=== PATIENT | male | born 1975 | race Caucasian/White ===

== ENCOUNTER 2019-03-03 07:54 | Emergency (ER) | payer OTHER ==
[~2019-03-03] VITALS: Ht 182.9 cm; Wt 117.9 kg
--- OUTSIDE RECORDS SUMMARY | ~2019-03-03 | XMS | Encounter Summary ---
Demographics + + + | Address | [address] | | | [place] [address] | + + + | Home Phone | | + + + | Preferred Language | Unknown | + + + | Marital Status | | + + + | Hoahaoism Affiliation | [id number] | + + + | Race | Unknown | + + + | Ethnic Group | Unknown | + + + Author + + + | Author | [facility] | | | and [place] | + + + | Organization | [facility] | | | and [place] | + + + | Address | Unknown | + + + | Phone | Unavailable | + + + Support + + + + + | Name | Relationship | Address | Phone | + + + + + | Myra Ramirez | BRADY | [address] | | | | | [place] [address] | | + + + + + Care Team Providers + +------+ + | Care Tar Chaser Name | Role | Phone | + +------+ + | No, Physician | PCP | Unavailable | + +------+ + Encounter Details +--------+ + + + + | Date | Type | Department | Care Team | Description | +--------+ + + + + | 02/09/ | Emergency | [facility] | Pierre Brown MD | Midline low back | | 2015 | | MEDICAL CENTER | [address] | pain with sciatica, | | | | EMERGENCY CENTER | [place] [address] | sciatica laterality | | | | [address] | [phone] | unspecified; | | | | [place], [place] | | Paresthesia | | | | [address] | | | | | | [phone] | | | +--------+ + + + + Social History + +-------+ +--------+------+ | Tobacco Use | Types | Packs/Day | Years | Date | | | | | Used | | + +-------+ +--------+------+ | Never Assessed | | | | | + +-------+ +--------+------+ + + + | Sex Assigned at | Date Recorded | | | | + + + | Not on file | | + + + + + + + | Job Start Date | Occupation | Industry | + + + + | Not on file | Not on file | Not on file | + + + + + + + + | Travel History | Travel Start | Travel End | + + + + + + | No recent travel history available. | + + documented as of this encounter Plan of Treatment Not on filedocumented as of this encounter Procedures + +--------+ + + + | Procedure Name | Priori | Date/Time | Associated Diagnosis | Comments | | | ty | | | | + +--------+ + + + | MRI LUMBAR SPINE WO | Routin | 02/09/2015 | | Results for this | | CONTRAST | e | 8:19 PM | | procedure are in the | | | | PST | | results section. | + +--------+ + + + | URINALYSIS, REFLEX | Routin | 02/09/2015 | | Results for this | | MICROSCOPIC AND/OR | e | 8:00 PM | | procedure are in the | | CULTURE | | PST | | results section. | + +--------+ + + + | EXTERNAL LAB: CBC | Routin | 02/09/2015 | | Results for this | | | e | 7:30 PM | | procedure are in the | | | | PST | | results section. | + +--------+ + + + | PTT | Routin | 02/09/2015 | | Results for this | | | e | 7:30 PM | | procedure are in the | | | | PST | | results section. | + +--------+ + + + | PROTIME INR | Routin | 02/09/2015 | | Results for this | | | e | 7:30 PM | | procedure are in the | | | | PST | | results section. | + +--------+ + + + | COMPREHENSIVE | Routin | 02/09/2015 | | Results for this | | METABOLIC PANEL | e | 7:30 PM | | procedure are in the | | | | PST | | results section. | + +--------+ + + + documented in this encounter Results MRI Lumbar Spine wo Contrast (02/09/2015 8:19 PM PST) + + | Specimen | + + | | + + + + + | Impressions | Performed At | + + + | 1. Postsurgical change with right hemilaminectomy at L4-L5. 2. | | | Degenerative disc and endplate changes at L4-L5 and L5-S1 with mild | | | worsening degenerative endplate edema at L4-L5. 3. No significant | | | central canal stenosis. 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 Multiplanar | | | sequences of the lumbar spine was performed according to a standard | | | department protocol without contrast. COMPARISON: 09/05/2014 | | | FINDINGS: The vertebral height and alignment are maintained. | | | There is no focal worrisome marrow signal abnormality. The conus | | | medullaris terminates at the level of L2. L1-L2: Negative. | | | L2-L3: Negative. L3-L4: Negative. L4-L5: Mild disc space | | | narrowing. Mild diffuse disc bulge mild bilateral degenerative facet | | | disease causing mild bilateral neural foraminal narrowing. Note is | | | made of posterior annular tear. Mild degenerative endplate edema on | | | the right side. Mild narrowing right lateral recess. Postsurgical | | | change with right hemilaminectomy. No central canal stenosis. | | | L5-S1: Mild disc space narrowing. Mild central disc protrusion | | | measuring 2.6 mm in thickness along with mild bilateral degenerative | | | facet disease causing mild bilateral neural foraminal narrowing. No | | | central canal stenosis. Moderate posterior annular tears. | | + + + + + | Procedure Note | + + | [facility] Rad Conversion - 10/22/2018 1:21 AM PDT BERNA MONZON LUMBAR SPINE WO | | GXADPYSV13/4/2015 8:19 PM HISTORY:39 years. Male. Rigid vasculopathy TECHNIQUE:Imaging | | was performed on a 1.5 Rubia MRI system. Multiplanar sequences of the lumbar spine was | | performed according to a standard department protocol without contrast. | | COMPARISON:09/05/2014 FINDINGS:The vertebral height and alignment are maintained. There | | is no focal worrisome marrow signal abnormality. The conus medullaris terminates at the | | level of L2. L1-L2: Negative. L2-L3: Negative. L3-L4: Negative. L4-L5: Mild disc space | | narrowing. Mild diffuse disc bulge mild bilateral degenerative facet disease causing | | mild bilateral neural foraminal narrowing. Note is made of posterior annular tear. Mild | | degenerative endplate edema on the right side. Mild narrowing right lateral recess. | | Postsurgical change with right hemilaminectomy. No central canal stenosis. L5-S1: Mild | | disc space narrowing. Mild central disc protrusion measuring 2.6 mm in thickness along | | with mild bilateral degenerative facet disease causing mild bilateral neural foraminal | | narrowing. No central canal stenosis. Moderate posterior annular tears. IMPRESSION: 1. | | Postsurgical change with right hemilaminectomy at L4-L5.2. Degenerative disc and | | endplate changes at L4-L5 and L5-S1 with mild worsening degenerative endplate edema at | | L4-L5.3. No significant central canal stenosis. | |The conus medullaris terminates at the level of L2. | | | |L1-L2: Negative. | | | |L2-L3: Negative. | | | |L3-L4: Negative. | | | |L4-L5: Mild disc space narrowing. Mild diffuse disc bulge mild bilateral degenerative facet disease causing mild bilateral neural foraminal narrowing. Note is made of posterior annula r tear. Mild degenerative endplate edema on the right side. Mild | |narrowing right lateral recess. Postsurgical change with right hemilaminectomy. No central canal stenosis. | | | |L5-S1: Mild disc space narrowing. Mild central disc protrusion measuring 2.6 mm in thicknes s along with mild bilateral degenerative facet disease causing mild bilateral neural foramin al narrowing. No central canal stenosis. Moderate posterior annular | |tears. | | | |IMPRESSION: | |1. Postsurgical change with right hemilaminectomy at L4-L5. | |2. Degenerative disc and endplate changes at L4-L5 and L5-S1 with mild worsening degenerat ángela endplate edema at L4-L5. | |3. No significant central canal stenosis. | | | | | + + Urinalysis, Reflex Microscopic and/or Culture (02/09/2015 8:00 PM PST) + + + + + + | Component | Value | Ref Range | Performed | Pathologist | | | | | At | Signature | + + + + + + | Color | YELLOWComment: Testing | | EXTERNAL | | | | performed at [facility] | | LAB | | | | [address];[place] | | | | | | [address] | | | | + + + + + + | Clarity | CLEARComment: Testing | | EXTERNAL | | | | performed at [facility];[address] | | LAB | | | [address];[place] | | | | | | [address] | | | | + + + + + + | Specific | 1.018Comment: Testing | 1.002 - 1.030 | EXTERNAL | | | [place] | performed at [facility];[address] | | LAB | | | [address];[place] | | | | | | [address] | | | | + + + + + + | Leukocyte | NEGATIVEComment: Testing | | EXTERNAL | | | Esterase, | performed at [facility];[address] | | LAB | | | Urine | [address];[place] | | | | | | [address] | | | | + + + + + + | Nitrite, | NEGATIVEComment: Testing | | EXTERNAL | | | Urine | performed at [facility];[address] | | LAB | | | [address];[place] | | | | | | [address] | | | | + + + + + + | Urobilinoge | NORMALComment: Testing | mg/dL | EXTERNAL | | | n, Urine | performed at [facility];[address] | | LAB | | | [address];[place] | | | | | | [address] | | | | + + + + + + | Protein, | NEGATIVEComment: Testing | mg/dL | EXTERNAL | | | Urine | performed at [facility];[address] | | LAB | | | [address];[place] | | | | | | [address] | | | | + + + + + + | pH, Urine | 5.0Comment: Testing | 5.0 - 8.0 | EXTERNAL | | | | performed at [facility];[address] | | LAB | | | [address];[place] | | | | | | [address] | | | | + + + + + + | Blood, | NEGATIVEComment: Testing | | EXTERNAL | | | Urine | performed at [facility];[address] | | LAB | | | [address];[place] | | | | | | [address] | | | | + + + + + + | Ketones | NEGATIVEComment: Testing | mg/dL | EXTERNAL | | | | performed at [facility];[address] | | LAB | | | [address];[place] | | | | | | [address] | | | | + + + + + + | Bilirubin, | NEGATIVEComment: Testing | | EXTERNAL | | | Urine | performed at [facility];[address] | | LAB | | | [address];[place] | | | | | | [address] | | | | + + + + + + | Glucose, | NEGATIVEComment: Testing | mg/dL | EXTERNAL | | | Urine | performed at [facility];[address] | | LAB | | | | [address];[place], [place] | | | | | | [address] | | | | + + + + + + + + | Specimen | + + | | + + + +---------+ + + | Performing | Address | City/State/Zipcode | Phone Number | | Organization | | | | + +---------+ + + | EXTERNAL LAB | | | | + +---------+ + + PTT (02/09/2015 7:30 PM PST) + + + + + + | Component | Value | Ref Range | Performed | Pathologist | | | | | At | Signature | + + + + + + | aPTT, | 29Comment: Testing | 23 - 32 seconds | EXTERNAL | | | Patient | performed at [facility];[address] | | LAB | | | | [address];[place] | | | | | | [address] | | | | + + + + + + + + | Specimen | + + | Blood specimen | | (specimen) | + + + +---------+ + + | Performing | Address | City/State/Zipcode | Phone Number | | Organization | | | | + +---------+ + + | EXTERNAL LAB | | | | + +---------+ + + Protime INR (02/09/2015 7:30 PM PST) + + + + + + | Component | Value | Ref Range | Performed | Pathologist | | | | | At | Signature | + + + + + + | INR | 0.9Comment: REFERENCE | | EXTERNAL | | | | RANGE:0.9 - 1.2 | | LAB | | | | NON-ANTICOAGULATED2.0 | | | | | | - 3.0 ALL OTHER | | | | | | THERAPEUTIC | | | | | | INDICATIONS2.5 - 3.5 | | | | | | MECHANICAL HEART VALVES, | | | | | | RECURRENT OR SYSTEMIC | | | | | | EMBOLISMTesting | | | | | | performed at [facility] | | | | | | [facility];[place], [place] | | | | | | [address] | | | | + + + + + + + + | Specimen | + + | Blood specimen | | (specimen) | + + + +---------+ + + | Performing | Address | City/State/Zipcode | Phone Number | | Organization | | | | + +---------+ + + | EXTERNAL LAB | | | | + +---------+ + + External Lab: CBC (02/09/2015 7:30 PM PST) + + + + + + | Component | Value | Ref Range | Performed | Pathologist | | | | | At | Signature | + + + + + + | WBC | 9.89Comment: Testing | 3.80 - 11.00 | EXTERNAL | | | | performed at [facility];[address] | K/uL | LAB | | | | [address];[place] | | | | | | [address] | | | | + + + + + + | RED CELL | 4.86Comment: Testing | 4.20 - 5.70 | EXTERNAL | | | COUNT | performed at [facility];[address] | M/uL | LAB | | | | [address];[place] | | | | | | [address] | | | | + + + + + + | Hgb | 13.5Comment: Testing | 13.2 - 17.0 | EXTERNAL | | | | performed at [facility];[address] | g/dL | LAB | | | | [address];[place] | | | | | | [address] | | | | + + + + + + | Hematocrit, | 42.2Comment: Testing | 39.0 - 50.0 % | EXTERNAL | | | POC | performed at [facility];[address] | | LAB | | | [address];[place] | | | | | | [address] | | | | + + + + + + | MCV | 86.8Comment: Testing | 80.0 - 100.0 fl | EXTERNAL | | | | performed at [facility];[address] | | LAB | | | | [address];[place] | | | | | | [address] | | | | + + + + + + | MCH | 27.8Comment: Testing | 27.0 - 34.0 pg | EXTERNAL | | | | performed at [facility];[address] | | LAB | | | [address];[place] | | | | | | [address] | | | | + + + + + + | MCHC | 32.1Comment: Testing | 32.0 - 35.5 | EXTERNAL | | | | performed at [facility];[address] | g/dL | LAB | | | | [address];[place] | | | | | | [address] | | | | + + + + + + | RDW-CV | 41.1Comment: Testing | 37 - 53 fl | EXTERNAL | | | | performed at [facility];[address] | | LAB | | | [address];[place] | | | | | | [address] | | | | + + + + + + | Platelet | 288Comment: Testing | 150 - 400 K/uL | EXTERNAL | | | Count | performed at [facility];[address] | | LAB | | | Plasma | [address];[place] | | | | | | [address] | | | | + + + + + + | MPV | 7.1Comment: Testing | fl | EXTERNAL | | | | performed at [facility];[address] | | LAB | | | [address];[place] | | | | | | [address] | | | | + + + + + + | Differentia | AUTOMATEDComment: | | EXTERNAL | | | l Type | Testing performed at | | LAB | | | | [facility];[address];[place] [address] | | | | + + + + + + | % Segmented | 63.24Comment: Testing | % | EXTERNAL | | | | performed at [facility];[address] | | LAB | | | Neutrophils | [address];[place] | | | | | | [address] | | | | + + + + + + | % | 24.93Comment: Testing | % | EXTERNAL | | | Lymphocytes | performed at [facility];[address] | | LAB | | | [address];[place] | | | | | | [address] | | | | + + + + + + | % Monocytes | 7.14Comment: Testing | % | EXTERNAL | | | | performed at [facility];[address] | | LAB | | | [address];[place] | | | | | | [address] | | | | + + + + + + | % | 3.79Comment: Testing | % | EXTERNAL | | | Eosinophils | performed at [facility];[address] | | LAB | | | [address];[place] | | | | | | [address] | | | | + + + + + + | % Basophils | 0.90Comment: Testing | % | EXTERNAL | | | | performed at [facility];[address] | | LAB | | | [address];[place] | | | | | | [address] | | | | + + + + + + | Absolute | 6.25Comment: Testing | 1.90 - 7.40 | EXTERNAL | | | Segmented | performed at [facility];[address] | K/uL | LAB | | | Neutrophils | [address];[place] | | | | | | [address] | | | | + + + + + + | Absolute | 2.47Comment: Testing | 1.00 - 3.90 | EXTERNAL | | | Lymphocytes | performed at [facility];[address] | K/uL | LAB | | | | [address];[place] | | | | | | [address] | | | | + + + + + + | Absolute | 0.71Comment: Testing | 0.00 - 0.80 | EXTERNAL | | | Monocytes | performed at [facility];[address] | K/uL | LAB | | | | [address];[place] | | | | | | [address] | | | | + + + + + + | Absolute | 0.38Comment: Testing | 0.00 - 0.50 | EXTERNAL | | | Eosinophils | performed at [facility];[address] | K/uL | LAB | | | | [address];[place] | | | | | | [address] | | | | + + + + + + | Absolute | 0.09Comment: Testing | 0.00 - 0.10 | EXTERNAL | | | Basophils | performed at [facility];[address] | K/uL | LAB | | | | [address];[place] | | | | | | [address] | | | | + + + + + + + + | Specimen | + + | Blood specimen | | (specimen) | + + + +---------+ + + | Performing | Address | City/State/Zipcode | Phone Number | | Organization | | | | + +---------+ + + | EXTERNAL LAB | | | | + +---------+ + + Comprehensive Metabolic Panel (02/09/2015 7:30 PM PST) + + + + + + | Component | Value | Ref Range | Performed | Pathologist | | | | | At | Signature | + + + + + + | Na | 140Comment: Testing | 135 - 143 | EXTERNAL | | | | performed at [facility];[address] | mmol/L | LAB | | | | [address];[place] | | | | | | [address] | | | | + + + + + + | K | 3.9Comment: Testing | 3.5 - 4.9 | EXTERNAL | | | | performed at [facility];[address] | mmol/L | LAB | | | | [address];[place] | | | | | | [address] | | | | + + + + + + | Cl | 107Comment: Testing | 99 - 109 mmol/L | EXTERNAL | | | | performed at [facility];[address] | | LAB | | | | [address];[place] | | | | | | [address] | | | | + + + + + + | CO2 | 29Comment: Testing | 23 - 32 mmol/L | EXTERNAL | | | | performed at [facility];[address] | | LAB | | | | [address];[place] | | | | | | [address] | | | | + + + + + + | Anion Gap | 7Comment: Testing | 5 - 20 mmol/L | EXTERNAL | | | | performed at [facility];[address] | | LAB | | | [address];[place] | | | | | | [address] | | | | + + + + + + | Glucose, | 108 (H)Comment: Testing | 65 - 99 mg/dL | EXTERNAL | | | Fasting | performed at [facility];[address] | | LAB | | | [address];[place] | | | | | | [address] | | | | + + + + + + | BUN | 10Comment: Testing | 8 - 25 mg/dL | EXTERNAL | | | | performed at [facility];[address] | | LAB | | | [address];[place] | | | | | | [address] | | | | + + + + + + | Creatinine | 0.79Comment: Testing | 0.70 - 1.30 | EXTERNAL | | | | performed at [facility];[address] | mg/dL | LAB | | | | [address];[place] | | | | | | [address] | | | | + + + + + + | BUN/Creatin | 13Comment: Testing | | EXTERNAL | | | ine Ratio | performed at [facility];[address] | | LAB | | | [address];[place] | | | | | | [address] | | | | + + + + + + | Calcium | 8.1 (L)Comment: Testing | 8.5 - 10.5 | EXTERNAL | | | | performed at [facility];[address] | mg/dL | LAB | | | | [address];[place] | | | | | | [address] | | | | + + + + + + | Protein, | 6.9Comment: Testing | 6.3 - 8.2 g/dL | EXTERNAL | | | Total | performed at [facility];[address] | | LAB | | | | [address];[place] | | | | | | [address] | | | | + + + + + + | Albumin | 3.6Comment: Testing | 3.6 - 5.0 g/dL | EXTERNAL | | | | performed at [facility];[address] | | LAB | | | | [address];[place] | | | | | | [address] | | | | + + + + + + | Globulin | 3.3Comment: Testing | 1.3 - 4.9 g/dL | EXTERNAL | | | | performed at [facility];[address] | | LAB | | | | [address];[place] | | | | | | [address] | | | | + + + + + + | A/G Ratio | 1.1Comment: Testing | 1.0 - 2.4 | EXTERNAL | | | | performed at [facility];[address] | | LAB | | | | [address];[place] | | | | | | [address] | | | | + + + + + + | Bilirubin | 0.2Comment: Testing | 0.1 - 1.5 mg/dL | EXTERNAL | | | Total | performed at [facility];[address] | | LAB | | | | [address];[place] | | | | | | [address] | | | | + + + + + + | ALP, | 99Comment: Testing | 35 - 115 U/L | EXTERNAL | | | External | performed at [facility];[address] | | LAB | | | [address] | | | | | | [address] | | | | + + + + + + | AST | 15Comment: Testing | 10 - 45 U/L | EXTERNAL | | | | performed at [facility];[address] | | LAB | | | | [address] | | | | | | [address] | | | | + + + + + + | ALT | 46Comment: Testing | 10 - 65 U/L | EXTERNAL | | | | performed at [facility];[address] | | LAB | | | | [address] [facility];[place], [place] | | | | | | [address] | | | | + + + + + + | Estimated | >60Comment: GFR <60: | mL/min/1.73m2 | EXTERNAL | | | GFR | CHRONIC KIDNEY DISEASE, | | LAB | | | | IF FOUND OVER A 3 MONTH | | | | | | PERIOD.GFR <15: KIDNEY | | | | | | FAILURE.FOR | | | | | | AMERICANS, MULTIPLY THE | | | | | | CALCULATED GFR BY | | | | | | 1.210.Testing performed | | | | | | at [facility];[address];[place] [address] | | | | + + + + + + + + | Specimen | + + | Blood specimen | | (specimen) | + + + +---------+ + + | Performing | Address | City/State/Zipcode | Phone Number | | Organization | | | | + +---------+ + + | EXTERNAL LAB | | | | + +---------+ + + documented in this encounter Visit Diagnoses + + | Diagnosis | + + | Midline low back pain with sciatica, sciatica laterality unspecified | + + | Paresthesia Disturbance of skin sensation | + + documented in this encounter"
--- OUTSIDE RECORDS SUMMARY | ~2019-03-03 | XMS | Encounter Summary ---
Demographics + + + | Address | [address] | | | [place] [address] | + + + | Home Phone | | + + + | Preferred Language | Unknown | + + + | Marital Status | | + + + | [employer] Affiliation | 1041 | + + + [...] | | | | | [place] [address] | | + + + + + Care Team Providers + +------+ + | Care Glost Placer Name | Role | Phone | + +------+ + | No, Physician | PCP | Unavailable | + +------+ + Encounter Details +--------+ + + + + | Date | Type | Department | Care Team | Description | +--------+ + + + + | 02/09/ | Emergency | [facility] | Pierre Brown MD | Midline low back | | 2015 | | MEDICAL CENTER | [address] | pain with sciatica, | | | | EMERGENCY CENTER | [place] [address] | sciatica laterality | | | | [address] | [phone] | unspecified; | | | | [place], [place] | | Paresthesia | | | | [address] | | | | | | [phone] | | | +--------+ + + + [...] BERNA MONZON LUMBAR SPINE WO | | TLOCYCDX12/4/2015 8:19 PM HISTORY:39 years. Male. Rigid vasculopathy [...] EXTERNAL | | | | performed at [facility] | | LAB | | | | [address];[place] | | | | | | [address] | | | | + + + + + + | Clarity | CLEARComment: Testing | | EXTERNAL | | | | performed at [facility];[address] | | LAB | | | [address];[place] | | | | | | [address] | | | | + + + + + + | Specific | 1.018Comment: Testing | 1.002 - 1.030 | EXTERNAL | | | [place] | performed at [facility];[address] | | LAB | | | [address];[place] | | | | | | [address] | | | | + + + + + + | Leukocyte | NEGATIVEComment: Testing | | EXTERNAL | | | Esterase, | performed at [facility];[address] | | LAB | | | Urine | [address];[place] | | | | | | [address] | | | | + + + + + + | Nitrite, | NEGATIVEComment: Testing | | EXTERNAL | | | Urine | performed at [facility];[address] | | LAB | | | [address];[place] | | | | | | [address] | | | | + + + + + + | Urobilinoge | NORMALComment: Testing | mg/dL | EXTERNAL | | | n, Urine | performed at [facility];[address] | | LAB | | | [address];[place] | | | | | | [address] | | | | + + + + + + | Protein, | NEGATIVEComment: Testing | mg/dL | EXTERNAL | | | Urine | performed at [facility];[address] | | LAB | | | [address];[place] | | | | | | [address] | | | | + + + + + + | pH, Urine | 5.0Comment: Testing | 5.0 - 8.0 | EXTERNAL | | | | performed at [facility];[address] | | LAB | | | [address];[place] | | | | | | [address] | | | | + + + + + + | Blood, | NEGATIVEComment: Testing | | EXTERNAL | | | Urine | performed at [facility];[address] | | LAB | | | [address];[place] | | | | | | [address] | | | | + + + + + + | Ketones | NEGATIVEComment: Testing | mg/dL | EXTERNAL | | | | performed at [facility];[address] | | LAB | | | [address];[place] | | | | | | [address] | | | | + + + + + + | Bilirubin, | NEGATIVEComment: Testing | | EXTERNAL | | | Urine | performed at [facility];[address] | | LAB | | | [address];[place] | | | | | | [address] | | | | + + + + + + | Glucose, | NEGATIVEComment: Testing | mg/dL | EXTERNAL | | | Urine | performed at [facility];[address] | | LAB | | | | [address];[place], [place] | | | | | | [address] | | | | + + + [...] | | | Patient | performed at [facility];[address] | | LAB | | | | [address];[place] | | | | | | [address] | | | | + + + [...] | | | | | performed at [facility] | | | | | | [facility];[place], [place] | | | | | | [address] | | | | + + + [...] EXTERNAL | | | | performed at [facility];[address] | K/uL | LAB | | | | [address];[place] | | | | | | [address] | | | | + + + + + + | RED CELL | 4.86Comment: Testing | 4.20 - 5.70 | EXTERNAL | | | COUNT | performed at [facility];[address] | M/uL | LAB | | | | [address];[place] | | | | | | [address] | | | | + + + + + + | Hgb | 13.5Comment: Testing | 13.2 - 17.0 | EXTERNAL | | | | performed at [facility];888 | g/dL | LAB | | | | [address];[place] | | | | | | [address] | | | | + + + + + + | Hematocrit, | 42.2Comment: Testing | 39.0 - 50.0 % | EXTERNAL | | | POC | performed at [facility];[address] | | LAB | | | [address];[place] | | | | | | [address] | | | | + + + + + + | MCV | 86.8Comment: Testing | 80.0 - 100.0 fl | EXTERNAL | | | | performed at [facility];[address] | | LAB | | | | [address];[place] | | | | | | [address] | | | | + + + + + + | MCH | 27.8Comment: Testing | 27.0 - 34.0 pg | EXTERNAL | | | | performed at [facility];[address] | | LAB | | | [address];[place] | | | | | | [address] | | | | + + + + + + | MCHC | 32.1Comment: Testing | 32.0 - 35.5 | EXTERNAL | | | | performed at [facility];888 | g/dL | LAB | | | | [address];[place] | | | | | | [address] | | | | + + + + + + | RDW-CV | 41.1Comment: Testing | 37 - 53 fl | EXTERNAL | | | | performed at [facility];[address] | | LAB | | | [address];[place] | | | | | | [address] | | | | + + + + + + | Platelet | 288Comment: Testing | 150 - 400 K/uL | EXTERNAL | | | Count | performed at [facility];[address] | | LAB | | | Plasma | [address];[place] | | | | | | [address] | | | | + + + + + + | MPV | 7.1Comment: Testing | fl | EXTERNAL | | | | performed at [facility];[address] | | LAB | | | | [address];[place] | | | | | | [address] | | | | + + + + + + | Differentia | AUTOMATEDComment: | | EXTERNAL | | | l Type | Testing performed at | | LAB | | | | [facility];[address];[place] [address] | | | | + + + + + + | % Segmented | 63.24Comment: Testing | % | EXTERNAL | | | | performed at [facility];[address] | | LAB | | | Neutrophils | [address];[place] | | | | | | [address] | | | | + + + + + + | % | 24.93Comment: Testing | % | EXTERNAL | | | Lymphocytes | performed at [facility];[address] | | LAB | | | | [address];[place] | | | | | | [address] | | | | + + + + + + | % Monocytes | 7.14Comment: Testing | % | EXTERNAL | | | | performed at [facility];[address] | | LAB | | | | [address];[place] | | | | | | [address] | | | | + + + + + + | % | 3.79Comment: Testing | % | EXTERNAL | | | Eosinophils | performed at [facility];[address] | | LAB | | | [address];[place] | | | | | | [address] | | | | + + + + + + | % Basophils | 0.90Comment: Testing | % | EXTERNAL | | | | performed at [facility];[address] | | LAB | | | | [address];[place] | | | | | | [address] | | | | + + + + + + | Absolute | 6.25Comment: Testing | 1.90 - 7.40 | EXTERNAL | | | Segmented | performed at [facility];[address] | K/uL | LAB | | | Neutrophils | [address];[place] | | | | | | [address] | | | | + + + + + + | Absolute | 2.47Comment: Testing | 1.00 - 3.90 | EXTERNAL | | | Lymphocytes | performed at [facility];[address] | K/uL | LAB | | | | [address];[place] | | | | | | [address] | | | | + + + + + + | Absolute | 0.71Comment: Testing | 0.00 - 0.80 | EXTERNAL | | | Monocytes | performed at [facility];[address] | K/uL | LAB | | | | [address];[place] | | | | | | [address] | | | | + + + + + + | Absolute | 0.38Comment: Testing | 0.00 - 0.50 | EXTERNAL | | | Eosinophils | performed at [facility];[address] | K/uL | LAB | | | | [address];[place] | | | | | | [address] | | | | + + + + + + | Absolute | 0.09Comment: Testing | 0.00 - 0.10 | EXTERNAL | | | Basophils | performed at [facility];[address] | K/uL | LAB | | | | [address];[place] | | | | | | [address] | | | | + + + [...] EXTERNAL | | | | performed at [facility];[address] | mmol/L | LAB | | | | [address];[place] | | | | | | [address] | | | | + + + + + + | K | 3.9Comment: Testing | 3.5 - 4.9 | EXTERNAL | | | | performed at [facility];[address] | mmol/L | LAB | | | | [address];[place] | | | | | | [address] | | | | + + + + + + | Cl | 107Comment: Testing | 99 - 109 mmol/L | EXTERNAL | | | | performed at [facility];[address] | | LAB | | | | [address];[place] | | | | | | [address] | | | | + + + + + + | CO2 | 29Comment: Testing | 23 - 32 mmol/L | EXTERNAL | | | | performed at [facility];[address] | | LAB | | | | [address];[place] | | | | | | [address] | | | | + + + + + + | Anion Gap | 7Comment: Testing | 5 - 20 mmol/L | EXTERNAL | | | | performed at [facility];[address] | | LAB | | | | [address];[place] | | | | | | [address] | | | | + + + + + + | Glucose, | 108 (H)Comment: Testing | 65 - 99 mg/dL | EXTERNAL | | | Fasting | performed at [facility];[address] | | LAB | | | | [address];[place] | | | | | | [address] | | | | + + + + + + | BUN | 10Comment: Testing | 8 - 25 mg/dL | EXTERNAL | | | | performed at [facility];[address] | | LAB | | | | [address];[place] | | | | | | [address] | | | | + + + + + + | Creatinine | 0.79Comment: Testing | 0.70 - 1.30 | EXTERNAL | | | | performed at [facility];[address] | mg/dL | LAB | | | | [address];[place] | | | | | | [address] | | | | + + + + + + | BUN/Creatin | 13Comment: Testing | | EXTERNAL | | | ine Ratio | performed at [facility];[address] | | LAB | | | | [address];[place] | | | | | | [address] | | | | + + + + + + | Calcium | 8.1 (L)Comment: Testing | 8.5 - 10.5 | EXTERNAL | | | | performed at [facility];[address] | mg/dL | LAB | | | | [address];[place] | | | | | | [address] | | | | + + + + + + | Protein, | 6.9Comment: Testing | 6.3 - 8.2 g/dL | EXTERNAL | | | Total | performed at [facility];[address] | | LAB | | | | [address];[place] | | | | | | [address] | | | | + + + + + + | Albumin | 3.6Comment: Testing | 3.6 - 5.0 g/dL | EXTERNAL | | | | performed at [facility];[address] | | LAB | | | | [address];[place] | | | | | | [address] | | | | + + + + + + | Globulin | 3.3Comment: Testing | 1.3 - 4.9 g/dL | EXTERNAL | | | | performed at [facility];[address] | | LAB | | | | [address];[place] | | | | | | [address] | | | | + + + + + + | A/G Ratio | 1.1Comment: Testing | 1.0 - 2.4 | EXTERNAL | | | | performed at [facility];[address] | | LAB | | | | [address];[place] | | | | | | [address] | | | | + + + + + + | Bilirubin | 0.2Comment: Testing | 0.1 - 1.5 mg/dL | EXTERNAL | | | Total | performed at [facility];[address] | | LAB | | | | [address];[place] | | | | | | [address] | | | | + + + + + + | ALP, | 99Comment: Testing | 35 - 115 U/L | EXTERNAL | | | External | performed at [facility];[address] | | LAB | | | | [address];[place] | | | | | | [address] | | | | + + + + + + | AST | 15Comment: Testing | 10 - 45 U/L | EXTERNAL | | | | performed at [facility];[address] | | LAB | | | | [address];[place] | | | | | | [address] | | | | + + + + + + | ALT | 46Comment: Testing | 10 - 65 U/L | EXTERNAL | | | | performed at [facility];[address] | | LAB | | | | [address] [facility];[place], [place] | | | | | | [address] | | | | + + + [...] | | | | | | at [facility];[address];[place] [address] | | | | + + + [...]
--- OUTSIDE RECORDS SUMMARY | ~2019-03-03 | XMS | Encounter Summary ---
Demographics + + + | Address | [address] | | | [place] [address] | + + + | Home Phone | | + + + | Preferred Language | Unknown | + + + | Marital Status | | + + + | Synagogue Affiliation | 1041 | + + + | Race | Unknown | + + + | Ethnic Group | Unknown | + + + Author + + + | Author | [facility] | | | and [place] | + + + | Organization | [facility] | | | and [...] | | | | | [place] [address] | | + + + + + Care Team Providers + +------+ + | Care Ammunition Assembly Laborer Name | Role | Phone | + +------+ + PCP | Unavailable | + +------+ + Encounter Details +--------+ + + + + | Date | Type | Department | Care Team | Description | +--------+ + + + + | 11/22/ | Emergency | [facility] | Portillo Hoyt, | Acute pharyngitis | | 2000 | | MEDICAL CENTER | [address] | | | | | EM[facility]Y [facility] | [facility], | | | | | [address] [facility] | [place] [address] | | | | | [place] | [phone] | | | | | [address] | | | | | | [phone] | | | +--------+ + + + [...] Not on filedocumented as of this encounter Visit Diagnoses + + | Diagnosis | + + | Acute pharyngitis | + + documented in this encounter"
--- OUTSIDE RECORDS SUMMARY | ~2019-03-03 | XMS | Encounter Summary ---
Demographics + + + | Address | [address] [address] | | | [place] [address] | + + + | Home Phone | | + + + | Preferred Language | Unknown | + + + | Marital Status | Single | + + + | Yazidism Affiliation | NRP | + + + | Race | White | + + + | Ethnic Group | Not or | + + + Author + + + | Author | [facility] | + + + | Organization | [facility] | + + + | Address | Unknown | + + + | Phone | Unavailable | + + + Support + + +---------+ + | Name | Relationship | Address | Phone | + + +---------+ + | Myra Ramirez | ECON | Unknown | | + + +---------+ + Care Team Providers + +------+ + | Care Insurance Verifier Name | Role | Phone | + +------+ + | Jovanny Che PA-C | PCP | | + +------+ + Reason for Visit + + + | Reason | Comments | + + + | Numbness | Spine Issue | + + + AUTH/CERT +--------+--------+ + + + + | Status | Reason | Specialty | Diagnoses / | Referred By | Referred To | | | | | Procedures | Contact | Contact | +--------+--------+ + + + + | Closed | | | | | | +--------+--------+ + + + + Encounter Details +--------+ + + + + | Date | Type | Department | Care Team | Description | +--------+ + + + + | 01/10/ | Emergency | [facility] Emergency | Ced Barragan, | | | 2014 - | | Department [address] | [address] | | | | | [facility] | [facility] | | | 01/11/ | | [facility] | [place], [place] | | | 2014 | | [place], [place] | [address] | | | | | [address] | [phone] | | | | | [phone] | | | | | | | Malvin Strong | | | | | | MD Maureen [address] | | | | | | [facility] | | | | | | [place], [place] | | | | | | [address] | | | | | | [phone] | | | | | | | | +--------+ + + + + Social History + +-------+ +--------+------+ | Tobacco Use | Types | Packs/Day | Years | Date | | | | | Used | | + +-------+ +--------+------+ | Never Smoker | | | | | + +-------+ +--------+------+ + + +---------+ + | Alcohol Use | Drinks/Week | oz/Week | Comments | + + +---------+ + | No | | | | + + +---------+ + + + + | Sex Assigned at [...] + + documented as of this encounter Last Filed Vital Signs + + + + + | Vital Sign | Reading | Time Taken | Comments | + + + + + | Blood Pressure | 117/76 | 01/11/2015 9:53 AM | | | | | PST | | + + + + + | Pulse | 93 | 01/11/2015 1:26 AM | | | | | PST | | + + + + + | Temperature | 36.5 C (97.7 F) | 01/11/2015 9:53 AM | | | | | PST | | + + + + + | Respiratory Rate | 18 | 01/11/2015 1:26 AM | | | | | PST | | + + + + + | Oxygen Saturation | 96% | 01/11/2015 9:53 AM | | | | | PST | | + + + + + | Inhaled Oxygen | - | - | | | Concentration | | | | + + + + + | Weight | 140.2 kg (309 lb) | 01/10/2015 11:38 PM | | | | | PST | | + + + + + | Height | - | - | | + + + + + | Body Mass Index | - | - | | + + + + + documented in this encounter Discharge Instructions Instructions Valeri Singh MD - 01/11/2015Formatting of this note might be different f rom the original. Thank you for coming today. Your imaging was reassuring. The orthopedic team does not feel that you need an emergent surgery. They do want you to follow up closely with them in clini c within the week. You should come back for any new or worsening symptoms. Back Pain: Care Instructions Your Care Instructions Back pain has many possible causes. It is often related to problems with muscles and ligame nts of the back. It may also be related to problems with the nerves, discs, or bones of the back. Moving, lifting, standing, sitting, or sleeping in an awkward way can strain the back. Sometimes you don't notice the injury until later. Arthritis is another common cause of sg k pain. Although it may hurt a lot, back pain usually improves on its own within several weeks. Mos t people recover in 12 weeks or less. Using good home treatment and being careful not to str ess your back can help you feel better sooner. Follow-up care is a cardenas part of your treatment and safety. Be sure to make and go to all ap pointments, and call your doctor if you are having problems. It s also a good idea to know your test results and keep a list of the medicines you take. How can you care for yourself at home? Sit or lie in positions that are most comfortable and reduce your pain. Try one of these positions when you lie down: Lie on your back with your knees bent and supported by large pillows. Lie on the floor with your legs on the seat of a sofa or chair. Lie on your side with your knees and hips bent and a pillow between your legs. Lie on your stomach if it does not make pain worse. Do not sit up in bed, and avoid soft couches and twisted positions. Bed rest can help re lieve pain at first, but it delays healing. Avoid bed rest after the first day of back pain. Change positions every 30 minutes. If you must sit for long periods of time, take breaks from sitting. Get up and walk around, or lie in a comfortable position. Try using a heating pad on a low or medium setting for 15 to 20 minutes every 2 or 3 shruthi rs. Try a warm shower in place of one session with the heating pad. You can also try an ice pack for 10 to 15 minutes every 2 to 3 hours. Put a thin cloth b etween the ice pack and your skin. Take pain medicines exactly as directed. If the doctor gave you a prescription medicine for pain, take it as prescribed. If you are not taking a prescription pain medicine, ask your doctor if you can take an o sjx-fhj-wghzwue medicine. Take short walks several times a day. You can start with 5 to 10 minutes, 3 or 4 times a day, and work up to longer walks. Walk on level surfaces and avoid hills and stairs until y our back is better. Return to work and other activities as soon as you can. Continued rest without activity is usually not good for your back. To prevent future back pain, do exercises to stretch and strengthen your back and stomac h. Learn how to use good posture, safe lifting techniques, and proper body mechanics. When should you call for help? Call your doctor now or seek immediate medical care if: You have new or worsening numbness in your legs. You have new or worsening weakness in your legs. (This could make it hard to stand up.) You lose control of your bladder or bowels. Watch closely for changes in your health, and be sure to contact your doctor if: Your pain gets worse. You are not getting better after 2 weeks. Where can you learn more? To learn more about "Back Pain: Care Instructions", log into your [employer] account at [email or web address]. You can enter I594 in the [employer]" search box. Not on [employer]? Review the [employer] section of your After Visit Summary for directions on ho w to sign up. [id number] [employer]. Care instructions adapted under license by [facility]. This care instruction is for use with your licensed healthcar e professional. If you have questions about a medical condition or this instruction, always ask your healthcare professional. [employer] disclaims any warranty or liabili ty for your use of this information. Content Version: 10.6.845130; Current as of: July 28, 2014 documented in this encounter Medications at Time of Discharge + + + +---------+--------+ + | Medication | Sig | Dispensed | Refills | Start | End Date | | | | | | Date | | + + + +---------+--------+ + | clonazePAM 2 mg | Take 4 mg by mouth | | 0 | | | | oral tablet | once daily at | | | | | | | bedtime as needed. | | | | | + + + +---------+--------+ + | gabapentin 800 mg | Take 800 mg by mouth | | 0 | | | | oral tablet | two times daily. | | | | | + + + +---------+--------+ + | hydrALAZINE 25 mg | Take 25 mg by mouth | | 0 | | | | oral tablet | two times daily. | | | | | + + + +---------+--------+ + | HYDROmorphone 2 mg | Take 2 mg by mouth | | 0 | | | | oral tablet | every four hours as | | | | | | | needed for severe | | | | | | | pain. | | | | | + + + +---------+--------+ + | LOSARTAN POTASSIUM | Take by mouth. | | 0 | | | | (LOSARTAN ORAL) | | | | | | + + + +---------+--------+ + | mirtazapine 30 mg | Take 60 mg by mouth | | 0 | | | | oral tablet | once daily in the | | | | | | | evening. | | | | | + + + +---------+--------+ + documented as of this encounter Plan of Treatment Not on filedocumented as of this encounter Procedures + +--------+ + + + | Procedure Name | Priori | Date/Time | Associated Diagnosis | Comments | | | ty | | | | + +--------+ + + + | X-RAY SPINE | Urgent | 01/11/2015 | | Results for this | | LUMBOSACRAL 3 VIEWS | | 4:48 AM | | procedure are in the | | | | PST | | results section. | + +--------+ + + + | X-RAY CHEST 2 VIEW | Urgent | 01/11/2015 | | Results for this | | | | 4:48 AM | | procedure are in the | | | | PST | | results section. | + +--------+ + + + | CULTURE, BLOOD BACTI | Urgent | 01/11/2015 | | Results for this | | & YEAST [facility] | | 3:22 AM | | procedure are in the | | | | PST | | results section. | + +--------+ + + + | CULTURE, BLOOD BACTI | Urgent | 01/11/2015 | | Results for this | | & YEAST [facility] | | 3:22 AM | | procedure are in the | | | | PST | | results section. | + +--------+ + + + | UA, DIPSTICK ONLY | Urgent | 01/11/2015 | | Results for this | | | | 3:22 AM | | procedure are in the | | | | PST | | results section. | + +--------+ + + + | URINE, MICROSCOPIC | Urgent | 01/11/2015 | | Results for this | | EXAM | | 3:22 AM | | procedure are in the | | | | PST | | results section. | + +--------+ + + + | URINE SCREEN FOR | Urgent | 01/11/2015 | | Results for this | | CULTURE | | 3:22 AM | | procedure are in the | | | | PST | | results section. | + +--------+ + + + | CULTURE, BLOOD BACTI | Urgent | 01/11/2015 | | Results for this | | & YEAST | | 3:22 AM | | procedure are in the | | | | PST | | results section. | + +--------+ + + + | CULTURE, BLOOD BACTI | Urgent | 01/11/2015 | | Results for this | | & YEAST | | 3:22 AM | | procedure are in the | | | | PST | | results section. | + +--------+ + + + | CBC AND AUTO DIFF | Urgent | 01/11/2015 | | Results for this | | | | 1:58 AM | | procedure are in the | | | | PST | | results section. | + +--------+ + + + | CBC, WITH | Urgent | 01/11/2015 | | Results for this | | DIFFERENTIAL | | 1:58 AM | | procedure are in the | | | | PST | | results section. | + +--------+ + + + | COMPLETE METABOLIC | Urgent | 01/11/2015 | | Results for this | | SET | | 1:58 AM | | procedure are in the | | (NA,K,CL,CO2,BUN,CRE | | PST | | results section. | | AT,GLUC,CA,AST,ALT,B | | | | | | LATASHA TOTAL,ALK | | | | | | PHOS,ALB,PROT TOTAL) | | | | | + +--------+ + + + | C-REACTIVE PROTEIN | Urgent | 01/11/2015 | | Results for this | | | | 1:58 AM | | procedure are in the | | | | PST | | results section. | + +--------+ + + + | SEDIMENTATION RATE | Urgent | 01/11/2015 | | Results for this | | | | 1:58 AM | | procedure are in the | | | | PST | | results section. | + +--------+ + + + | ED INFORMATION | Routin | 01/11/2015 | | Results for this | | EXCHANGE | e | 12:16 AM | | procedure are in the | | | | PST | | results section. | + +--------+ + + + documented in this encounter Results X-RAY SPINE LUMBOSACRAL 3 VIEWS (01/11/2015 4:48 AM PST) + + + + + + | Component | Value | Ref Range | Performed | Pathologist | | | | | At | Signature | + + + + + + | SPINE | STUDY: SPINE LUMBOSACRAL | | | | | LUMBOSACRAL | 3 VIEWS 01/11/15 | | | | | 3 VIEWS | 04:48:00 HISTORY: | | | | | | Weakness, leukocytosis. | | | | | | COMPARISON: None. | | | | | | FINDINGS:There is no | | | | | | fracture, malalignment, | | | | | | osseous destruction, or | | | | | | soft tissueabnormality. | | | | | | Mild to moderate L4-5 | | | | | | and mild L5-S1 disk | | | | | | space narrowing | | | | | | isevident. The facets | | | | | | are maintained. | | | | | | IMPRESSION: | | | | | | Mild/moderate lower | | | | | | lumbar degenerative disk | | | | | | disease. Otherwise | | | | | | normal exam. Attending | | | | | | Radiologists: MAYA MARIE, | | | | | | MDAuthor: MAYA MARIE MD | | | | | | I have personally | | | | | | viewed this | | | | | | procedure/exam, reviewed | | | | | | this report, and | | | | | | madechanges to it where | | | | | | appropriate. | | | | | | Final/Electronically | | | | | | signed / MAYA MARIE | | | | | | 01/11/2015 8:11 AM | | | | + + + + + + + + | Specimen | + + | | + + + +---------+ + + | Performing | Address | City/State/Zipcode | Phone Number | | Organization | | | | + +---------+ + + | [facility] DEPARTMENT OF | | | | | RADIOLOGY | | | | + +---------+ + + X-RAY CHEST 2 VIEW (01/11/2015 4:48 AM PST) + + + + + + | Component | Value | Ref Range | Performed | Pathologist | | | | | At | Signature | + + + + + + | CHEST, 2 | EXAM: CHEST 2 VIEWS | | | | | VIEWS [place] | 01/11/15 04:48:00 | | | | | STEREO | HISTORY: Leukocytosis. | | | | | | COMPARISON: None. | | | | | | FINDINGS: Cardiac | | | | | | silhouette and | | | | | | mediastinal contour are | | | | | | unremarkable. The | | | | | | lungs areclear. No | | | | | | consolidation. No | | | | | | pleural effusion or | | | | | | pneumothorax. Bones and | | | | | | softtissues are | | | | | | unremarkable. | | | | | | IMPRESSION: Clear lungs. | | | | | | Attending Radiologists: | | | | | | LINDA LABOY, | | | | | | MDAuthor: LLUVIA MCKNIGHT, | | | | | | I have personally | | | | | | viewed this | | | | | | procedure/exam, reviewed | | | | | | this report, and | | | | | | madechanges to it where | | | | | | appropriate. | | | | | | Final/Electronically | | | | | | billy / LINDA | | | | | | NARDA 01/11/2015 7:54 | | | | | | AM | | | | + + + + + + + + | Specimen | + + | | + + + +---------+ + + | Performing | Address | City/State/Zipcode | Phone Number | | Organization | | | | + +---------+ + + | [facility] DEPARTMENT OF | | | | | RADIOLOGY | | | | + +---------+ + + CULTURE, BLOOD BACTI & YEAST EVAN (01/11/2015 3:22 AM PST) + + + + + + | Component | Value | Ref Range | Performed | Pathologist | | | | | At | Signature | + + + + + + | CULTURE | Final Report:No Bacteria | | [facility] | | | RESULT | or Yeast isolated at 5 | | LABORATORY | | | | days. | | SERVICES, | | | | | | CORE | | + + + + + + + + | Specimen | + + | Blood | + + + + + + + | Performing | Address | City/State/Zipcode | Phone Number | | Organization | | | | + + + + + | [facility] | [address] | [place] [address] | | | SERVICES, [place] | [address] | | | + + + + + CULTURE, BLOOD BACTI & YEAST EVAN (01/11/2015 3:22 AM PST) + + + + + + | Component | Value | Ref Range | Performed | Pathologist | | | | | At | Signature | + + + + + + | CULTURE | Final Report:No Bacteria | | [facility] | | | RESULT | or Yeast isolated at 5 | | LABORATORY | | | | days. | | SERVICES, | | | | | | CORE | | + + + + + + + + | Specimen | + + | Blood | + + + + + + + | Performing | Address | City/State/Zipcode | Phone Number | | Organization | | | | + + + + + | [facility] | [address] | [place] [address] | | | SERVICES, CORE | [address] | | | + + + + + UA, DIPSTADAM ONLY (01/11/2015 3:22 AM PST) + + + + + + | Component | Value | Ref Range | Performed | Pathologist | | | | | At | Signature | + + + + + + | COLOR(UR) | Yellow | | [facility] | | | | | | LABORATORY | | | | | | SERVICES, | | | | | | CORE | | + + + + + + | APPEARANCE | Clear | | [facility] | | | | | | LABORATORY | | | | | | SERVICES, | | | | | | CORE | | + + + + + + | GLUCOSE(UR) | Negative | Negative, 50.0 | [facility] | | | | | mg/dL | LABORATORY | | | | | | SERVICES, | | | | | | CORE | | + + + + + + | PROTEIN(LAB | Negative | Negative, 30.0 | [facility] | | | ) | | mg/dL | LABORATORY | | | | | | SERVICES, | | | | | | CORE | | + + + + + + | BILIRUBIN | Negative | Negative | [facility] | | | | | | LABORATORY | | | | | | SERVICES, | | | | | | CORE | | + + + + + + | UROBILINOGE | <2.0 | <2.0 mg/dL | [facility] | | | N | | | LABORATORY | | | | | | SERVICES, | | | | | | CORE | | + + + + + + | PH(UR) | 6.0 | 5.0 - 8.0 | [facility] | | | | | | LABORATORY | | | | | | SERVICES, | | | | | | CORE | | + + + + + + | BLOOD | Negative | Negative | [facility] | | | | | | LABORATORY | | | | | | SERVICES, | | | | | | CORE | | + + + + + + | KETONES | Negative | Negative mg/dL | [facility] | | | | | | LABORATORY | | | | | | SERVICES, | | | | | | CORE | | + + + + + + | NITRITES | Negative | Negative | [facility] | | | | | | LABORATORY | | | | | | SERVICES, | | | | | | CORE | | + + + + + + | LEUKOCYTE | Negative | Negative | [facility] | | | ESTERASE | | | LABORATORY | | | | | | SERVICES, | | | | | | CORE | | + + + + + + | SPECIFIC | 1.019 | 1.005 - 1.030 | [facility] | | | GRAVITY | | | LABORATORY | | | | | | SERVICES, | | | | | | CORE | | + + + + + + + + | Specimen | + + | Urine - Urine | | (substance) | + + + + + + + | Performing | Address | City/State/Zipcode | Phone Number | | Organization | | | | + + + + + | [facility] | [address] | [place] [address] | | | SERVICES, CORE | [address] | | | + + + + + URINE, MICROSCOPIC EXAM (01/11/2015 3:22 AM PST) + +-------+ + + + | Component | Value | Ref Range | Performed | Pathologist | | | | | At | Signature | + +-------+ + + + | RED CELLS | <1 | 0 - 3 /hpf | [facility] | | | | | | LABORATORY | | | | | | SERVICES, | | | | | | CORE | | + +-------+ + + + | WHITE CELLS | <1 | 0 - 5 /hpf | [facility] | | | | | | LABORATORY | | | | | | SERVICES, | | | | | | CORE | | + +-------+ + + + | BACTERIA | None | None /hpf | [facility] | | | | | | LABORATORY | | | | | | SERVICES, | | | | | | CORE | | + +-------+ + + + | YEAST (LAB) | None | None /hpf | [facility] | | | | | | LABORATORY | | | | | | SERVICES, | | | | | | CORE | | + +-------+ + + + | SQUAMOUS | None | None /hpf | [facility] | | | EPITHELIAL | | | LABORATORY | | | | | | SERVICES, | | | | | | CORE | | + +-------+ + + + | MUCOUS | None | None /hpf | [facility] | | | | | | LABORATORY | | | | | | SERVICES, | | | | | | CORE | | + +-------+ + + + | TRICHOMONAS | None | None /hpf | [facility] | | | | | | LABORATORY | | | | | | SERVICES, | | | | | | CORE | | + +-------+ + + + | NON-SQUAMOU | None | None /hpf | [facility] | | | S EPITH | | | LABORATORY | | | | | | SERVICES, | | | | | | CORE | | + +-------+ + + + | HYALINE | 0 | 0 - 2 /lpf | [facility] | | | CASTS | | | LABORATORY | | | | | | SERVICES, | | | | | | CORE | | + +-------+ + + + | GRANULAR | 0 | 0 - 2 /lpf | [facility] | | | CASTS | | | LABORATORY | | | | | | SERVICES, | | | | | | CORE | | + +-------+ + + + | CELLULAR | 0 | <=0 /lpf | [facility] | | | CASTS | | | LABORATORY | | | | | | SERVICES, | | | | | | CORE | | + +-------+ + + + | TRIPLE P04 | None | None /hpf | [facility] | | | CRYSTALS | | | LABORATORY | | | | | | SERVICES, | | | | | | CORE | | + +-------+ + + + | CALCIUM | None | None /hpf | [facility] | | | OXALATE | | | LABORATORY | | | MARIA GUADALUPE | | | SERVICES, | | | | | | CORE | | + +-------+ + + + | URIC ACID | None | None /hpf | [facility] | | | CRYSTALS | | | LABORATORY | | | | | | SERVICES, | | | | | | CORE | | + +-------+ + + + | AMORPHOUS | None | None /hpf | [facility] | | | CRYSTALS | | | LABORATORY | | | | | | SERVICES, | | | | | | CORE | | + +-------+ + + + + + | Specimen | + + | Urine - Urine | | (substance) | + + + + + + + | Performing | Address | City/State/Zipcode | Phone Number | | Organization | | | | + + + + + | [facility] | [address] | [place] [address] | | | SERVICES, CORE | [address] | | | + + + + + URINE SCREEN FOR CULTURE (01/11/2015 3:22 AM PST) + + + + + + | Component | Value | Ref Range | Performed | Pathologist | | | | | At | Signature | + + + + + + | URINE | Negative | Negative | [facility] | | | SCREEN FOR | | | LABORATORY | | | CULTURE | | | SERVICES, | | | | | | CORE | | + + + + + + + + | Specimen | + + | Urine - Urine | | (substance) | + + + + + | Narrative | Performed At | + + + | Culture Screen Negative. Culture not indicated. | [facility] | | | LABORATORY | | | SERVICES, CORE | + + + + + + + + | Performing | Address | City/State/Zipcode | Phone Number | | Organization | | | | + + + + + | [facility] | [address] | [place] [address] | | | SERVICES, CORE | [address] | | | + + + + + CBC AND AUTO DIFF (01/11/2015 1:58 AM PST) + + + + + + | Component | Value | Ref Range | Performed | Pathologist | | | | | At | Signature | + + + + + + | WHITE CELL | 19.72 (H) | 4.40 - 11.00 | [facility] | | | COUNT | | K/cu mm | LABORATORY | | | | | | SERVICES, | | | | | | CORE | | + + + + + + | RED CELL | 4.62 | 4.50 - 6.00 | [facility] | | | COUNT | | M/cu mm | LABORATORY | | | | | | SERVICES, | | | | | | CORE | | + + + + + + | HEMOGLOBIN | 13.4 (L) | 13.5 - 17.5 | [facility] | | | | | g/dL | LABORATORY | | | | | | SERVICES, | | | | | | CORE | | + + + + + + | HEMATOCRIT | 40.4 (L) | 41.0 - 53.0 % | [facility] | | | | | | LABORATORY | | | | | | SERVICES, | | | | | | CORE | | + + + + + + | MCV | 87.4 | 80.0 - 96.0 fL | [facility] | | | | | | LABORATORY | | | | | | SERVICES, | | | | | | CORE | | + + + + + + | MCHC | 33.2 | 33.0 - 35.5 | [facility] | | | | | g/dL | LABORATORY | | | | | | SERVICES, | | | | | | CORE | | + + + + + + | RDW SD | 40.5 | 35.1 - 46.3 fL | [facility] | | | | | | LABORATORY | | | | | | SERVICES, | | | | | | CORE | | + + + + + + | PLATELET | 335 | 150 - 400 K/cu | [facility] | | | COUNT | | mm | LABORATORY | | | | | | SERVICES, | | | | | | CORE | | + + + + + + | MPV | 9.2 (L) | 9.7 - 12.3 fL | [facility] | | | | | | LABORATORY | | | | | | SERVICES, | | | | | | CORE | | + + + + + + | NRBC% | 0.0 | 0.0 - 0.3 % | [facility] | | | | | | LABORATORY | | | | | | SERVICES, | | | | | | CORE | | + + + + + + | NRBC# | 0.00 | 0.00 - 0.02 | [facility] | | | | | K/cu mm | LABORATORY | | | | | | SERVICES, | | | | | | CORE | | + + + + + + | NEUTROPHIL | 83.8 (H) | 50.0 - 70.0 % | [facility] | | | % | | | LABORATORY | | | | | | SERVICES, | | | | | | CORE | | + + + + + + | LYMPHOCYTE | 8.9 (L) | 18.0 - 42.0 % | [facility] | | | % | | | LABORATORY | | | | | | SERVICES, | | | | | | CORE | | + + + + + + | MONOCYTE % | 5.5 | 3.5 - 9.0 % | [facility] | | | | | | LABORATORY | | | | | | SERVICES, | | | | | | CORE | | + + + + + + | EOS % | 0.0 (L) | 1.0 - 3.0 % | [facility] | | | | | | LABORATORY | | | | | | SERVICES, | | | | | | CORE | | + + + + + + | BASO % | 0.3 | 0.0 - 2.0 % | [facility] | | | | | | LABORATORY | | | | | | SERVICES, | | | | | | CORE | | + + + + + + | IG% | 1.5 (H)Comment: Immature | 0.0 - 0.6 % | [facility] | | | | Granulocytes (IG) | | LABORATORY | | | | include metamyelocytes, | | SERVICES, | | | | myelocytes and | | CORE | | | | promyelocytes. Bands | | | | | | are not included in the | | | | | | IG count. Bands are | | | | | | included in the | | | | | | neutrophil count. | | | | + + + + + + | NEUTROPHIL | 16.53 (H) | 1.80 - 7.70 | [facility] | | | # | | K/cu mm | LABORATORY | | | | | | SERVICES, | | | | | | CORE | | + + + + + + | LYMPHOCYTE | 1.75 | 1.00 - 4.80 | [facility] | | | # | | K/cu mm | LABORATORY | | | | | | SERVICES, | | | | | | CORE | | + + + + + + | MONOCYTE # | 1.09 (H) | 0.10 - 0.90 | [facility] | | | | | K/cu mm | LABORATORY | | | | | | SERVICES, | | | | | | CORE | | + + + + + + | EOS # | 0.00 | 0.00 - 0.50 | [facility] | | | | | K/cu mm | LABORATORY | | | | | | SERVICES, | | | | | | CORE | | + + + + + + | BASO # | 0.05 | 0.00 - 0.10 | [facility] | | | | | K/cu mm | LABORATORY | | | | | | SERVICES, | | | | | | CORE | | + + + + + + | IG# | 0.30 (H) | 0.00 - 0.03 | [facility] | | | | | K/cu mm | LABORATORY | | | | | | SERVICES, | | | | | | CORE | | + + + + + + + + | Specimen | + + | Blood - Blood | | (substance) | + + + + + | Narrative | Performed At | + + + | Immature Granulocytes (IG) include metamyelocytes, myelocytes | [facility] | | and promyelocytes. Bands are not included in the IG count. Bands are | LABORATORY | | included in the neutrophil count. | SERVICES, CORE | + + + + + + + + | Performing | Address | City/State/Zipcode | Phone Number | | Organization | | | | + + + + + | [facility] | [id number] | [place] [address] | | | SERVICES, CORE | [address] | | | + + + + + C-REACTIVE PROTEIN (01/11/2015 1:58 AM PST) + +-------+ + + + | Component | Value | Ref Range | Performed | Pathologist | | | | | At | Signature | + +-------+ + + + | C-REACTIVE | <2.9 | <10.0 mg/L | [facility] | | | PROTEIN | | | LABORATORY | | | | | | SERVICES, | | | | | | CORE | | + +-------+ + + + + + | Specimen | + + | Blood - Blood | | (substance) | + + + + + |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
--- OUTSIDE RECORDS SUMMARY | ~2019-03-03 | XMS | Encounter Summary ---
Demographics + + + | Address | [address] | | | [place] [address] | + + + | Home Phone | | + + + | Preferred Language | Unknown | + + + | Marital Status | Single | + + + | Mandaen Affiliation | NRP | + + + | Race | White | + + + | Ethnic Group | Not or | + + + Author + + + | Author | [facility] | + + + | Organization | [facility] | + + + | Address | Unknown | + + + | Phone | Unavailable | + + + Support + + +---------+ + | Name | Relationship | Address | Phone | + + +---------+ + | Myra Ramirez | ECON | Unknown | | + + +---------+ + Care Team Providers + +------+ + | Care Hand Tufter Name | Role | Phone | + +------+ + PCP | Unavailable | + +------+ + Encounter Details +--------+ + + + + | Date | Type | Department | Care Team | Description | +--------+ + + + + | 06/06/ | Documentati | Neurology at | Todd [facility]as, | | | 2009 | on | [facility] & | [address] | | | | | [address] | [place], [place] | | | | | [address] Mailcode: | [address] | | | | | [facility] | [phone] | | | | | Health and Healing, | | | | | | | | | | | | [place], [place] | | | | | | [address] | | | | | | [phone] | | | +--------+ + + + [...] filedocumented as of this encounter Visit Diagnoses Not on filedocumented in this encounter"
--- OUTSIDE RECORDS SUMMARY | ~2019-03-03 | XMS | Encounter Summary ---
Demographics + + + | Address | [address] | | | [place] [address] | + + + | Home Phone | | + + + | Preferred Language | Unknown | + + + | Marital Status | | + + + | Anglican Affiliation | 1041 | + + + | Race | Unknown | + + + | Ethnic Group | Unknown | + + + Author + + + | Author | [facility] | | | and [place] | + + + | Organization | [facility] | | | [...] | | | | | [place] [address] | | + + + + + Care Team Providers + +------+ + | Care Chest Painting And Sealing Supervisor Name | Role | Phone | + +------+ + | Martha Sanford | PCP | | + +------+ + Encounter Details +--------+ + + + + | Date | Type | Department | Care Team | Description | +--------+ + + + + | 04/06/ | [facility] | [facility] | Angelito Valencia MD | Herniated lumbar | | 2018 | Encounter | [facility] | [address] | intervertebral disc | | | | [address] | [address] | | | | | [place], [place] | [place] | | | | | [address] | [address] | | | | | [phone] | [phone] | | | | | | | | +--------+ + + + + Social History + + + +--------+ + | Tobacco Use | Types | Packs/Day | Years | Date | | | | | Used | | + + + +--------+ + | Former Smoker | Cigarettes | 1 | 10 | Quit: 03/09/2014 | + + + +--------+ + + +------+---+ + | Smokeless Tobacco: | Chew | | Quit: | | Former User | | | 05/22/19 | | | | | 15 | + +------+---+ + + + +---------+ + | Alcohol Use | Drinks/Week | oz/Week | Comments | + + +---------+ + | No | 0 Standard drinks | 0.0 | | | | or equivalent | | | + + +---------+ + [...] + + documented as of this encounter Medications at Time of Discharge + + + +---------+ + + | Medication | Sig | Dispensed | Refills | Start | End Date | | | | | | Date | | + + + +---------+ + + | clonazePAM | Take 2 mg by mouth | | 0 | | | | (KLONOPIN) 2 MG | Twice daily as | | | | | | tablet | needed for Anxiety. | | | | | + + + +---------+ + + | gabapentin | Take 800 mg by mouth | | 0 | | | | (NEURONTIN) 800 MG | 2 times daily. | | | | | | tablet | | | | | | + + + +---------+ + + | hydrALAZINE | Take 25 mg by mouth | | 0 | | | | (APRESOLINE) 25 mg | 2 times daily. | | | | | | tablet | | | | | | + + + +---------+ + + | HYDROmorphone | Take 2 mg by mouth | | 0 | | | | (DILAUDID) 2 mg | every 12 hours. | | | | | | tablet | | | | | | + + + +---------+ + + | losartan (COZAAR) | Take 50 mg by mouth | | 0 | | | | 50 mg tablet | Daily. | | | | | + + + +---------+ + + | metroNIDAZOLE | Take 1 tablet by | 14 | 0 | 10/10/19 | | | (FLAGYL) 500 MG | mouth Daily. | tablet | | 17 | | | tablet | | | | | | + + + +---------+ + + | mirtazapine | Take 60 mg by mouth | | 0 | | | | (REMERON) 30 MG | nightly. | | | | | | tablet | | | | | | + + + +---------+ + + | pantoprazole | Take 40 mg by mouth | | 0 | | | | (PROTONIX) 40 mg | every morning | | | | | | tablet | (before breakfast). | | | | | + + + +---------+ + + | QUEtiapine | Take 300 mg by mouth | | 0 | | | | (SEROQUEL) 300 mg | Daily. | | | | | | tablet | | | | | | + + + +---------+ + + | SUMAtriptan | Take 50 mg by mouth | | 0 | | | | (IMITREX) 50 mg | as needed for | | | | | | tablet | Migraine. | | | | | + + + +---------+ + + documented as of this encounter Progress Notes Conversion Transaction, Provider Unknown - 04/06/2017 6:30 PM PSTFormatting of this note m ight be different from the original. Nurse Progress Note by Mily Mclean RN at 04/06/171829 Author: Mily Mclean RN Service: Neurosurgery Author Type: Registered Nurse Filed: 04/06/171910 Date of Service: 04/06/171829 Status: Signed Visual Arts Teacher: Mily Mclean RN (Registered Nurse) Continued from previous note. Pt ambulating halls and voiding independently. Pt dressing self with assistance from home visit field care manager. D/C instructions went over with pt and home visit field care manager , understanding verbalized. Angelito Hampton MD - 04/06/2017 6:13 PM PST Progress Notes by Angelito Valencia MD at 04/06/171812 Author: Angelito Valencia MD Service: Neurosurgery Author Type: Physician Filed: 04/06/171813 Date of Service: 04/06/171812 Status: Signed Visual Arts Teacher: Angelito Valencia MD (Physician) [facility] Service: Neurological Surgery Progress Note Hospital Day: LOS: 0 days Post-Op Day: Day of Surgery SUBJECTIVE Still no bed available. Patient would rather go home. Leg feels much better. Typical incisional pain. OBJECTIVE Vital Signs: BP 125/68 | Pulse 89 | Temp 98.5 F (36.9 C) | Resp 17 | Ht 1.829 m (6') | Wt 132.1 kg (291 lb 3.6 oz) | SpO2 92% | BMI 39.50 kg/m Input/Output Last 3 shifts No intake/output data recorded. Input/Output Last shift I/O this shift: In: 2700 [I.V.:2700] Out: - Physical Exam: Alert and oriented x 3. Speech clear and fluent. Moves UE and LE well to command. Walked to restroom in PACU. Incision C/D/I. ASSESSMENT & PLAN Discharge home. Followup ~ 2 weeks postop. Discharge instructions given (and provided in preop packet and discharge papers). Call office [phone] if any questions or problems or return to [facility] ER. ANGELITO VALENCIA MD 04/06/2017 onversion Transact ion, Provider Unknown - 04/06/2017 6:05 PM PSTFormatting of this note might be different fr om the original. Nurse Progress Note by Mily Mclean RN at 04/06/171804 Author: Mily Mclean RN Service: Neurosurgery Author Type: Registered Nurse Filed: 04/06/171920 Date of Service: 04/06/171804 Status: Signed Visual Arts Teacher: Mily Mclean RN (Registered Nurse) Pt states to RN that he would like to go home tonight. Dr Valencia notified and stated that h e will come to hospital to discharge patient docume nted in this encounter Plan of Treatment Not on filedocumented as of this encounter Procedures + +--------+ + + + | Procedure Name | Priori | Date/Time | Associated Diagnosis | Comments | | | ty | | | | + +--------+ + + + | FL C ARM > 1 HOUR | Routin | 04/06/2017 | | Results for this | | | e | 12:30 PM | | procedure are in the | | | | PST | | results section. | + +--------+ + + + documented in this encounter Results FL C-Arm > 1 Hour (04/06/2017 12:30 PM PST) + + | Specimen | + + | | + + + + + | Impressions | Performed At | + + + | FINDINGS AND IMPRESSION: Surgical instrument in the posterior soft | | | tissues at the level of L4-5. | | + + + + + + | Narrative | Performed At | + + + | [facility] EV[facility] C-ARM FLUORO OVER 1 HOUR HISTORY: 41 years. | | | Male. L4-5 disc herniation. TECHNIQUE: Single lateral spot | | | fluoroscopic image of the lumbar spine. 4.7 seconds of fluoroscopy | | | time was utilized. | | + + + + + | Procedure Note | + + | Eliot Soto - 10/20/2018 4:10 AM PDT [facility]ERNA MALHOTRA C-ARM FLUORO OVER 1 | | HOUR HISTORY:41 years. Male. L4-5 disc herniation. TECHNIQUE:Single lateral spot | | fluoroscopic image of the lumbar spine. 4.7 seconds of fluoroscopy time was utilized. | | IMPRESSION: FINDINGS AND IMPRESSION:Surgical instrument in the posterior soft tissues at | | the level of L4-5. | | | |TECHNIQUE: | |Single lateral spot fluoroscopic image of the lumbar spine. 4.7 seconds of fluoroscopy time was utilized. | | | |IMPRESSION: | |FINDINGS AND IMPRESSION: | |Surgical instrument in the posterior soft tissues at the level of L4-5. | | | | | + + documented in this encounter Visit Diagnoses + + | Diagnosis | + + | Herniated lumbar intervertebral disc Displacement of lumbar intervertebral disc | | without myelopathy | + + documented in this encounter"
--- OUTSIDE RECORDS SUMMARY | ~2019-03-03 | XMS | Encounter Summary ---
Demographics + + + | Address | [address] | | | [place] [address] | + + + | Home Phone | | + + + | Preferred Language | Unknown | + + + | Marital Status | | + + + | Christianity Affiliation | 1041 | + + + | Race | Unknown | + + + | Ethnic Group | Unknown | + + + Author + + + | Author | [facility] | | | and [place] | + + + | Organization | [facility] | | | [...] | | | | | [place] [address] | | + + + + + Care Team Providers + +------+ + | Care Egg Packer Name | Role | Phone | + +------+ + | Martha Sanford | PCP | | + +------+ + Encounter Details +--------+ + + + + | Date | Type | Department | Care Team | Description | +--------+ + + + + | 08/07/ | Hospital | [facility] | Conversion | Lumbar | | 2018 | Encounter | [facility] | Transaction, | radiculopathy; | | | | [address] | Provider Unknown | Status post lumbar | | | | [place], [place] | [phone] | microdiscectomy | | | | [address] | | | | | | [phone] | Vinh Lopez, | | | | | | [facility] [address] | | | | | | [address] | | | | | | [place] [address] | | | | | | [phone] | | | | | | | [...] + + + | Blood Pressure | - | - | | + + + + + | Pulse | - | - | | + + + + + | Temperature | - | - | | + + + + + | Respiratory Rate | - | - | | + + + + + | Oxygen Saturation | - | - | | + + + + + | Inhaled Oxygen | - | - | | | Concentration | | | | + + + + + | Weight | 136.1 kg (300 lb) | 08/07/2017 9:11 AM | | | | | PDT | | + + + + + | Height | - | - | | + + + + + | Body Mass Index | 40.69 | 07/24/2017 7:44 AM | | | | | PDT | | + + + + + documented in this encounter Medications at Time [...] + + + +---------+ + + | topiramate | 100 mg 2 (two) times | | 0 | 08/05/ | | | (TOPAMAX) 50 MG | daily. | | | 18 | | | tablet | | | [...] + + + | MRI LUMBAR SPINE W | Routin | 08/07/2017 | | Results for this | | WO CONTRAST | e | 10:07 AM | | procedure are in the | | | | PDT | | results section. | + +--------+ + + + documented in this encounter Results MRI Lumbar Spine w wo Contrast (08/07/2017 10:07 AM PDT) + + | Specimen | + + | | + + + + + | Impressions | Performed At | + + + | 1. Worsening left paracentral disc extrusion at L5-S1 with | | | moderate narrowing of the left lateral recess and moderate left neural | | | foraminal narrowing. Correlate for possible impingement exiting left | | | L5 and traversing left S1 nerve roots. 2. Postsurgical change at | | | L4-5 with right laminectomy and partial facetectomy. Enhancing | | | granulation tissues along the surgical tract surrounding the | | | traversing right L5 nerve root. Tiny right paracentral disc extrusion. | | | | | + + + + + + | Narrative | Performed At | + + + | [facility] LUMBAR SPINE W WO CONTRAST HISTORY: Back | | | and left leg pain TECHNIQUE: Multiplanar, multisequence MRI of | | | the lumbar spine was performed prior to and following the uneventful | | | intravenous administration of 25 cc of MultiHance. COMPARISON: | | | 01/26/2017 FINDINGS: The vertebral heights and alignment are | | | maintained. No focal worrisome marrow signal abnormality. Conus | | | medullaris is normal in caliber and signal and terminates the level of | | | L2. L1-2: Negative. L2-3: Mild degenerative disc and endplate | | | changes. No disc herniation, central canal stenosis, or neural | | | foraminal narrowing. L3-4: Mild degenerative disc and endplate | | | changes. No disc herniation, central canal stenosis, neural foraminal | | | narrowing. L4-5: Mild disc space narrowing with degenerative | | | endplate change. Postsurgical change with right hemilaminectomy and | | | facetectomy. There is enhancement seen along the surgical tract. | | | Signal abnormality within the right paracentral region predominantly | | | enhances to represent postsurgical granulation tissue. A small | | | nonenhancing component likely represents a small disc extrusion. There | | | is enhancement surrounding the traversing right L5 nerve root the | | | right lateral recess to represent enhancing granulation tissue. No | | | central canal stenosis. Mild right neural foraminal narrowing. | | | L5-S1: Mild disc space narrowing. Worsening left paracentral disc | | | extrusion at contacts and slightly posterior displaces the traversing | | | left S1 nerve root. Moderate left neural foraminal narrowing. | | | Correlate for possible impingement of the exiting left L5 and | | | traversing left S1 nerve roots. Mild right neural foraminal narrowing. | | | No central canal stenosis. | | + + + + + | Procedure Note | + + | Eliot Soto - 10/20/2018 4:10 AM [facility] LUMBAR SPINE W WO | | CONTRAST HISTORY:Back and left leg pain TECHNIQUE:Multiplanar, multisequence MRI of the | | lumbar spine was performed prior to and following the uneventful intravenous | | administration of 25 cc of MultiHance. COMPARISON:01/26/2017 FINDINGS:The vertebral | | heights and alignment are maintained. No focal worrisome marrow signal abnormality. | | Conus medullaris is normal in caliber and signal and terminates the level of L2. L1-2: | | Negative. L2-3: Mild degenerative disc and endplate changes. No disc herniation, central | | canal stenosis, or neural foraminal narrowing. L3-4: Mild degenerative disc and | | endplate changes. No disc herniation, central canal stenosis, neural foraminal | | narrowing. L4-5: Mild disc space narrowing with degenerative endplate change. | | Postsurgical change with right hemilaminectomy and facetectomy. There is enhancement | | seen along the surgical tract. Signal abnormality within the right paracentral region | | predominantly enhances to represent postsurgical granulation tissue. A small | | nonenhancing component likely represents a small disc extrusion. There is enhancement | | surrounding the traversing right L5 nerve root the right lateral recess to represent | | enhancing granulation tissue. No central canal stenosis. Mild right neural foraminal | | narrowing. L5-S1: Mild disc space narrowing. Worsening left paracentral disc extrusion | | at contacts and slightly posterior displaces the traversing left S1 nerve root. Moderate | | left neural foraminal narrowing. Correlate for possible impingement of the exiting left | | L5 and traversing left S1 nerve roots. Mild right neural foraminal narrowing. No | | central canal stenosis. IMPRESSION: 1. Worsening left paracentral disc extrusion at | | L5-S1 with moderate narrowing of the left lateral recess and moderate left neural | | foraminal narrowing. Correlate for possible impingement exiting left L5 and traversing | | left S1 nerve roots.2. Postsurgical change at L4-5 with right laminectomy and partial | | facetectomy. Enhancing granulation tissues along the surgical tract surrounding the | | traversing right L5 nerve root. Tiny right paracentral disc extrusion. Electronically | | signed by Frandy Wong DO on 08/07/2017 1:01 PM | |L5 and traversing left S1 nerve roots. Mild right neural foraminal narrowing. No central ca nal stenosis. | | | |IMPRESSION: | |1. Worsening left paracentral disc extrusion at L5-S1 with moderate narrowing of the left lateral recess and moderate left neural foraminal narrowing. Correlate for possible impingem ent exiting left L5 and traversing left S1 nerve roots. | |2. Postsurgical change at L4-5 with right laminectomy and partial facetectomy. Enhancing g ranulation tissues along the surgical tract surrounding the traversing right L5 nerve root. Tiny right paracentral disc extrusion. | | | | | + + documented in this encounter Visit Diagnoses + + | Diagnosis | + + | Lumbar radiculopathy Thoracic or lumbosacral neuritis or radiculitis, unspecified | + + | Status post lumbar microdiscectomy Other postprocedural status | + + documented in this encounter"
--- OUTSIDE RECORDS SUMMARY | ~2019-03-03 | XMS | Encounter Summary ---
Demographics + + + | Address | [address] | | | [place] [address] | + + + | Home Phone | | + + + | Preferred Language | Unknown | + + + | Marital Status | | + + + | Buddhism Affiliation | 1041 | + + + | Race | Unknown | + + + | Ethnic Group | Unknown | + + + Author + + + | Author | [facility] | | | and [place] | + + + | Organization | [facility] | | | and [...] | | | | | [place] [address] | | + + + + + Care Team Providers + +------+ + | Care Necktie Stitcher Name | Role | Phone | + +------+ + | Jovanny Che PA-C | PCP | | + +------+ + Encounter Details +--------+ + + + + | Date | Type | Department | Care Team | Description | +--------+ + + + + | 04/28/ | Abstract | [facility] | Ibrahima Hubbard MD | | | 2016 | | NEUROSURGERY [address] | [address] | | | | | [address] | [place] [address] | | | | | [place] | [phone] | | | | | [address] | | | | | | [phone] | | | +--------+ + + + + Social History + + + +--------+ + | Tobacco Use | Types | Packs/Day | Years | Date | | | | | Used | | + + + +--------+ + | Former Smoker | Cigarettes | 1 | | Quit: 03/09/2014 | + + + +--------+ + + +------+---+---+ | Smokeless Tobacco: | Chew | | | | Former User | | | | + +------+---+---+ + + +---------+ + | Alcohol Use [...]
--- OUTSIDE RECORDS SUMMARY | ~2019-03-03 | XMS | Encounter Summary ---
Demographics + + + | Address | [address] | | | [place] [address] | + + + | Home Phone | | + + + | Preferred Language | Unknown | + + + | Marital Status | | + + + | Taoist Affiliation | 1041 | + + + | Race | Unknown | + + + | Ethnic Group | Unknown | + + + Author + + + | Author | [facility] | | | and [place] | + + + | Organization | [facility] | | | and [...] | | | | | [place] [address] | | + + + + + Care Team Providers + +------+ + | Care Cupola Patcher Helper Name | Role | Phone | + +------+ + | Martha Sanford | PCP | | + +------+ + Encounter Details +--------+ + + + + | Date | Type | Department | Care Team | Description | +--------+ + + + + | 12/06/ | Orders Only | [facility] | Conversion | | | 2014 | | NEUROLOGY [address] | Transaction, | | | | | [address] | Provider Unknown | | | | | [place], [place] | [phone] | | | | | [address] | | | | | | [phone] | | | +--------+ + + + [...] | + +--------+ + + + | BUN | Routin | 12/06/2014 | | Results for this | | | e | 12:00 AM | | procedure are in the | | | | PDT | | results section. | + +--------+ + + + | CREATININE | Routin | 12/06/2014 | | Results for this | | | e | 12:00 AM | | procedure are in the | | | | PDT | | results section. | + +--------+ + + + documented in this encounter Results BUN (12/06/2014 12:00 AM PDT) + +-------+ + + + | Component | Value | Ref Range | Performed | Pathologist | | | | | At | Signature | + +-------+ + + + | BUN | 9 | 8.9 - 20.6 | EXTERNAL | | | | | mg/dL | LAB | | + +-------+ + + + + + | Specimen | + + | Blood specimen | | (specimen) | + + + +---------+ + + | Performing | Address | City/State/Zipcode | Phone Number | | Organization | | | | + +---------+ + + | EXTERNAL LAB | | | | + +---------+ + + Creatinine (12/06/2014 12:00 AM PDT) + +-------+ + + + | Component | Value | Ref Range | Performed | Pathologist | | | | | At | Signature | + +-------+ + + + | Creatinine | 0.90 | 0.64 - 1.27 | EXTERNAL | | | | | mg/dL | LAB | | + +-------+ + + + [...] + documented in this encounter Visit Diagnoses Not on filedocumented in this encounter"
--- OUTSIDE RECORDS SUMMARY | ~2019-03-03 | XMS | Encounter Summary ---
Demographics + + + | Address | [address] | | | [place] [address] | + + + | Home Phone | | + + + | Preferred Language | Unknown | + + + | Marital Status | | + + + | Anabaptism Affiliation | 1041 | + + + | Race | Unknown | + + + | Ethnic Group | Unknown | + + + Author + + + | Author | [facility] | | | and [place] | + + + | Organization | [facility] | | | [...] | | | | | [place] [address] | | + + + + + Care Team Providers + +------+ + | Care Radius Grinder Name | Role | Phone | + +------+ + | Jovanny Che PA-C | PCP | | + +------+ + Encounter Details +--------+ + + + + | Date | Type | Department | Care Team | Description | +--------+ + + + + | 05/21/ | Orders Only | [facility] | Ibrahima Hubbard MD | Weakness of both | | 2016 | | NEUROSURGERY [address] | lower extremities; | | | | [address] | [place] [address] | Hyperreflexia | | | | [place], [place] | [phone] | | | | | [address] | | | | | | [phone] | | | +--------+ + + + [...] + | Weakness of both lower extremities | + + | Hyperreflexia Abnormal reflex | + + documented in this encounter"
--- OUTSIDE RECORDS SUMMARY | ~2019-03-03 | XMS | Encounter Summary ---
Demographics + + + | Address | [address] | | | [place] [address] | + + + | Home Phone | | + + + | Preferred Language | Unknown | + + + | Marital Status | | + + + | Sikh Affiliation | 1041 | + + + | Race | Unknown | + + + | Ethnic Group | Unknown | + + + Author + + + | Author | [facility] | | | and [place] | + + + | Organization | [facility] | | | [...] | | | | | [place] [address] | | + + + + + Care Team Providers + +------+ + | Care Urgent Care Name | Role | Phone | + +------+ + | Martha Sanford | PCP | | + +------+ + Encounter Details +--------+ + + + + | Date | Type | Department | Care Team | Description | +--------+ + + + + | 01/26/ | Hospital | C GENERIC IP | Conversion | Diagnosis unknown | | 2017 | Encounter | CONVERSION [address] | Transaction, | | | | [address] | Provider Unknown | | | | | [place], [place] | [phone] | | | | | [address] | | | | | | [phone] | | | +--------+ + + + [...] | + +--------+ + + + | XR HIP RIGHT 2-3 | Routin | 01/25/2017 | | Results for this | | VIEWS | e | 3:25 PM | | procedure are in the | | | | PST | | results section. | + +--------+ + + + documented in this encounter Results XR Hip Right 2-3 Views (01/25/2017 3:25 PM PST) + + | Specimen | + + | | + + + + + | Narrative | Performed At | + + + | This is a non-reportable procedure without a radiologist report and | | | is used for image storage only | | + + + + + | Procedure Note | + + | Eliot Soto Conversion - 10/20/2018 7:46 PM PDT This is a non-reportable procedure | | without a radiologist report and isused for image storage only | + + documented in this encounter Visit Diagnoses + + | Diagnosis | + + | Diagnosis unknown Other unknown and unspecified cause of morbidity or mortality | + + documented in this encounter"
--- OUTSIDE RECORDS SUMMARY | ~2019-03-03 | XMS | Encounter Summary ---
Demographics + + + | Address | [address] | | | [place] [address] | + + + | Home Phone | | + + + | Preferred Language | Unknown | + + + | Marital Status | Single | + + + | Restorationist Affiliation | NRP | + + + | Race | White | + + + | Ethnic Group | Not or | + + + Author + + + | Author | [facility] | + + + | Organization | [facility] | + + + | Address | Unknown | + + + | Phone | Unavailable | + + + Support + + +---------+ + | Name | Relationship | Address | Phone | + + +---------+ + | Myra Ramirez | ECON | Unknown | | + + +---------+ + Care Team Providers + +------+ + | Care Breaker Engineer Name | Role | Phone | + +------+ + | Jovanny Che PA-C | PCP | | + +------+ + Encounter Details +--------+ + + + + | Date | Type | Department | Care Team | Description | +--------+ + + + + | 11/13/ | Telephone | [facility] | Muriel Menon, | | | 2016 | | Sports Medicine & | [address] | | | | | Orthopaedic Surgery | [place], [place] | | | | | [address] | [address] | | | | | [place] | [phone] | | | | | [address] | | | | | | [phone] | | | +--------+ + + + [...]
--- OUTSIDE RECORDS SUMMARY | ~2019-03-03 | XMS | Encounter Summary ---
Demographics + + + | Address | [address] | | | [place] [address] | + + + | Home Phone | | + + + | Preferred Language | Unknown | + + + | Marital Status | | + + + | Alevism Affiliation | 1041 | + + + | Race | Unknown | + + + | Ethnic Group | Unknown | + + + Author + + + | Author | [facility] | | | and [place] | + + + | Organization | [facility] | | [...] | | | | | [place] [address] | | + + + + + Care Team Providers + +------+ + | Care Steam Clothes Press Operator Name | Role | Phone | + +------+ + PCP | Unavailable | + +------+ + Encounter Details +--------+ + + + + | Date | Type | Department | Care Team | Description | +--------+ + + + + | 10/17/ | Emergency | [facility] | John Bronson, | Unspecified Backache | | 2007 | | MEDICAL CENTER | [address] | | | | | EMERGENCY CENTER | [place], [place] | | | | | [address] | [address] | | | | | [place], [place] | [phone] | | | | | [address] | | | | | | [phone] | | | +--------+ + + + [...] + | Diagnosis | + + | Backache, unspecified | + + documented in this encounter"
--- OUTSIDE RECORDS SUMMARY | ~2019-03-03 | XMS | Encounter Summary ---
Demographics + + + | Address | [address] | | | [place] [address] | + + + | Home Phone | | + + + | Preferred Language | Unknown | + + + | Marital Status | | + + + | Anabaptist Affiliation | 1041 | + + + | Race | Unknown | + + + | Ethnic Group | Unknown | + + + Author + + + | Author | [facility] | | | and [place] | + + + | Organization | [facility] | | | [...] | | | | | [place] [address] | | + + + + + Care Team Providers + +------+ + | Care Compliance Aide Name | Role | Phone | + +------+ + PCP | Unavailable | + +------+ + Encounter Details +--------+ + + + + | Date | Type | Department | Care Team | Description | +--------+ + + + + | 06/10/ | Hospital | [facility] | Sincere Tapia MD | | | 2007 - | Encounter | CENTER SURGICAL [address] | | | | | [address] | [address] [place], | | | 06/12/ | | [place] | [place] [address] | | | 2007 | | [address] | [phone] | | | | | [phone] | | | +--------+ + + + [...]
--- OUTSIDE RECORDS SUMMARY | ~2019-03-03 | XMS | Encounter Summary ---
Demographics + + + | Address | [address] | | | [place] [address] | + + + | Home Phone | | + + + | Preferred Language | Unknown | + + + | Marital Status | | + + + | Judaism Affiliation | 1041 | + + + | Race | Unknown | + + + | Ethnic Group | Unknown | + + + Author + + + | Author | [facility] | | | and [place] | + + + | Organization | [facility] | | [...] | | | | | [place] [address] | | + + + + + Care Team Providers + +------+ + | Care Threader Name | Role | Phone | + +------+ + | Martha Sanford | PCP | | + +------+ + Encounter Details +--------+ + + + + | Date | Type | Department | Care Team | Description | +--------+ + + + + | 09/10/ | Episode | [facility] | Niurka Lind | | | 2017 | Changes | GASTROENTEROLOGY | M, RN | | | | | [address] | | | | | | [address] [place] | | | | | | [address] | | | | | | [phone] | | | +--------+ + + + [...]
--- OUTSIDE RECORDS SUMMARY | ~2019-03-03 | XMS | Encounter Summary ---
Demographics + + + | Address | [address] | | | [place] [address] | + + + | Home Phone | | + + + | Preferred Language | Unknown | + + + | Marital Status | | + + + | Hinduism Affiliation | 1041 | + + + | Race | Unknown | + + + | Ethnic Group | Unknown | + + + Author + + + | Author | [facility] | | | and [place] | + + + | Organization | [facility] | | | [...] | | | | | [place] [address] | | + + + + + Care Team Providers + +------+ + | Care Recreation Professor Name | Role | Phone | + +------+ + PCP | Unavailable | + +------+ + Encounter Details +--------+ + + + + | Date | Type | Department | Care Team | Description | +--------+ + + + + | 11/07/ | Hospital | [facility] | Héctor Johnson | PARAPLEGIA NOS (HCC) | | 2004 - | Encounter | MEDICAL CENTER | MD Matthieu Neely | | | | | CLINICAL DECISION | [place] | | | 11/09/ | | [address] | [id number] | | | 2004 | | [place], [place] | | | | | | [address] | | | | | | [phone] | | | +--------+ + + + [...] + | Diagnosis | + + | Paraplegia (HCC) Paraplegia | + + documented in this encounter"
--- OUTSIDE RECORDS SUMMARY | ~2019-03-03 | XMS | Encounter Summary ---
Demographics + + + | Address | [address] | | | [place] [address] | + + + | Home Phone | | + + + | Preferred Language | Unknown | + + + | Marital Status | | + + + | Lutheran Affiliation | 1041 | + + + | Race | Unknown | + + + | Ethnic Group | Unknown | + + + Author + + + | Author | [facility] | | | and [place] | + + + | Organization | [facility] | | | [...] | | | | | [place] [address] | | + + + + + Care Team Providers + +------+ + | Care Freight Shipping Agent Name | Role | Phone | + +------+ + PCP | Unavailable | + +------+ + Encounter Details +--------+ + + + + | Date | Type | Department | Care Team | Description | +--------+ + + + + | 10/31/ | Emergency | [facility] | Conversion | HAND INJURY NOS | | 2002 | | MEDICAL CENTER | Transaction, | | | | | EMERGENCY CENTER | Provider Unknown | | | | | [address] [facility] | | | | | | [place], [place] | (Fax) | | | | | [address] | | | | | | [phone] | | | +--------+ + + + [...] + | Diagnosis | + + | Injury, other and unspecified, hand, except finger | + + documented in this encounter"
--- OUTSIDE RECORDS SUMMARY | ~2019-03-03 | XMS | Encounter Summary ---
Demographics + + + | Address | [address] | | | [place] [address] | + + + | Home Phone | | + + + | Preferred Language | Unknown | + + + | Marital Status | | + + + | Advent Affiliation | 1041 | + + + | Race | Unknown | + + + | Ethnic Group | Unknown | + + + Author + + + | Author | [facility] | | | and [place] | + + + | Organization | [facility] | | | [...] | | | | | [place] [address] | | + + + + + Care Team Providers + +------+ + | Care Psychologist Military Personnel Name | Role | Phone | + +------+ + PCP | Unavailable | + +------+ + Encounter Details +--------+ + + + + | Date | Type | Department | Care Team | Description | +--------+ + + + + | 10/02/ | Hospital | [facility] | Tiffany Figueroa | Other Convulsions | | 2007 - | Encounter | [facility] | MD [address] | ([facility]) | | | | CLINICAL DECISION | [address] | | | 10/05/ | | [address] | [address] | | | 2007 | | [place], [place] | | | | | | [address] | | | | | | [phone] | | | +--------+ + + + [...] + | Diagnosis | + + | Other convulsions | + + documented in this encounter"
--- OUTSIDE RECORDS SUMMARY | ~2019-03-03 | XMS | Clinical Summary ---
Demographics + + + | Address | [address] | | | [place] [address] | + + + | Home Phone | | + + + | Preferred Language | Unknown | + + + | Marital Status | | + + + | Voodoo Affiliation | 1041 | + + + | Race | Unknown | + + + | Ethnic Group | Unknown | + + + Author + + + | Author | [facility] (Historical as of | | | 10-23-18) | + + + | Organization | [facility] (Historical as of | | | 10-23-18) | + + + | Address | Unknown | + + + | Phone | Unavailable | + + + Support + + + + + | Name | Relationship | Address | Phone | + + + + + | Myra Ramirez | ECON | [address] | | | | | [place] [address] | | + + + + + Care Team Providers + +------+ + | Care Molding Machine Operator Name | Role | Phone | + +------+ + | Noemi Wilson | PP | | | MD | | | + +------+ + Allergies + + + + + + | Active Allergy | Reactions | Severity | Noted | Comments | | | | | Date | | + + + + + + | Morphine | Anxiety, Rash | Medium | 09/06/19 | | | | | | 15 | | + + + + + + | Bupropion | Seizure | High | 12/21/19 | | | | | | 15 | | + + + + + + Current Medications + + +--------+---------+------+------+-------+ | Prescription | Sig. | Disp. | Refills | Star | End | Statu | | | | | | t | Date | s | | | | | | Date | | | + + +--------+---------+------+------+-------+ | hydrALAZINE | Take 25 mg by mouth | | | | | Activ | | (APRESOLINE) 25 MG | 2 (two) times daily. | | | | | e | | tablet | | | | | | | + + +--------+---------+------+------+-------+ | losartan (COZAAR) | Take 50 mg by mouth | | | | | Activ | | 25 MG tablet | 2 (two) times daily. | | | | | e | + + +--------+---------+------+------+-------+ | clonazePAM | Take 2 mg by mouth | | | | | Activ | | (KLONOPIN) 2 MG | nightly as needed | | | | | e | | tablet | for Anxiety. | | | | | | + + +--------+---------+------+------+-------+ | topiramate | 100 mg 2 (two) times | | | 05/3 | | Activ | | (TOPAMAX) 50 MG | daily. | | | 0/20 | | e | | tablet | | | | 18 | | | + + +--------+---------+------+------+-------+ | SUMAtriptan | Take 50 mg by mouth. | | | | | Activ | | (IMITREX) 50 MG | | | | | | e | | tablet | | | | | | | + + +--------+---------+------+------+-------+ | levETIRAcetam | Take 500 mg by mouth | | | 02/ | | Activ | | (KEPPRA) 500 MG | 2 (two) times | | | 9/20 | | e | | tablet | daily. | | | 19 | | | + + +--------+---------+------+------+-------+ | ondansetron | | | | 02/2 | | Activ | | (ZOFRAN-ODT) 4 MG | | | | 0/20 | | e | | disintegrating | | | | 19 | | | | tablet | | | | | | | + + +--------+---------+------+------+-------+ | pantoprazole | Take 1 tablet by | 60 | 11 | 04/ | 05/1 | Activ | | (PROTONIX) 20 MG | mouth 2 (two) times | tablet | | 08/26 | 6 | e | | tablet | daily. | | | 19 | 20 | | + + +--------+---------+------+------+-------+ | QUEtiapine | Take 400 mg by mouth | | | | | Activ | | (SEROQUEL XR) 400 MG | nightly. | | | | | e | | 24 hr tablet | | | | | | | + + +--------+---------+------+------+-------+ | quetiapine | Take 50 mg by mouth | | | | | Activ | | (SEROQUEL) 50 MG | 2 (two) times daily. | | | | | e | | tablet | | | | | | | + + +--------+---------+------+------+-------+ | | Take 1 tablet by | 7 | 0 | 05/0 | | Activ | | oxyCODONE-acetaminop | mouth every 6 (six) | tablet | | 8/20 | | e | | hen (PERCOCET) 5-325 | hours as needed for | | | 19 | | | | MG per tablet | Pain. | | | | | | + + +--------+---------+------+------+-------+ | predniSONE | | | | 05/1 | | Activ | | (DELTASONE) 10 MG | | | | 4/20 | | e | | tablet | | | | 19 | | | + + +--------+---------+------+------+-------+ | mirtazapine | Take 60 mg by mouth | | | | | Activ | | (REMERON) 30 MG | nightly. | | | | | e | | tablet | | | | | | | + + +--------+---------+------+------+-------+ Active Problems + + + | Problem | Noted Date | + + + | Personal history of colonic polyps | 07/26/2018 | + + + + + | Overview: Added automatically from request for surgery [id number] | + + + + + | Weight loss | 06/24/2018 | + + + + + | Overview: Added automatically from request for surgery [id number] | + + + + + | Methamphetamine abuse in remission (HCC) | 04/29/2018 | + + + | Seizure (HCC) | 04/29/2018 | + + + | Status post lumbar microdiscectomy | 04/20/2017 | + + + | Lumbar radiculopathy | 02/16/2017 | + + + | Herniated lumbar intervertebral disc | 02/16/2017 | + + + | Degeneration of intervertebral disc of lumbar region | 02/16/2017 | + + + | Neural foraminal stenosis of lumbar spine | 02/16/2017 | + + + | History of lumbar discectomy | 02/16/2017 | + + + | Chest pain | 07/28/2016 | + + + | Smoking | 07/28/2016 | + + + | GERD (gastroesophageal reflux disease) | 07/28/2016 | + + + | HTN (hypertension) | 07/28/2016 | + + + | Obesity due to excess calories | 07/28/2016 | + + + | Depression | 07/28/2016 | + + + | Anxiety state | 11/30/2007 | + + + + + | Overview: Overview: | | IMO Problem List Replacement - 2016_Regulatory_1 | + + + + + | Bipolar disorder (HCC) | 11/30/2007 | + + + + + | Overview: Overview: | | Dx Name changed by system update on 12/19/2016 | + + Immunizations + + + + | Name | Dates Previously Given | Next Due | + + + + | Hep A / Hep B | 05/01/2011, 11/13/2010, 10/08/2010 | | + + + + | INFLUENZA PF, | 01/08/2015, 01/04/2014, 12/28/2010 | | | QUADRIVALENT | | | | (PED/ADOL/ADULT) | | | + + + + | Influenza, Trivalent | 02/24/2013, 12/13/2007 | | | W/Preservative | | | + + + + | Tdap | 10/11/2016 | | + + + + Family History + + +------+ + | Medical History | Relation | Name | Comments | + + +------+ + | Hypertension | Father | | | + + +------+ + | Diabetes type I | Maternal | | | | | Grandmoth | | | | | er | | | + + +------+ + + +------+--------+ + | Relation | Name | Status | Comments | + +------+--------+ + | Father | | Alive | | + +------+--------+ + | Maternal Grandmother | | | | + +------+--------+ + | Mother | | Alive | | + +------+--------+ + Social History + +-------+ +--------+------+ | Tobacco Use | Types | Packs/Day | Years | Date | | | | | Used | | + +-------+ +--------+------+ | Current Every Day | | 0.5 | | | | Smoker | | | | | + +-------+ +--------+------+ + +---+---+ + | Smokeless Tobacco: | | | Quit: | | Former User | | | 06/30/19 | | | | | 05 | + +---+---+ + + + | Tobacco Cessation: Ready to Quit: Yes | | Comments: Pt started smoking again | + + + + +---------+ + | Alcohol Use | Drinks/We | oz/Week | Comments | | | ek | | | + + +---------+ + | No | | | clean and sober 14 months | + + +---------+ + + + + | Sex Assigned at | Date Recorded | | | | + + + | Not on file | | + + + Last Filed Vital Signs + + + + | Vital Sign | Reading | Time Taken | + + + + | Blood Pressure | 127/75 | 07/26/2018 2:40 PM PDT | + + + + | Pulse | 82 | 07/26/2018 2:40 PM PDT | + + + + | Temperature | 36.6 C (97.9 F) | 07/14/2018 7:06 PM PDT | + + + + | Respiratory Rate | 16 | 07/14/2018 10:22 PM PDT | + + + + | Oxygen Saturation | 97% | 07/14/2018 10:22 PM PDT | + + + + | Inhaled Oxygen | - | - | | Concentration | | | + + + + | Weight | 118.8 kg (262 lb) | 07/26/2018 2:40 PM PDT | + + + + | Height | 182.9 cm (6') | 07/26/2018 2:40 PM PDT | + + + + | Body Mass Index | 35.53 | 07/26/2018 2:40 PM PDT | + + + + Plan of Treatment + + + + + | Health Maintenance | Due Date | Last Done | Comments | + + + + + | Vaccine: | | | | | Pneumococcal 19-64 | 7 | | | | (PPSV23 only) Medium | | | | | Risk (1 of 1 - | | | | | PPSV23) | | | | + + + + + | Vaccine: Influenza | | 01/08/2015, 01/04/2014, | | | (#1) | 9 | 02/24/2013, Additional history | | | | | exists | | + + + + + | Colon Cancer | | 07/01/2018 | | | Screening | 0 | | | | (Colonoscopy) | | | | + + + + + | Vaccine: | | 10/11/2016 | | | Dtap/Tdap/Td (2 - | 7 | | | | Td) | | | | + + + + + Results Not on filefrom Last 3 Months Insurance + +--------+ +------+-------+ + | Payer | Benefi | Subscriber | Type | Phone | Address | | | t Plan | ID | | | | | | / | | | | | | | Group | | | | | + +--------+ +------+-------+ + | [place] - [place] | L&I - | [id number] | | | | | | [place] | | | | | | | [place] | | | | | + +--------+ +------+-------+ + | MEDICAID | [place]ASTER | [id number] | | | [address] | | | [place] | | | | [place] | | | [place] | | | | [phone] | | | [employer] | | | | | + +--------+ +------+-------+ + + +--------+ +--------+ + + | Guarantor Name | Accoun | Relation to | Date | Phone | Billing Address | | | t Type | Patient | of | | | | | | | | | | + +--------+ +--------+ + + | BERNA CALLAHAN | Person | Self [birth year] | Home: | [address] | | | al/Fam | | [phone] | [phone] | [place] [address] | | | jyothi | | | [phone] | | + +--------+ +--------+ + + | BERNA CALLAHAN | 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
--- OUTSIDE RECORDS SUMMARY | ~2019-03-03 | XMS | Encounter Summary ---
Demographics + + + | Address | [address] | | | [place] [address] | + + + | Home Phone | | + + + | Preferred Language | Unknown | + + + | Marital Status | | + + + | Hindu Affiliation | 1041 | + + + | Race | Unknown | + + + | Ethnic Group | Unknown | + + + Author + + + | Author | [facility] | | | and [place] | + + + | Organization | [facility] | | | [...] | | | | | [place] [address] | | + + + + + Care Team Providers + +------+ + | Care Rug Repairer Name | Role | Phone | + +------+ + | Martha Sanford | PCP | | + +------+ + Encounter Details +--------+ + + + + | Date | Type | Department | Care Team | Description | +--------+ + + + + | 07/07/ | Hospital | [facility] | Conversion | Lumbar | | 2019 | Encounter | [facility] | Transaction, | radiculopathy; | | | | [address] | Provider Unknown | History of lumbar | | | | [place], [place] | | discectomy | | | | [address] | (Fax) | | | | | [phone] | | | +--------+ + + + [...] + + + +---------+ + + | levETIRAcetam | Take 500 mg by mouth | | 0 | 04/27/19 | | | (KEPPRA) 500 mg | 2 (two) times | | | 19 | | | tablet | daily. | | | | | + + + +---------+ + + | losartan (COZAAR) | Take 50 mg by mouth | | 0 | | | | 50 mg tablet | Daily. | | | | | + + + +---------+ + + | methylPREDNISolone | FOLLOW PACKAGE | | 0 | 06/22/19 | | | (MEDROL DOSEPAK) 4 | DIRECTIONS | | | 19 | | | mg tablet | | | | | | [...] + + + +---------+ + + | ondansetron | | | 0 | 04/28/19 | | | (ZOFRROBERTO ODT) 4 mg | | | | 19 | | | disintegrating | | | | | | | tablet | | | | | | + + + +---------+ + + | pantoprazole | Take 1 tablet by | | 0 | 06/23/19 | | | (PROTONIX) 20 mg | mouth 2 (two) times | | | 19 | 0 | | tablet | daily. | | | | | + [...] 2 (two) times | | 0 | 05/30/20 | | | (TOPAMAX) 50 MG | [...] + +--------+ + + + | XR LUMBAR SPINE 2 OR | Routin | 07/07/2018 | | Results for this | | 3 VW | e | 9:34 AM | | procedure are in the | | | | PDT | | results section. | + +--------+ + + + documented in this encounter Results XR Lumbar Spine 2 or 3 Vw (07/07/2018 9:34 AM PDT) + + | Specimen | + + | | + + + + + | Impressions | Performed At | + + + | No acute findings. No substantial interval change from MRI | | | 08/07/2017. Signed by: Tyrone Amezcua, Nilo Sign Date/Time: | | | 07/07/2018 3:15 PM | | + + + + + + | Narrative | Performed At | + + + | LUMBAR SPINE TWO OR THREE VIEWS CLINICAL INFORMATION: Lumbar | | | radiculopathy. History of lumbar discectomy. COMPARISON: MRI LUMBAR | | | SPINE W WO CONTRAST (08/07/2017); CT LUMBAR SPINE WO CONTRAST | | | (04/09/2017); XR LUMBAR SPINE LIMITED 2-3 VIEW (03/10/2017); FINDINGS: | | | Alignment: Static lumbar spine alignment including L3-L4 subtle grade | | | 1 retrolisthesis. Vertebrae: Preserved vertebral body heights. | | | Mild marginal osteophytosis redemonstrated. Lumbar Disc Levels: | | | Mild L4-L5 and L5-S1 disc space narrowing, static. Facets and | | | Posterior Spinal Elements: Located and intact. | | + + + + + | Procedure Note | + + | Charles, Rad Conversion - 10/19/2018 6:11 PM PDT LUMBAR SPINE TWO OR THREE VIEWS | | CLINICAL INFORMATION: | | Lumbar radiculopathy. History of lumbar discectomy. | | COMPARISON: | | MRI LUMBAR SPINE W WO CONTRAST (08/07/2017); CT LUMBAR SPINE WO CONTRAST | | (04/09/2017); XR LUMBAR SPINE LIMITED 2-3 VIEW (03/10/2017); | | FINDINGS: | | Alignment: Static lumbar spine alignment including L3-L4 subtle grade 1 | | retrolisthesis. | | Vertebrae: Preserved vertebral body heights. Mild marginal | | osteophytosis redemonstrated. | | Lumbar Disc Levels: Mild L4-L5 and L5-S1 disc space narrowing, static. | | Facets and Posterior Spinal Elements: Located and intact. | | IMPRESSION: | | No acute findings. No substantial interval change from MRI 08/07/2017. | | Signed by: Tyrone Amezcua Justin | | Sign Date/Time: 07/07/2018 3:15 PM | + + documented in this encounter Visit Diagnoses + + | Diagnosis | + + | Lumbar radiculopathy Thoracic or lumbosacral neuritis or radiculitis, unspecified | + + | History of lumbar discectomy Personal history of surgery to other organs | + + documented in this encounter"
--- OUTSIDE RECORDS SUMMARY | ~2019-03-03 | XMS | Encounter Summary ---
Demographics + + + | Address | [address] | | | [place] [address] | + + + | Home Phone | | + + + | Preferred Language | Unknown | + + + | Marital Status | | + + + | Episcopal Affiliation | 1041 | + + + | Race | Unknown | + + + | Ethnic Group | Unknown | + + + Author + + + | Author | [facility] | | | and [place] | + + + | Organization | [facility] | | | [...] | | | | | [place] [address] | | + + + + + Care Team Providers + +------+ + | Care A P Mechanic Name | Role | Phone | + +------+ + | Martha Sanford | PCP | | + +------+ + Encounter Details +--------+ + + + + | Date | Type | Department | Care Team | Description | +--------+ + + + + | 08/07/ | Hospital | [facility] | Conversion | Lumbar | | 2018 | Encounter | [facility] MRI | Transaction, | radiculopathy; | | | | [address] | Provider Unknown | Status post lumbar | | | | [place], [place] | [phone] | microdiscectomy | | | | [address] | | | | | | [phone] | Vinh Lopez, | | | | | | COOKING TEACHER [address] | [address] | [address] | | | | | | [place] [address] | | | | | | [phone] | | | | | | | [...]
--- OUTSIDE RECORDS SUMMARY | ~2019-03-03 | XMS | Encounter Summary ---
Demographics + + + | Address | [address] | | | [place] [address] | + + + | Home Phone | | + + + | Preferred Language | Unknown | + + + | Marital Status | Single | + + + | Spiritism Affiliation | NRP | + + + | Race | White | + + + | Ethnic Group | Not or | + + + Author + + + | Author | [facility] | + + + | Organization | [facility] | + + + | Address | Unknown | + + + | Phone | Unavailable | + + + Support + + +---------+ + | Name | Relationship | Address | Phone | + + +---------+ + | Myra Ramirez | ECON | Unknown | | + + +---------+ + Care Team Providers + +------+ + | Care Grit Blaster Name | Role | Phone | + +------+ + | Jovanny Che PA-C | PCP | | + +------+ + Encounter Details +--------+ + + + + | Date | Type | Department | Care Team | Description | +--------+ + + + + | 11/03/ | Hospital | Radiology/Imaging | Muriel Menon, | | | 2017 | Encounter | Lab at [facility] [address] | [address] | | | | | Sg Suarez Mailcode: | [place], [place] | | | | | [facility] | [address] | | | | | and [address], | [phone] | | | | | | | | | | | Floor [place], [place] | | | | | | [address] | | | | | | [phone] | | | +--------+ + + + [...] + + +---------+ + + | clonazePAM 2 mg | Take 4 mg by mouth | | 0 | | | | oral tablet | once daily at | | | | | | | bedtime as needed. | | | | | + + + +---------+ + + | gabapentin 300 mg | | | 0 | 10/24/19 | | | oral capsule | | | | 17 | | + + + +---------+ + + | gabapentin 800 mg | Take 800 mg by mouth | | 0 | | | | oral tablet | two times daily. | | | | | + + + +---------+ + + | hydrALAZINE 25 mg | Take 25 mg by mouth | | 0 | | | | oral tablet | two times daily. | | | | | + + + +---------+ + + | HYDROmorphone 2 mg | Take 2 mg by mouth | | 0 | | | | oral tablet | every four hours as | | | | | | | needed for severe | | | | | | | pain. | | | | | + + + +---------+ + + | losartan 50 mg | | | 0 | 10/21/19 | | | oral tablet | | | | 17 | | + + + +---------+ + + | LOSARTAN POTASSIUM | Take by mouth. | | 0 | | | | (LOSARTAN ORAL) | | | | | | + + + +---------+ + + | mirtazapine 30 mg | Take 60 mg by mouth | | 0 | | | | oral tablet | once daily in the | | | | | | | evening. | | | | | + + + +---------+ + + | oxyCODONE | | | 0 | 10/24/19 | | | (immediate release) | | | | 17 | | | 10 mg oral tablet | | | | | | + + + +---------+ + + documented as of this encounter Plan of Treatment Not on filedocumented as of this encounter Procedures + +--------+ + + + | Procedure Name | Priori | Date/Time | Associated Diagnosis | Comments | | | ty | | | | + +--------+ + + + | X-RAY SPINE THORACIC | Routin | 11/03/2016 | Thoracic back | Results for this | | 2 VIEWS | e | 12:17 PM | pain, unspecified | procedure are in the | | | | PDT | back pain | results section. | | | | | laterality, | | | | | | unspecified | | | | | | chronicity Low back | | | | | | pain, unspecified | | | | | | back pain | | | | | | laterality, | | | | | | unspecified | | | | | | chronicity, with | | | | | | sciatica presence | | | | | | unspecified | | + +--------+ + + + documented in this encounter Results X-RAY SPINE THORACIC 2 VIEWS (11/03/2016 12:17 PM PDT) + + | Specimen | + + | | + + + + + | Narrative | Performed At | + + + | STUDY: SPINE THORACIC 2 VIEWS HISTORY: Pain. COMPARISON: | [facility] | | X-ray 01/11/2015 FINDINGS: T-spine: No focal osseous | RADIOLOGY VOICE | | destruction, evidence of fracture or malalignment. Mild/moderate joint | RECOGNITION | | space narrowing throughout the thoracic spine with mild endplate | | | spurring. Vertebral body heights are maintained. No focal soft tissue | | | abnormality. L-spine: Mild L4-L5 and L5-S1 joint space narrowing | | | with endplate spurring and associated facet arthrosis. There are 2.5 | | | mm retrolisthesis at L2-L3 and 4 mm retrolisthesis, which does not | | | change between flexion and extension. There is no dynamic instability. | | | No fracture or focal destruction is detected. No focal soft tissue | | | abnormality. IMPRESSION: Thoracic spine: Mild multilevel | | | degenerative disc disease. Lumbar spine: Trace static | | | retrolistheses at L3-L4 L4-L5. Mild degenerative disc disease from | | | L4-S1 with associated facet arthrosis. I have personally | | | reviewed the images and, if necessary, edited the report. I agree | | | with the report as now presented. | | + + + + + | Procedure Note | + + | Service Account, Radiant Res In Interface - 11/03/2016 1:44 PM PDT STUDY: SPINE | | THORACIC 2 VIEWSHISTORY: Pain.COMPARISON: X-ray 01/11/2015FINDINGS: T-spine: No focal | | osseous destruction, evidence of fracture or malalignment. Mild/moderate joint space | | narrowing throughout the thoracic spine with mild endplate spurring. Vertebral body | | heights are maintained. No focal soft tissue abnormality.L-spine: Mild L4-L5 and L5-S1 | | joint space narrowing with endplate spurring and associated facet arthrosis. There are | | 2.5 mm retrolisthesis at L2-L3 and 4 mm retrolisthesis, which does not change between | | flexion and extension. There is no dynamic instability. No fracture or focal destruction | | is detected. No focal soft tissue abnormality.IMPRESSION: Thoracic spine:Mild | | multilevel degenerative disc disease.Lumbar spine:Trace static retrolistheses at L3-L4 | | L4-L5.Mild degenerative disc disease from L4-S1 with associated facet arthrosis. I have | | personally reviewed the images and, if necessary, edited the report. I agree with the | | report as now presented. | |IMPRESSION: | | | |Thoracic spine: | |Mild multilevel degenerative disc disease. | | | |Lumbar spine: | |Trace static retrolistheses at L3-L4 L4-L5. | |Mild degenerative disc disease from L4-S1 with associated facet arthrosis. | | | | | |I have personally reviewed the images and, if necessary, edited the report. I agree with t he report as now presented. | + + + +---------+ + + | Performing | Address | City/State/Zipcode | Phone Number | | Organization | | | | + +---------+ + + | [facility] | | | | | VOICE RECOGNITION | | | | + +---------+ + + documented in this encounter Visit Diagnoses + + | Diagnosis | + + | Thoracic back pain, unspecified back pain laterality, unspecified chronicity | + + | Low back pain, unspecified back pain laterality, unspecified chronicity, with sciatica | | presence unspecified | + + documented in this encounter"
--- OUTSIDE RECORDS SUMMARY | ~2019-03-03 | XMS | Encounter Summary ---
Demographics + + + | Address | [address] | | | [place] [address] | + + + | Home Phone | | + + + | Preferred Language | Unknown | + + + | Marital Status | | + + + | Scientology Affiliation | 1041 | + + + | Race | Unknown | + + + | Ethnic Group | Unknown | + + + Author + + + | Author | [facility] | | | and [place] | + + + | Organization | [facility] | | [...] | | | | | [place] [address] | | + + + + + Care Team Providers + +------+ + | Care Barrel Rifler Name | Role | Phone | + +------+ + | Jovanny Che PA-C | PCP | | + +------+ + Encounter Details +--------+ + + + + | Date | Type | Department | Care Team | Description | +--------+ + + + + | 02/17/ | Emergency | [facility] | Antonio Ely DO | Constipation, | | 2016 | | MEDICAL CENTER | [address] | unspecified | | | | EMERGENCY CENTER | [place], [place] | constipation type | | | | [address] [facility] | [address] | | | | | [place], [place] | [phone] | | | | | [address] | | | | | | [phone] | | | +--------+ + + + [...] + + + +---------+--------+ + | clonazePAM | Take 2 mg by mouth | | 0 | | | | (KLONOPIN) 2 MG | Twice daily as | | | | | | tablet | needed for Anxiety. | | | | | + + + +---------+--------+ + | gabapentin | Take 800 mg by mouth | | 0 | | | | (NEURONTIN) 800 MG | 2 times daily. | | | | | | tablet | | | | | | + + + +---------+--------+ + | hydrALAZINE | Take 25 mg by mouth | | 0 | | | | (APRESOLINE) 25 mg | 2 times daily. | | | | | | tablet | | | | | | + + + +---------+--------+ + | HYDROmorphone | Take 2 mg by mouth | | 0 | | | | (DILAUDID) 2 mg | every 12 hours. | | | | | | tablet | | | | | | + + + +---------+--------+ + | losartan (COZAAR) | Take 50 mg by mouth | | 0 | | | | 50 mg tablet | Daily. | | | | | + + + +---------+--------+ + | mirtazapine | Take 60 mg by mouth | | 0 | | | | (REMERON) 30 MG | nightly. | | | | | | tablet | | | | | | + + + +---------+--------+ + | pantoprazole | Take 40 mg by mouth | | 0 | | | | (PROTONIX) 40 mg | every morning | | | | | | tablet | (before breakfast). | | | | | + + + +---------+--------+ + | SUMAtriptan | Take 50 mg [...] + +--------+ + + + | XR ABDOMEN 2 VW | Routin | 02/18/2016 | | Results for this | | | e | 9:02 PM | | procedure are in the | | | | PST | | results section. | + +--------+ + + + | EXTERNAL LAB: CBC | Routin | 02/18/2016 | | Results for this | | | e | 8:45 PM | | procedure are in the | | | | PST | | results section. | + +--------+ + + + | URINALYSIS, REFLEX | Routin | 02/18/2016 | | Results for this | | MICROSCOPIC AND/OR | e | 8:45 PM | | procedure are in the | | CULTURE | | PST | | results section. | + +--------+ + + + | C-REACTIVE PROTEIN | Routin | 02/18/2016 | | Results for this | | | e | 8:45 PM | | procedure are in the | | | | PST | | results section. | + +--------+ + + + | LIPASE | Routin | 02/18/2016 | | Results for this | | | e | 8:45 PM | | procedure are in the | | | | PST | | results section. | + +--------+ + + + | COMPREHENSIVE | Routin | 02/18/2016 | | Results for this | | METABOLIC PANEL | e | 8:45 PM | | procedure are in the | | | | PST | | results section. | + +--------+ + + + documented in this encounter Results XR Abdomen 2 VW (02/18/2016 9:02 PM PST) + + | Specimen | + + | | + + + + + | Impressions | Performed At | + + + | 1. Increased stool suggesting constipation. Electronically | | | signed by Ajay Nuñez MD on 02/18/2016 9:06 PM | | + + + + + + | Narrative | Performed At | + + + | [facility] XR ABDOMEN 2 VIEWS 02/18/2016 9:02 PM HISTORY: | | | Abdominal pain. TECHNIQUE: 2 views of the abdomen FINDINGS: | | | No comparison. The bowel gas pattern appears unremarkable. No bowel | | | distention or air-fluid levels to suggest obstruction. There is | | | increased stool within the colon suggesting constipation. No abnormal | | | soft tissue calcifications are seen. | | + + + + + | Procedure Note | + + | Charles, Rad Conversion - 10/21/2018 7:10 AM PDT BER[facility] CALLAHANXR ABDOMEN 2 | | VIEWS02/18/2016 9:02 PM HISTORY:Abdominal pain. TECHNIQUE:2 views of the abdomen | | FINDINGS:No comparison. The bowel gas pattern appears unremarkable. No bowel distention | | or air-fluid levels to suggest obstruction. There is increased stool within the colon | | suggesting constipation. No abnormal soft tissue calcifications are seen. IMPRESSION: 1. | | Increased stool suggesting constipation. | |TECHNIQUE: | |2 views of the abdomen | | | |FINDINGS: | |No comparison. The bowel gas pattern appears unremarkable. No bowel distention or air-fluid levels to suggest obstruction. There is increased stool within the colon suggesting constip ation. No abnormal soft tissue calcifications are seen. | | | |IMPRESSION: | |1. Increased stool suggesting constipation. | | | | | + + Urinalysis, Reflex Microscopic and/or Culture (02/18/2016 8:45 PM PST) + + + + + + | Component | Value | Ref Range | Performed | Pathologist | | | | | At | Signature | + + + + + + | Color | YELLOWComment: Testing | | EXTERNAL | | | | performed at [facility];[address] | | LAB | | | | [address];[place] | | | | | | [address] | | | | + + + + + + | Clarity | CLEARComment: Testing | | EXTERNAL | | | | performed at [facility];[address] | | LAB | | | | [address];[place] | | | | | | [address] | | | | + + + + + + | Specific | 1.021Comment: Testing | 1.002 - 1.030 | EXTERNAL | | | [place] | performed at [facility];[address] | | LAB | | | | [address];[place] | | | | | | [address] | | | | + + + + + + | Leukocyte | NEGATIVEComment: Testing | | EXTERNAL | | | Esterase, | performed at [facility];[address] | | LAB | | | Urine | [address];[place] | | | | | | [address] | | | | + + + + + + | Nitrite, | NEGATIVEComment: Testing | | EXTERNAL | | | Urine | performed at [facility];[address] | | LAB | | | | [address];[place] | | | | | | [address] | | | | + + + + + + | Urobilinoge | NORMALComment: Testing | mg/dL | EXTERNAL | | | n, Urine | performed at [facility];[address] | | LAB | | | | [address];[place] | | | | | | [address] | | | | + + + + + + | Protein, | NEGATIVEComment: Testing | mg/dL | EXTERNAL | | | Urine | performed at [facility];[address] | | LAB | | | | [address];[place] | | | | | | [address] | | | | + + + + + + | pH, Urine | 5.0Comment: Testing | 5.0 - 8.0 | EXTERNAL | | | | performed at [facility];[address] | | LAB | | | | [address];[place] | | | | | | [address] | | | | + + + + + + | Blood, | NEGATIVEComment: Testing | | EXTERNAL | | | Urine | performed at [facility];[address] | | LAB | | | | [address];[place] | | | | | | [address] | | | | + + + + + + | Ketones | NEGATIVEComment: Testing | mg/dL | EXTERNAL | | | | performed at [facility];[address] | | LAB | | | | [address];[place] | | | | | | [address] | | | | + + + + + + | Bilirubin, | NEGATIVEComment: Testing | | EXTERNAL | | | Urine | performed at [facility];[address] | | LAB | | | | [address];[place] | | | | | | [address] | | | | + + + + + + | Glucose, | NEGATIVEComment: Testing | mg/dL | EXTERNAL | | | Urine | performed at [facility];[address] | | LAB | | | | [address];[place], [place] | | | | | | [address] | | | | + + + + + + + + | Specimen | + + | | + + + +---------+ + + | Performing | Address | City/State/Zipcode | Phone Number | | Organization | | | | + +---------+ + + | EXTERNAL LAB | | | | + +---------+ + + External Lab: CBC (02/18/2016 8:45 PM PST) + + + + + + | Component | Value | Ref Range | Performed | Pathologist | | | | | At | Signature | + + + + + + | WBC | 10.35Comment: Testing | 3.80 - 11.00 | EXTERNAL | | | | performed at [facility];[address] | K/uL | LAB | | | | [address];[place] | | | | | | [address] | | | | + + + + + + | RED CELL | 4.66Comment: Testing | 4.20 - 5.70 | EXTERNAL | | | COUNT | performed at [facility];[address] | M/uL | LAB | | | | [address];[place] | | | | | | [address] | | | | + + + + + + | Hgb | 14.4Comment: Testing | 13.2 - 17.0 | EXTERNAL | | | | performed at [facility];[address] | g/dL | LAB | | | | [address];[place] | | | | | | [address] | | | | + + + + + + | Hematocrit, | 41.3Comment: Testing | 39.0 - 50.0 % | EXTERNAL | | | POC | performed at [facility];[address] | | LAB | | | | [address];[place] | | | | | | [address] | | | | + + + + + + | MCV | 88.6Comment: Testing | 80.0 - 100.0 fl | EXTERNAL | | | | performed at [facility];[address] | | LAB | | | | [address];[place] | | | | | | [address] | | | | + + + + + + | MCH | 31.0Comment: Testing | 27.0 - 34.0 pg | EXTERNAL | | | | performed at [facility];[address] | | LAB | | | | [address];[place] | | | | | | [address] | | | | + + + + + + | MCHC | 35.0Comment: Testing | 32.0 - 35.5 | EXTERNAL | | | | performed at [facility];[address] | g/dL | LAB | | | | [address];[place] | | | | | | [address] | | | | + + + + + + | RDW-CV | 39.4Comment: Testing | 37 - 53 fl | EXTERNAL | | | | performed at [facility];[address] | | LAB | | | | [address];[place] | | | | | | [address] | | | | + + + + + + | Platelet | 302Comment: Testing | 150 - 400 K/uL | EXTERNAL | | | Count | performed at [facility];[address] | | LAB | | | Plasma | [address];[place] | | | | | | [address] | | | | + + + + + + | MPV | 7.6Comment: Testing | fl | EXTERNAL | | | | performed at [facility];[address] | | LAB | | | | [address];[place] | | | | | | [address] | | | | + + + + + + | Differentia | AUTOMATEDComment: | | EXTERNAL | | | l Type | Testing performed at | | LAB | | | | [facility];[address];[place] [address] | | | | + + + + + + | % Segmented | 53.37Comment: Testing | % | EXTERNAL | | | | performed at [facility];[address] | | LAB | | | Neutrophils | [address];[place] | | | | | | [address] | | | | + + + + + + | % | 25.30Comment: Testing | % | EXTERNAL | | | Lymphocytes | performed at [facility];[address] | | LAB | | | | [address];[place] | | | | | | [address] | | | | + + + + + + | % Monocytes | 6.89Comment: Testing | % | EXTERNAL | | | | performed at [facility];[address] | | LAB | | | | [address];[place] | | | | | | [address] | | | | + + + + + + | % | 13.16Comment: Testing | % | EXTERNAL | | | Eosinophils | performed at [facility];[address] | | LAB | | | | [address];[place] | | | | | | [address] | | | | + + + + + + | % Basophils | 1.28Comment: Testing | % | EXTERNAL | | | | performed at [facility];[address] | | LAB | | | | [address];[place] | | | | | | [address] | | | | + + + + + + | Absolute | 5.52Comment: Testing | 1.90 - 7.40 | EXTERNAL | | | Segmented | performed at [facility];[address] | K/uL | LAB | | | Neutrophils | [address];[place] | | | | | | [address] | | | | + + + + + + | Absolute | 2.62Comment: Testing | 1.00 - 3.90 | EXTERNAL | | | Lymphocytes | performed at [facility];[address] | K/uL | LAB | | | | [address];[place] | | | | | | [address] | | | | + + + + + + | Absolute | 0.71Comment: Testing | 0.00 - 0.80 | EXTERNAL | | | Monocytes | performed at [facility];[address] | K/uL | LAB | | | | [address];[place] | | | | | | [address] | | | | + + + + + + | Absolute | 1.36 (H)Comment: Testing | 0.00 - 0.50 | EXTERNAL | | | Eosinophils | performed at [facility];[address] | K/uL | LAB | | | | [address];[place] | | | | | | [address] | | | | + + + + + + | Absolute | 0.13 (H)Comment: Testing | 0.00 - 0.10 | EXTERNAL | | | Basophils | performed at [facility];[address] | K/uL | LAB | | | | [address];[place], [place] | | | | | | [address] | | | | + + + + + + + + | Specimen | + + | Blood specimen | | (specimen) | + + + +---------+ + + | Performing | Address | City/State/Zipcode | Phone Number | | Organization | | | | + +---------+ + + | EXTERNAL LAB | | | | + +---------+ + + C-Reactive Protein (02/18/2016 8:45 PM PST) + + + + + + | Component | Value | Ref Range | Performed | Pathologist | | | | | At | Signature | + + + + + + | CRP | 1.0 (H)Comment: Testing | mg/dL | EXTERNAL | | | | performed at [facility] | | LAB | | | | [facility], [place] | | | | | | [address] | | | | + + + + + + + + | Specimen | + + | | + + + +---------+ + + | Performing | Address | City/State/Zipcode | Phone Number | | Organization | | | | + +---------+ + + | EXTERNAL LAB | | | | + +---------+ + + Lipase (02/18/2016 8:45 PM PST) + + + + + + | Component | Value | Ref Range | Performed | Pathologist | | | | | At | Signature | + + + + + + | Lipase | 195Comment: Testing | 73 - 393 U/L | EXTERNAL | | | | performed at [facility];[address] | | LAB | | | | [address];[place] | | | | | | [address] | | | | + + + [...] + +---------+ + + Comprehensive Metabolic Panel (02/18/2016 8:45 PM PST) + + + + + + | Component | Value | Ref Range | Performed | Pathologist | | | | | At | Signature | + + + + + + | Na | 143Comment: Testing | 135 - 145 | EXTERNAL | | | | performed at [facility];[address] | mmol/L | LAB | | | | [address];[place] | | | | | | [address] | | | | + + + + + + | K | 3.9Comment: SLT | 3.5 - 4.9 | EXTERNAL | | | | HEMOLYSISTesting | mmol/L | LAB | | | | performed at [facility];[address] | | | | | | [address];[place] | | | | | | [address] | | | | + + + + + + | Cl | 104Comment: Testing | 99 - 109 mmol/L | EXTERNAL | | | | performed at [facility];[address] | | LAB | | | | [address];[place] | | | | | | [address] | | | | + + + + + + | CO2 | 33 (H)Comment: Testing | 23 - 32 mmol/L | EXTERNAL | | | | performed at [facility];[address] | | LAB | | | | [address];[place] | | | | | | [address] | | | | + + + + + + | Anion Gap | 10Comment: Testing | 5 - 20 mmol/L | EXTERNAL | | | | performed at [facility];[address] | | LAB | | | | [address];[place] | | | | | | [address] | | | | + + + + + + | Glucose, | 98Comment: Testing | 65 - 99 mg/dL | EXTERNAL | | | Fasting | performed at [facility];[address] | | LAB | | | | [address];[place] | | | | | | [address] | | | | + + + + + + | BUN | 8Comment: Testing | 8 - 25 mg/dL | EXTERNAL | | | | performed at [facility];[address] | | LAB | | | | [address];[place] | | | | | | [address] | | | | + + + + + + | Creatinine | 0.90Comment: Testing | 0.70 - 1.30 | EXTERNAL | | | | performed at [facility];[address] | mg/dL | LAB | | | | [address];[place] | | | | | | [address] | | | | + + + + + + | BUN/Creatin | 8Comment: Testing | | EXTERNAL | | | ine Ratio | performed at [facility];[address] | | LAB | | | | [address];[place] | | | | | | [address] | | | | + + + + + + | Calcium | 8.2 (L)Comment: Testing | 8.5 - 10.5 | EXTERNAL | | | | performed at [facility];[address] | mg/dL | LAB | | | | [address];[place] | | | | | | [address] | | | | + + + + + + | Protein, | 7.3Comment: Testing | 6.3 - 8.2 g/dL | EXTERNAL | | | Total | performed at [facility];[address] | | LAB | | | | [address];[place] | | | | | | [address] | | | | + + + + + + | Albumin | 3.6Comment: Testing | 3.6 - 5.0 g/dL | EXTERNAL | | | | performed at [facility];[address] | | LAB | | | | [address];[place] | | | | | | [address] | | | | + + + + + + | Globulin | 3.7Comment: Testing | 1.3 - 4.9 g/dL | EXTERNAL | | | | performed at [facility];[address] | | LAB | | | | [address];[place] | | | | | | [address] | | | | + + + + + + | A/G Ratio | 1.0Comment: Testing | 1.0 - 2.4 | EXTERNAL | | | | performed at [facility];[address] | | LAB | | | | [address];[place] | | | | | | [address] | | | | + + + + + + | Bilirubin | 0.3Comment: Testing | 0.1 - 1.5 mg/dL | EXTERNAL | | | Total | performed at [facility];[address] | | LAB | | | | [address];[place] | | | | | | [address] | | | | + + + + + + | ALP, | 98Comment: Testing | 35 - 115 U/L | EXTERNAL | | | External | performed at [facility];[address] | | LAB | | | | [address];[place] | | | | | | [address] | | | | + + + + + + | AST | 21Comment: SLT | 10 - 45 U/L | EXTERNAL | | | | HEMOLYSISTesting | | LAB | | | | performed at [facility];[address] | | | | | | [address];[place] | | | | | | [address] | | | | + + + + + + | ALT | 34Comment: Testing | 10 - 65 U/L | EXTERNAL | | | | performed at [facility];[address] | | LAB | | | | [facility];[place], [place] | | | | | | [address] | | | | + + + [...] | | | | | | at [facility];[address] [place] [address] | | | | | | Blvd;[place] [address] | | | | + + + [...] + | Diagnosis | + + | Constipation, unspecified constipation type | + + documented in this encounter"
--- OUTSIDE RECORDS SUMMARY | ~2019-03-03 | XMS | Encounter Summary ---
Demographics + + + | Address | [address] | | | [place] [address] | + + + | Home Phone | | + + + | Preferred Language | Unknown | + + + | Marital Status | | + + + | Yazdanism Affiliation | 1041 | + + + | Race | Unknown | + + + | Ethnic Group | Unknown | + + + Author + + + | Author | [facility] | | | and [place] | + + + | Organization | [facility] | | [...] | | | | | [place] [address] | | + + + + + Care Team Providers + +------+ + | Care Technical Fellow Name | Role | Phone | + +------+ + PCP | Unavailable | + +------+ + Encounter Details +--------+ + + + + | Date | Type | Department | Care Team | Description | +--------+ + + + + | 10/31/ | Emergency | [facility] | Ibrahima Reeves, | Other Convulsions | | 2007 | | [facility]ICAL [facility]ENTER | [address] [facility] | ([facility]) | | | | EMERGENCY CENTER | [place] | | | | | [address] [facility] | [address] | | | | | [place], [place] | | | | | | [address] | | | | | | [phone] | | | +--------+ + + + [...]
--- OUTSIDE RECORDS SUMMARY | ~2019-03-03 | XMS | Encounter Summary ---
Demographics + + + | Address | [address] | | | [place] [address] | + + + | Home Phone | | + + + | Preferred Language | Unknown | + + + | Marital Status | | + + + | Mu-Ism Affiliation | 1041 | + + + | Race | Unknown | + + + | Ethnic Group | Unknown | + + + Author + + + | Author | [facility] | | | and [place] | + + + | Organization | [facility] | | | [...] | | | | | [place] [address] | | + + + + + Care Team Providers + +------+ + | Care Tower Hand Name | Role | Phone | + +------+ + | Martha Sanford | PCP | | + +------+ + Encounter Details +--------+ + + + + | Date | Type | Department | Care Team | Description | +--------+ + + + + | 07/01/ | [facility] | [facility] | Antonio Pritchard | Weight loss; Change | | 2019 | Encounter | [facility] | MD [address] | in bowel movement; | | | | [address]TRA [address] | LYNN AHUJA | Dyspepsia; Polyp of | | | | [address] [place], [place] | [address] [place], [place] | colon, unspecified | | | | [address] | [address] | part of colon, | | | | [phone] | | unspecified type | +--------+ + + + + Social [...] + + + | Blood Pressure | 147/86 | 07/01/2018 3:46 PM | | | | | PDT | | + + + + + | Pulse | 73 | 07/01/2018 3:46 PM | | | | | PDT | | + + + + + | Temperature | 36.3 C (97.4 F) | 07/01/2018 3:46 PM | | | | | PDT | | + + + + + | Respiratory Rate | 18 | 07/01/2018 3:46 PM | | | | | PDT | | + + + + + | Oxygen Saturation | - | - | | + + + + + | Inhaled Oxygen | - | - | | | Concentration | | | | + + + + + | Weight | 124.2 kg (273 lb 13 | 07/01/2018 3:46 PM | | | | oz) | PDT | | + + + + + | Height | 182.9 cm (6') | 07/01/2018 3:46 PM | | | | | PDT | | + + + + + | Body Mass Index | 37.14 | 07/01/2018 3:46 PM | | | | | PDT | [...] | 0 | 04/28/19 | | | (ZOFRAN ODT) 4 mg | | | | [...] | + +--------+ + + + | TISSUE REQUEST FOR | Routin | 07/02/2018 | | Results for this | | PATHOLOGY (NON-ORD) | e | 7:15 AM | | procedure are in the | | | | PDT | | results section. | + +--------+ + + + | COLONOSCOPY | Routin | 07/01/2018 | | Results for this | | | e | 2:48 PM | | procedure are in the | | | | PDT | | results section. | + +--------+ + + + | ENDOSCOPY | Routin | 07/01/2018 | | Results for this | | | e | 2:20 PM | | procedure are in the | | | | PDT | | results section. | + +--------+ + + + documented in this encounter Results Tissue Request For Pathology (07/02/2018 7:15 AM PDT) + + | Specimen | + + | Soft tissue sample | | (specimen) | + + + + + | Narrative | Performed At | + + + | SPECIMEN(S): A DUODENAL BIOPSY SPECIMEN(S): B GASTRIC BIOPSY | EXTERNAL LAB | | SPECIMEN(S): C ESOPHAGEAL BIOPSY SPECIMEN(S): D RANDOM COLON BIOPSY | | | SPECIMEN(S): E POLYP @ 50 CM BIOPSY SPECIMEN SOURCE: A. DUODENAL | | | BIOPSY B. GASTRIC BIOPSY C. ESOPHAGEAL BIOPSY D. RANDOM COLON | | | BIOPSY E. POLYP @ 50 CM BIOPSY CLINICAL HISTORY: Dyspepsia, weight | | | loss, change in BM. Small colon polyp. MICROSCOPIC DESCRIPTION: | | | Histologic sections of all submitted blocks are examined by light | | | microscopy. These findings, together with the gross examination, | | | support the pathologic diagnosis. FINAL PATHOLOGIC DIAGNOSIS: A. | | | Duodenum, biopsy: - No pathologic abnormality, including no | | | evidence of celiac disease or peptic duodenitis B. Stomach, | | | biopsies: - Mild chemical gastropathy. COMMENT: These | | | sections reveal features of a mild chemical gastropathy. There is no | | | significant acute or chronic inflammation. No Helicobacter pylori | | | organisms are identified on routinely stained sections. C. Distal | | | esophagus: - Glandular mucosa with mild chronic inflammation | | | - Squamous mucosa with changes consistent with mild reflux | | | - Negative for eosinophilic esophagitis - Negative for | | | intestinal metaplasia and dysplasia D. Colon, random biopsies: | | | - No pathologic abnormality. The sections show architecturally | | | normal colonic mucosa. There is no acute or chronic inflammation. | | | There is no microscopic colitis. There are no polyps or neoplasms. | | | E. Colon, 50 cm: - Multiple pieces of colonic mucosa | | | showing tubular adenoma - No evidence of high grade | | | dysplasia or malignancy. GROSS DESCRIPTION: Five specimens are | | | received in five containers, labeled "JK." A. The specimen, | | | labeled "JK, duodenum," is received in formalin and consists of six | | | jones soft tissue fragment(s) that measure 0.2-0.7 cm in greatest | | | dimension. The specimen is entirely submitted in cassette (A1). | | | B. The specimen, labeled "JK, gastric," is received in formalin and | | | consists of four jones soft tissue fragment(s) that measure 0.4-0.7 cm | | | in greatest dimension. The specimen is entirely submitted in cassette | | | (B1). C. The specimen, labeled "JK, esophagus," is received in | | | formalin and consists of two jones soft tissue fragment(s) that measure | | | 0.10.3 cm in greatest dimension. The specimen is entirely submitted in | | | cassette (C1). D. The specimen, labeled "JK, random colon | | | biopsy," is received in formalin and consists of four jones soft tissue | | | fragment(s) that measure 0.3-0.4 cm in greatest dimension. The | | | specimen is entirely submitted in cassette (D1). E. The | | | specimen, labeled "JK, polyp at 50 cm biopsy," is received in formalin | | | and consists of six jones soft tissue fragment(s) that measure 0.2-0.4 | | | cm in greatest dimension. The specimen is entirely submitted in | | | cassette (E1). FB (under the direct supervision of a pathologist) | | | The Gross Description was prepared using a voice recognition system. | | | The report was reviewed for accuracy; however, sound-alike word | | | errors, addition and/or deletions may occur. If there is any | | | question about this report, please contact Client Services. | | | PERFORMING LABORATORY: Professional interpretation was performed by | | | [facility], [address], | | | [place] [address] (Networking Technology Instructor: Harlan Castellano M.D.; | | | CLIA#: [id number]). The technical component was performed by [employer] | | | [facility], [address] [place] [id number] (Networking Technology Instructor: | | | Esther Dominguez MD; CLIA# [id number]). Diagnostician: Harlan Castellano MD | | | Pathologist Electronically Signed 07/05/2018 | | + + + + +---------+ + + | Performing | Address | City/State/Zipcode | Phone Number | | Organization | | | | + +---------+ + + | EXTERNAL LAB | | | | + +---------+ + + COLONOSCOPY (07/01/2018 2:48 PM PDT) + + | Specimen | + + | | + + + + + | Narrative | Performed At | + + + | Historically converted procedure from [facility] Epic environment | EXTERNAL LAB | | [facility] | | | | | | Patient Name: Yonis Davis Procedure Date: | | | 07/01/2018 2:48 PM | | | Date of : 1975 | | | Note Status: Finalized Attending MD: Antonio Pritchard IV , | | | Instrument Name: [id number] Colonoscope | | | | | | Procedure Type: Colonoscopy Indications: | | | Change in bowel habits, Weight loss, Pronounced weight | | | loss of 68 pounds or more with | | | intermittent bowel changes | | | Medicines: See the Anesthesia note for documentation | | | of the administered medications | | | Complications: No immediate complications. | | | | | | Procedure: Pre-Anesthesia Assessment: - | | | Prior to the procedure, a History and Physical was performed, and | | | patient medications and allergies were reviewed. The patient's | | | tolerance of previous anesthesia was also reviewed. The risks | | | and benefits of the procedure and the sedation options and | | | risks were discussed with the patient. All questions were | | | answered, and informed consent was obtained. Prior | | | Anticoagulants: The patient has taken no previous anticoagulant or | | | antiplatelet agents. ASA Grade Assessment: III - A patient with | | | severe systemic disease. After reviewing the risks and | | | benefits, the patient was deemed in satisfactory condition to | | | undergo the procedure. After I obtained informed consent, the | | | scope was passed under direct vision. Throughout the | | | procedure, the patient's blood pressure, pulse, and oxygen | | | saturations were monitored continuously. The Colonoscope was | | | introduced through the anus and advanced to the terminal ileum. The | | | colonoscopy was performed without difficulty. The patient | | | tolerated the procedure well. The quality of the bowel | | | preparation was poor and 40 percent obscured. The terminal | | | ileum and the rectum were photographed. | | | | | | Estimated Blood Loss: Estimated blood loss was | | | minimal. Scope Withdrawal Time 0 hours 10 minutes 52 seconds | | | Findings: The terminal ileum appeared normal. A 5 mm | | | polyp was found at 50 cm proximal to the anus. The polyp was | | | sessile. The polyp was removed with a cold biopsy forceps. Resection | | | and retrieval were complete. Estimated blood loss was | | | minimal. Normal mucosa was found in the entire colon. Multiple | | | random biopsies were obtained in the entire colon with cold | | | large-capacity forceps for histology. Estimated blood loss | | | was minimal. Prep poor and large areas could not be suctioned | | | clear but due to the degree of weight loss needed to exclude | | | obvious inflammatory process or obviously serious neoplastic | | | lesions. Exam adequate to exclude larger masses or any overt | | | inflammatory processes such as Crohn's disease. Random colon | | | biopsies were taken for histology of normal-looking tissue. | | | Colon polyp was piecemeal removed by biopsy forceps due to poor prep | | | in the surrounding area. The exam was otherwise | | | without abnormality on direct and retroflexion views. | | | External and internal hemorrhoids were found during retroflexion. The | | | hemorrhoids were medium-sized. | | | | | | Impression: - Preparation of the colon | | | was poor. - The examined portion of the ileum was normal. | | | - One 5 mm polyp at 50 cm proximal to the anus, removed with a | | | cold biopsy forceps. Resected and retrieved. - Normal | | | mucosa in the entire examined colon. - Prep poor and large | | | areas could not be suctioned clear but due to the degree of | | | weight loss needed to exclude obvious inflammatory process or | | | obviously serious neoplastic lesions. Exam adequate to exclude larger | | | masses or any overt inflammatory processes such as Crohn's | | | disease. Random colon biopsies were taken for histology of | | | normal-looking tissue. Colon polyp was piecemeal removed by | | | biopsy forceps due to poor prep in the surrounding area. | | | - The examination was otherwise normal on direct and retroflexion | | | views. - External and internal hemorrhoids. - Multiple | | | random biopsies were obtained in the entire colon. | | | | | | Recommendation: - Patient | | | has a contact number available for emergencies. The signs and | | | symptoms of potential delayed complications were discussed with the | | | patient. Return to normal activities tomorrow. Written | | | discharge instructions were provided to the patient. | | | - Resume previous diet. - Continue present medications. | | | - Repeat colonoscopy date to be determined after pending pathology | | | results are reviewed because the bowel preparation was poor. | | | - Return to GI clinic. | | | | | | Atnonio Pritchard IV, 07/01/2018 | | | 3:27:42 PM This report has been signed electronically. Note | | | Initiated On: 07/01/2018 2:48 PM Number of Addenda: 0 | | | [facility] | | + + + + +---------+ + + | Performing | Address | City/State/Zipcode | Phone Number | | Organization | | | | + +---------+ + + | EXTERNAL LAB | | | | + +---------+ + + Endoscopy Procedures (07/01/2018 2:20 PM PDT) + + | Specimen | + + | | + + + + + | Narrative | Performed At | + + + | Historically converted procedure from [facility] environment | EXTERNAL LAB | | [facility] | | | | | | Patient Name: Yonis Davis Procedure Date: | | | 07/01/2018 2:20 PM | | | Date of : 1975 | | | Note Status: Finalized Attending MD: Antonio Pritchard IV , | | | Instrument Name: [id number] Gastroscope | | | | | | Procedure Type: Upper GI endoscopy | | | Indications: Dyspepsia, Suspected gastro-esophageal | | | reflux disease, Nausea with | | | vomiting, Weight loss, Claims pronounced | | | weight loss over 68 pounds. No true dysphagia but feels | | | as if food stacks up in the esophagus and | | | regurgitates up every few days. | | | Medicines: See the Anesthesia note for documentation | | | of the administered medications | | | Complications: No immediate complications. | | | | | | Procedure: Pre-Anesthesia Assessment: - | | | Prior to the procedure, a History and Physical was performed, and | | | patient medications and allergies were reviewed. The patient's | | | tolerance of previous anesthesia was also reviewed. The risks | | | and benefits of the procedure and the sedation options and | | | risks were discussed with the patient. All questions were | | | answered, and informed consent was obtained. Prior | | | Anticoagulants: The patient has taken no previous anticoagulant or | | | antiplatelet agents. ASA Grade Assessment: III - A patient with | | | severe systemic disease. After reviewing the risks and | | | benefits, the patient was deemed in satisfactory condition to | | | undergo the procedure. After obtaining informed consent, the | | | endoscope was passed under direct vision. Throughout the | | | procedure, the patient's blood pressure, pulse, and oxygen | | | saturations were monitored continuously. The Endoscope was | | | introduced through the mouth, and advanced to the third part of | | | duodenum. The upper GI endoscopy was accomplished without | | | difficulty. The patient tolerated the procedure well. | | | | | | Estimated Blood Loss: | | | Estimated blood loss was minimal. Findings: The Z-line was | | | regular and was found 40 cm from the incisors. Four biopsies | | | were obtained in the distal esophagus with cold large-capacity | | | forceps for histology. The examined esophagus was normal. | | | Relatively lax LES clearly no resistance to suggest | | | achalasia. No erosive esophagitis. Normal mucosa was found in | | | the entire examined stomach. Biopsies were taken with a cold | | | forceps for histology. Estimated blood loss was minimal. | | | The examined duodenum was normal. Biopsies were taken with a cold | | | forceps for histology. Estimated blood loss was minimal. | | | | | | Impression: - | | | Z-line regular, 40 cm from the incisors. - Normal esophagus. | | | - Normal mucosa was found in the entire stomach. Biopsied. | | | - Normal examined duodenum. Biopsied. - Four biopsies were | | | obtained in the distal esophagus. | | | | | | Recommendation: - Patient has a contact | | | number available for emergencies. The signs and symptoms of | | | potential delayed complications were discussed with the | | | patient. Return to normal activities tomorrow. Written discharge | | | instructions were provided to the patient. - Resume | | | previous diet. - Continue present medications. - Await | | | pathology results. - See the other procedure note for | | | documentation of additional recommendations. - | | | Proceed with colonoscopy as planned - Consider esophagram | | | and/or upper GI series and potentially formal gastric | | | emptying study | | | | | | Antonio Pritchard IV, 07/01/2018 3:19:15 PM This | | | report has been signed electronically. Note Initiated On: | | | 07/01/2018 2:20 PM Number of Addenda: 0 [facility] | | | [facility] | | + + + + +---------+ + + | Performing | Address | City/State/Zipcode | Phone Number | | Organization | | | | + +---------+ + + | EXTERNAL LAB | | | | + +---------+ + + documented in this encounter Visit Diagnoses + + | Diagnosis | + + | Weight loss Loss of weight | + + | Change in bowel movement Other symptoms involving digestive system | + + | Dyspepsia Dyspepsia and other specified disorders of function of stomach | + + | Polyp of colon, unspecified part of colon, unspecified type | + + documented in this encounter
--- OUTSIDE RECORDS SUMMARY | ~2019-03-03 | XMS | Encounter Summary ---
Demographics + + + | Address | [address] | | | [place] [address] | + + + | Home Phone | | + + + | Preferred Language | Unknown | + + + | Marital Status | | + + + | Scientologist Affiliation | 1041 | + + + | Race | Unknown | + + + | Ethnic Group | Unknown | + + + Author + + + | Author | [facility] | | | and [place] | + + + | Organization | [facility] | | | [...] | | | | | [place] [address] | | + + + + + Care Team Providers + +------+ + | Care Purifying Plant Operator Name | Role | Phone | [...] | | [address] | [place] [address] | | | | | [place] | [phone] | | | | | [address] | | | | | | [phone] | | | +--------+ + + + [...]
--- OUTSIDE RECORDS SUMMARY | ~2019-03-03 | XMS | Encounter Summary ---
Demographics + + + | Address | [address] | | | [place] [address] | + + + | Home Phone | | + + + | Preferred Language | Unknown | + + + | Marital Status | | + + + | Mormonism Affiliation | 1041 | + + + | Race | Unknown | + + + | Ethnic Group | Unknown | + + + Author + + + | Author | [facility] | | | and [place] | + + + | Organization | [facility] | | | and [...] | | | | | [place] [address] | | + + + + + Care Team Providers + +------+ + | Care Wellness Nurse Rn Name | Role | Phone | + +------+ + PCP | Unavailable | + +------+ + Encounter Details +--------+ + + + + | Date | Type | Department | Care Team | Description | +--------+ + + + + | 11/22/ | Emergency | [facility] | Portillo Hoyt, | Acute pharyngitis | | 2000 | | MEDICAL CENTER | [address] | | | | | EMERGENCY CENTER | [facility], | | | | | [address] [facility] | [place] [address] | | | | | [place] | [phone] | | | | | [address] | | | | | | [phone] | | | +--------+ + + + [...]
--- OUTSIDE RECORDS SUMMARY | ~2019-03-03 | XMS | Encounter Summary ---
Demographics + + + | Address | [address] | | | [place] [address] | + + + | Home Phone | | + + + | Preferred Language | Unknown | + + + | Marital Status | | + + + | Moravian Affiliation | 1041 | + + + | Race | Unknown | + + + | Ethnic Group | Unknown | + + + Author + + + | Author | [facility] | | | and [place] | + + + | Organization | [facility] | | | and [...] | | | | | [place] [address] | | + + + + + Care Team Providers + +------+ + | Care Load Out Worker Name | Role | Phone | + +------+ + PCP | Unavailable | + +------+ + Encounter Details +--------+ + + + + | Date | Type | Department | Care Team | Description | +--------+ + + + + | 11/08/ | Emergency | [facility] | Harlan Marion, | Unspecified | | 2007 | | MEDICAL CENTER | MD [address] | Psychosis | | | | EMERGENCY CENTER | [place] [address] | | | | | [address] | [phone] | | | | | [place], [place] | | | | | | [address] | | | | | | [phone] | | | +--------+ + + + [...] + | Diagnosis | + + | Unspecified psychosis | + + documented in this encounter"
--- OUTSIDE RECORDS SUMMARY | ~2019-03-03 | XMS | Encounter Summary ---
Demographics + + + | Address | [address] | | | [place] [address] | + + + | Home Phone | | + + + | Preferred Language | Unknown | + + + | Marital Status | | + + + | Islam Affiliation | 1041 | + + + | Race | Unknown | + + + | Ethnic Group | Unknown | + + + Author + + + | Author | [facility] | | | and [place] | + + + | Organization | [facility] | | | [...] | | | | | [place] [address] | | + + + + + Care Team Providers + +------+ + | Care Veterinary Surgery Technician Name | Role | Phone | + +------+ + PCP | Unavailable | + +------+ + Encounter Details +--------+ + + + + | Date | Type | Department | Care Team | Description | +--------+ + + + + | 10/01/ | Emergency | [facility] | Demian Oreilly, | Special Symptom | | 2007 | | MEDICAL CENTER | MD [address] | NEC/NOS | | | | EMERGENCY CENTER | [facility] | | | | | [address] [facility] | [address] | | | | | [place] | | | | | | [address] | | | | | | [phone] | | | +--------+ + + + [...] | Diagnosis | + + | Other and unspecified special symptom or syndrome, not elsewhere classified | + + documented in this encounter"
--- OUTSIDE RECORDS SUMMARY | ~2019-03-03 | XMS | Encounter Summary ---
Demographics + + + | Address | [address] | | | [place] [address] | + + + | Home Phone | | + + + | Preferred Language | Unknown | + + + | Marital Status | | + + + | Tenriism Affiliation | 1041 | + + + | Race | Unknown | + + + | Ethnic Group | Unknown | + + + Author + + + | Author | [facility] | | | and [place] | + + + | Organization | [facility] | | | [...] | | | | | [place] [address] | | + + + + + Care Team Providers + +------+ + | Care Aligner Typewriter Name | Role | Phone | + +------+ + | Jovanny Che PA-C | PCP | | + +------+ + Reason for Visit + + + | Reason | Comments | + + + | Imaging Only | Schedule Cervical & Thoracic MRI's at [facility] | + + + Encounter Details +--------+ + + + + | Date | Type | Department | Care Team | Description | +--------+ + + + + | 05/28/ | Telephone | [facility] | Ibrahima Hubbard MD | Imaging Only | | 2016 | | NEUROSURGERY [address] | [address] | (Schedule Cervical & | | | | [address] | [place] [address] | Thoracic MRI's at | | | | [place] | [phone] | Jimmy Rocha | | | | [address] | | [facility]) | | | | [phone] | | | +--------+ + + + [...]
--- OUTSIDE RECORDS SUMMARY | ~2019-03-03 | XMS | Encounter Summary ---
Demographics + + + | Address | [address] | | | [place] [address] | + + + | Home Phone | | + + + | Preferred Language | Unknown | + + + | Marital Status | | + + + | Denominational Affiliation | 1041 | + + + | Race | Unknown | + + + | Ethnic Group | Unknown | + + + Author + + + | Author | [facility] | | | and [place] | + + + | Organization | [facility] | | [...] | | | | | [place] [address] | | + + + + + Care Team Providers + +------+ + | Care Pipe Organ Mechanic Apprentice Name | Role | Phone | + +------+ + | Martha Sanford | PCP | | + +------+ + Encounter Details +--------+ + + + + | Date | Type | Department | Care Team | Description | +--------+ + + + + | 08/23/ | Emergency | [facility] | Demian Oreilly, | Elevated blood | | 2018 | | [facility] | MD [address] | pressure reading; | | | | EM[facility] | [place], [place] | Anxiety and | | | | [address] | [address] | depression; | | | | [place], [place] | | Depression with | | | | [phone] | | suicidal ideation | | | | [phone] | | | +--------+ + + + [...] + + + | Blood Pressure | 149/92 | 08/23/2017 10:05 PM | | | | | PDT | | + + + + + | Pulse | 90 | 08/23/2017 10:05 PM | | | | | PDT | | + + + + + | Temperature | 36.7 C (98.1 F) | 08/23/2017 10:05 PM | | | | | PDT | | + + + + + | Respiratory Rate | 18 | 08/23/2017 10:05 PM | | | | | PDT | | + + + + + | Oxygen Saturation | - | - | | + + + + + | Inhaled Oxygen | - | - | | | Concentration | | | | + + + + + | Weight | 130.7 kg (288 lb 2.2 | 08/23/2017 10:05 PM | | | | oz) | PDT | | + + + + + | Height | - | - | | + + + + + | Body Mass Index | 39.08 | 08/07/2017 11:38 AM | | | | | PDT [...] | + +--------+ + + + | ECG 12 LEAD | Routin | 08/23/2017 | | Results for this | | | e | 7:02 PM | | procedure are in the | | | | PDT | | results section. | + +--------+ + + + | HISTORICAL LAB PANEL | Routin | 08/23/2017 | | Results for this | | RESULT | e | 6:59 PM | | procedure are in the | | | | PDT | | results section. | + +--------+ + + + | DRUGS OF ABUSE | Routin | 08/23/2017 | | Results for this | | SCREEN, URINE (H) | e | 6:59 PM | | procedure are in the | | | | PDT | | results section. | + +--------+ + + + | URINALYSIS, REFLEX | Routin | 08/23/2017 | | Results for this | | MICROSCOPIC AND/OR | e | 6:59 PM | | procedure are in the | | CULTURE | | PDT | | results section. | + +--------+ + + + | TSH | Routin | 08/23/2017 | | Results for this | | | e | 6:59 PM | | procedure are in the | | | | PDT | | results section. | + +--------+ + + + | ALCOHOL | Routin | 08/23/2017 | | Results for this | | | e | 6:59 PM | | procedure are in the | | | | PDT | | results section. | + +--------+ + + + | ACETAMINOPHEN LEVEL | Routin | 08/23/2017 | | Results for this | | | e | 6:59 PM | | procedure are in the | | | | PDT | | results section. | + +--------+ + + + | SALICYLATE LEVEL | Routin | 08/23/2017 | | Results for this | | | e | 6:59 PM | | procedure are in the | | | | PDT | | results section. | + +--------+ + + + documented in this encounter Results ECG 12 lead (08/23/2017 7:02 PM PDT) + + + + + + | Component | Value | Ref Range | Performed | Pathologist | | | | | At | Signature | + + + + + + | DIAGNOSIS: | Normal sinus | | EXTERNAL | | | | rhythmNormal ECGWhen | | LAB | | | | compared with ECG of | | | | | | 03-APR-2017 12:48,No | | | | | | significant change was | | | | | | foundThis ECG contains | | | | | | Unconfirmed | | | | | | Interpretation | | | | | | Statements. See ED | | | | | | Record for Physician | | | | | | Interpretation. | | | | | | Confirmed by MUSE READ | | | | | | ONLY, -COMPUTER ([id number]), | | | | | | website/blog editor Valeri Steele | | | | | | ([id number]) on 08/24/2017 | | | | | | 1:51:32 AM | | | | + + + + + + + + | Specimen | + + | | + + + + + | Narrative | Performed At | + + + | Historically converted procedure from [facility] environment | EXTERNAL LAB | + + + + +---------+ + + | Performing | Address | City/State/Zipcode | Phone Number | | Organization | | | | + +---------+ + + | EXTERNAL LAB | | | | + +---------+ + + HISTORICAL LAB PANEL RESULT (08/23/2017 6:59 PM PDT) + + + + + + | Component | Value | Ref Range | Performed | Pathologist | | | | | At | Signature | + + + + + + | WBC | 7.73 | 3.80 - 11.00 | EXTERNAL | | | | | K/uL | LAB | | + + + + + + | RED CELL | 4.73 | 4.20 - 5.70 | EXTERNAL | | | COUNT | | M/uL | LAB | | + + + + + + | Hgb | 14.5 | 13.2 - 17.0 | EXTERNAL | | | | | g/dL | LAB | | + + + + + + | Hematocrit, | 41.9 | 39.0 - 50.0 % | EXTERNAL | | | POC | | | LAB | | + + + + + + | MCV | 88.5 | 80.0 - 100.0 fl | EXTERNAL | | | | | | LAB | | + + + + + + | MCH | 30.5 | 27.0 - 34.0 pg | EXTERNAL | | | | | | LAB | | + + + + + + | MCHC | 34.5 | 32.0 - 35.5 | EXTERNAL | | | | | g/dL | LAB | | + + + + + + | RDW-CV | 40.3 | 37 - 53 fl | EXTERNAL | | | | | | LAB | | + + + + + + | Platelet | 279 | 150 - 400 K/uL | EXTERNAL | | | Count | | | LAB | | | Plasma | | | | | + + + + + + | MPV | 7.5 | fl | EXTERNAL | | | | | | LAB | | + + + + + + | Differentia | AUTOMATED | | EXTERNAL | | | l Type | | | LAB | | + + + + + + | % Segmented | 62.84 | % | EXTERNAL | | | | | | LAB | | | Neutrophils | | | | | + + + + + + | % | 21.13 | % | EXTERNAL | | | Lymphocytes | | | LAB | | + + + + + + | % Monocytes | 7.60 | % | EXTERNAL | | | | | | LAB | | + + + + + + | % | 7.40 | % | EXTERNAL | | | Eosinophils | | | LAB | | + + + + + + | % Basophils | 1.03 | % | EXTERNAL | | | | | | LAB | | + + + + + + | Absolute | 4.86 | 1.90 - 7.40 | EXTERNAL | | | Segmented | | K/uL | LAB | | | Neutrophils | | | | | + + + + + + | Absolute | 1.63 | 1.00 - 3.90 | EXTERNAL | | | Lymphocytes | | K/uL | LAB | | + + + + + + | Absolute | 0.59 | 0.00 - 0.80 | EXTERNAL | | | Monocytes | | K/uL | LAB | | + + + + + + | Absolute | 0.57 (H) | 0.00 - 0.50 | EXTERNAL | | | Eosinophils | | K/uL | LAB | | + + + + + + | Absolute | 0.08 | 0.00 - 0.10 | EXTERNAL | | | Basophils | | K/uL | LAB | | + + + + + + | Na | 141 | 135 - 145 | EXTERNAL | | | | | mmol/L | LAB | | + + + + + + | K | 3.9 | 3.5 - 4.9 | EXTERNAL | | | | | mmol/L | LAB | | + + + + + + | Cl | 109 | 99 - 109 mmol/L | EXTERNAL | | | | | | LAB | | + + + + + + | CO2 | 25 | 23 - 32 mmol/L | EXTERNAL | | | | | | LAB | | + + + + + + | Anion Gap | 11 | 5 - 20 mmol/L | EXTERNAL | | | | | | LAB | | + + + + + + | Glucose, | 123 (H) | 65 - 99 mg/dL | EXTERNAL | | | Fasting | | | LAB | | + + + + + + | BUN | 9 | 8 - 25 mg/dL | EXTERNAL | | | | | | LAB | | + + + + + + | Creatinine | 0.91 | 0.70 - 1.30 | EXTERNAL | | | | | mg/dL | LAB | | + + + + + + | BUN/Creatin | 10 | | EXTERNAL | | | ine Ratio | | | LAB | | + + + + + + | Calcium | 8.7 | 8.5 - 10.5 | EXTERNAL | | | | | mg/dL | LAB | | + + + + + + | Protein, | 7.2 | 6.3 - 8.2 g/dL | EXTERNAL | | | Total | | | LAB | | + + + + + + | Albumin | 3.5 (L) | 3.6 - 5.0 g/dL | EXTERNAL | | | | | | LAB | | + + + + + + | Globulin | 3.6 | 1.3 - 4.9 g/dL | EXTERNAL | | | | | | LAB | | + + + + + + | A/G Ratio | 1.0 | 1.0 - 2.4 | EXTERNAL | | | | | | LAB | | + + + + + + | Bilirubin | 0.2 | 0.1 - 1.5 mg/dL | EXTERNAL | | | Total | | | LAB | | + + + + + + | ALP, | 88 | 35 - 115 U/L | EXTERNAL | | | External | | | LAB | | + + + + + + | AST | 37 | 10 - 45 U/L | EXTERNAL | | | | | | LAB | | + + + + + + | ALT | 68 (H) | 10 - 65 U/L | EXTERNAL | | | | | | LAB | | + + + + + [...] BY | | | | | | 1.210.This eGFR is | | | | | | calculated using the | | | | | | MDRD IDMS traceable | | | | | | equation. PLEASE NOTE | | | | | | NEW CALCULATION | | | | | | EFFECTIVE 08/04/2017 | | | | + + + + + + | CK, Total | 138 | 55 - 400 U/L | EXTERNAL | | | | | | LAB | | + + + + + [...] SYSTEMIC | | | | | | EMBOLISM | | | | + + + + + + | aPTT, | 27 | 23 - 32 seconds | EXTERNAL | | | Patient | | | LAB | | + + + + + + | CK-MB | <1.0 | 0.5 - 3.6 ng/mL | EXTERNAL | | | | | | LAB | | + + + + + + | CK-MB Index | UNABLE TO | | EXTERNAL | | | | CALCULATEComment: | | LAB | | | | Testing performed at | | | | | | [facility];[address] [facility] [address] | | | | | | [address];[place] [address] | | | | + + + + + + + + | Specimen | + + | | + + + +---------+ + + | Performing | Address | City/State/Zipcode | Phone Number | | Organization | | | | + +---------+ + + | EXTERNAL LAB | | | | + +---------+ + + Drugs Of ABuse Screen, Urine (H) (08/23/2017 6:59 PM PDT) + + + + + + | Component | Value | Ref Range | Performed | Pathologist | | | | | At | Signature | + + + + + + | Methampheta | NEGATIVEComment: | | EXTERNAL | | | mine/ | Positive cutoff for AMP | | LAB | | | Amphetamine | = 1000 ng/mL | | | | | Screen, | | | | | | UA, POC | | | | | + + + + + + | Barbiturate | NEGATIVEComment: | | EXTERNAL | | | s Screen, | Positive cutoff for SHAE | | LAB | | | Urine | = 200 ng/mL | | | | + + + + + + | Benzodiazep | NEGATIVEComment: | | EXTERNAL | | | phil | Positive cutoff for | | LAB | | | Screen, | BENZO = 200 ng/mL | | | | | Urine | | | | | + + + + + + | Cocaine | NEGATIVEComment: | | EXTERNAL | | | | Positive cutoff for LENNY | | LAB | | | | = 300 ng/mL | | | | + + + + + + | Methadone | NEGATIVEComment: | | EXTERNAL | | | | Positive cutoff for MTD | | LAB | | | | = 300 ng/mL | | | | + + + + + + | Opiates | NEGATIVEComment: | | EXTERNAL | | | | Positive cutoff for OPI | | LAB | | | | = 300 ng/mL | | | | + + + + + + | PCP | NEGATIVEComment: | | EXTERNAL | | | | Positive cutoff for PCP | | LAB | | | | = 25 ng/mL | | | | + + + + + + | Cannabinoid | POSITIVE (A)Comment: | | EXTERNAL | | | s Screen, | Positive cutoff for | | LAB | | | Serum | THC = 50 ng/mLThe above | | | | | | are unconfirmed | | | | | | screening results. | | | | | | These results are to | | | | | | be used only for medical | | | | | | (i.e.,treatment) | | | | | | purposes. Unconfirmed | | | | | | screening results must | | | | | | not be used for | | | | | | non-medical purposes | | | | | | (e.g., employment | | | | | | testing, legal | | | | | | testing).Testing | | | | | | performed at [facility];[address];[place], [place] | | | | | | [address] | | | | + + + + + + + + | Specimen | + + | | + + + +---------+ + + | Performing | Address | City/State/Zipcode | Phone Number | | Organization | | | | + +---------+ + + | EXTERNAL LAB | | | | + +---------+ + + Urinalysis, Reflex Microscopic and/or Culture (08/23/2017 6:59 PM PDT) + + + + + + | Component | Value | Ref Range | Performed | Pathologist | | | | | At | Signature | + + + + + + | Color | YELLOW | | EXTERNAL | | | | | | LAB | | + + + + + + | Clarity | CLEAR | | EXTERNAL | | | | | | LAB | | + + + + + + | Specific | 1.018 | 1.002 - 1.030 | EXTERNAL | | | [place] | | | LAB | | + + + + + + | Leukocyte | NEGATIVE | | EXTERNAL | | | Esterase, | | | LAB | | | Urine | | | | | + + + + + + | Nitrite, | NEGATIVE | | EXTERNAL | | | Urine | | | LAB | | + + + + + + | Urobilinoge | NORMAL | mg/dL | EXTERNAL | | | n, Urine | | | LAB | | + + + + + + | Protein, | NEGATIVE | mg/dL | EXTERNAL | | | Urine | | | LAB | | + + + + + + | pH, Urine | 5.0 | 5.0 - 8.0 | EXTERNAL | | | | | | LAB | | + + + + + + | Blood, | SMALL (A) | | EXTERNAL | | | Urine | | | LAB | | + + + + + + | Ketones | NEGATIVE | mg/dL | EXTERNAL | | | | | | LAB | | + + + + + + | Bilirubin, | NEGATIVE | | EXTERNAL | | | Urine | | | LAB | | + + + + + + | Glucose, | NEGATIVE | mg/dL | EXTERNAL | | | Urine | | | LAB | | + + + + + + | WBC, UA | 0-2 | 0 - 5 /hpf | EXTERNAL | | | | | | LAB | | + + + + + + | RBC, UA | 6-10 | 0 - 2 /hpf | EXTERNAL | | | | | | LAB | | + + + + + + | Bacteria, | NONE SEEN | | EXTERNAL | | | UA | | | LAB | | + + + + + + | Epithelial | NONE SEEN | /lpf | EXTERNAL | | | Cells | | | LAB | | + + + + + + | MUCUS UA | 1+Comment: Testing | | EXTERNAL | | | | performed at [facility];[address] | | LAB | | | | [address];[place] | | | | | | [address] | | | | + + + + + + + + | Specimen | + + | | + + + +---------+ + + | Performing | Address | City/State/Zipcode | Phone Number | | Organization | | | | + +---------+ + + | EXTERNAL LAB | | | | + +---------+ + + TSH (08/23/2017 6:59 PM PDT) + + + + + + | Component | Value | Ref Range | Performed | Pathologist | | | | | At | Signature | + + + + + + | TSH | 1.180Comment: Testing | 0.450 - 5.100 | EXTERNAL | | | | performed at [facility];[address] | uIU/mL | LAB | | | | [address];[place], [place] | | | | | | [address] | | | | + + + + + + + + | Specimen | + + | Blood specimen | | (specimen) | + + + +---------+ + + | Performing | Address | City/State/Zipcode | Phone Number | | Organization | | | | + +---------+ + + | EXTERNAL LAB | | | | + +---------+ + + Ethanol (08/23/2017 6:59 PM PDT) + + + + + + | Component | Value | Ref Range | Performed | Pathologist | | | | | At | Signature | + + + + + + | Ethyl | <10Comment: Testing | mg/dL | EXTERNAL | | | Alcohol | performed at [facility] | | LAB | | | | [address];[place] | | | | | | [address] | | | | + + + + + + + + | Specimen | + + | Blood specimen | | (specimen) | + + + +---------+ + + | Performing | Address | City/State/Zipcode | Phone Number | | Organization | | | | + +---------+ + + | EXTERNAL LAB | | | | + +---------+ + + Acetaminophen Level (08/23/2017 6:59 PM PDT) + + + + + + | Component | Value | Ref Range | Performed | Pathologist | | | | | At | Signature | + + + + + + | ACETAMINOPH | <2.0 (L)Comment: Testing | 10.0 - 30.0 | EXTERNAL | | | EN LEVEL | performed at [facility];[address] | ug/mL | LAB | | | | [address];[place], [place] | | | | | | [address] | | | | + + + + + + + + | Specimen | + + | Blood specimen | | (specimen) | + + + +---------+ + + | Performing | Address | City/State/Zipcode | Phone Number | | Organization | | | | + +---------+ + + | EXTERNAL LAB | | | | + +---------+ + + Salicylate Level (08/23/2017 6:59 PM PDT) + + + + + + | Component | Value | Ref Range | Performed | Pathologist | | | | | At | Signature | + + + + + + | Salicylate | 2.2 (L)Comment: Testing | 2.8 - 20.0 | EXTERNAL | | | Lvl | performed at [facility];[address] | mg/dL | LAB | | | [address];[place], [place] | | | | | | [address] | | | | + + + [...] + | Diagnosis | + + | Elevated blood pressure reading Elevated blood pressure reading without diagnosis of | | hypertension | + + | Anxiety and depression Dysthymic disorder | + + | Depression with suicidal ideation | + + documented in this encounter"
--- OUTSIDE RECORDS SUMMARY | ~2019-03-03 | XMS | Encounter Summary ---
Demographics + + + | Address | [address] | | | [place] [address] | + + + | Home Phone | | + + + | Preferred Language | Unknown | + + + | Marital Status | | + + + | Rastafari Affiliation | 1041 | + + + | Race | Unknown | + + + | Ethnic Group | Unknown | + + + Author + + + | Author | [facility] | | | and [place] | + + + | Organization | [facility] | | | and [...] | | | | | [place] [address] | | + + + + + Care Team Providers + +------+ + | Care Business Center Manager Name | Role | Phone | + +------+ + | Martha Sanford | PCP | | + +------+ + Reason for Visit + + + | Reason | Comments | + + + | Labs Only | H.pylori stool antigen | + + + Encounter Details +--------+ + + + + | Date | Type | Department | Care Team | Description | +--------+ + + + + | 11/26/ | Telephone | [facility] | Ken Addison MD | Labs Only (H.pylori | | 2017 | | GASTROENTEROLOGY | [address], [place] | stool antigen) | | | | [address] [place] | [address] [place], [place] | | | | | [address] [place], [place] | [address] | | | | | [address] | | | | | | [phone] | | | +--------+ + + + [...]
--- OUTSIDE RECORDS SUMMARY | ~2019-03-03 | XMS | Encounter Summary ---
Demographics + + + | Address | [address] | | | [place] [address] | + + + | Home Phone | | + + + | Preferred Language | Unknown | + + + | Marital Status | | + + + | Quaker Affiliation | 1041 | + + + | Race | Unknown | + + + | Ethnic Group | Unknown | + + + Author + + + | Author | [facility] | | | and [place] | + + + | Organization | [facility] | | [...] | | | | | [place] [address] | | + + + + + Care Team Providers + +------+ + | Care Pin Worker Name | Role | Phone | + +------+ + | No, Physician | PCP | Unavailable | + +------+ + Encounter Details +--------+ + + + + | Date | Type | Department | Care Team | Description | +--------+ + + + + | 09/05/ | Emergency | [facility] | Marquez Sim | Acute exacerbation | | 2014 | | [facility] | [facility] [address] | of chronic low back | | | | EM[facility] | [address] [place] | pain; Incontinence | | | | [address] | [address] | | | | | [place], [place] | [phone] | | | | | [address] | | | | | | [phone] | | | +--------+ + + + [...] MRI LUMBAR SPINE WO | Routin | 09/05/2014 | | Results for this | | CONTRAST | e | 8:08 PM | | procedure are in the | | | | PDT | | results section. | + +--------+ + + + | DRUGS OF ABUSE | Routin | 09/05/2014 | | Results for this | | SCREEN, URINE (H) | e | 5:34 PM | | procedure are in the | | | | PDT | | results section. | + +--------+ + + + documented in this encounter Results MRI Lumbar Spine wo Contrast (09/05/2014 8:08 PM PDT) + + | Specimen | + + | | + + + + + | Impressions | Performed At | + + + | 1. No high-grade spinal canal stenosis is demonstrated. The | | | patient is status post a right hemilaminotomy at L4-5. 2. Annular | | | fissuring of the disc and disc desiccation at L4-5 and L5-S1. 3. | | | There is a underlying mild congenital spinal canal stenosis. | | | | | + + + + + + | Narrative | Performed At | + + + | BERNA CALLAHAN 1975 MRI LUMBAR SPINE WO CONTRAST 09/05/2014 | | | 8:08 PM INDICATION: Back pain with bowel and bladder incontinence | | | COMPARISON: None. TECHNIQUE: Imaging was performed on a 1.5 | | | Rubia MRI system. Multiplanar sequences according to a standard | | | department protocol were acquired without contrast. FINDINGS: For | | | the purposes of this dictation, there are 5 nonrib-bearing lumbar | | | vertebral type bodies. L5 is designated by the iliolumbar ligament. | | | Correlation with plain radiographs is recommended prior to any | | | intervention to confirm the numbering scheme. The conus medullaris | | | terminates at the level of L1-2. No abnormal signal is noted in the | | | conus. The patient has mild straightening of the normal lumbar spine | | | lordosis. Additionally, there appears to be mild congenital spinal | | | stenosis. Annular fissuring of the disc is present at L4-5 and L5-S1 | | | with discogenic changes at L4-5. There is no paraspinous muscular | | | edema. Postoperative changes are seen along the right from what | | | appears to be a right hemilaminotomy and potential microdiscectomy. | | | Findings by level: L1-2: Normal L2-3: Normal L3-4: | | | Normal L4-5: There is a mild circumferential disc contributing to | | | minimal left subarticular recess narrowing. No significant spinal | | | canal stenosis is demonstrated. There is demonstration of mild | | | bilateral neural foraminal stenosis. L5-S1: A focal central disc | | | protrusion is noted with no subarticular recess or spinal stenosis. | | | The neural foramen are widely patent. The visualized aorta and IVC | | | are normal in appearance. No significant paraspinous fatty atrophy is | | | demonstrated. No retroperitoneal lymphadenopathy is demonstrated. The | | | aorta and IVC are normal. The kidneys have a normal reniform contour. | | | No hydronephrosis is demonstrated. | | + + + + + | Procedure Note | + + | Charles, Rad Conversion - 10/22/2018 1:21 AM MERARY CALLAHAN1975MRI LUMBAR SPINE | | WO CONTRAST09/05/2014 8:08 PM INDICATION: Back pain with bowel and bladder incontinence | | COMPARISON: None. TECHNIQUE:Imaging was performed on a 1.5 Rubia MRI system. | | Multiplanar sequences according to a standard department protocol were acquired without | | contrast. FINDINGS: For the purposes of this dictation, there are 5 nonrib-bearing | | lumbar vertebral type bodies. L5 is designated by the iliolumbar ligament. Correlation | | with plain radiographs is recommended prior to any intervention to confirm the numbering | | scheme. The conus medullaris terminates at the level of L1-2. No abnormal signal is | | noted in the conus. The patient has mild straightening of the normal lumbar spine | | lordosis. Additionally, there appears to be mild congenital spinal stenosis. Annular | | fissuring of the disc is present at L4-5 and L5-S1 with discogenic changes at L4-5. | | There is no paraspinous muscular edema. Postoperative changes are seen along the right | | from what appears to be a right hemilaminotomy and potential microdiscectomy. Findings | | by level: L1-2: Normal L2-3: Normal L3-4: Normal L4-5: There is a mild circumferential | | disc contributing to minimal left subarticular recess narrowing. No significant spinal | | canal stenosis is demonstrated. There is demonstration of mild bilateral neural | | foraminal stenosis. L5-S1: A focal central disc protrusion is noted with no subarticular | | recess or spinal stenosis. The neural foramen are widely patent. The visualized aorta | | and IVC are normal in appearance. No significant paraspinous fatty atrophy is | | demonstrated. No retroperitoneal lymphadenopathy is demonstrated. The aorta and IVC are | | normal. The kidneys have a normal reniform contour. No hydronephrosis is demonstrated. | | IMPRESSION: 1. No high-grade spinal canal stenosis is demonstrated. The patient is | | status post a right hemilaminotomy at L4-5.2. Annular fissuring of the disc and disc | | desiccation at L4-5 and L5-S1.3. There is a underlying mild congenital spinal canal | | stenosis. | | | |L5-S1: A focal central disc protrusion is noted with no subarticular recess or spinal steno sis. The neural foramen are widely patent. | | | |The visualized aorta and IVC are normal in appearance. No significant paraspinous fatty atr ophy is demonstrated. No retroperitoneal lymphadenopathy is demonstrated. The aorta and IVC are normal. The kidneys have a normal reniform contour. No | |hydronephrosis is demonstrated. | | | |IMPRESSION: | |1. No high-grade spinal canal stenosis is demonstrated. The patient is status post a right hemilaminotomy at L4-5. | |2. Annular fissuring of the disc and disc desiccation at L4-5 and L5-S1. | |3. There is a underlying mild congenital spinal canal stenosis. | | | | | + + Drugs Of ABuse Screen, Urine (H) (09/05/2014 5:34 PM PDT) + + + + + + | Component | Value | Ref Range | Performed | Pathologist | | | | | At | Signature | + + + + + + | Methampheta | NEGATIVEComment: | | EXTERNAL | | | mine/ | Positive cutoff for | | LAB | | | Amphetamine | AMP = 1000 ng/mLTesting | | | | | Screen, | performed at [facility] [place] | | | | | [address], P[place] | [place]ia Bhatia;[place] | | | | | | [id number] | | | | + + + + + + | Barbiturate | NEGATIVEComment: | | EXTERNAL | | | s Screen, | Positive cutoff for | | LAB | | | Urine | SHAE = 200 ng/mLTesting | | | | | | performed at [facility] [place] | | | | | | [place] | | | | | | [phone] | | | | + + + + + + | Benzodiazep | POSITIVE (A)Comment: | | EXTERNAL | | | phil | Positive cutoff for | | LAB | | | Screen, | BENZO = 200 ng/mLTesting | | | | | Urine | performed at [facility] [place] | | | | | | [place] | | | | | | [address] | | | | + + + + + + | Cocaine | NEGATIVEComment: | | EXTERNAL | | | | Positive cutoff for | | LAB | | | | LENNY = 300 ng/mLTesting | | | | | | performed at [facility] [place] | | | | | | [place] | | | | | | [address] | | | | + + + + + + | Methadone | NEGATIVEComment: | | EXTERNAL | | | | Positive cutoff for | | LAB | | | | MTD = 300 ng/mLTesting | | | | | | performed at [facility] [place] | | | | | | [place] | | | | | | [address] | | | | + + + + + + | Opiates | POSITIVE (A)Comment: | | EXTERNAL | | | | Positive cutoff for | | LAB | | | | OPI = 300 ng/mLTesting | | | | | | performed at [facility] [place] | | | | | | [place] [address];[place] | | | | | | [address] | | | | + + + + + + | PCP | NEGATIVEComment: | | EXTERNAL | | | | Positive cutoff for PCP | | LAB | | | | = 25 ng/mLTesting | | | | | | performed at [facility] [place] | | | | | | [place] | | | | | | [address] | | | | + + + + + + | Cannabinoid | NEGATIVEComment: | | EXTERNAL | | | s Screen, | Positive cutoff for THC | | LAB | | | Serum | = 50 ng/mLThe above are | | | | | | unconfirmed screening | | | | | | results. These results | | | | | | are to be used only for | | | | | | medical | | | | | | [...] | | | | | performed at [facility] [place] | | | | | | [place] | | | | | | [phone] | | | | + + + [...] | Diagnosis | + + | Acute exacerbation of chronic low back pain | + + | Incontinence Unspecified urinary incontinence | + + documented in this encounter"
--- OUTSIDE RECORDS SUMMARY | ~2019-03-03 | XMS | Encounter Summary ---
Demographics + + + | Address | [address] | | | [place] [address] | + + + | Home Phone | | + + + | Preferred Language | Unknown | + + + | Marital Status | | + + + | Yazdanism Affiliation | 1041 | + + + | Race | Unknown | + + + | Ethnic Group | Unknown | + + + Author + + + | Author | [facility] | | | and [place] | + + + | Organization | [facility] | | | [...] | | | | | [place] [address] | | + + + + + Care Team Providers + +------+ + | Care Life Coach Name | Role | Phone | + +------+ + | Martha Sanford | PCP | | + +------+ + Reason for Visit Auth/Cert +--------+--------+ + + + + | Status | Reason | Specialty | Diagnoses / | Referred By | Referred To | | | | | Procedures | Contact | Contact | +--------+--------+ + + + + | | | | Diagnoses | | | | | | | | | | | | | | Gastroesopha | | | | | | | geal reflux | | | | | | | disease, | | | | | | | esophagitis | | | | | | | presence not | | | | | | | specified | | | | | | | (K21.9), | | | | | | | Anxiety | | | | | | | (F41.9), | | | | | | | Claustrophob | | | | | | | ia | | | | | | | (F40.240), | | | | | | | Obesity, | | | | | | | unspecified | | | | | | | (E66.9), | | | | | | | Schizoaffect | | | | | | | ángela | | | | | | | disorder, | | | | | | | unspecified | | | | | | | type (HCC) | | | | | | | (F25.9); | | | | | | | Benzodiazapi | | | | | | | ne | | | | | | | dependent, | | | | | | | (f13.20) | | | | | | | Procedures | | | | | | | SC | | | | | | | ESOPHAGOGAST | | | | | | | RODUODENOSCO | | | | | | | PY TRANSORAL | | | | | | | DIAGNOSTIC | | | | | | | SC EGD | | | | | | | TRANSORAL | | | | | | | BIOPSY | | | | | | | SINGLE/MULTI | | | | | | | PLE SC | | | | | | | ANESTH,UGI | | | | | | | ENDOSCOPY | | | | | | | EGD | | | +--------+--------+ + + + + Encounter Details +--------+---------+ + + + | Date | Type | Department | Care Team | Description | +--------+---------+ + + + | 09/16/ | Surgery | [facility] | Ken Addison MD | EGD | | 2017 | | MED CTR [facility] OP | [address], [place] | | | | | [address] | [address] [place] | | | | | [place], [place] | [address] | | | | | [address] | | | | | | [phone] | | | +--------+---------+ + + + Social History + + [...] + + + | Blood Pressure | 130/85 | 09/16/2016 12:00 PM | | | | | PDT | | + + + + + | Pulse | 75 | 09/16/2016 12:05 PM | | | | | PDT | | + + + + + | Temperature | 36.6 C (97.9 F) | 09/16/2016 11:31 AM | | | | | PDT | | + + + + + | Respiratory Rate | 18 | 09/16/2016 12:00 PM | | | | | PDT | | + + + + + | Oxygen Saturation | 98% | 09/16/2016 12:05 PM | | | | | PDT | | + + + + + | Inhaled Oxygen | - | - | | | Concentration | | | | + + + + + | Weight | 147.4 kg (325 lb) | 09/16/2016 8:59 AM | | | | | PDT | | + + + + + | Height | 182.9 cm (6') | 09/16/2016 8:59 AM | | | | | PDT | | + + + + + | Body Mass Index | 44.08 | 09/16/2016 8:59 AM | | | | | PDT [...] | + + + +---------+--------+ + | QUEtiapine | Take 300 mg [...] | + +--------+ + + + | HELICOBACTER PYLORI | Routin | 09/16/2016 | | Results for this | | BIOPSY | e | 11:21 AM | | procedure are in the | | | | PDT | | results section. | + +--------+ + + + | EGD | | 09/16/2016 | Gastroesophageal | | | | | 11:10 AM | reflux disease, | | | | | PDT | esophagitis presence | | | | | | not specified | | | | | | (K21.9), Anxiety | | | | | | (F41.9), | | | | | | Claustrophobia | | | | | | (F40.240), Obesity, | | | | | | unspecified (E66.9), | | | | | | Schizoaffective | | | | | | disorder, | | | | | | unspecified type | | | | | | ([facility]) (F25.9); | | | | | | Benzodiazapine | | | | | | dependent, (f13.20) | | + +--------+ + + + | EGD | Routin | 09/16/2016 | | Results for this | | | e | 11:06 AM | | procedure are in the | | | | PDT | | results section. | + +--------+ + + + | SURGICAL PATHOLOGY | Routin | 09/16/2016 | | Results for this | | EXAM | e | 12:00 AM | | procedure are in the | | | | PDT | | results section. | + +--------+ + + + documented in this encounter Results Helicobactor pylori Biopsy (09/16/2016 11:21 AM PDT) + + + + + + | Component | Value | Ref Range | Performed | Pathologist | | | | | At | Signature | + + + + + + | Helicobacte | Positive (A) | Negative | [facility] | | | r pylori Ag | | | [facility] - | | | | | | [facility]ATORY | | + + + + + + + + | Specimen | + + | Tissue - Entire | | pyloric antrum (body | | structure) | + + + + + + + | Performing | Address | City/State/Zipcode | Phone Number | | Organization | | | | + + + + + | [facility] | [address] | [place] | [phone] | | [facility] | | [address] | | | - LABORATORY | | | | + + + + + EGD (09/16/2016 11:06 AM PDT) + + | Specimen | + + | | + + + + -+ | Narrative | Performed At | + + -+ | | [facility] | | GastroenterologyPatient Name: Yonis DavisProcedure Date: 09/16/2016 | [facility] | | 11:06 AMMRN: [id number] #: [id number] of : | | | 1975Admit Type: AmbulatoryAge: 41Room: [facility] 01Gender: MaleNote | | | Status: FinalizedAttending MD: Ken Addison , MDProcedure: | | | Upper GI endoscopyIndications: Esophageal reflux, | | | Follow-up of esophageal refluxProviders: Ken Addison, | | | , Kylie Zamudio RN, [facility] | | | Isabell, Dimethylaniline Sulfator Operator, Terry Taveras MD (Anesthesia | | | Staff)Referring MD: Deric Snaford | | | (Referring MD)Medicines: Sedation Required Anesthesia | | | Staff AssistanceComplications: No immediate complications. | | | Estimated blood loss: Minimal.Procedure: Pre-Anesthesia | | | Assessment: - Prior to the procedure, a History and Physical was | | | performed, and patient medications, allergies and | | | sensitivities were reviewed. The patient's tolerance of | | | previous anesthesia was reviewed. - Prior to the procedure, a | | | History and Physical was performed, and patient medications and | | | allergies were reviewed. The patient is competent. The risks | | | and benefits of the procedure and the sedation options and | | | risks were discussed with the patient. All questions were | | | answered and informed consent was obtained. Patient identification and | | | proposed procedure were verified by the physician, the nurse, | | | the anesthesiologist and the technician submarine cable equipment in the endoscopy suite. | | | Mental Status Examination: alert and oriented. Airway | | | Examination: small/crowded oropharyngeal airway and Mallampati | | | Class IV (tongue obstructs view of the soft palate). | | | Respiratory Examination: clear to auscultation. CV Examination: | | | normal. Prophylactic Antibiotics: The patient does not require | | | prophylactic antibiotics. Prior Anticoagulants: The patient | | | has taken no previous anticoagulant or antiplatelet agents. ASA | | | Grade Assessment: III - A patient with severe systemic disease. | | | After reviewing the risks and benefits, the patient was deemed in | | | satisfactory condition to undergo the procedure. The anesthesia | | | plan was to use monitored anesthesia care (MAC). Immediately | | | prior to administration of medications, the patient was | | | re-assessed for adequacy to receive sedatives. The heart rate, | | | respiratory rate, oxygen saturations, blood pressure, adequacy | | | of pulmonary ventilation, and response to care were monitored | | | throughout the procedure. The physical status of the patient | | | was re-assessed after the procedure. - After reviewing the risks | | | and benefits, the patient was deemed in satisfactory condition | | | to undergo the procedure. - Using IV propofol under the | | | supervision of an anesthesiologist was determined to be | | | medically necessary for this procedure based on severe | | | comorbidity (greater than ASA Grade II), morbid obesity and patient's | | | history of sleep apnea. - Immediately prior to | | | administration of medications, the patient was re-assessed for | | | adequacy to receive sedatives. - The heart rate, respiratory | | | rate, oxygen saturations, blood pressure, adequacy of pulmonary | | | ventilation, and response to care were monitored throughout | | | the procedure. - The physical status of the patient was | | | re-assessed after the procedure. After obtaining informed | | | consent, the endoscope was passed under direct vision. | | | Throughout the procedure, the patient's blood pressure, pulse, | | | and oxygen saturations were monitored continuously. The Endoscope was | | | introduced through the mouth, and advanced to the third part of | | | duodenum. The upper GI endoscopy was accomplished without | | | difficulty. The patient tolerated the procedure well.Findings: | | | The cricopharyngeus, upper third of the esophagus, middle third | | | of the esophagus and lower third of the esophagus were normal. | | | The Z-line was irregular and was found 40 cm from the incisors. | | | LA Grade A (one or more mucosal breaks less than 5 mm, not | | | extending between tops of 2 mucosal folds) esophagitis with no | | | bleeding was found 40 cm from the incisors. Biopsies were taken | | | with a cold forceps for histology. Verification of patient | | | identification for the specimen was done. Estimated blood loss | | | was minimal. Suspect gastroparesis due to absence of | | | peristalsis. Biopsies were taken with a cold forceps for | | | Helicobacter pylori testing using CLOtest. Estimated blood loss | | | was minimal. The duodenal bulb, first portion of the duodenum, | | | second portion of the duodenum, area of the papilla and third | | | portion of the duodenum were normal. The retroflexed view | | | confirmed previous findings,Impression: - Normal | | | cricopharyngeus, upper third of esophagus, middle third of | | | esophagus and lower third of esophagus. - Z-line irregular, 40 | | | cm from the incisors. - LA Grade A reflux esophagitis. Rule out | | | Lopez's esophagus. Biopsied. - Gastroparesis. Biopsied. | | | - Normal duodenal bulb, first portion of the duodenum, second portion | | | of the duodenum, area of the papilla and third portion of the | | | duodenum. - The retroflexed view confirmed previous | | | findings,Recommendation: - Patient has a contact number | | | available for emergencies. The signs and symptoms of potential | | | delayed complications were discussed with the patient. Return | | | to normal activities tomorrow. Written discharge instructions | | | were provided to the patient. - Discharge patient to home | | | (ambulatory). - Resume previous diet today. - Follow an | | | antireflux regimen indefinitely. - Continue present medications. | | | - Await pathology results. - Return to primary care | | | physician as previously scheduled. - Telephone GI clinic for | | | pathology results in 1 week.Ken Addison MD09/16/2016 11:34:11 | | | AMThis report has been signed electronically.Number of Addenda: 0Note | | | Initiated On: 09/16/2016 11:06 AMTotal Procedure Duration: 0 hours 6 | | | minutes 28 seconds Scope In: 11:20:15 AMScope Out: 11:26:43 AM | | | [facility], [address] [place] [address] | | | [id number] | | | - Resume previous diet today. | | | - Follow an antireflux regimen indefinitely. | | | - Continue present medications. | | | - Await pathology results. | | | - Return to primary care physician as previously scheduled. | | | - Telephone GI clinic for pathology results in 1 week. | | |Ken Addison MD | | |09/16/2016 11:34:11 AM | | |This report has been signed electronically. | | |Number of Addenda: 0 | | |Note Initiated On: 09/16/2016 11:06 AM | | |Total Procedure Duration: 0 hours 6 minutes 28 seconds | | |Scope In: 11:20:15 AM | | |Scope Out: 11:26:43 AM | | | [facility], [address] [place] [address] | | | [id number] | | + + -+ + +---------+ + + | Performing | Address | City/State/Zipcode | Phone Number | | Organization | | | | + +---------+ + + | [facility] | | | | + +---------+ + + Surgical Pathology Exam (09/16/2016 12:00 AM PDT) + + | Specimen | + + | | + + + + + | Narrative | Performed At | + + + | SPECIMEN(S): A DISTAL ESOPHAGEAL BIOPSY SPECIMEN SOURCE: A. 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 These findings, together with the | | | gross examination, support the pathologic diagnosis. FINAL PATHOLOGIC | | | DIAGNOSIS: Distal esophageal biopsy: - Gastroesophageal junction | | | with mild chronic mucosal inflammation and mild reactive epithelial | | | features. - Negative for specialized intestinal metaplasia or | | | dysplasia. JVR:[facility]:C2NR GROSS DESCRIPTION: Received in formalin | | | labeled "Yonis Davis" and "distal esophageal bx" on the requisition | | | are multiple eugene-jones tissue fragments measuring from <0.1-0.5 cm, | | | submitted, all into (A1). ka:JVR:[facility] PERFORMING LABORATORY: Tissue | | | processing and slide preparation were performed by [facility], | | | [address] [place] [address], [address], [place] [address] (Shuttle Veneering Supervisor: | | | Jose Juan Gage M.D. CLIA#: [id number]). Professional interpretation | | | was performed by [facility], [facility] | | | [place], [address] [facility] [place], [place] [address] (Medical | | | Director: Jose Juan Gage M.D.; CLIA#: [id number]). Diagnostician: | | | Jose Juan Gage MD Pathologist Electronically Signed 09/17/2016 | | + + + + +---------+ + + | Performing | Address | City/State/Zipcode | Phone Number | | Organization | | | | + +---------+ + + | [facility] | | | | | [facility] | | | | + +---------+ + + documented in this encounter Visit Diagnoses Not on filedocumented in this encounter Administered Medications + +--------+---------+------+------+------+ | Medication Order | MAR | Action | Dose | Rate | Site | | | Action | Date | | | | + +--------+---------+------+------+------+ + +---+ | albuterol 2.5 mg/3 mL nebulizer | | | solution 2.5 mg 2.5 mg, | | | Nebulization, ONCE PRN, Wheezing, | | | Starting 09/16/16 at 0935, | | | For 1 dose, RT will administer., | | | Pre-op | | + +---+ | | | + +---+ | dextrose 50% injection 12.5-25 | | | g 12.5-25 g, Intravenous, EVERY | | | 15 MIN PRN, Low Blood Sugar, Give | | | 12.5g (25 mL) IV if blood | | | glucose 50-69 mg/dL. Give 25g | | | (50 mL) IV if blood glucose < 50, | | | Starting Thu09/16/16 at 0935, | | | Repeat in 15 min if blood glucose | | | remains < 70 mg/dL. Repeat | | | blood glucose in 30 min once | | | blood glucose > 70., Pre-op | | + +---+ | | | + +---+ | fentaNYL (PF) injection 25-50 | | | mcg 25-50 mcg, Intravenous, | | | EVERY 15 MIN PRN, Pain, Give on | | | direction of physician, Starting | | | Thu09/16/16 at 0935, For 4 doses, | | | Max total dose 100 mcg., Pre-op | | + +---+ | | | + +---+ + +---------+ +---+-------+---+ | lactated ringers (LR) infusion | New Bag | 09/17/19 | | 100 | | | at 100 mL/hr, Intravenous, | | 17 9:35 | | mL/hr | | | CONTINUOUS, Starting Thu09/16/16 | | AM PDT | | | | | at 1000, Pre-op | | | | | | + +---------+ +---+-------+---+ + +---+ | | | + +---+ | lactated ringers (LR) infusion | | | at 10-100 mL/hr, Intravenous, | | | CONTINUOUS, Starting Thu09/16/16 | | | at 1000, TKO., Pre-op | | + +---+ | | | + +---+ | midazolam (VERSED) 1 mg/mL | | | injection 1 mg 1 mg, | | | Intravenous, PRN, Anxiety, May | | | repeat Q 5 minutes prn, Starting | | | Thu09/16/16 at 0935, For 2 doses, | | | May repeat once in 5min. Hold | | | anxiolytic until after anesthesia | | | and surgical consent is | | | obtained, Pre-op | | + +---+ | | | + +---+ | ondansetron (ZOFRAN) injection | | | 4 mg 4 mg, Intravenous, ONCE | | | PRN, Nausea, Starting [place] 09/16/16 | | | at 0935, For 1 dose, Pre-op | | + +---+ | | | + +---+ documented in this encounter
--- OUTSIDE RECORDS SUMMARY | ~2019-03-03 | XMS | Encounter Summary ---
Demographics + + + | Address | [address] | | | [place] [address] | + + + | Home Phone | | + + + | Preferred Language | Unknown | + + + | Marital Status | | + + + | Taoism Affiliation | 1041 | + + + | Race | Unknown | + + + | Ethnic Group | Unknown | + + + Author + + + | Author | [facility] | | | and [place] | + + + | Organization | [facility] | | [...] | | | | | [place] [address] | | + + + + + Care Team Providers + +------+ + | Care Health Policy Analyst Name | Role | Phone | + +------+ + PCP | Unavailable | + +------+ + Encounter Details +--------+ + + + + | Date | Type | Department | Care Team | Description | +--------+ + + + + | 05/15/ | Hospital | [facility] | | | | 2004 - | Encounter | MED CTR GENERIC IP | | | | | | CONV DEPT [address] | | | | 05/16/ | | [place], | | | | 2004 | | [place] [address] | | | | | | [phone] | | | +--------+ + + + [...]
--- OUTSIDE RECORDS SUMMARY | ~2019-03-03 | XMS | Encounter Summary ---
Demographics + + + | Address | [address] | | | [place] [address] | + + + | Home Phone | | + + + | Preferred Language | Unknown | + + + | Marital Status | | + + + | Buddhism Affiliation | 1041 | + + + | Race | Unknown | + + + | Ethnic Group | Unknown | + + + Author + + + | Author | [facility] | | | and [place] | + + + | Organization | [facility] | | | [...] | | | | | [place] [address] | | + + + + + Care Team Providers + +------+ + | Care Electrical Service Technician Name | Role | Phone | + +------+ + | Martha Sanford | PCP | | + +------+ + Encounter Details +--------+ + + + + | Date | Type | Department | Care Team | Description | +--------+ + + + + | 04/03/ | Hospital | [facility] | Conversion | | | 2018 | Encounter | [facility] | Transaction, | | | | | CLINIC [address] | Provider Unknown | | | | | [place] | [phone] | | | | | [address] | | | | | | [phone] | | | +--------+ + + + [...] + + + | Blood Pressure | 133/78 | 04/03/2017 12:20 PM | | | | | PST | | + + + + + | Pulse | 100 | 04/03/2017 12:20 PM | | | | | PST [...] + + + + | Weight | 132.8 kg (292 lb | 04/03/2017 12:20 PM | | | | 12.3 oz) | PST | | + + + + + | Height | 182.9 cm (6') | 04/03/2017 12:20 PM | | | | | PST | | + + + + + | Body Mass Index | 39.71 | 04/03/2017 12:20 PM | | | | | PST [...] | + +--------+ + + + | MRSA NAAT | Timed | 04/03/2017 | | Results for this | | | | 1:55 PM | | procedure are in the | | | | PST | | results section. | + +--------+ + + + | ECG 12 LEAD | Routin | 04/03/2017 | | Results for this | | | e | 12:48 PM | | procedure are in the | | | | PST | | results section. | + +--------+ + + + | EXTERNAL LAB: CBC | Routin | 04/03/2017 | | Results for this | | | e | 12:28 PM | | procedure are in the | | | | PST | | results section. | + +--------+ + + + | PTT | Routin | 04/03/2017 | | Results for this | | | e | 12:28 PM | | procedure are in the | | | | PST | | results section. | + +--------+ + + + | PROTIME INR | Routin | 04/03/2017 | | Results for this | | | e | 12:28 PM | | procedure are in the | | | | PST | | results section. | + +--------+ + + + | COMPREHENSIVE | Routin | 04/03/2017 | | Results for this | | METABOLIC PANEL | e | 12:28 PM | | procedure are in the | | | | PST | | results section. | + +--------+ + + + documented in this encounter Results MRSA NAAT (04/03/2017 1:55 PM PST) + + | Specimen | + + | | + + + + + | Narrative | Performed At | + + + | SOURCE NARES(NOSE) MRSA | EXTERNAL LAB | | PCR NEGATIVE Testing | | | performed at [facility];[address];[place] [address] | | + + + + +---------+ + + | Performing | Address | City/State/Zipcode | Phone Number | | Organization | | | | + +---------+ + + | EXTERNAL LAB | | | | + +---------+ + + ECG 12 lead (04/03/2017 12:48 PM PST) + + + + + [...] of | | | | | | 29-JUL-2016 | | | | | | 09:32,Questionable | | | | | | change in QRS | | | | | | axisConfirmed by KAYA | | | | | | JANICE DAN ([id number]) on | | | | | | 04/03/2017 9:56:10 PM | | | | + + + + + + + + | Specimen | + + | | + + + + + | Narrative | Performed At | + + + | Historically converted procedure from [facility] | EXTERNAL LAB | + + + + +---------+ + + | Performing | Address | City/State/Zipcode | Phone Number | | Organization | | | | + +---------+ + + | EXTERNAL LAB | | | | + +---------+ + + PTT (04/03/2017 12:28 PM PST) + + + + + + | Component | Value | Ref Range | Performed | Pathologist | | | | | At | Signature | + + + + + + | aPTT, | 27Comment: Testing | 23 - 32 seconds | EXTERNAL | | | Patient | performed at [facility];[address] | | LAB | | | | [address];[place], [place] | | | | | | [address] | | | | + + + + + + + + | Specimen | + + | Blood specimen | | (specimen) | + + + +---------+ + + | Performing | Address | City/State/Zipcode | Phone Number | | Organization | | | | + +---------+ + + | EXTERNAL LAB | | | | + +---------+ + + Protime INR (04/03/2017 12:28 PM PST) + + + + + [...] | | | | | performed at [facility] | | | | | | [facility];[place], [place] | | | | | | [address] | | | | + + + [...] + +---------+ + + External Lab: CBC (04/03/2017 12:28 PM PST) + + + + + + | Component | Value | Ref Range | Performed | Pathologist | | | | | At | Signature | + + + + + + | WBC | 6.86 | 3.80 - 11.00 | EXTERNAL | | | | | K/uL | LAB | | + + + + + + | RED CELL | 4.44 | 4.20 - 5.70 | EXTERNAL | | | COUNT | | M/uL | LAB | | + + + + + + | Hgb | 13.7 | 13.2 - 17.0 | EXTERNAL | | | | | g/dL | LAB | | + + + + + + | Hematocrit, | 39.0 | 39.0 - 50.0 % | EXTERNAL | | | POC | | | LAB | | + + + + + + | MCV | 87.9 | 80.0 - 100.0 fl | EXTERNAL | | | | | | LAB | | + + + + + + | MCH | 30.8 | 27.0 - 34.0 pg | EXTERNAL | | | | | | LAB | | + + + + + + | MCHC | 35.0 | 32.0 - 35.5 | EXTERNAL | | | | | g/dL | LAB | | + + + + + + | RDW-CV | 41.6 | 37 - 53 fl | EXTERNAL | | | | | | LAB | | + + + + + + | Platelet | 289 | 150 - 400 K/uL | EXTERNAL | | | Count | | | LAB | | | Plasma | | | | | + + + + + + | MPV | 7.8 | fl | EXTERNAL | | | | | | LAB | | + + + + + + | Differentia | AUTOMATED | | EXTERNAL | | | l Type | | | LAB | | + + + + + + | % Segmented | 55.46 | % | EXTERNAL | | | | | | LAB | | | Neutrophils | | | | | + + + + + + | % | 29.51 | % | EXTERNAL | | | Lymphocytes | | | LAB | | + + + + + + | % Monocytes | 7.65 | % | EXTERNAL | | | | | | LAB | | + + + + + + | % | 7.04 | % | EXTERNAL | | | Eosinophils | | | LAB | | + + + + + + | % Basophils | 0.34 | % | EXTERNAL | | | | | | LAB | | + + + + + + | Absolute | 3.80 | 1.90 - 7.40 | EXTERNAL | | | Segmented | | K/uL | LAB | | | Neutrophils | | | | | + + + + + + | Absolute | 2.02 | 1.00 - 3.90 | EXTERNAL | | | Lymphocytes | | K/uL | LAB | | + + + + + + | Absolute | 0.52 | 0.00 - 0.80 | EXTERNAL | | | Monocytes | | K/uL | LAB | | + + + + + + | Absolute | 0.48 | 0.00 - 0.50 | EXTERNAL | | | Eosinophils | | K/uL | LAB | | + + + + + + | Absolute | 0.02Comment: Testing | 0.00 - 0.10 | EXTERNAL | | | Basophils | performed at [facility], [address] | [address] | LAB | | | | [address], | | | | | | [place] [address] | | | | + + + [...] + +---------+ + + Comprehensive Metabolic Panel (04/03/2017 12:28 PM PST) + + + + + + | Component | Value | Ref Range | Performed | Pathologist | | | | | At | Signature | + + + + + + | Na | 143 | 135 - 145 | EXTERNAL | | | | | mmol/L | LAB | | + + + + + + | K | 4.0 | 3.5 - 4.9 | EXTERNAL | | | | | mmol/L | LAB | | + + + + + + | Cl | 107 | 99 - 109 mmol/L | EXTERNAL | | | | | | LAB | | + + + + + + | CO2 | 28 | 23 - 32 mmol/L | EXTERNAL | | | | | | LAB | | + + + + + + | Anion Gap | 12 | 5 - 20 mmol/L | EXTERNAL | | | | | | LAB | | + + + + + + | Glucose, | 113 (H) | 65 - 99 mg/dL | EXTERNAL | | | Fasting | | | LAB | | + + + + + + | BUN | 12 | 8 - 25 mg/dL | EXTERNAL | | | | | | LAB | | + + + + + + | Creatinine | 0.8 | 0.70 - 1.30 | EXTERNAL | | | | | mg/dL | LAB | | + + + + + + | BUN/Creatin | 15 | | EXTERNAL | | | ine Ratio | | | LAB | | + + + + + + | Calcium | 8.4 (L) | 8.5 - 10.5 | EXTERNAL | | | | | mg/dL | LAB | | + + + + + + | Protein, | 7.4 | 6.3 - 8.2 g/dL | EXTERNAL | | | Total | | | LAB | | + + + + + + | Albumin | 3.9 | 3.6 - 5.0 g/dL | EXTERNAL | | | | | | LAB | | + + + + + + | Globulin | 3.5 | 1.3 - 4.9 g/dL | EXTERNAL | | | | | | LAB | | + + + + + + | A/G Ratio | 1.1 | 1.0 - 2.4 | EXTERNAL | | | | | | LAB | | + + + + + + | Bilirubin | 0.3 | 0.1 - 1.5 mg/dL | EXTERNAL | | | Total | | | LAB | | + + + + + + | ALP, | 104 | 35 - 115 U/L | EXTERNAL | | | External | | | LAB | | + + + + + + | AST | 32 | 10 - 45 U/L | EXTERNAL | | | | | | LAB | | + + + + + + | ALT | 44 | 10 - 65 U/L | EXTERNAL [...] | | | | | | at [facility], [address] | | | | | | [address], | | | | | | [place] [address] | | | | + + + [...]
--- OUTSIDE RECORDS SUMMARY | ~2019-03-03 | XMS | Encounter Summary ---
Demographics + + + | Address | [address] | | | [place] [address] | + + + | Home Phone | | + + + | Preferred Language | Unknown | + + + | Marital Status | Single | + + + | Mosque Affiliation | NRP | + + + | Race | White | + + + | Ethnic Group | Not or | + + + Author + + + | Author | [facility] | + + + | Organization | [facility] | + + + | Address | Unknown | + + + | Phone | Unavailable | + + + Support + + +---------+ + | Name | Relationship | Address | Phone | + + +---------+ + | Myar Ramirez | ECON | Unknown | | + + +---------+ + Care Team Providers + +------+ + | Care Manager Supply Chain Name | Role | Phone | + +------+ + PCP | Unavailable | + +------+ + Reason for Visit + + + | Reason | Comments | + + + | Visual Changes | | + + + Encounter Details +--------+ + + + + | Date | Type | Department | Care Team | Description | +--------+ + + + + | 08/09/ | Emergency | [facility] | | | | 2014 | | Department [address] | | | | | [address] | | | | | | [facility] | | | | | | [place], [place] | | | | | | [address] | | | | | | [phone] | | | +--------+ + + + [...]
--- OUTSIDE RECORDS SUMMARY | ~2019-03-03 | XMS | Encounter Summary ---
Demographics + + + | Address | [address] | | | [place] [address] | + + + | Home Phone | | + + + | Preferred Language | Unknown | + + + | Marital Status | | + + + | Methodist Affiliation | 1041 | + + + | Race | Unknown | + + + | Ethnic Group | Unknown | + + + Author + + + | Author | [facility] | | | and [place] | + + + | Organization | [facility] | | | and [...] | | | | | [place] [address] | | + + + + + Care Team Providers + +------+ + | Care Drywall Finisher Name | Role | Phone | + [...] Provider Unknown | | | | | [place], [place] | [phone] | | | | | [address] | | | | | | [phone] | | | +--------+ + + + [...]
--- OUTSIDE RECORDS SUMMARY | ~2019-03-03 | XMS | Encounter Summary ---
Demographics + + + | Address | [address] | | | [place] [address] | + + + | Home Phone | | + + + | Preferred Language | Unknown | + + + | Marital Status | | + + + | Catholic Affiliation | 1041 | + + + | Race | Unknown | + + + | Ethnic Group | Unknown | + + + Author + + + | Author | [facility] | | | and [place] | + + + | Organization | [facility] | | | and [...] | | | | | [place] [address] | | + + + + + Care Team Providers + +------+ + | Care Job Placement Specialist Name | Role | Phone | + +------+ + PCP | Unavailable | + +------+ + Encounter Details +--------+ + + + + | Date | Type | Department | Care Team | Description | +--------+ + + + + | 11/08/ | Emergency | [facility] | Harlan Marion, | Unspecified | | 2007 | | MEDICAL CENTER | MD [address] | Psychosis | | | | EMERGENCY CENTER | [place] [address] | | | | | [address] | [phone] | | | | | [place], [place] | | | | | | [address] | | | | | | [phone] | | | +--------+ + + + [...]
--- OUTSIDE RECORDS SUMMARY | ~2019-03-03 | XMS | Encounter Summary ---
Demographics + + + | Address | [address] | | | [place] [address] | + + + | Home Phone | | + + + | Preferred Language | Unknown | + + + | Marital Status | | + + + | Quaker Affiliation | 1041 | + + + | Race | Unknown | + + + | Ethnic Group | Unknown | + + + Author + + + | Author | [facility] | | | and [place] | + + + | Organization | [facility] | [...] | | | | | [place] [address] | | + + + + + Care Team Providers + +------+ + | Care Car Rental Service Attendant Name | Role | Phone | + +------+ + PCP | Unavailable | + +------+ + Encounter Details +--------+ + + + + | Date | Type | Department | Care Team | Description | +--------+ + + + + | 05/14/ | Hospital | [facility] | | | | 2004 | Encounter | MED CTR XRAY [address] | | | | | | [address] | | | | | | [place] [address] | | | | | | [phone] | | | +--------+ + + + [...]
--- OUTSIDE RECORDS SUMMARY | ~2019-03-03 | XMS | Encounter Summary ---
Demographics + + + | Address | [address] | | | [place] [address] | + + + | Home Phone | | + + + | Preferred Language | Unknown | + + + | Marital Status | | + + + | Shinto Affiliation | 1041 | + + + [...] | | | | | [place] [address] | | + + + + + Care Team Providers + +------+ + | Care Comic Writer Name | Role | Phone | + +------+ + | Martha Sanford | PCP | | + +------+ + Encounter Details +--------+ + + + + | Date | Type | Department | Care Team | Description | +--------+ + + + + | 08/26/ | Orders Only | [facility] | Genia Purcell, | | | 2017 | | [address] | MD [address] | | | | | [place] | [address] | | | | | [address] | [place] [address] | | | | | [phone] | [phone] | | | | | | | [...] + + | TSH | Routin | 08/26/2016 | | Results for this | | | e | 3:35 PM | | procedure are in the | | | | PDT | | results section. | + +--------+ + + + | HEMOGLOBIN A1C | Routin | 08/26/2016 | | Results for this | | | e | 3:35 PM | | procedure are in the | | | | PDT | | results section. | + +--------+ + + + documented in this encounter Results TSH (08/26/2016 3:35 PM PDT) + +-------+ + + + | Component | Value | Ref Range | Performed | Pathologist | | | | | At | Signature | + +-------+ + + + | TSH | 1.08 | 0.45 - 5.10 | EXTERNAL | | | | | u[iU]/mL | LAB | | + +-------+ + + + + + | Specimen | + + | Blood specimen | | (specimen) | + + + +---------+ + + | Performing | Address | City/State/Zipcode | Phone Number | | Organization | | | | + +---------+ + + | EXTERNAL LAB | | | | + +---------+ + + Hemoglobin A1C (08/26/2016 3:35 PM PDT) + + + + + + | Component | Value | Ref Range | Performed | Pathologist | | | | | At | Signature | + + + + + + | Hemoglobin | 5.4Comment: The [place]i | 4.0 - 6.0 % | EXTERNAL | | | A1c | Diabetes Association | | LAB | | | | considers a hemoglobin | | | | | | A1c result of <7.0% to | | | | | | be the goal of diabetic | | | | | | therapy. When results | | | | | | are consistently >8.0%, | | | | | | the ADA suggests | | | | | | reevaluation of the | | | | | | treatment regimen. The | | | | | | testing method used is | | | | | | certified traceable to | | | | | | the Diabetes Control and | | | | | | Complications Trial | | | | | | reference method. | | | | + + + + + + | Glycohemogl | 108Comment: The ADA | mg/dL | EXTERNAL | | | obin | considers an eAG result | | LAB | | | (GHb),Total | of LT 154 mg/dL to be | | | | | | the goal of diabetic | | | | | | therapy. Estimated | | | | | | Average Glucose | | | | | | calculated from | | | | | | hemoglobin A1c by use of | | | | | | the ADA recommended | | | | | | formula. | | | | + + + [...]
--- OUTSIDE RECORDS SUMMARY | ~2019-03-03 | XMS | Encounter Summary ---
Demographics + + + | Address | [address] | | | [place] [address] | + + + | Home Phone | | + + + | Preferred Language | Unknown | + + + | Marital Status | | + + + | Latter-Day Affiliation | 1041 | + + + [...] | | | | | [place] [address] | | + + + + + Care Team Providers + +------+ + | Care Chef Passenger Vessel Name | Role | Phone | + [...] | | | | | | | PA | | | | | | | ESOPHAGOGAST | | | | | | | RODUODENOSCO | | | | | | | PY TRANSORAL | | | | | | | DIAGNOSTIC | | | | | | | PA EGD | | | | | | | TRANSORAL | | | | | | | BIOPSY | | | | | | | SINGLE/MULTI | | | | | | | PLE PA | | | | | | | ANESTH,UGI | | | | | | | ENDOSCOPY | | | | | | | EGD | | | +--------+--------+ + + + + Encounter Details +--------+ + + + + | Date | Type | Department | Care Team | Description | +--------+ + + + + | 09/16/ | Anesthesia | [facility] | Terry Taveras | | | 2017 | Event | MED CTR MP INTRA OP | MD Duong [address] | | | | | [address] [place] | [place] | | | | | [place] | [address] | | | | | [address] | | | | | | [phone] | | | +--------+ + + + + Anesthesia Record + + + + + | Procedure Name | Responsible | Anesthesia Start | Anesthesia Stop Time | | | Anesthesiologist | Time | | + + + + + | EGD (N/A Mouth) | Terry Watters Darcy, | 09/16/16 1111 | 09/16/16 1133 | | | MD | | | + + + + + +----+---+ + + | Da | T | Event | Comment | | te | i | | | | | m | | | | | e | | | +----+---+ + + | 07 | 1 | | | | /1 | 1 | | | | 1/ | 0 | | | | 20 | 9 | | | | 17 | | | | +----+---+ + + | | 1 | An Checkout | Pre-use anesthesia machine/equipment checkout. | | | 1 | | | | | 1 | | | | | 0 | | | +----+---+ + + | | 1 | An Start | Reassessment prior to anesthesia induction/procedure. | | | 1 | | | | | 1 | | | | | 1 | | | +----+---+ + + | | 1 | AN | Per surgeon request | | | 1 | Antibiotic | | | | 1 | declined | | | | 3 | | | +----+---+ + + | | 1 | Pre-Procedu | | | | 1 | ral Timeout | | | | 1 | Completed | | | | 5 | | | +----+---+ + + | | 1 | An | Monitors applied, supplemental O2 place, patient positioned, time | | | 1 | Induction | out taken, IV induction to the point of the patient being | | | 1 | | unconscious and un responsive, breathing spontaneously. | | | 7 | | | +----+---+ + + | | 1 | Breathing | | | | 1 | Spontaneous | | | | 2 | ly | | | | 2 | | | +----+---+ + + | | 1 | Breathing | | | | 1 | Spontaneous | | | | 3 | ly | | | | 0 | | | +----+---+ + + | | 1 | An Stop | Patient handed off to recovery nurse. | | | 3 | | | | | 3 | | | +----+---+ + + +------+ | Meds | +------+ + +---------+ | Name | Total | + +---------+ | lidocaine 2% | 60 mg | + +---------+ | propofol | 250 mg | + +---------+ | benzocaine (HURRICAINE) | 1 spray | | non-aerosol spray 20% | | + +---------+ | lactated ringers (LR) infusion | 400 mL | + +---------+ + + | Name | + + | O2 Flow Rate (L/Min) | + + + + | No blood administrations on file. | + + +--------+ + + + | Type | Details | Placement | Removal | +--------+ + + + | Periph | 09/16/16; 34; Right; Wrist; | 09/16/16 0934 by | 09/16/16 1205 by | | eral | bubt-doh-vxtfje catheter system; | Gavi Ballesteros RN | Anahi Turner, | | IV | 20 gauge, 1 1/4 in length; 1; | | RN | | | right hand, tip in tact; | | | | | distraction, tolerated well; no | | | | | longer indicated, removed per | | | | | policy/procedure, catheter/device | | | | | intact; 09/16/16; 1205 | | | +--------+ + + + documented in this encounter Social History + + + +--------+ + [...] filedocumented in this encounter Administered Medications + +--------+ +---------+------+------+ | Medication Order | MAR | Action | Dose | Rate | Site | | | Action | Date | | | | + +--------+ +---------+------+------+ | benzocaine (HURRICAINE) 20% | Given | 09/17/19 | 1 spray | | | | non-aerosol spray PRN, Starting | | 17 11:13 | | | | | 09/16/16 at 1113, Anesthesia | | AM PDT | | | | | Intra-op | | | | | | + +--------+ +---------+------+------+ +---+---+ | | | +---+---+ + +-------+ +-------+---+---+ | lidocaine (PF) 2% injection | Given | 09/17/19 | 60 mg | | | | Intravenous, PRN, Starting Tue | | 17 11:14 | | | | | 09/16/16 at 1114, Anesthesia | | AM PDT | | | | | Intra-op | | | | | | + +-------+ +-------+---+---+ +---+---+ | | | +---+---+ + +-------+ +-------+---+---+ | propofol (DIPRIVAN) injection | Given | 09/17/19 | 50 mg | | | | Intravenous, PRN, Starting Tue | | 17 11:23 | | | | | 09/16/16 at 1114, Anesthesia | | AM PDT | | | | | Intra-op | | | | | | + +-------+ +-------+---+---+ +-------+ +--------+---+---+ | Given | 09/17/19 | 100 mg | | | | | 17 11:19 | | | | | | AM PDT | | | | +-------+ +--------+---+---+ | Given | 09/17/19 | 100 mg | | | | | 17 11:14 | | | | | | AM PDT | | | | +-------+ +--------+---+---+ +---+---+ | | | +---+---+ documented in this encounter"
--- OUTSIDE RECORDS SUMMARY | ~2019-03-03 | XMS | Encounter Summary ---
Demographics + + + | Address | [address] | | | [place] [address] | + + + | Home Phone | | + + + | Preferred Language | Unknown | + + + | Marital Status | | + + + | Mandaeism Affiliation | 1041 | + + + [...] | | | | | [place] [address] | | + + + + + Care Team Providers + +------+ + | Care Signals Intelligence Analysis Manager Name | Role | Phone | [...] | | | | | [address] | | | | | | [place], [place] | (Fax) | | | | | [address] | | | | | | [phone] | | | +--------+ + + + [...]
--- OUTSIDE RECORDS SUMMARY | ~2019-03-03 | XMS | Encounter Summary ---
Demographics + + + | Address | [address] | | | [place] [address] | + + + | Home Phone | | + + + | Preferred Language | Unknown | + + + | Marital Status | | + + + | Sikhism Affiliation | 1041 | + + + | Race | Unknown | + + + | Ethnic Group | Unknown | + + + Author + + + | Author | [facility] | | | and [place] | + + + | Organization | [facility] | | | and [place] | + + + | Address | Unknown | + + + | Phone | Unavailable | + + + Support + + + + + | Name | Relationship | Address | Phone | + + + + + | Myra Ramirez | BRADY | [address] | | | | | [place] [address] | | + + + + + Care Team Providers + +------+ + | Care Dry Cell Tester Name | Role | Phone | + +------+ + PCP | Unavailable | + +------+ + Encounter Details +--------+ + + + + | Date | Type | Department | Care Team | Description | +--------+ + + + + | 11/02/ | Emergency | [facility] | Jovanny Shaver, | Unspecified Backache | | 2007 | | MEDICAL CENTER | MD [address] | | | | | EMERGENCY CENTER | [place] [address] | | | | | [address] | [phone] | | | | | [place], [place] | | | | | | [address] | | | | | | [phone] | | | +--------+ + + + [...]
--- OUTSIDE RECORDS SUMMARY | ~2019-03-03 | XMS | Encounter Summary ---
Demographics + + + | Address | [address] | | | [place] [address] | + + + | Home Phone [...] | | | | | [place] [address] | | + + + + + Care Team Providers + +------+ + | Care Paper Sorter And Counter Name | Role | Phone | + +------+ + | Martha Sanford | PCP | | + +------+ + Reason for Visit + + + | Reason | Comments | + + + | Follow-up | | + + + Encounter Details +--------+ + + + + | Date | Type | Department | Care Team | Description | +--------+ + + + + | 06/29/ | Telephone | [facility] | Sanchez Christensen | Follow-up | | 2019 | | [facility] | MD [address] | | | | | [address] | [address] | | | | | [place], [place] | [place] [address] | | | | | [address] | [phone] | | | | | [phone] | | | +--------+ + + + [...]
--- OUTSIDE RECORDS SUMMARY | ~2019-03-03 | XMS | Encounter Summary ---
Demographics + + + | Address | [address] | | | [place] [address] | + + + | Home Phone | | + + + | Preferred Language | Unknown | + + + | Marital Status | | + + + | Zoroastrianism Affiliation | 1041 | + + + | Race | Unknown | + + + | Ethnic Group | Unknown | + + + Author + + + | Author | [facility] | | | and [place] | + + + | Organization | [facility] | | | and [...] | | | | | [place] [address] | | + + + + + Care Team Providers + +------+ + | Care Laborer [facility] Name | Role | Phone | + +------+ + PCP | Unavailable | + +------+ + Encounter Details +--------+ + + + + | Date | Type | Department | Care Team | Description | +--------+ + + + + | 10/02/ | Hospital | [facility] | Tiffany Figueroa | Other Convulsions | | 2007 - | Encounter | [facility] | MD [address] | ([facility]) | | | | CLINICAL DECISION | MICHAEL ANTIOCHDEBORA | | | 10/05/ | | [address] | [address] | | | 2007 | | [place], [place] | | | | | | [address] | | | | | | [phone] | | | +--------+ + + + [...]
--- OUTSIDE RECORDS SUMMARY | ~2019-03-03 | XMS | Encounter Summary ---
Demographics + + + | Address | [address] | | | [place] [address] | + + + | Home Phone [...] | | | | | [place] [address] | | + + + + + Care Team Providers + +------+ + | Care Leather Belt Maker Name | Role | Phone | + [...] | | | | | | | HI | | | | | | | ESOPHAGOGAST | | | | | | | RODUODENOSCO | | | | | | | PY TRANSORAL | | | | | | | DIAGNOSTIC | | | | | | | HI EGD | | | | | | | TRANSORAL | | | | | | | BIOPSY | | | | | | | SINGLE/MULTI | | | | | | | PLE HI | | | | | | | [...] | | | | | [address] | [place] | | | | | [place] | [address] | | | | | [address] | | | | | | [phone] | | | +--------+ + + + [...] 09/16/16 1205 by | | eral | [id number] catheter system; | Gavi Ballesteros RN | [...]
--- OUTSIDE RECORDS SUMMARY | ~2019-03-03 | XMS | Encounter Summary ---
Demographics + + + | Address | [address] | | | [place] [address] | + + + | Home Phone | | + + + | Preferred Language | Unknown | + + + | Marital Status | | + + + | Episcopal Affiliation | 1041 | + + + | Race | Unknown | + + + | Ethnic Group | Unknown | + + + Author + + + | Author | [facility] | | | and [place] | + + + | Organization | [facility] | | | [...] | | | | | [place] [address] | | + + + + + Care Team Providers + +------+ + | Care Car Dumper Operator Name | Role | Phone | + +------+ + | Martha Sanford | PCP | | + +------+ + Encounter Details +--------+ + + + + | Date | Type | Department | Care Team | Description | +--------+ + + + + | 07/23/ | Emergency | [facility] | Jovanny Shaver, | | | 2017 | | MEDICAL CENTER | [address] | | | | | EMERGENCY CENTER | [place] [address] | | | | | [address] | [phone] | | | | | [place], [place] | | | | | | [address] | | | | | | [phone] | | | +--------+ + + + [...] + + + | Blood Pressure | 160/92 | 07/23/2017 4:01 PM | | | | | PDT | | + + + + + | Pulse | 83 | 07/23/2017 4:01 PM | | | | | PDT | | + + + + + | Temperature | 36.8 C (98.2 F) | 07/23/2017 4:01 PM | | | | | PDT | | + + + + + | Respiratory Rate | 18 | 07/23/2017 4:01 PM | | | | | PDT | | + + + + + | Oxygen Saturation | - | - | | + + + + + | Inhaled Oxygen | - | - | | | Concentration | | | | + + + + + | Weight | 129.2 kg (284 lb | 07/23/2017 4:01 PM | | | | 13.3 oz) | PDT | | + + + + + | Height | - | - | | + + + + + | Body Mass Index | 38.63 | 05/18/2017 10:20 AM | | | | | PDT [...]
--- OUTSIDE RECORDS SUMMARY | ~2019-03-03 | XMS | Encounter Summary ---
Demographics + + + | Address | [address] | | | [place] [address] | + + + | Home Phone [...] | | | | | [place] [address] | | + + + + + Care Team Providers + +------+ + | Care Surveillance Analyst Name | Role | Phone | + +------+ + | Martha Sanford | PCP | | + +------+ + Encounter Details +--------+ + + + + | Date | Type | Department | Care Team | Description | +--------+ + + + + | 03/11/ | Hospital | [facility] | Conversion | Diagnosis unknown | | 2018 | Encounter | CONVERSION [address] | Transaction, | | | | [address] | Provider Unknown | | | | | [place], [place] | [phone] | | | | | [address] | | | | | | [phone] | | | +--------+ + + + [...] LUMBAR SPINE 2 OR | Routin | 03/10/2017 | | Results for this | | 3 VW | e | 5:15 PM | | procedure are in the | | | | PST | | results section. | + +--------+ + + + documented in this encounter Results XR Lumbar Spine 2 or 3 Vw (03/10/2017 5:15 PM PST) + + | Specimen | [...] + | Eliot Soto Conversion - 10/20/2018 4:10 AM PDT This is a non-reportable procedure | | without a radiologist report and isused for image storage only | + + documented in this encounter Visit Diagnoses + + | Diagnosis | + + | Diagnosis unknown Other unknown and unspecified cause of morbidity or mortality | + + documented in this encounter"
--- OUTSIDE RECORDS SUMMARY | ~2019-03-03 | XMS | Encounter Summary ---
Demographics + + + | Address | [address] | | | [place] [address] | + + + | Home Phone | | + + + | Preferred Language | Unknown | + + + | Marital Status | | + + + | Sabianist Affiliation | 1041 | + + + | Race | Unknown | + + + | Ethnic Group | Unknown | + + + Author + + + | Author | [facility] | | | and [place] | + + + | Organization | [facility] | | [...] [address] | | | | | [place] [address] | | + + + + + Care Team Providers + +------+ + | Care Barrel Scraper Name | Role | Phone | + +------+ + PCP | Unavailable | + +------+ + Encounter Details +--------+ + + + + | Date | Type | Department | Care Team | Description | +--------+ + + + + | 10/01/ | Emergency | [facility] | Demian Oreilly, | Special Symptom | | 2007 | | MEDICAL CENTER | [address] | NEC/NOS | | | | [facility]Y CENTER | [facility] | | | | | [address] [facility] | [address] | | | | | [place] | | | | | | [address] | | | | | | [phone] | | | +--------+ + + + [...]
--- OUTSIDE RECORDS SUMMARY | ~2019-03-03 | XMS | Encounter Summary ---
Demographics + + + | Address | [address] | | | [place] [address] | + + + | Home Phone | | + + + | Preferred Language | Unknown | + + + | Marital Status | | + + + | Congregation Affiliation | 1041 | + + + | Race | Unknown | + + + | Ethnic Group | Unknown | + + + Author + + + | Author | [facility] | | | and [place] | + + + | Organization | [facility] | | | [...] | | | | | [place] [address] | | + + + + + Care Team Providers + +------+ + | Care Tax Examiner Name | Role | Phone | + +------+ + | Martha Sanford | PCP | | + +------+ + Reason for Visit + + + | Reason | Comments | + + + | Procedure | EGD | + + + Encounter Details +--------+ + + + + | Date | Type | Department | Care Team | Description | +--------+ + + + + | 08/26/ | Telephone | [facility] | Ken Addison MD | Procedure (EGD) | | 2017 | | GASTROENTEROLOGY | [address] [place] | | | | | [address] | [address] [place], [place] | | | | | [address] [place], [place] | [address] | | | | | [address] | | | | | | [phone] | | | +--------+ + + + [...] + | Diagnosis | + + | Gastroesophageal reflux disease, esophagitis presence not specified - Primary | + + | Anxiety Anxiety state, unspecified | + + | Claustrophobia Other isolated or specific phobias | + + | Obesity, unspecified | + + | Schizoaffective disorder, unspecified type (HCC) | + + documented in this encounter"
--- OUTSIDE RECORDS SUMMARY | ~2019-03-03 | XMS | Clinical Summary ---
Demographics + + + | Address | [address] | | | [place] [address] | + + + | Home Phone | | + + + | Preferred Language | Unknown | + + + | Marital Status | | + + + | Spiritism Affiliation | 1041 | + + + | Race | Unknown | + + + | Ethnic Group | Unknown | + + + Author + + + | Author | [facility] | | | and [place] | + + + | Organization | [facility] | | | [...] | | | | | [place] [address] | | + + + + + Care Team Providers + +------+ + | Care Outside Sales Manager Name | Role | Phone | + +------+ + | Martha Sanford | PCP | | + +------+ + Allergies + + + + + + | Active Allergy | Reactions | Severity | Noted | Comments | | | | | Date | | + + + + + + | Bupropion | Unknown | High | 12/15/19 | SEIZURE | | | | | 15 | | + + + + + + | Ibuprofen | Other (See Comments) | | 04/28/19 | stomach aches | | | | | 16 | | + + + + + + | Morphine | Rash, Anxiety | Medium | 09/06/19 | Other reaction(s): | | | | | 15 | Anxiety, Rash | + + + + + + Medications + + + +---------+------+------+-------+ | Medication | Sig | Dispensed | Refills | Star | End | Statu | | | | | | t | Date | s | | | | | | Date | | | + + + +---------+------+------+-------+ | SUMAtriptan | Take 50 mg by mouth | | 0 | | | Activ | | (IMITREX) 50 mg | as needed for | | | | | e | | tablet | Migraine. | | | | | | + + + +---------+------+------+-------+ | gabapentin | Take 800 mg by mouth | | 0 | | | Activ | | (NEURONTIN) 800 MG | 2 times daily. | | | | | e | | tablet | | | | | | | + + + +---------+------+------+-------+ | HYDROmorphone | Take 2 mg by mouth | | 0 | | | Activ | | (DILAUDID) 2 mg | every 12 hours. | | | | | e | | tablet | | | | | | | + + + +---------+------+------+-------+ | losartan (COZAAR) | Take 50 mg by mouth | | 0 | | | Activ | | 50 mg tablet | Daily. | | | | | e | + + + +---------+------+------+-------+ | clonazePAM | Take 2 mg by mouth | | 0 | | | Activ | | (KLONOPIN) 2 MG | Twice daily as | | | | | e | | tablet | needed for Anxiety. | | | | | | + + + +---------+------+------+-------+ | mirtazapine | Take 60 mg by mouth | | 0 | | | Activ | | (REMERON) 30 MG | nightly. | | | | | e | | tablet | | | | | | | + + + +---------+------+------+-------+ | hydrALAZINE | Take 25 mg by mouth | | 0 | | | Activ | | (APRESOLINE) 25 mg | 2 times daily. | | | | | e | | tablet | | | | | | | + + + +---------+------+------+-------+ | pantoprazole | Take 40 mg by mouth | | 0 | | | Activ | | (PROTONIX) 40 mg | every morning | | | | | e | | tablet | (before breakfast). | | | | | | + + + +---------+------+------+-------+ | QUEtiapine | Take 300 mg by mouth | | 0 | | | Activ | | (SEROQUEL) 300 mg | Daily. | | | | | e | | tablet | | | | | | | + + + +---------+------+------+-------+ | metroNIDAZOLE | Take 1 tablet by | 14 | 0 | 08/0 | | Activ | | (FLAGYL) 500 MG | mouth Daily. | tablet | | 3/20 | | e | | tablet | | | | 17 | | | + + + +---------+------+------+-------+ | levETIRAcetam | Take 500 mg by mouth | | 0 | 02/1 | | Activ | | (KEPPRA) 500 mg | 2 (two) times | | | /20 | | e | | tablet | daily. | | | 19 | | | + + + +---------+------+------+-------+ | ondansetron | | | 0 | 02/2 | | Activ | | (ZOFRAN ODT) 4 mg | | | | 0/20 | | e | | disintegrating | | | | 19 | | | | tablet | | | | | | | + + + +---------+------+------+-------+ | | Take 1 tablet by | | 0 | 05/0 | | Activ | | oxyCODONE-acetaminop | mouth every 6 (six) | | | 8/20 | | e | | hen (PERCOCET) 5-325 | hours as needed for | | | 19 | | | | mg per tablet | Pain. | | | | | | + + + +---------+------+------+-------+ | predniSONE | | | 0 | 05/1 | | Activ | | (DELTASONE) 10 mg | | | | 4/20 | | e | | tablet | | | | 19 | | | + + + +---------+------+------+-------+ | topiramate | 100 mg 2 (two) times | | 0 | 05/3 | | Activ | | (TOPAMAX) 50 MG | daily. | | | 0/20 | | e | | tablet | | | | 18 | | | + + + +---------+------+------+-------+ | clonazePAM | Take 2 mg by mouth | | 0 | | | Activ | | (KLONOPIN) 2 MG | nightly as needed | | | | | e | | tablet | for Anxiety. | | | | | | + + + +---------+------+------+-------+ | HYDROmorphone | Take 2 mg by mouth | | 0 | | | Activ | | (DILAUDID) 2 mg | every four hours as | | | | | e | | tablet | needed for severe | | | | | | | | pain. | | | | | | + + + +---------+------+------+-------+ | losartan (COZAAR) | Take 50 mg by mouth | | 0 | | | Activ | | 25 mg tablet | 2 (two) times daily. | | | | | e | + + + +---------+------+------+-------+ | pantoprazole | Take 1 tablet by | | 0 | 04/1 | 05/1 | Activ | | (PROTONIX) 20 mg | mouth 2 (two) times | | | / | 6 | e | | tablet | daily. | | | 19 | 20 | | + + + +---------+------+------+-------+ | QUEtiapine | Take 400 mg by mouth | | 0 | | | Activ | | (SEROQUEL XR) 400 mg | nightly. | | | | | e | | ER tablet | | | | | | | + + + +---------+------+------+-------+ | QUEtiapine | Take 50 mg by mouth | | 0 | | | Activ | | (SEROQUEL) 50 MG | 2 (two) times daily. | | | | | e | | tablet | | | | | | | + + + +---------+------+------+-------+ | methylPREDNISolone | FOLLOW PACKAGE | | 0 | 04/ | | Activ | | (MEDROL DOSEPAK) 4 | DIRECTIONS | | | 07/26 | | e | | mg tablet | | | | 19 | | | + + + +---------+------+------+-------+ Active Problems + + + | Problem | Noted Date | + + + | Personal history of colonic polyps | 07/26/2018 | + + + + + | Overview: Added automatically from request for surgery [id number] | + + + + + | Weight loss | 06/24/2018 | + + + + + | Overview: Added automatically from request for surgery [id number] | + + + + + | Methamphetamine abuse in remission | 04/29/2018 | + + + | Seizure | 04/29/2018 | + + + | Neural foraminal stenosis of lumbar spine | 02/16/2017 | + + + | Status post lumbar spine operation | 02/16/2017 | + + + | Degeneration of intervertebral disc of lumbar region | 02/16/2017 | + + + | Herniated lumbar intervertebral disc | 02/16/2017 | + + + | GERD (gastroesophageal reflux disease) | 09/15/2016 | + + + | Chest pain | 07/28/2016 | + + + | Obesity due to excess calories | 07/28/2016 | + + + | Smoking | 07/28/2016 | + + + | Weakness of both lower extremities | 05/22/2015 | + + + | Lumbar degenerative disc disease | 05/22/2015 | + + + | Hyperreflexia | 05/22/2015 | + + + | Lumbar radiculopathy | 05/22/2015 | + + + | Chronic obstructive pulmonary disease | 01/31/2008 | + + + + + | Overview: Overview: | | moderate; Dr. Caty adams | + + + + + | Sleep apnea | 01/02/2008 | + + + + + | Overview: Overview: | | on CPAP: consulting Hussain Byrne | + + + + + | Anxiety state | 11/30/2007 | + + + + + | Overview: Overview: | | IMO Problem List Replacement - 2016_Regulatory_1 | | IMO Problem List Replacement - 2016_Regulatory_1 | + + + + + | Back pain | 11/30/2007 | + + + + + | Overview: Overview: MRI 11.02.08: 1. mild-mod paracentral disk | | protrusion L5-S1, not affecting nerve root2. evidence of | | laminectomy w/ microdiskectomy L4-L5. +degenerative disk bulge | | same level: Dr. Lundberg([facility]): Sacroiliitis-B, Lumbar disc | | luis-electrodx studies ordered | + + + + + | Bipolar affective disorder | 11/30/2007 | + + + + + | Overview: Dx Name changed by system update on 12/19/2016 | + + + + + | Depression | 11/30/2007 | + + + + + | Overview: Overview: w/ Psychotic features--[facility] | | Counselling Ctr Dr. Taisha Ramirez(Psych) | + + + + + | Essential (primary) hypertension | 11/30/2007 | + + + | Mixed, or nondependent drug abuse | 11/30/2007 | + + + + + | Overview: Overview: History of IV Methamphetamine use - | | drug-free x 5 yrs (since ) | + + + + + | Adiposity | 11/30/2007 | + + + | Tobacco use | 11/30/2007 | + + + Immunizations + + + + | Name | Administration Dates | Next Due | + + + + | HEP A/HEP B, 3 DOSE | 05/01/2011, 11/13/2010, 10/08/2010 | | | (ADULT) | | | + + + + | INFLUENZA PF | 01/08/2015, 01/04/2014, 12/28/2010 | | | QUAD(PED/ADOL/ADULT) | | | | ,PSKT or VIAL | | | + + + + | INFLUENZA TRIV | 02/24/2013, 12/13/2007 | | | W/PRES(PED/ADOL/ADUL | | | | T),MULTIDOSE | | | + + + + | TDAP, (ADOL/ADULT) | 10/11/2016 | | + + + + Family History + + +------+ + | Medical History | Relation | Name | Comments | + + +------+ + | Hypertension | Father | | | + + +------+ + | COPD | Maternal | | | | | Grandfath | | | | | er | | | + + +------+ + | Colon cancer | Maternal | | | | | Grandfath | | | | | er | | | + + +------+ + | Emphysema | Maternal | | | | | Grandfath | | | | | er | | | + + +------+ + | Lung cancer | Maternal | | | | | Grandfath | | | | | er | | | + + +------+ + | Diabetes | Maternal | | | | | Grandmoth | | | | | er | | | + + +------+ + | Diabetes, IDDM | Maternal | | | | | Grandmoth | | | | | er | | | + + +------+ + | Hypertension | Maternal | | | | | Grandmoth | | | | | er | | | + + +------+ + | Pacemaker | Maternal | | | | | Grandmoth | | | | | er | | | + + +------+ + | Alcohol abuse | Paternal | | | | | Grandfath | | | | | er | | | + + +------+ + | Heart attack | Paternal | | | | | Grandfath | | | | | er | | | + + +------+ + | Hypertension | Paternal | | | | | Grandfath | | | | | er | | | + + +------+ + | Rheum arthritis | Paternal | | | | | Grandmoth | | | | | er | | | + + +------+ + + +------+ + + | Relation | Name | Status | Comments | + +------+ + + | Brother | | Alive | | + +------+ + + | Child | | Alive | | + +------+ + + | Child | | Alive | | + +------+ + + | Child | | Alive | | + +------+ + + | Father | | Alive | | + +------+ + + | Father | | | | + +------+ + + | Maternal Grandfather | | | CANCER | | | | (Age | | | | | 71) | | + +------+ + + | Maternal Grandmother | | | | + +------+ + + | Maternal Grandmother | | | | + +------+ + + | Mother | | Alive | | + +------+ + + | Paternal Grandfather | | | DC | | | | (Age | | | | | 69) | | + +------+ + + | Paternal Grandmother | | | NATURAL CAUSES | | | | (Age | | | | | 77) | | + +------+ + + Social History + + + +--------+ + | Tobacco Use | Types | Packs/Day | Years | Date | | | | | Used | | + + + +--------+ + | Current Every Day | Cigarettes | 0.5 | 10 | Quit: 03/09/2014 | | Smoker | | | | | + + + +--------+ + + +------+---+ + | Smokeless Tobacco: | Chew | | Quit: | | Former User | | | 03/15/20 | | | | | 15 | + +------+---+ + + + | Comments: Pt started smoking again | + + + + +---------+ + | Alcohol Use | Drinks/Week | oz/Week | Comments | + + +---------+ + | No | 0 Standard drinks | 0.0 | Alcoholic | | | or equivalent | | Drinks/day: clean | | | | | and sober 14 months | + + [...] recent travel history available. | + + Last Filed Vital Signs + + + + + | Vital Sign | Reading | Time Taken | Comments | + + + + + | Blood Pressure | 127/75 | 07/26/2018 2:42 PM | | | | | PDT | | + + + + + | Pulse | 82 | 07/26/2018 2:42 PM | | | | | PDT | | + + + + + | Temperature | 36.6 C (97.9 F) | 07/14/2018 10:22 PM | | | | | PDT | | + + + + + | Respiratory Rate | 16 | 07/14/2018 10:22 PM | | | | | PDT [...] | 118.8 kg (262 lb) | 07/26/2018 2:42 PM | | | | | PDT | | + + + + + | Height | 182.9 cm (6') | 07/26/2018 2:42 PM | | | | | PDT | | + + + + + | Body Mass Index | 35.53 | 07/26/2018 2:42 PM | | | | | PDT | | + + + + + Plan of Treatment + + + + + | Health Maintenance | Due Date | Last Done | Comments | + + + + + | Vaccine: | | | | | Pneumococcal 19-64 | 4 | | | | (1 of 1 - PPSV23) | | | | + + + + + | Vaccine: Influenza | | 01/08/2015, 01/04/2014, | | | (#1) | 9 | 02/24/2013, Additional history | | | | | exists | | + + + + + | Colorectal Cancer | | 07/01/2018 | | | Screening | 0 | | | | (Colonoscopy) | | | | + + + + + | Vaccine: | | 10/11/2016 | | | Dtap/Tdap/Td (2 - | 7 | | | | Td) | | | | + + + + + Results Not on filefrom Last 3 Months Insurance + +--------+ +--------+ +---------+--------+ | Payer | Benefi | Subscriber | Effect | Phone | Address | Type | | | t Plan | ID | ángela | | | | | | / | | Dates | | | | | | Group | | | | | | + +--------+ +--------+ +---------+--------+ | [employer] | MODA | [id number] | | [phone] | | Medica | | MEDICAID HMO | HEALTH | | 019-Pr | 1 | | id | | | MDCD | | esent | | | | | | [place] | | | | | | + +--------+ +--------+ +---------+--------+ | [employer] | MOD[employer] | [id number] | | [phone] | | Medica | | MEDICAID HMO | HEALTH | | 015-Pr | 1 | | id | | | MDCD | | esent | | | | | | [place] | | | | | | + +--------+ +--------+ +---------+--------+ + +--------+ +--------+ + + | Guarantor Name | Accoun | Relation to | Date | Phone | Billing Address | | | t Type | Patient | of | | | | | | | | | | + +--------+ +--------+ + + | Yonis Davsi | Person | Self | [birth year] | [address] | | | al/Fam | | 1976 | [phone] | [place] [address] | | | jyothi | | | 6 (Home) | | + +--------+ +--------+ + + | Yonis Davis | Person | Self | [birth year] | | [address] | | | al/Fam | | 1975 | [phone] | [place] [address] | | | jyothi | | | 6 (Home) | | + +--------+ +--------+ + + | Yonis Davis | Person | Self | [birth year] | [address] | | | al/Fam | | 1975 | [phone] | [place] [address] | | | jyothi | | | 6 (Home) | | + +--------+ +--------+ + + Advance Directives + + + + + | Type | Date Recorded | Patient | Explanation | | | | Senior Market Intelligence Consultant | | + + + + + | Power of | | | | | Treating And Pumping Supervisor | | | | + + + + + | Advance | 08/08/2014 12:11 | | | | Directive | PM | | | + + + + +"
--- OUTSIDE RECORDS SUMMARY | ~2019-03-03 | XMS | Encounter Summary ---
Demographics + + + | Address | [address] | | | [place] [address] | + + + | Home Phone [...] | | | | | [place] [address] | | + + + + + Care Team Providers + +------+ + | Care Traffic Supervisor Name | Role | Phone | + +------+ + | Martha Sanford | PCP | | + +------+ + Encounter Details +--------+ + + + + | Date | Type | Department | Care Team | Description | +--------+ + + + + | 12/06/ | Orders Only | [facility] | Conversion | | | 2014 | | NEUROLOGY [address] | Transaction, | | | | | [address] | Provider Unknown | | | | | [place], [place] | [phone] | | | | | [address] | | | | | | [phone] | | | +--------+ + + + [...]
--- OUTSIDE RECORDS SUMMARY | ~2019-03-03 | XMS | Encounter Summary ---
Demographics + + + | Address | [address] | | | [place] [address] | + + + | Home Phone | | + + + | Preferred Language | Unknown | + + + | Marital Status | | + + + | Confucianist Affiliation | 1041 | + + + [...] | | | | | [place] [address] | | + + + + + Care Team Providers + +------+ + | Care Escort Service Attendant Name | Role | Phone | + +------+ + | Martha Sanford | PCP | | + +------+ + Reason for Visit + + + | Reason | Comments | + + + | Results, Pathology | Gastric biopsy positive for H. pylori infection | + + + Encounter Details +--------+ + + + + | Date | Type | Department | Care Team | Description | +--------+ + + + + | 09/24/ | Telephone | [facility] | Ken Addison MD | Results, Pathology | | 2017 | | GASTROENTEROLOGY | [address] | (Gastric biopsy | | | | [address] [facility] | [address] [place], [place] | positive for H. | | | | [address] [place], [place] | [address] | pylori infection) | | | | [address] | | | | | | [phone] | | | +--------+ + + + [...] as of this encounter Plan of Treatment + + +--------+ + + | Name | Type | Priori | Associated Diagnoses | Order Schedule | | | | ty | | | + + +--------+ + + | Helicobacter pylori | Microbiolog | Routin | Helicobacter | Expected: 11/18/2016 | | Ag, EIA, Stool | y | e | pylori infection | (Approximate), | | | | | | Expires: 10/07/2017 | + + +--------+ + + documented as of this encounter Visit Diagnoses + + | Diagnosis | + + | Helicobacter pylori infection - Primary Helicobacter pylori (H. pylori) | + + documented in this encounter"
--- OUTSIDE RECORDS SUMMARY | ~2019-03-03 | XMS | Encounter Summary ---
Demographics + + + | Address | [address] | | | [place] [address] | + + + | Home Phone | | + + + | Preferred Language | Unknown | + + + | Marital Status | | + + + | Mormonism Affiliation | 1041 | + + + | Race | Unknown | + + + | Ethnic Group | Unknown | + + + Author + + + | Author | [facility] | | | and [place] | + + + | Organization | [facility] | | | [...] | | | | | [place] [address] | | + + + + + Care Team Providers + +------+ + | Care Body Component Engineer Name | Role | Phone | + +------+ + | Martha Sanford | PCP | | + +------+ + Encounter Details +--------+ + + + + | Date | Type | Department | Care Team | Description | +--------+ + + + + | 07/07/ | Hospital | [facility] | Conversion | Lumbar | | 2019 | Encounter | [facility] | Transaction, | radiculopathy; | | | | [address] | Provider Unknown | History of lumbar | | | | [place], [place] | | discectomy | | | | [address] | (Fax) | | | | | [phone] | | | +--------+ + + + [...]
--- OUTSIDE RECORDS SUMMARY | ~2019-03-03 | XMS | Encounter Summary ---
Demographics + + + | Address | [address] | | | [place] [address] | + + + | Home Phone | | + + + | Preferred Language | Unknown | + + + | Marital Status | | + + + | Baptism Affiliation | 1041 | + + + | Race | Unknown | + + + | Ethnic Group | Unknown | + + + Author + + + | Author | [facility] | | | and [place] | + + + | Organization | [facility] | | [...] | | | | | [place] [address] | | + + + + + Care Team Providers + +------+ + | Care Vp Foundation Name | Role | Phone | + +------+ + | Jovanny Che PA-C | PCP | | + +------+ + Reason for Visit + + + | Reason | Comments | + + + | Imaging Only | Schedule Cervical & Thoracic MRI's at [facility] | + + + Encounter Details +--------+ [...] | | [address] | [place] [address] | Thoracic MRI's at | | | | [place] | [phone] | [place] Rocha | | | | [address] | | [facility]) | | | | [phone] | | | +--------+ + + + [...]
--- OUTSIDE RECORDS SUMMARY | ~2019-03-03 | XMS | Encounter Summary ---
Demographics + + + | Address | [address] | | | [place] [address] | + + + | Home Phone | | + + + | Preferred Language | Unknown | + + + | Marital Status | | + + + | Anglican Affiliation | 1041 | + + + | Race | Unknown | + + + | Ethnic Group | Unknown | + + + Author + + + | Author | [facility] | | | and [place] | + + + | Organization | [facility] | | | [...] | | | | | [place] [address] | | + + + + + Care Team Providers + +------+ + | Care Collision Repairer Name | Role | Phone | + +------+ + PCP | Unavailable | + +------+ + Encounter Details +--------+ + + + + | Date | Type | Department | Care Team | Description | +--------+ + + + + | 05/14/ | Hospital | [facility] | | | | 2004 | Encounter | MED CTR XRAY [address] | | | | | | [address] [place] | | | | | | [place] [address] | | | | | | [phone] | | | +--------+ + + + [...]
--- OUTSIDE RECORDS SUMMARY | ~2019-03-03 | XMS | Encounter Summary ---
Demographics + + + | Address | [address] | | | [place] [address] | + + + | Home Phone | | + + + | Preferred Language | Unknown | + + + | Marital Status | | + + + | Bahai Affiliation | 1041 | + + + | Race | Unknown | + + + | Ethnic Group | Unknown | + + + Author + + + | Author | [facility] | | | and [place] | + + + | Organization | [facility] | | | [...] | | | | | [place] [address] | | + + + + + Care Team Providers + +------+ + | Care Mill Dresser Name | Role | Phone | + +------+ + | Martha Sanford | PCP | | + +------+ + Encounter Details +--------+ + + + + | Date | Type | Department | Care Team | Description | +--------+ + + + + | 07/23/ | Emergency | [facility] | Jovanny Shaver, | | | 2017 | | MEDICAL CENTER | [address] | | | | | EMERGENCY CENTER | [place] [address] | | | | | [address] | [phone] | | | | | [place], [place] | | | | | | [address] | | | | | | [phone] | | | +--------+ + + + [...]
--- OUTSIDE RECORDS SUMMARY | ~2019-03-03 | XMS | Encounter Summary ---
Demographics + + + | Address | [address] | | | [place] [address] | + + + | Home Phone | | + + + | Preferred Language | Unknown | + + + | Marital Status | | + + + | Rastafarian Affiliation | 1041 | + + + | Race | Unknown | + + + | Ethnic Group | Unknown | + + + Author + + + | Author | [facility] | | | and [place] | + + + | Organization | [facility] [...] [address] | | | | | [place] [address] | | + + + + + Care Team Providers + +------+ + | Care High School Biology Teacher Name | Role | Phone | + +------+ + PCP | Unavailable | + +------+ + Encounter Details +--------+ + + + + | Date | Type | Department | Care Team | Description | +--------+ + + + + | 10/17/ | Emergency | [facility] | John Bronson, | Unspecified Backache | | 2007 | | MEDICAL CENTER | [address] [facility] | | | | | EMERGENCY CENTER | [place], [place] | | | | | [address] | [address] | | | | | [place], [place] | [phone] | | | | | [address] | | | | | | [phone] | | | +--------+ + + + [...]
--- OUTSIDE RECORDS SUMMARY | ~2019-03-03 | XMS | Encounter Summary ---
Demographics + + + | Address | [address] | | | [place] [address] | + + + | Home Phone | | + + + | Preferred Language | Unknown | + + + | Marital Status | | + + + | Adventist Affiliation | 1041 | + + + | Race | Unknown | + + + | Ethnic Group | Unknown | + + + Author + + + | Author | [facility] | | | and [place] | + + + | Organization | [facility] | | | and [...] | | | | | [place] [address] | | + + + + + Care Team Providers + +------+ + | Care Fueler Name | Role | Phone | + +------+ + PCP | Unavailable | + +------+ + Encounter Details +--------+ + + + + | Date | Type | Department | Care Team | Description | +--------+ + + + + | 11/17/ | Hospital | [facility] | | | | 2003 - | Encounter | MED CTR EMERGENCY | | | | | | [place] | | | | 11/18/ | | [place] | | | | 2003 | | [address] | | | | | | [phone] | | | +--------+ + + + [...]
--- OUTSIDE RECORDS SUMMARY | ~2019-03-03 | XMS | Encounter Summary ---
Demographics + + + | Address | [address] | | | [place] [address] | + + + | Home Phone | | + + + | Preferred Language | Unknown | + + + | Marital Status | | + + + | Yazidi Affiliation | 1041 | + + + [...] | | | | | [place] [address] | | + + + + + Care Team Providers + +------+ + | Care Painter Maintenance Name | Role | Phone | + +------+ + PCP | Unavailable | + +------+ + Encounter Details +--------+ + + + + | Date | Type | Department | Care Team | Description | +--------+ + + + + | 06/10/ | Hospital | [facility] | Sincere Tapia MD | | | 2007 - | Encounter | [facility] [address] | | | | | [address] | [address], | | | 06/12/ | | [place] | [place] [address] | | | 2007 | | [address] | [phone] | | | | | [phone] | | | +--------+ + + + [...]
--- OUTSIDE RECORDS SUMMARY | ~2019-03-03 | XMS | Encounter Summary ---
Demographics + + + | Address | [address] | | | [place] [address] | + + + | Home Phone [...] | | | | | [place] [address] | | + + + + + Care Team Providers + +------+ + | Care Head Bone Grinder Name | Role | Phone | + +------+ + | Martha Sanford | PCP | | + +------+ + Encounter Details +--------+ + + + + | Date | Type | Department | Care Team | Description | +--------+ + + + + | 07/28/ | Hospital | [facility] | Dany Justin | Chest pain, | | 2017 - | Encounter | [facility] MD Matthieu Greenberg | unspecified type | | | | CLINICAL DECISION | [address] | | | 07/29/ | | [address] | [address] | | | 2017 | | [place] | | | | | | [address] | | | | | | [phone] | | | +--------+ + + + [...] + + documented as of this encounter Discharge Summaries Samantha Hinkle MD - 07/29/2016 12:14 PM PDT Discharge Summaries by Samantha Hinkle MD at 07/29/16 1214 Author: Samantha Hinkle MD Service: Hospitalist Author Type: Physician Filed: 07/29/16 1217 Date of Service: 07/29/161213 Status: Signed Sample Cutter: Samantha Hinkle MD (Physician) [facility] Service: Hospitalist Discharge Summary Date of Admission: 07/28/2016 Date of Discharge: 07/29/2016 Discharge Provider: Samantha Hinkle MD Treatment Team: Admitting Provider: Dany Justin MD Discharge Diagnoses: Principal Problem: Chest pain Active Problems: Smoking GERD (gastroesophageal reflux disease) HTN (hypertension) Obesity due to excess calories Depression Resolved Problems: * No resolved hospital problems. * Final Diagnoses: Chest pain Tobacco use GERD Obesity BMI 35.8 HTN Procedures: * No surgery found * Significant Diagnostic Studies: Nm Myocardial Perfusion Spect (stress And Rest) 07/29/2016 1. I see no evidence of ischemia or infarct. 2. LVEF 49% stress, 43% rest. Rev iew of the wall motion images shows normal wall motion. I believe the ejection fraction is a rtifactually low. Correlate with echocardiography. Using the risk stratification system at o institution, this examination equates to at least a low risk based on this imaging, lexa kayley from the criteria below (1). Note that this should be interfaced with clinical and other data, potentially affecting final categorization. 1. [employer] and [place] [employer] Scientific Statement. Circulation (2008); 118: p 7023-3558 Electroni lizbeth signed by Jad Marvin MD on 07/29/2016 10:49 AM Xr Chest Ap Portable 07/28/2016 1. Normal chest. 4: [address] Chest Pe Protocol 07/28/2016 1. No evidence of pulmonary embolism. 2. No acute pulmonary, aortic, or cardia c findings. F HISTORY OF PRESENTATION: Berna Davis is a 40 y.o. male with PMH significant for HTN, GERD admitted for ches t pain. Please refer to H&P full details. HOSPITAL COURSE: CTA chest was negative for PE and acute pulmonary, aortic or cardiac findings. NM str ess test (pharmacologic) was negative for ischemia or infarct. 2D echo is done and result i s pending. His chest pain resolved. He will f/u with PCP and review the result of 2D echo. He reports he is on BID PPI at home which pt is instructed to continue. Pt counseled to q uit smoking and pt states he has the nicoderm patches at home. He is also instructed to sta rt aerobic exercises. He is otherwise discharged on good condition. Past Medical History Diagnosis Date Hypertension Past Surgical History Procedure Laterality Date Back surgery 2004 Allergies Allergen Reactions Welbutrin Sr [Bupropion] Seizure Morphine Anxiety and Rash Prescriptions prior to admission Medication Sig Dispense Refill Last Dose clonazePAM (KLONOPIN) 2 MG tablet Take 2 mg by mouth nightly as needed for Anxiety. at Unknown time hydrALAZINE (APRESOLINE) 25 MG tablet Take 25 mg by mouth 2 (two) times daily. 017 at Unknown time HYDROmorphone (DILAUDID) 2 MG tablet Take 2 mg by mouth every 4 (four) hours as needed for Pain. Indications: Moderate to Severe Pain 07/27/2016 at Unknown time losartan (COZAAR) 25 MG tablet Take 25 mg by mouth 2 (two) times daily. 07/27/2016 at Unknown time quetiapine (SEROQUEL) 300 MG tablet Take 600 mg by mouth nightly. 07/27/2016 at Unknow n time DISCHARGE EXAM Vital Signs: BP 131/77 mmHg | Pulse 66 | Temp(Src) 97.6 F (36.4 C) (Oral) | Resp 18 | Ht 1.829 m (6' ) | Wt 119.75 kg (264 lb) | BMI 35.80 kg/m2 | SpO2 96% Temp: [97.6 F (36.4 C)-98.2 F (36.8 C)] 97.6 F (36.4 C) (07/30 755) BP: (115-146)/(54-82) 131/77 mmHg (07/30 755) Heart Rate: [66-93] 66 (07/30 755) Resp: [16-18] 18 (07/30 755) SpO2: [94 %-98 %] 96 % (07/30 755) Height: [182.9 cm (6')] 182.9 cm (6') (07/28 2053) Weight: [119.75 kg (264 lb)] 119.75 kg (264 lb) (07/28 2053) BMI (Calculated): [35.9] 35.9 (07/28 2053) Physical Exam Constitutional: He is oriented to person, place, and time. He appears well-developed. No di stress. obese HENT: Head: Normocephalic and atraumatic. Eyes: EOM are normal. Pupils are equal, round, and reactive to light. Cardiovascular: Normal rate, regular rhythm and normal heart sounds. No murmur heard. Pulmonary/Chest: Effort normal and breath sounds normal. No respiratory distress. He has no wheezes. Abdomina/Gl: Soft. Bowel sounds are normal. He exhibits no distension. There is no tenderne ss. Musculoskeletal: Normal range of motion. He exhibits no edema. Neurological: He is alert and oriented to person, place, and time. Skin: Skin is warm and dry. Psychiatric: He has a normal mood and affect. His behavior is normal. DATA CBC: Lab Results Component Value Date WBC 7.14 07/29/2016 RBC 4.83 07/29/2016 HGB 14.2 07/29/2016 HCT 42.2 07/29/2016 MCV 87.3 07/29/2016 MCH 29.4 07/29/2016 MCHC 33.7 07/29/2016 RDW 39.8 07/29/2016 PLT 220 07/29/2016 MPV 7.8 07/29/2016 DIFFTYPE AUTOMATED 07/29/2016 CMP: Lab Results Component Value Date NA 142 07/29/2016 K 3.9 07/29/2016 CL 106 07/29/2016 CO2 30 07/29/2016 ANIONGAP 10 07/29/2016 GLUF 99 07/29/2016 BUN 16 07/29/2016 CREATININE 1.0 07/29/2016 BCR 16 07/29/2016 CA 8.7 07/29/2016 PROT 7.9 07/28/2016 ALB 4.0 07/28/2016 GLOB 3.9 07/28/2016 BILITOT 0.3 07/28/2016 ALP 87 07/28/2016 AST 29 07/28/2016 ALT 70* 07/28/2016 EGFR >60 07/29/2016 Magnesium: Lab Results Component Value Date MG 2.4 07/29/2016 Phosphorus: Lab Results Component Value Date PHOS 4.1 07/29/2016 Last 3 Troponin: Lab Results Component Value Date TROPONINI <0.020 07/29/2016 TROPONINI <0.020 07/28/2016 PLAN 1. DC home 2. F/u with PCP Disposition: Home Condition: Good Code Status: Full Code No discharge procedures on file. Follow up: Jovanny Che PA-C [address] [place] [address] Schedule an appointment as soon as possible for a visit in 1 week for hospital discharge follow up and chest pain, smoking cessation and review of 2D echo re sult Medication List START taking these medications pantoprazole 40 MG tablet QTY: 60 tablet Refills: 0 Commonly known as: PROTONIX Take 1 tablet by mouth 2 (two) times daily. CONTINUE taking these medications clonazePAM 2 MG tablet Refills: 0 Commonly known as: KlonoPIN hydrALAZINE 25 MG tablet Refills: 0 Commonly known as: APRESOLINE HYDROmorphone 2 MG tablet Refills: 0 Commonly known as: DILAUDID losartan 25 MG tablet Refills: 0 Commonly known as: HARDEEP quetiapine 300 MG tablet Refills: 0 Commonly known as: SEROquel Where to Get Your Medications Information about where to get these medications is not yet available ! Ask your nurse or doctor about these medications - pantoprazole 40 MG tablet Discharge took >30 minutes, to include final examination, discussion of admission, and prep aration of prescriptions, instructions for on-going care, follow-up and documentation of dis charge summary. Samantha Hinkle MD 07/29/2016 documented in this encount er Medications at Time of Discharge + + [...] +---------+--------+ + documented as of this encounter Progress Notes Conversion Transaction, Provider Unknown - 07/29/2016 12:41 PM PDTFormatting of this note m ight be different from the original. Nurse Progress Note by Arlette Hunt RN at 07/29/16 9072 Author: Arlette Hunt RN Service: (none) Author Type: Registered Nurse Filed: 07/29/16 1242 Date of Service: 07/29/161 Status: Signed Sample Cutter: Arlette Hunt RN (Registered Nurse) Patient given AVS. Verbalizes understanding and is agreeable; states no further questions at this time. Decline wheelchair ride out to private vehicle. onver alfredo Transaction, Provider Unknown - 07/28/2016 10:22 PM PDT Progress Notes by Parminder Brannon RPH at 07/28/162221 Author: Parminder Brannon RPH Service: (none) Author Type: Pharmacist Filed: 07/28/162221 Date of Service: 07/28/162221 Status: Signed Sample Cutter: Parminder Brannon RPH (Pharmacist) Note ccl 135.2ml/min meds reviewed Pharmacy will follow [facility] 2221 docume nted in this encounter Plan of Treatment Not on filedocumented as of this encounter Procedures + +--------+ + + + | Procedure Name | Priori | Date/Time | Associated Diagnosis | Comments | | | ty | | | | + +--------+ + + + | NM MYOCARDIAL | Routin | 07/29/2016 | | Results for this | | PERFUSION MULT SPECT | e | 10:44 AM | | procedure are in the | | | | PDT | | results section. | + +--------+ + + + | ECHO COMPLETE | Routin | 07/29/2016 | | Results for this | | | e | 7:40 AM | | procedure are in the | | | | PDT | | results section. | + +--------+ + + + | ECG 12 LEAD | Routin | 07/29/2016 | | Results for this | | | e | 5:33 AM | | procedure are in the | | | | PDT | | results section. | + +--------+ + + + | EXTERNAL LAB: CBC | Routin | 07/29/2016 | | Results for this | | | e | 4:50 AM | | procedure are in the | | | | PDT | | results section. | + +--------+ + + + | PHOSPHORUS | Routin | 07/29/2016 | | Results for this | | | e | 4:50 AM | | procedure are in the | | | | PDT | | results section. | + +--------+ + + + | MAGNESIUM | Routin | 07/29/2016 | | Results for this | | | e | 4:50 AM | | procedure are in the | | | | PDT | | results section. | + +--------+ + + + | BASIC METABOLIC | Routin | 07/29/2016 | | Results for this | | PANEL | e | 4:50 AM | | procedure are in the | | | | PDT | | results section. | + +--------+ + + + | TROPONIN I | Routin | 07/29/2016 | | Results for this | | | e | 12:27 AM | | procedure are in the | | | | PDT | | results section. | + +--------+ + + + | TROPONIN I | Routin | 07/28/2016 | | Results for this | | | e | 8:53 PM | | procedure are in the | | | | PDT | | results section. | + +--------+ + + + | CT ANGIOGRAM | Routin | 07/28/2016 | | Results for this | | PULMONARY | e | 5:25 PM | | procedure are in the | | | | PDT | | results section. | + +--------+ + + + | XR CHEST 1 VIEW | Routin | 07/28/2016 | | Results for this | | | e | 4:32 PM | | procedure are in the | | | | PDT | | results section. | + +--------+ + + + | HISTORICAL LAB PANEL | Routin | 07/28/2016 | | Results for this | | RESULT | e | 4:22 PM | | procedure are in the | | | | PDT | | results section. | + +--------+ + + + | B TYPE NATRIURETIC | Routin | 07/28/2016 | | Results for this | | PEPTIDE | e | 4:22 PM | | procedure are in the | | | | PDT | | results section. | + +--------+ + + + | DRUGS OF ABUSE | Routin | 07/28/2016 | | Results for this | | SCREEN, URINE (H) | e | 4:21 PM | | procedure are in the | | | | PDT | | results section. | + +--------+ + + + | URINALYSIS, REFLEX | Routin | 07/28/2016 | | Results for this | | MICROSCOPIC AND/OR | e | 4:21 PM | | procedure are in the | | CULTURE | | PDT | | results section. | + +--------+ + + + | ECG 12 LEAD | Routin | 07/28/2016 | | Results for this | | | e | 3:10 PM | | procedure are in the | | | | PDT | | results section. | + +--------+ + + + documented in this encounter Results NM Myocardial Perfusion Mult SPECT (07/29/2016 10:44 AM PDT) + + | Specimen | + + | | + + + + + | Impressions | Performed At | + + + | 1. I see no evidence of ischemia or infarct. 2. LVEF 49% | | | stress, 43% rest. Review of the wall motion images shows normal wall | | | motion. I believe the ejection fraction is artifactually low. | | | Correlate with echocardiography. Using the risk stratification | | | system at our institution, this examination equates to at least a low | | | risk based on this imaging, arising from the criteria below (1). Note | | | that this should be interfaced with clinical and other data, | | | potentially affecting final categorization. 1. [employer] | | | Association and [employer] Scientific Statement. | | | Circulation (2008); 118: p 7291-3785 | | + + + + + + | Narrative | Performed At | + + + | HISTORY: Chest pain. TECHNIQUE: The patient was intravenously | | | injected with 11.4 millicuries technetium 99m sestamibi. Rest gated | | | supine SPECT images were obtained. The patient was then | | | intravenously injected with 0.4 mg Regadenason per protocol. The | | | patient was finally intravenously injected with 43 mCi technetium | | | 99m sestamibi, and stress gated supine SPECT, and prone SPECT | | | scintigraphic images were obtained. COMPARISON: Myocardial | | | perfusion imaging 01/20/07. Echocardiogram 07/29/16 is not yet | | | interpreted. CTA chest 07/28/16. Chest x-ray 07/28/16. FINDINGS: | | | Slight thinning of the proximal inferolateral wall on rest images, | | | improved on stress supine images, and resolved on stress prone images, | | | consistent with diaphragmatic artifact. I do not see evidence of | | | ischemia or infarct. LVEF 43% rest, 49% stress, slightly low. | | | Rest EDV 144 mL. Rest ESV 82 mL. Stress EDV 175 mL. Stress ESV 89 | | | mL. Transient ischemic dilatation ratio 1.14, elevated. | | + + + + + | Procedure Note | + + | Charles, Rad Conversion - 10/20/2018 7:46 PM PDT HISTORY:Chest pain. TECHNIQUE:The | | patient was intravenously injected with 11.4 millicuries technetium 99m sestamibi. Rest | | gated supine SPECT images were obtained. The patient was then intravenously injected | | with 0.4 mg Regadenason per protocol. The patient was finally intravenously injected | | with 43 mCi technetium 99m sestamibi, and stress gated supine SPECT, and prone SPECT | | scintigraphic images were obtained. COMPARISON:Myocardial perfusion imaging 01/20/07. | | Echocardiogram 07/29/16 is not yet interpreted. CTA chest 07/28/16. Chest x-ray | | 07/28/16. FINDINGS:Slight thinning of the proximal inferolateral wall on rest images, | | improved on stress supine images, and resolved on stress prone images, consistent with | | diaphragmatic artifact. I do not see evidence of ischemia or infarct. LVEF 43% rest, 49% | | stress, slightly low. Rest EDV 144 mL.Rest ESV 82 mL.Stress EDV 175 mL.Stress ESV 89 | | mL.Transient ischemic dilatation ratio 1.14, elevated. IMPRESSION: 1. I see no evidence | | of ischemia or infarct.2. LVEF 49% stress, 43% rest. Review of the wall motion images | | shows normal wall motion. I believe the ejection fraction is artifactually low. | | Correlate with echocardiography. Using the risk stratification system at our | | institution, this examination equates to at least a low risk based on this imaging, | | arising from the criteria below (1). Note that this should be interfaced with clinical | | and other data, potentially affecting final categorization. 1. [employer] | | Association and [employer] Scientific Statement. Circulation (2007); | | 118: p 9533-8771 | |IMPRESSION: | |1. I see no evidence of ischemia or infarct. | |2. LVEF 49% stress, 43% rest. Review of the wall motion images shows normal wall motion. I believe the ejection fraction is artifactually low. Correlate with echocardiography. | | | | | |Using the risk stratification system at our institution, this examination equates to at [address] a low risk based on this imaging, arising from the criteria below (1). Note that this pietro uld be interfaced with clinical and | |other data, potentially affecting | |final categorization. | | | |1. [employer] and [employer] Scientific Statement. Cir culation (2007); 118: p 8339-7282 | | | | | + + ECHO Complete (07/29/2016 7:40 AM PDT) + + | Specimen | + + | | + + + + + | Impressions | Performed At | + + + | 1. Sinus rhythm with extra systolic beats. 2. A 2-dimensional | | | transthoracic echocardiogram with m-mode, spectral and color flow | | | Doppler was perfomed. 3. This was a technically adequate study. 4. | | | Overall left ventricular systolic function is normal with, an EF | | | between 60 - 65 %. 5. The left ventricle cavity size is normal. 6. | | | There is mild concentric left ventricular hypertrophy. 7. The RV is | | | normal in size and function. 8. The left atrium is mildly dilated. | | | 9. The right atrial size is normal. 10. The aortic valve is | | | trileaflet and appears structurally normal. 11. Normal appearing | | | mitral valve. 12. The tricuspid valve appears structurally normal. | | | 13. Trace tricuspid regurgitation present. 14. The pulmonic valve was | | | not well visualized. 15. Trace pulmonic regurgitation 16. There is | | | no pericardial effusion. 17. The IVC is normal size (1.5-2.5cm) and | | | collapses >50% with sniff, consistent with central venous pressures of | | | 5-10mmHg. | | + + + + + + | Narrative | Performed At | + + + | Patient Name: BERNA DAVIS Date of : 1975 | | | Performing Physician: Franklin Browning MD | | | | | | INDICATIONS sob CONCLUSIONS 1. Sinus | | | rhythm with extra systolic beats. 2. A 2-dimensional transthoracic | | | echocardiogram with m-mode, spectral and color flow Doppler was | | | perfomed. 3. This was a technically adequate study. 4. Overall left | | | ventricular systolic function is normal with, an EF between 60 - 65 %. | | | 5. The left ventricle cavity size is normal. 6. There is mild | | | concentric left ventricular hypertrophy. 7. The RV is normal in size | | | and function. 8. The left atrium is mildly dilated. 9. The right | | | atrial size is normal. 10. The aortic valve is trileaflet and appears | | | structurally normal. 11. Normal appearing mitral valve. 12. The | | | tricuspid valve appears structurally normal. 13. Trace tricuspid | | | regurgitation present. 14. The pulmonic valve was not well | | | visualized. 15. Trace pulmonic regurgitation 16. There is no | | | pericardial effusion. 17. The IVC is normal size (1.5-2.5cm) and | | | collapses >50% with sniff, consistent with central venous pressures of | | | 5-10mmHg. FINDINGS -------- ECG rhythm: Sinus rhythm with extra | | | systolic beats. Study: A 2-dimensional transthoracic echocardiogram | | | with m-mode, spectral and color flow Doppler was perfomed. Study: | | | This was a technically adequate study. Left Ventricle: Overall left | | | ventricular systolic function is normal with, an EF between 60 - 65 %. | | | Left Ventricle: The left ventricle cavity size is normal. Left | | | Ventricle: There is mild concentric left ventricular hypertrophy. | | | Right Ventricle: The RV is normal in size and function. Left Atrium: | | | The left atrium is mildly dilated. Right Atrium: The right atrial | | | size is normal. Aortic Valve: The aortic valve is trileaflet and | | | appears structurally normal. Mitral Valve: Normal appearing mitral | | | valve. Tricuspid Valve: The tricuspid valve appears structurally | | | normal. Tricuspid Valve: Trace tricuspid regurgitation present. | | | Pulmonic Valve: The pulmonic valve was not well visualized. Pulmonic | | | Valve: Trace pulmonic regurgitation. Pericardium: There is no | | | pericardial effusion. IVC/Hepatic Veins: The IVC is normal size | | | (1.5-2.5cm) and collapses >50% with sniff, consistent with central | | | venous pressures of 5-10mmHg. MEASUREMENTS Ao | | | sinus: 3.[address] junct: 3.42 cm IVC: 1.99 cm LA Diam: | | | 4.76 cm LA Major: 5.35 cm EDV(Teich): 150.72 ml IVSd: | | | 1.18 cm LVIDd: 5.55 cm LVPWd: 1.21 cm LVOT Diam: 2.79 cm | | | %FS: 33.51 % EF(Teich): 61.62 % ESV(Teich): 57.83 ml IVSs: | | | 1.85 cm LVIDs: 3.69 cm LVPWs: 1.79 cm SV(Teich): 92.88 | | | ml RA Major: 5.11 cm LAAs A4C: 19.78 cm2 LAESV A-L A4C: | | | 60.62 ml LALs A4C: 5.48 cm Ao Diam: 3.87 cm AV Cusp: 2.69 | | | cm D-E Excursion: 2.50 cm E-F Prentiss: 0.12 m/s HR: 60.62 | | | BPM AV maxP.12 mmHg AV meanP.72 mmHg AV Vmax: 1.13 | | | m/s AV Vmean: 0.78 m/s AV VTI: 24.68 cm TERRENCE Vmax: 4.44 | | | cm2 TERRENCE (VTI): 4.08 cm2 AVAI Vmax: 0.00 cm2/m2 AVAI (VTI): | | | 0.00 cm2/m2 LVCI Dopp: 2.41 l/minm2 LVCO Dopp: 5.78 l/min | | | HR: 57.41 BPM LVOT maxP.67 mmHg LVOT meanP.34 mmHg | | | LVSI Dopp: 41.97 ml/m2 LVSV Dopp: 100.74 ml LVOT Vmax: | | | 0.81 m/s LVOT Vmean: 0.54 m/s LVOT VTI: 16.37 cm MV A Amish: | | | 0.54 m/s MV DecT: 189.64 ms MV E Amish: 0.74 m/s MV E/A Ratio: | | | 1.36 MV PHT: 53.99 ms MVA By PHT: 4.07 cm2 MV A Dur: | | | 193.77 ms Septal e': 0.07 m/s Septal E/e': 9.70 Lateral e': | | | 0.13 m/s Lateral E/e': 5.60 HR: 59.38 BPM PV maxPG: | | | 1.40 mmHg PV meanP.70 mmHg PV Vmax: 0.59 m/s PV Vmean: | | | 0.39 m/s PV VTI: 13.26 cm TR maxP.18 mmHg TR Vmax: | | | 2.13 m/s TV A Amish: 0.30 m/s TV Dec Prentiss: 1.30 m/s2 TV Dec | | | Time: 294.58 ms TV E Amish: 0.38 m/s TV E/A Ratio: 1.26 | | | Fuel Truck Driver: CM Authenticated by: KEITER Report Date/Time: | | | 07-29-2016 19:14:27 | | + + + + + | Procedure Note | + + | Eliot Soto Conversion - 10/20/2018 7:46 PM PDT Patient Name: Jeremy DAVIS of | | : 1975 Performing Physician: Franklin Browning | | INDICATIONS s | | ob CONCLUSIONS 1. Sinus rhythm with extra systolic beats.2. A 2-dimensional | | transthoracic echocardiogram with m-mode, spectral and color flow Doppler was | | perfomed.3. This was a technically adequate study.4. Overall left ventricular systolic | | function is normal with, an EF between 60 - 65 %.5. The left ventricle cavity size is | | normal.6. There is mild concentric left ventricular hypertrophy.7. The RV is normal in | | size and function.8. The left atrium is mildly dilated.9. The right atrial size is | | normal.10. The aortic valve is trileaflet and appears structurally normal.11. Normal | | appearing mitral valve.12. The tricuspid valve appears structurally normal.13. Trace | | tricuspid regurgitation present.14. The pulmonic valve was not well visualized.15. Trace | | pulmonic pefstmuwilkxl13. There is no pericardial effusion.17. The IVC is normal size | | (1.5-2.5cm) and collapses >50% with sniff, consistent with central venous pressures of | | 5-10mmHg. FINDINGS--------ECG rhythm: Sinus rhythm with extra systolic beats.Study: A | | 2-dimensional transthoracic echocardiogram with m-mode, spectral and color flow Doppler | | was perfomed.Study: This was a technically adequate study.Left Ventricle: Overall left | | ventricular systolic function is normal with, an EF between 60 - 65 %.Left Ventricle: | | The left ventricle cavity size is normal.Left Ventricle: There is mild concentric left | | ventricular hypertrophy.Right Ventricle: The RV is normal in size and function.Left | | Atrium: The left atrium is mildly dilated.Right Atrium: The right atrial size is | | normal.Aortic Valve: The aortic valve is trileaflet and appears structurally | | normal.Mitral Valve: Normal appearing mitral valve.Tricuspid Valve: The tricuspid valve | | appears structurally normal.Tricuspid Valve: Trace tricuspid regurgitation | | present.Pulmonic Valve: The pulmonic valve was not well visualized.Pulmonic Valve: Trace | | pulmonic regurgitation.Pericardium: There is no pericardial effusion.IVC/Hepatic | | Veins: The IVC is normal size (1.5-2.5cm) and collapses >50% with sniff, consistent with | | central venous pressures of 5-10mmHg. MEASUREMENTS Ao sinus: 3.[address] | | junct: 3.42 cmIVC: 1.99 cmLA Diam: 4.76 cmLA Major: 5.35 cmEDV(Teich): 150.72 | | mlIVSd: 1.18 cmLVIDd: 5.55 cmLVPWd: 1.21 cmLVOT Diam: 2.79 cm%FS: 33.51 | | %EF(Teich): 61.62 %ESV(Teich): 57.83 mlIVSs: 1.85 cmLVIDs: 3.69 cmLVPWs: 1.79 | | cmSV(Teich): 92.88 mlRA Major: 5.11 cmLAAs A4C: 19.78 to9SYIGT A-L A4C: 60.62 | | mlLALs A4C: 5.48 cmAo Diam: 3.87 cmAV Cusp: 2.69 cmD-E Excursion: 2.50 cmE-F | | Prentiss: 0.12 m/sHR: 60.62 BPMAV maxP.12 mmHgAV meanP.72 mmHgAV Vmax: | | 1.13 m/Olimpia Vmean: 0.78 m/Olimpia VTI: 24.68 cmAVA Vmax: 4.44 cm2AVA (VTI): 4.08 | | [id number] Vmax: 0.00 cm2/m2AVAI (VTI): 0.00 cm2/m2LVCI Dopp: 2.41 l/zeko4DVBR Dopp: | | 5.78 l/minHR: 57.41 BPMLVOT maxP.67 mmHgLVOT meanP.34 mmHgLVSI Dopp: | | 41.97 ml/m2LVSV Dopp: 100.74 mlLVOT Vmax: 0.81 m/sLVOT Vmean: 0.54 m/sLVOT VTI: | | 16.37 cmMV A Amish: 0.54 m/sMV DecT: 189.64 msMV E Amish: 0.74 m/sMV E/A Ratio: | | 1.36MV PHT: 53.99 msMVA By PHT: 4.07 cm2MV A Dur: 193.77 msSeptal e': 0.07 | | m/sSeptal E/e': 9.70Lateral e': 0.13 m/sLateral E/e': 5.60HR: 59.38 BPMPV maxPG: | | 1.40 mmHgPV meanP.70 mmHgPV Vmax: 0.59 m/sPV Vmean: 0.39 m/sPV VTI: 13.26 | | cmTR maxP.18 mmHgTR Vmax: 2.13 m/sTV A Amish: 0.30 m/sTV Dec Prentiss: 1.30 | | m/s2TV Dec Time: 294.58 msTV E Amish: 0.38 m/sTV E/A Ratio: 1.26 Fuel Truck Driver: | | CMAuthenticated by: Birgit Date/Time: 07-29-2016 19:14:27 IMPRESSION: 1. Sinus | | rhythm with extra systolic beats.2. A 2-dimensional transthoracic echocardiogram with | | m-mode, spectral and color flow Doppler was perfomed.3. This was a technically adequate | | study.4. Overall left ventricular systolic function is normal with, an EF between 60 - | | 65 %.5. The left ventricle cavity size is normal.6. There is mild concentric left | | ventricular hypertrophy.7. The RV is normal in size and function.8. The left atrium is | | mildly dilated.9. The right atrial size is normal.10. The aortic valve is trileaflet and | | appears structurally normal.11. Normal appearing mitral valve.12. The tricuspid valve | | appears structurally normal.13. Trace tricuspid regurgitation present.14. The pulmonic | | valve was not well visualized.15. Trace pulmonic bifditvljeykj39. There is no | | pericardial effusion.17. The IVC is normal size (1.5-2.5cm) and collapses >50% with | | sniff, consistent with central venous pressures of 5-10mmHg. | |IVC: 1.99 cm | |LA Diam: 4.76 cm | |LA Major: 5.35 cm | |EDV(Teich): 150.72 ml | |IVSd: 1.18 cm | |LVIDd: 5.55 cm | |LVPWd: 1.21 cm | |LVOT Diam: 2.79 cm | |%FS: 33.51 % | |EF(Teich): 61.62 % | |ESV(Teich): 57.83 ml | |IVSs: 1.85 cm | |LVIDs: 3.69 cm | |LVPWs: 1.79 cm | |SV(Teich): 92.88 ml | |RA Major: 5.11 cm | |LAAs A4C: 19.78 cm2 | |LAESV A-L A4C: 60.62 ml | |LALs A4C: 5.48 cm | |Ao Diam: 3.87 cm | |AV Cusp: 2.69 cm | |D-E Excursion: 2.50 cm | |E-F Prentiss: 0.12 m/s | |HR: 60.62 BPM | |AV maxP.12 mmHg | |AV meanP.72 mmHg | |AV Vmax: 1.13 m/s | |AV Vmean: 0.78 m/s | |AV VTI: 24.68 cm | |TERRENCE Vmax: 4.44 cm2 | |TERRENCE (VTI): 4.08 cm2 | |AVAI Vmax: 0.00 cm2/m2 | |AVAI (VTI): 0.00 cm2/m2 | |LVCI Dopp: 2.41 l/minm2 | |LVCO Dopp: 5.78 l/min | |HR: 57.41 BPM | |LVOT maxP.67 mmHg | |LVOT meanP.34 mmHg | |LVSI Dopp: 41.97 ml/m2 | |LVSV Dopp: 100.74 ml | |LVOT Vmax: 0.81 m/s | |LVOT Vmean: 0.54 m/s | |LVOT VTI: 16.37 cm | |MV A Amish: 0.54 m/s | |MV DecT: 189.64 ms | |MV E Amish: 0.74 m/s | |MV E/A Ratio: 1.36 | |MV PHT: 53.99 ms | |MVA By PHT: 4.07 cm2 | |MV A Dur: 193.77 ms | |Septal e': 0.07 m/s | |Septal E/e': 9.70 | |Lateral e': 0.13 m/s | |Lateral E/e': 5.60 | |HR: 59.38 BPM | |PV maxP.40 mmHg | |PV meanP.70 mmHg | |PV Vmax: 0.59 m/s | |PV Vmean: 0.39 m/s | |PV VTI: 13.26 cm | |TR maxP.18 mmHg | |TR Vmax: 2.13 m/s | |TV A Amish: 0.30 m/s | |TV Dec Prentiss: 1.30 m/s2 | |TV Dec Time: 294.58 ms | |TV E Amish: 0.38 m/s | |TV E/A Ratio: 1.26 | | | |Fuel Truck Driver: CM | |Authenticated by: LEE | |Report Date/Time: 07-29-2016 19:14:27 | | | |IMPRESSION: | |1. Sinus rhythm with extra systolic beats. | |2. A 2-dimensional transthoracic echocardiogram with m-mode, spectral and color flow Dopple r was perfomed. | |3. This was a technically adequate study. | |4. Overall left ventricular systolic function is normal with, an EF between 60 - 65 %. | |5. The left ventricle cavity size is normal. | |6. There is mild concentric left ventricular hypertrophy. | |7. The RV is normal in size and function. | |8. The left atrium is mildly dilated. | |9. The right atrial size is normal. | |10. The aortic valve is trileaflet and appears structurally normal. | |11. Normal appearing mitral valve. | |12. The tricuspid valve appears structurally normal. | |13. Trace tricuspid regurgitation present. | |14. The pulmonic valve was not well visualized. | |15. Trace pulmonic regurgitation | |16. There is no pericardial effusion. | |17. The IVC is normal size (1.5-2.5cm) and collapses >50% with sniff, consistent with centr al venous pressures of 5-10mmHg. | + + ECG 12 lead (07/29/2016 5:33 AM PDT) + + + + + + | Component | Value | Ref Range | Performed | Pathologist | | | | | At | Signature | + + + + + + | DIAGNOSIS: | Normal sinus | | EXTERNAL | | | | rhythmInferior infarct , | | LAB | | | | age | | | | | | undeterminedAbnormal | | | | | | ECGWhen compared with | | | | | | ECG of 28-JUL-2016 | | | | | | 15:10,No significant | | | | | | change was | | | | | | foundConfirmed by | | | | | | BYRON BROWNING ([id number]) on | | | | | | 07/29/2016 8:10:06 AM | | | | + + + + + + + + | Specimen | + + | | + + + + + | Narrative | Performed At | + + + | Historically converted procedure from [facility] | EXTERNAL LAB | + + + + +---------+ + + | Performing | Address | City/State/Zipcode | Phone Number | | Organization | | | | + +---------+ + + | EXTERNAL LAB | | | | + +---------+ + + External Lab: CBC (07/29/2016 4:50 AM PDT) + + + + + + | Component | Value | Ref Range | Performed | Pathologist | | | | | At | Signature | + + + + + + | WBC | 7.14 | 3.80 - 11.00 | EXTERNAL | | | | | K/uL | LAB | | + + + + + + | RED CELL | 4.83 | 4.20 - 5.70 | EXTERNAL | | | COUNT | | M/uL | LAB | | + + + + + + | Hgb | 14.2 | 13.2 - 17.0 | EXTERNAL | | | | | g/dL | LAB | | + + + + + + | Hematocrit, | 42.2 | 39.0 - 50.0 % | EXTERNAL | | | POC | | | LAB | | + + + + + + | MCV | 87.3 | 80.0 - 100.0 fl | EXTERNAL | | | | | | LAB | | + + + + + + | MCH | 29.4 | 27.0 - 34.0 pg | EXTERNAL | | | | | | LAB | | + + + + + + | MCHC | 33.7 | 32.0 - 35.5 | EXTERNAL | | | | | g/dL | LAB | | + + + + + + | RDW-CV | 39.8 | 37 - 53 fl | EXTERNAL | | | | | | LAB | | + + + + + + | Platelet | 220 | 150 - 400 K/uL | EXTERNAL [...] + + + | % Segmented | 52.62 | % | EXTERNAL | | | | | | LAB | | | Neutrophils | | | | | + + + + + + | % | 30.80 | % | EXTERNAL | | | Lymphocytes | | | LAB | | + + + + + + | % Monocytes | 6.60 | % | EXTERNAL | | | | | | LAB | | + + + + + + | % | 9.01 | % | EXTERNAL | | | Eosinophils | | | LAB | | + + + + + + | % Basophils | 0.97 | % | EXTERNAL | | | | | | LAB | | + + + + + + | Absolute | 3.76 | 1.90 - 7.40 | EXTERNAL | | | Segmented | | K/uL | LAB | | | Neutrophils | | | | | + + + + + + | Absolute | 2.20 | 1.00 - 3.90 | EXTERNAL | | | Lymphocytes | | K/uL | LAB | | + + + + + + | Absolute | 0.47 | 0.00 - 0.80 | EXTERNAL | | | Monocytes | | K/uL | LAB | | + + + + + + | Absolute | 0.64 (H) | 0.00 - 0.50 | EXTERNAL | | | Eosinophils | | K/uL | LAB | | + + + + + + | Absolute | 0.07Comment: Testing | 0.00 - 0.10 | EXTERNAL | | | Basophils | performed at [facility], [address] | K/uL | LAB | | | | [address], | | | | | | [place] [address] | | | | + + + + + + + + | Specimen | + + | Blood specimen | | (specimen) | + + + +---------+ + + | Performing | Address | City/State/Zipcode | Phone Number | | Organization | | | | + +---------+ + + | EXTERNAL LAB | | | | + +---------+ + + Phosphorus (07/29/2016 4:50 AM PDT) + + + + + + | Component | Value | Ref Range | Performed | Pathologist | | | | | At | Signature | + + + + + + | PHOSPHORUS | 4.1Comment: Testing | 2.3 - 4.8 mg/dL | EXTERNAL | | | | performed at [facility], [address] | | LAB | | | | [address], | | | | | | [place] [address] | | | | + + + + + + + + | Specimen | + + | Blood specimen | | (specimen) | + + + +---------+ + + | Performing | Address | City/State/Zipcode | Phone Number | | Organization | | | | + +---------+ + + | EXTERNAL LAB | | | | + +---------+ + + Magnesium (07/29/2016 4:50 AM PDT) + + + + + + | Component | Value | Ref Range | Performed | Pathologist | | | | | At | Signature | + + + + + + | Magnesium | 2.4Comment: Testing | 1.7 - 2.4 mg/dL | EXTERNAL | | | | performed at [facility], [address] | | LAB | | | | [address], | | | | | | [place] [address] | | | | + + + + + + + + | Specimen | + + | Blood specimen | | (specimen) | + + + +---------+ + + | Performing | Address | City/State/Zipcode | Phone Number | | Organization | | | | + +---------+ + + | EXTERNAL LAB | | | | + +---------+ + + Basic Metabolic Panel (07/29/2016 4:50 AM PDT) + + + + + + | Component | Value | Ref Range | Performed | Pathologist | | | | | At | Signature | + + + + + + | Na | 142 | 135 - 145 | EXTERNAL | | | | | mmol/L | LAB | | + + + + + + | K | 3.9 | 3.5 - 4.9 | EXTERNAL | | | | | mmol/L | LAB | | + + + + + + | Cl | 106 | 99 - 109 mmol/L | EXTERNAL | | | | | | LAB | | + + + + + + | CO2 | 30 | 23 - 32 mmol/L | EXTERNAL | | | | | | LAB | | + + + + + + | Anion Gap | 10 | 5 - 20 mmol/L | EXTERNAL | | | | | | LAB | | + + + + + + | Glucose, | 99 | 65 - 99 mg/dL | EXTERNAL | | | Fasting | | | LAB | | + + + + + + | BUN | 16 | 8 - 25 mg/dL | EXTERNAL | | | | | | LAB | | + + + + + + | Creatinine | 1.0 | 0.70 - 1.30 | EXTERNAL | | | | | mg/dL | LAB | | + + + + + + | BUN/Creatin | 16 | | EXTERNAL | | | ine [...] | | | | | | at [facility], [address] | | | | | | [address], | | | | | | [place] [address] | | | | + + + + + + + + | Specimen | + + | Blood specimen | | (specimen) | + + + +---------+ + + | Performing | Address | City/State/Zipcode | Phone Number | | Organization | | | | + +---------+ + + | EXTERNAL LAB | | | | + +---------+ + + Troponin I (07/29/2016 12:27 AM PDT) + + + + + + | Component | Value | Ref Range | Performed | Pathologist | | | | | At | Signature | + + + + + + | Troponin I, | <0.020Comment: 0.00 to | 0.00 - 0.10 | EXTERNAL | | | Qual | 0.10 CONSISTENT WITH | ng/mL | LAB | | | | NORMAL POPULATION0.11 | | | | | | to 0.60 CONSISTENT | | | | | | WITH INCREASED RISK FOR | | | | | | ADVERSE OUTCOMES> 0.60 | | | | | | CONSISTENT | | | | | | WITH WHO CRITERIA FOR | | | | | | ACUTE NM Testing | | | | | | performed at [facility];[address] | | | | | | [facility];[place], [place] | | | | | | [address] | | | | + + + + + + + + | Specimen | + + | Blood specimen | | (specimen) | + + + +---------+ + + | Performing | Address | City/State/Zipcode | Phone Number | | Organization | | | | + +---------+ + + | EXTERNAL LAB | | | | + +---------+ + + Troponin I (07/28/2016 8:53 PM PDT) + + + + + + | Component | Value | Ref Range | Performed | Pathologist | | | | | At | Signature | + + + + + + | Troponin I, | <0.020Comment: 0.00 to | 0.00 - 0.10 | EXTERNAL | | | Qual | 0.10 CONSISTENT WITH | ng/mL | LAB | | | | NORMAL POPULATION0.11 | | | | | | to 0.60 CONSISTENT | | | | | | WITH INCREASED RISK FOR | | | | | | ADVERSE OUTCOMES> 0.60 | | | | | | CONSISTENT | | | | | | WITH WHO CRITERIA FOR | | | | | | ACUTE NM Testing | | | | | | performed at [facility];[address] | | | | | | [facility];[place], [place] | | | | | | [address] | | | | + + + + + + + + | Specimen | + + | Blood specimen | | (specimen) | + + + +---------+ + + | Performing | Address | City/State/Zipcode | Phone Number | | Organization | | | | + +---------+ + + | EXTERNAL LAB | | | | + +---------+ + + CT Angiogram Pulmonary w Contrast (07/28/2016 5:25 PM PDT) + + | Specimen | + + | | + + + + + | Impressions | Performed At | + + + | 1. No evidence of pulmonary embolism. 2. No acute pulmonary, | | | aortic, or cardiac findings. | | + + + + + + | Narrative | Performed At | + + + | [facility] CTA CHEST PULMONARY EMBOLISM W CONTRAST 07/28/2016 | | | 5:25 PM History: 40 years. Male. Acute dyspnea and chest | | | pain. Technique: During a bolus intravenous administration of 85 | | | cc of nonionic iodine contrast, and during a single breath hold, | | | 1.5-mm thick slices were performed at 1.5 intervals throughout the | | | chest in the axial plane with cardiac gating. Coronal reformation | | | imaging with MIP technique was then performed for vascular analysis. | | | No 3-D rendering was performed. Radiation dose reduction | | | performed with automated exposure control. Comparison Exam: | | | 01/19/2007 Findings: Good contrast enhancement of the central | | | pulmonary arteries failed to show any filling defects of pulmonary | | | embolism. The secondary and tertiary pulmonary arteries are also | | | clear. Small, peripheral emboli cannot be excluded by CT | | | angiography. The caliber of the pulmonary arteries is normal. | | | There is borderline cardiomegaly. No coronary calcifications | | | identified. The pericardium is normal. The caliber of the | | | thoracic aorta is normal, without calcification or intimal dissection. | | | There is no evidence of mediastinal or hilar adenopathy. The | | | axillary regions are likewise negative for adenopathy. The scalene | | | lymph node chains and supraclavicular regions are partially | | | visualized and appear clear. The thyroid gland is normal in size | | | and density, without nodule. The upper abdomen is partially | | | visualized and appears normal. This is not a complete examination of | | | the abdomen. The bone windows fail to show any neoplastic bone | | | changes in the range of scan. | | + + + + + | Procedure Note | + + | Charles, Rad Conversion - 10/20/2018 7:46 PM PDT [facility] CHEST PULMONARY | | EMBOLISM W CONTRAST07/28/2016 5:25 PM History: 40 years. Male. Acute dyspnea and chest | | pain. Technique: During a bolus intravenous administration of 85 cc of nonionic iodine | | contrast, and during a single breath hold, 1.5-mm thick slices were performed at 1.5 | | intervals throughout the chest in the axial plane with cardiac gating. Coronal | | reformation imaging with MIP technique was then performed for vascular analysis. No 3-D | | rendering was performed. Radiation dose reduction performed with automated exposure | | control. Comparison Exam: 01/19/2007 Findings: Good contrast enhancement of the central | | pulmonary arteries failed to show any filling defects of pulmonary embolism. The | | secondary and tertiary pulmonary arteries are also clear. Small, peripheral emboli | | cannot be excluded by CT angiography. The caliber of the pulmonary arteries is normal. | | There is borderline cardiomegaly. No coronary calcifications identified. The | | pericardium is normal. The caliber of the thoracic aorta is normal, without | | calcification or intimal dissection. There is no evidence of mediastinal or hilar | | adenopathy. The axillary regions are likewise negative for adenopathy. The scalene lymph | | node chains and supraclavicular regions are partially visualized and appear clear. The | | thyroid gland is normal in size and density, without nodule. The upper abdomen is | | partially visualized and appears normal. This is not a complete examination of the | | abdomen. The bone windows fail to show any neoplastic bone changes in the range of | | scan. IMPRESSION: 1. No evidence of pulmonary embolism.2. No acute pulmonary, aortic, | | or cardiac findings. | |The thyroid gland is normal in size and density, without nodule. The upper abdomen is part ially visualized and appears normal. This is not a complete examination of the abdomen. The bone windows fail to show any | |neoplastic bone changes in the range of | |scan. | | | |IMPRESSION: | |1. No evidence of pulmonary embolism. | |2. No acute pulmonary, aortic, or cardiac findings. | | | | | + + XR Chest 1 Vw (07/28/2016 4:32 PM PDT) + + | Specimen | + + | | + + + + + | Impressions | Performed At | + + + | 1. Normal chest. | | + + + + + + | Narrative | Performed At | + + + | [facility] XR CHEST 1 VIEW 07/28/2016 4:32 PM History: | | | 40 years. Male. Acute dyspnea, presenting to the emergency room. | | | Technique: AP portable upright technique was performed at 1630 | | | hours. Comparison: 01/19/2007 Findings: Findings: The lungs | | | and pleural spaces are clear. The bronchovascular markings are | | | normal. The cardiac silhouette and pulmonary vasculature are normal. | | | Osseous structures are unremarkable. The mediastinal contours and | | | pulmonary nathalie are normal. The thoracic aorta is normal. | | + + + + + | Procedure Note | + + | Charles, Rad Conversion - 10/20/2018 7:46 PM PDT [facility] CHEST 1 VIEW07/28/2016 | | 4:32 PM History: 40 years. Male. Acute dyspnea, presenting to the emergency room. | | Technique: AP portable upright technique was performed at 1630 hours.Comparison: | | 01/19/2007 Findings: Findings: The lungs and pleural spaces are clear. The | | bronchovascular markings are normal. The cardiac silhouette and pulmonary vasculature | | are normal. Osseous structures are unremarkable. The mediastinal contours and | | pulmonary nathalie are normal. The thoracic aorta is normal. IMPRESSION: 1. Normal chest. | | | | | |Findings: Findings: The lungs and pleural spaces are clear. The bronchovascular markings are normal. The cardiac silhouette and pulmonary vasculature are normal. Osseous structure s are unremarkable. The mediastinal contours and pulmonary nathalie are | |normal. The thoracic aorta is normal. | | | |IMPRESSION: | |1. Normal chest. | | | | | + + HISTORICAL LAB PANEL RESULT (07/28/2016 4:22 PM PDT) + + + + + + | Component | Value | Ref Range | Performed | Pathologist | | | | | At | Signature | + + + + + + | WBC | 9.60 | 3.80 - 11.00 | EXTERNAL | | | | | K/uL | LAB | | + + + + + + | RED CELL | 5.12 | 4.20 - 5.70 | EXTERNAL | | | COUNT | | M/uL | LAB | | + + + + + + | Hgb | 15.9 | 13.2 - 17.0 | EXTERNAL | | | | | g/dL | LAB | | + + + + + + | Hematocrit, | 44.8 | 39.0 - 50.0 % | EXTERNAL | | | POC | | | LAB | | + + + + + + | MCV | 87.5 | 80.0 - 100.0 fl | EXTERNAL | | | | | | LAB | | + + + + + + | MCH | 30.9 | 27.0 - 34.0 pg | EXTERNAL | | | | | | LAB | | + + + + + + | MCHC | 35.4 | 32.0 - 35.5 | EXTERNAL | | | | | g/dL | LAB | | + + + + + + | RDW-CV | 40.7 | 37 - 53 fl | EXTERNAL | | | | | | LAB | | + + + + + + | Platelet | 236 | 150 - 400 K/uL | EXTERNAL [...] + + + | % Segmented | 62.18 | % | EXTERNAL | | | | | | LAB | | | Neutrophils | | | | | + + + + + + | % | 20.86 | % | EXTERNAL | | | Lymphocytes | | | LAB | | + + + + + + | % Monocytes | 6.92 | % | EXTERNAL | | | | | | LAB | | + + + + + + | % | 9.04 | % | EXTERNAL | | | Eosinophils | | | LAB | | + + + + + + | % Basophils | 1.00 | % | EXTERNAL | | | | | | LAB | | + + + + + + | Absolute | 5.97 | 1.90 - 7.40 | EXTERNAL | | | Segmented | | K/uL | LAB | | | Neutrophils | | | | | + + + + + + | Absolute | 2.00 | 1.00 - 3.90 | EXTERNAL | | | Lymphocytes | | K/uL | LAB | | + + + + + + | Absolute | 0.66 | 0.00 - 0.80 | EXTERNAL | | | Monocytes | | K/uL | LAB | | + + + + + + | Absolute | 0.87 (H) | 0.00 - 0.50 | EXTERNAL | | | Eosinophils | | K/uL | LAB | | + + + + + + | Absolute | 0.10 | 0.00 - 0.10 | EXTERNAL | | | Basophils | | K/uL | LAB | | + + + + + + | Na | 140 | 135 - 145 | EXTERNAL | | | | | mmol/L | LAB | | + + + + + + | K | 4.1 | 3.5 - 4.9 | EXTERNAL | | | | | mmol/L | LAB | | + + + + + + | Cl | 105 | 99 - 109 mmol/L | EXTERNAL | | | | | | LAB | | + + + + + + | CO2 | 29 | 23 - 32 mmol/L | EXTERNAL | | | | | | LAB | | + + + + + + | Anion Gap | 10 | 5 - 20 mmol/L | EXTERNAL | | | | | | LAB | | + + + + + + | Glucose, | 101 (H) | 65 - 99 mg/dL | EXTERNAL | | | Fasting | | | LAB | | + + + + + + | BUN | 14 | 8 - 25 mg/dL | EXTERNAL | | | | | | LAB | | + + + + + + | Creatinine | 0.99 | 0.70 - 1.30 | EXTERNAL | | | | | mg/dL | LAB | | + + + + + + | BUN/Creatin | 14 | | EXTERNAL | | | ine Ratio | | | LAB | | + + + + + + | Calcium | 9.1 | 8.5 - 10.5 | EXTERNAL | | | | | mg/dL | LAB | | + + + + + + | Protein, | 7.9 | 6.3 - 8.2 g/dL | EXTERNAL | | | Total | | | LAB | | + + + + + + | Albumin | 4.0 | 3.6 - 5.0 g/dL | EXTERNAL | | | | | | LAB | | + + + + + + | Globulin | 3.9 | 1.3 - 4.9 g/dL | EXTERNAL [...] + + + + | ALP, | 87 | 35 - 115 U/L | EXTERNAL | | | External | | | LAB | | + + + + + + | AST | 29 | 10 - 45 U/L | EXTERNAL | | | | | | LAB | | + + + + + + | ALT | 70 (H) | 10 - 65 U/L | [...] | | | | CALCULATED GFR BY 1.210. | | | | | | | | | | + + + + + + | CK, Total | 125 | 55 - 400 U/L | EXTERNAL | | | | | | LAB | | + + + + + + | INR | 1.0Comment: REFERENCE | | EXTERNAL | | | [...] at | | | | | | [facility];[address] [place] [address] | | | | | | Blvd;[place] [address] | | | | + + + + + + + + | Specimen | + + | | + + + +---------+ + + | Performing | Address | City/State/Zipcode | Phone Number | | Organization | | | | + +---------+ + + | EXTERNAL LAB | | | | + +---------+ + + B Type Natriuretic Peptide (07/28/2016 4:22 PM PDT) + + + + + + | Component | Value | Ref Range | Performed | Pathologist | | | | | At | Signature | + + + + + + | BNP | <5.0Comment: Testing | 0 - 100 pg/mL | EXTERNAL | | | | performed at [facility] | | LAB | | | | [facility];[place], [place] | | | | | | [address] | | | | + + + [...] + Drugs Of ABuse Screen, Urine (H) (07/28/2016 4:21 PM PDT) + + + + + [...] | | | | | performed at [facility];[address] | | | | | | [facility];[place], [place] | | | | | | [address] | | | | + + + + + + + + | Specimen | + + | Urine specimen | | (specimen) | + + + +---------+ + + | Performing | Address | City/State/Zipcode | Phone Number | | Organization | | | | + +---------+ + + | EXTERNAL LAB | | | | + +---------+ + + Urinalysis, Reflex Microscopic and/or Culture (07/28/2016 4:21 PM PDT) + + + + + [...] + + + + | Specific | 1.016 | 1.002 - 1.030 | EXTERNAL | | | [place] | | | LAB | | + [...] + + + + | Blood, | NEGATIVE | | EXTERNAL | | [...] | | | Urine | performed at [facility] | | LAB | | | | [address];[place] | | | | | | [address] | | | | + + + + + + + + | Specimen | + + | | + + + +---------+ + + | Performing | Address | City/State/Zipcode | Phone Number | | Organization | | | | + +---------+ + + | EXTERNAL LAB | | | | + +---------+ + + ECG 12 lead (07/28/2016 3:10 PM PDT) + + + + + [...] of | | | | | | 20-JAN-2007 15:21,No | | | | | | significant [...] | | | | | ONLY, -COMPUTER ([id number]), | | | | | | index editor Elmer Griffith | | | | | | [place] ([id number]) on 07/29/2016 | | | | | | 2:21:15 AM | | | | + + + + + + + + | Specimen | + + | | + + + + + | Narrative | Performed At | + + + | Historically converted procedure from [facility] Epic environment | EXTERNAL LAB | + + + + +---------+ + + | Performing | Address | City/State/Zipcode | Phone Number | | Organization | | | | + +---------+ + + | EXTERNAL LAB | | | | + +---------+ + + documented in this encounter Visit Diagnoses + + | Diagnosis | + + | Chest pain, unspecified type | + + documented in this encounter"
--- OUTSIDE RECORDS SUMMARY | ~2019-03-03 | XMS | Encounter Summary ---
Demographics + + + | Address | [address] | | | [place] [address] | + + + | Home Phone | | + + + | Preferred Language | Unknown | + + + | Marital Status | | + + + | Mandaen Affiliation | 1041 | + + + | Race | Unknown | + + + | Ethnic Group | Unknown | + + + Author + + + | Author | [facility] | | | and [place] | + + + | Organization | [facility] | | | [...] | | | | | [place] [address] | | + + + + + Care Team Providers + +------+ + | Care Heel Cementer Name | Role | Phone | + [...] 2017 | | GASTROENTEROLOGY | [address], [place] | | | | | [address] [place] | [address] [place], [place] | | | | | [address] [place], [place] | [address] | | | | | [address] | | | | | | [phone] | | | +--------+ + + + [...]
--- OUTSIDE RECORDS SUMMARY | ~2019-03-03 | XMS | Encounter Summary ---
Demographics + + + | Address | [address] | | | [place] [address] | + + + | Home Phone | | + + + | Preferred Language | Unknown | + + + | Marital Status | Single | + + + | Yazidi Affiliation | NRP | + + + | Race | White | + + + | Ethnic Group | Not or | + + + Author + + + | Author | [facility] | + + + | Organization | [facility] | + + + | Address | Unknown | + + + | Phone | Unavailable | + + + Support + + +---------+ + | Name | Relationship | Address | Phone | + + +---------+ + | Myra Ramirez | ECON | Unknown | | + + +---------+ + Care Team Providers + +------+ + | Care Popcorn Vendor Name | Role | Phone | + +------+ + | Jovanny Che PA-C | PCP | | + +------+ + Encounter Details +--------+ + + + + | Date | Type | Department | Care Team | Description | +--------+ + + + + | 11/03/ | Hospital | Radiology/Imaging | Muriel Menon, | | | 2017 | Encounter | Lab at [facility] [address] | [address] | | | | | Sg Suarez Mailcode: | [place]a [place], [place] | | | | | [facility] | [address] | | | | | and Tony, | [phone] | | | | | | | | | | | Floor [place], [place] | | | | | | [address] | | | | | | [phone] | | | +--------+ + + + [...] + + + | X-RAY SPINE | Routin | 11/03/2016 | Thoracic back | Results for this | | LUMBOSACRAL 4 VIEWS | e | 12:17 PM | [...] in this encounter Results X-RAY SPINE LUMBOSACRAL 4 VIEWS (11/03/2016 12:17 PM PDT) + + [...]
--- OUTSIDE RECORDS SUMMARY | ~2019-03-03 | XMS | Encounter Summary ---
Demographics + + + | Address | [address] | | | [place] [address] | + + + | Home Phone [...] | | | | | [place] [address] | | + + + + + Care Team Providers + +------+ + | Care Oncology Research Rn Name | Role | Phone | + +------+ + | No, Physician | PCP | Unavailable | + +------+ + Encounter Details +--------+ + + + + | Date | Type | Department | Care Team | Description | +--------+ + + + + | 12/07/ | Hospital | [facility] | Conversion | | | 2014 | Encounter | [facility] | Transaction, | | | | | [address] | Provider Unknown | | | | | [place], [place] | | | | | | [address] | (Fax) | | | | | [phone] | | | +--------+ + + + [...]
--- OUTSIDE RECORDS SUMMARY | ~2019-03-03 | XMS | Clinical Summary ---
Demographics + + + | Address | [address] | | | [place] [address] | + + + | Home Phone | | + + + | Preferred Language | Unknown | + + + | Marital Status | | + + + | Confucianist Affiliation | 1041 | + + + | Race | Unknown | + + + | Ethnic Group | Unknown | + + + Author + + + | Author | [facility] | | | and [place] | + + + | Organization | [facility] | | | and [...] | | | | | [place] [address] | | + + + + + Care Team Providers + +------+ + | Care Casket Liner Name | Role | Phone | + [...] Overview: Added automatically from request for surgery [id number] | + + + + + | Weight loss | 06/24/2018 | + + + + + | Overview: Added automatically from request for surgery [id number] | + + + + + | [...] disk bulge | | same level: Dr. Lundberg([facility]): Sacroiliitis-B, Lumbar disc | | luis-electrodx studies [...] + | Paternal Grandfather | | | [place] | | | | (Age | | [...] | [employer] | MODA | [id number] | | [phone] | | Medica | | MEDICAID HMO | HEALTH | | [id number] | 1 | | id | | | MDCD | | esent | | | | | | [place] | | | | | | + +--------+ +--------+ +---------+--------+ | [employer] | MODA | [id number] | | [phone] | | Medica | [...] | 1976 | [phone] | [place] [address] | | | jyothi | | | 6 (Home) | | + +--------+ +--------+ + + | Yonis Davis | Person | Self | [birth year] | [address] | | | al/Fam | | 1975 | [phone] | [place] [address] | | | jyothi | | | 6 (Home) | | + +--------+ +--------+ + + | Yonis Davis | Person | Self | [birth year] | | [address] | | | al/Fam | | 1975 | [phone] | [place] [address] | | | jyothi | | | 6 (Home) | | + +--------+ +--------+ + + Advance Directives + + + + + | Type | Date Recorded | Patient | Explanation | | | | Research Spec | | + + + + + | Power of | | | | | Associate Professor Of Forestry | | | | + + + + + | Advance | 08/08/2014 12:11 | | | | Directive | PM | | | + + + + +"
--- OUTSIDE RECORDS SUMMARY | ~2019-03-03 | XMS | Encounter Summary ---
Demographics + + + | Address | [address] | | | [place] [address] | + + + | Home Phone | | + + + | Preferred Language | Unknown | + + + | Marital Status | | + + + | Cheondoism Affiliation | 1041 | + + + | Race | Unknown | + + + | Ethnic Group | Unknown | + + + Author + + + | Author | [facility] | | | and [place] | + + + | Organization | [facility] | | [...] | | | | | [place] [address] | | + + + + + Care Team Providers + +------+ + | Care Clerk Of Scales Name | Role | Phone | + +------+ + | Martha Sanford | PCP | | + +------+ + Encounter Details +--------+ + + + + | Date | Type | Department | Care Team | Description | +--------+ + + + + | 06/29/ | Hospital | [facility] | Conversion | | | 2019 | Encounter | [facility] | Transaction, | | | | | CLINIC [address] | Provider Unknown | | | | | [place] | [phone] | | | | | [address] | | | | | | [phone] | | | +--------+ + + + [...] + + + | Blood Pressure | 126/73 | 06/29/2018 1:09 PM | | | | | PDT | | + + + + + | Pulse | 83 | 06/29/2018 1:09 PM | | | | | PDT [...] + + + + | Weight | 122 kg (268 lb 15.4 | 06/29/2018 1:09 PM | | | | oz) | PDT | | + + + + + | Height | 182.9 cm (6') | 06/29/2018 1:09 PM | | | | | PDT | | + + + + + | Body Mass Index | 36.48 | 06/29/2018 1:09 PM | | | | | PDT [...]
--- OUTSIDE RECORDS SUMMARY | ~2019-03-03 | XMS | Encounter Summary ---
Demographics + + + | Address | [address] | | | [place] [address] | + + + | Home Phone | | + + + | Preferred Language | Unknown | + + + | Marital Status | | + + + | Latter Day Affiliation | 1041 | + + + | Race | Unknown | + + + | Ethnic Group | Unknown | + + + Author + + + | Author | [facility] | | | and [place] | + + + | Organization | [facility] | | [...] | | | | | [place] [address] | | + + + + + Care Team Providers + +------+ + | Care Director Check Name | Role | Phone | + [...] [address] | | | | | [address] | [place] [address] | | | | | [phone] | [phone] | | | | | | | [...] + + | Hemoglobin | 5.4Comment: The Moldovan | 4.0 - 6.0 % | EXTERNAL [...]
--- OUTSIDE RECORDS SUMMARY | ~2019-03-03 | XMS | Encounter Summary ---
Demographics + + + | Address | [address] | | | [place] [address] | + + + | Home Phone | | + + + | Preferred Language | Unknown | + + + | Marital Status | Single | + + + | Christianity Affiliation | NRP | + + + | Race | White | + + + | Ethnic Group | Not or | + + + Author + + + | Author | [facility] | + + + | Organization | [facility] | + + + | Address | Unknown | + + + | Phone | Unavailable | + + + Support + + +---------+ + | Name | Relationship | Address | Phone | + + +---------+ + | Myra Ramirez | ECON | Unknown | | + + +---------+ + Care Team Providers + +------+ + | Care Tractor Sweeper Operator Name | Role | Phone | + +------+ + | Jovanny Che PA-C | PCP | | + +------+ + Reason for Referral Consultation (Routine) +--------+---------+ + + + + | Status | Reason | Specialty | Diagnoses / | Referred By | Referred To | | | | | Procedures | Contact | Contact | +--------+---------+ + + + + | Closed | Other | | Diagnoses | Lynsey, | | | | | | Lumbar back | [address] | | | | | | pain with | [address] | | | | | | radiculopath | [address] | | | | | | y affecting | [place], [place] | | | | | | right lower | [address] | | | | | | extremity | Phone: | | | | | | Procedures | [phone] | | | | | | CONSULT TO | Fax: | | | | | | PAIN | [phone] | | | | | | MANAGEMENT | | | +--------+---------+ + + + + Physical Therapy (Routine) +--------+--------+ + + + + | Status | Reason | Specialty | Diagnoses / | Referred By | Referred To | | | | | Procedures | Contact | Contact | +--------+--------+ + + + + | Closed | | Physical | Diagnoses | Lynsey, | | | | | Therapy | Lumbar back | [address] | | | | | | pain with | [address] | | | | | | radiculopath | [address] | | | | | | y affecting | [place], [place] | | | | | | right lower | [address] | | | | | | extremity | Phone: | | | | | | Procedures | [phone] | | | | | | PHYSICAL | Fax: | | | | | | THERAPY | [phone] | | | | | | REFERRAL | | | +--------+--------+ + + + + Consultation (Routine) +--------+--------+ + + + + | Status | Reason | Specialty | Diagnoses / | Referred By | Referred To | | | | | Procedures | Contact | Contact | +--------+--------+ + + + + | Closed | | | Diagnoses | Menon, | | | | | | Thoracic | [address] | | | | | | back pain, | [address] | | | | | | unspecified | [address] | | | | | | back pain | [place], [place] | | | | | | laterality, | [address] | | | | | | unspecified | Phone: | | | | | | chronicity | [phone] | | | | | | Procedures | Fax: | | | | | | ACUPUNCTURE | [phone] | | | | | | - EXTERNAL | | | | | | | ONLY | | | +--------+--------+ + + + + Reason for Visit + + + | Reason | Comments | + + + | New patient | | | consultation | | + + + Consultation (Routine) +--------+--------+ + + + + | Status | Reason | Specialty | Diagnoses / | Referred By | Referred To | | | | | Procedures | Contact | Contact | +--------+--------+ + + + + | Closed | | Spine | Diagnoses | Juvenal, | Lynsey, | | | | | Pain in | Martha L, SLATE MIXER | Muriel L, [place] | | | | | right hip | [address] | [address] | | | | | Pain in left | Street | Ave | | | | | hip Pain | [facility] [place] | [place], [place] | | | | | in thoracic | [address] | [address] | | | | | spine Other | Phone: | Phone: | | | | | | [phone] | [phone] | | | | | intervertebr | Fax: | Fax: | | | | | al disc | [phone] | [phone] | | | | | displacement | | | | | | | , lumbar | | | | | | | region | | | | | | | Strain of | | | | | | | muscle and | | | | | | | tendon of | | | | | | | unspecified | | | | | | | wall of | | | | | | | thorax, | | | | | | | initial | | | | | | | encounter | | | +--------+--------+ + + + + Encounter Details +--------+---------+ + + + | Date | Type | Department | Care Team | Description | +--------+---------+ + + + | 11/03/ | Office | Orthopaedics at | Muriel Menon, | Lumbar back pain | | 2017 | Visit | [facility] [address] | [place] [address] | with radiculopathy | | | | Ave Mailcode: CH[address] | Ave [place], [place] | affecting right | | | | [facility] | [address] | lower extremity | | | | and Healing, | [phone] | (Primary Dx); | | | | | | Thoracic back pain, | | | | Floor [place], [place] | | unspecified back | | | | [address] | | pain laterality, | | | | [phone] | | unspecified | | | | | | chronicity | +--------+---------+ + + + Social History + +-------+ [...] + + + | Blood Pressure | 124/80 | 11/03/2016 12:49 PM | | | | | PDT | | + + + + + | Pulse | 96 | 11/03/2016 12:49 PM | | | | | PDT | | + + + + + | Temperature | - | - | | + + + + + | Respiratory Rate | 18 | 11/03/2016 12:49 PM | | | | | PDT | | + + + + + | Oxygen Saturation | - | - | | + + + + + | Inhaled Oxygen | - | - | | | Concentration | | | | + + + + + | Weight | 140.2 kg (309 lb) | 11/03/2016 12:49 PM | | | | | PDT | | + + + + + | Height | 182.9 cm (6') | 11/03/2016 12:49 PM | | | | | PDT | | + + + + + | Body Mass Index | 41.91 | 11/03/2016 12:49 PM | | | | | PDT | | + + + + + documented in this encounter Progress Notes Muriel Menon PA - 11/03/2016 1:00 PM PDTFormatting of this note might be different f rom the original. 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 male who is here for evaluation of a 2 year history of low back and R>L pain. The pain radiates down the lateral aspect of his right thigh into his calf. He reports numbness along the same distribution. 50% back 50% right leg. He reports a 100$ w eight loss over the last year with no improvements in pain levels. Aggravating factors are: standing, sitting, walking The symptoms are relieved by: lying down. Past treatment includes: pain medication (oxycodone currently, managed by PCP) NSAIDS, chi ropractic intervention (ongoing)- helps for a few hours. Pain score: 7/10 in intensity The patient has had the following studies done for this condition: x-rays and MRI Prior spine surgeries: L4/5 lami OSH. Other: hospitalized at [facility] for low back pain, loss of sensatio n, and inability to walk about 18 months ago. Evaluated in ER at [facility]. Given referral to see Dr Jv Wayne [facility]. On review of our scheduling records, appears patient deci ded to follow up with someone closer to home. Per patient, they have not had any follow up. Mr. Davis admits to right lower extremtity weakness when he is in a lot of pain. He has had falls related to his right leg buckling. Admits bowel or bladder function changes. Feels he has to strain to have a BM due to back pain. He reports 4-5 episodes or urinary incontinenc e over the last year, usually related to increased pain. He admits to full sensation in the perianal and saddle region. He denies recent episodes of B/B function changes. Mr. Davis denies issues with balance, gait, fine motor skills such as buttons, zippers and writing except as listed above. Past Medical History: Diagnosis Date Degenerative disc disease, lumbar No past surgical history on file. Current Outpatient Prescriptions on File Prior to Visit Medication Sig Dispense Refill clonazePAM 2 mg oral tablet Take 4 mg by mouth once daily at bedtime as needed. gabapentin 800 mg oral tablet Take 800 mg by mouth two times daily. hydrALAZINE 25 mg oral tablet Take 25 mg by mouth two times daily. HYDROmorphone 2 mg oral tablet Take 2 mg by mouth every four hours as needed for severe pain. LOSARTAN POTASSIUM (LOSARTAN ORAL) Take by mouth. mirtazapine 30 mg oral tablet Take 60 mg by mouth once daily in the evening. No current facility-administered medications on file prior to visit. Social History Social History Marital status: Single Spouse name: N/A Number of children: N/A Years of education: N/A Occupational History Not on file. Social History Main Topics Smoking status: Never Smoker Smokeless tobacco: Not on file Alcohol use No Drug use: No Sexual activity: Not on file Other Topics Concern Not on file Social History Narrative Allergies Allergen Reactions Morphine Rash Wellbutrin [Bupropion Hcl] Seizures Family History noncontributory Tobacco use: no ETOH use: no. Employed: on [employer] for PTSD Living situation: with and kids Hobbies: used to yepez and fish but can't do anything due to pain Review of Systems: A ten point review of systems was conducted. Denies recent F/C/N/V. L ikewise no SOB, CP, ALMAZAN, dizziness. No changes in B/B. *All of the above are otherwise as per the patient intake form which I have reviewed. Adrianne church see scanned form for full details. Objective: Visit Vitals Item Reading BP 124/80 Pulse 96 RR 18 Ht 1.829 m (6') Wt 140.2 kg (309 lb) BMI 41.91 kg/(m^2) The patient is a well-formed, well nourished individual in no acute distress who appears of stated age. Affect and mood are normal. Memory and judgement are intact. Eyes/ENT: Patient is normocephalic. Conjugate gaze. Cardiovascular: Peripheral pulses are normal. No edema present. Respiratory: Breathing is normal. Normal effort with respirations. Abdomen: Abdomen is soft, non-tender. Skin: Skin is normal color. Normal temperature. Musculoskeletal: Examination of the lumbar spine demonstrates no skin changes or areas of induration. Flexibility testing is limited in all planes secondary to back pain. Hip ROM WNL. No pain with hip motion. Station and Gait pattern: antalgic with cane on Right Unable to Walks on heels and walks on toes *If blank, not tested* Motor Score L R C5 (Elbow Flex) C6 (Wrist Ext) C7 (Elbow Ext) C8 (FDP) T1 (Pinky Abd) L2 (Hip Flex) 5 4 *painful L3 (Knee Ext) 5 5 L4 (Ankle DF) 5 5 L5 (EHL) 5 5 S1 (Ankle PF) 5 5 Tendon Reflexes L R C5-6 (Biceps) C6 (Brachioradialis) C7-8 (Triceps) L3-4 (Knee Jerk) 1 1 S1-2 (Achilles) 1 1 Pathologic Reflexes L R Cadet Babinski no no Clonus no no Sensory Light Touch 0= Absent 1= decreased 2= normal Location L R C2 (Occiput) C3 (Clavicle) C4 (Shoulder) C5 (Lat Elbow) C6 (Thumb) C7 (Long Finger) C8 (Sm Finger) T1 (Med Elbow) T2 (Axilla) T4 (Nipple) T10 (Umbilicus) T12 (Inguinal Lig) L2 (Med. Thigh) 2 2 L3 (Med. Knee) 2 2 L4 (Med. Mall.) 2 2 L5 (Mid. Toe) 2 1 S1 (Lat. Heel) 2 1 IMAGING: Radiology Report Xray dated today: COMPARISON: X-ray 01/11/2015 FINDINGS: T-spine: No focal osseous destruction, evidence of fracture or malalignment. Mild/moderate joint space narrowing throughout the thoracic spine with mild endplate spurring. Vertebral b joel heights are maintained. No focal soft tissue abnormality. L-spine: Mild L4-L5 and L5-S1 joint space narrowing with endplate spurring and associated f acet arthrosis. There are 2.5 mm retrolisthesis at L2-L3 and 4 mm retrolisthesis, which does not change between flexion and extension. There is no dynamic instability. No fracture or f ocal destruction is detected. No focal soft tissue abnormality. IMPRESSION: Thoracic spine: Mild multilevel degenerative disc disease. Lumbar spine: Trace static retrolistheses at L3-L4 L4-L5. Mild degenerative disc disease from L4-S1 with associated facet arthrosis. MRI dated: 08/26/16 OSH [facility] COMPARISON: 02/09/2015. FINDINGS: Imaging in the sagittal plane was performed from T11-12 through the sacrum. The vertebral b odies are normal in height. Mild straightening of lumbar lordosis. No listhesis. Type I/II M odic endplate changes at L4-L5. The visualized distal spinal cord is normal in signal intensity. No syrinx or hydromyelia i s noted. No intraconal mass is seen. The spinal cord terminates at the T12-L1 level. The paraspinal soft tissues are normal. The visualized portions of the kidneys are normal. The aorta is normal in caliber. The visualized structures of the pelvis show no significant abnormality. T11-12: Incompletely imaged and incompletely evaluated. No stenosis of the visualized porti on of spinal canal. T12-L1: No spinal canal or neural foraminal stenosis. L1-L2: No spinal canal or neural foraminal stenosis. L2-L3: No spinal canal or neural foraminal stenosis. L3-L4: Minimal disc bulge with minimal effacement of ventral thecal sac. Mild bilateral fac et joint and ligamentum flavum hypertrophy. Mild bilateral neural foraminal stenosis. L4-L5: Disc desiccation and decreased intervertebral disc height. Mild diffuse disc bulge w ith small left subarticular recess and left foraminal disc protrusion. Mild left subarticula r recess narrowing with possible impingement of descending left L5 nerve root. Mild bilatera l neural foraminal stenosis. Bilateral facet joint osteoarthritis. Status post right hemilam inectomy. There is small amount of epidural enhancement in the region of right subarticular recess and right posterolateral aspect of thecal sac, image 27/series 10, image/series 12. L5-S1: Disc desiccation and mildly decreased intervertebral disc height. Mild diffuse disc bulge with small posterior central disc protrusion. Mild bilateral facet joint osteoarthriti s. Partial effacement of ventral epidural fat. No spinal canal or neural foraminal stenosis. IMPRESSION: 1. Status post right L4-L5 hemilaminectomy. Small amount of epidural scarring or granulatio n tissue in the region of right subarticular recess and right posterolateral aspect of theca l sac at L4-L5 surrounding the descending right L5 nerve root. Mild right subarticular reces s narrowing. 2. Small posterior central and left subarticular recess disc protrusion at L4-L5 mild left subarticular recess narrowing and possible impingement of descending left L5 nerve root. 3. Progressive type I/II Modic endplate changes at L4-L5. 4. Additional findings as detailed above. A/P: Yonis Davis is a 41 y.o. Male who presents today with Right L5 radiculopathy. -Diagnostic and treatment options ranging from relatively conservative measures to minimall y invasive procedures to surgical consultation is discussed in clinic today with the patient . -Consult to Physical Therapy: Focus on lumbar stabilization and mobilization, stretching, range of motion, modalities and development of home exercise program. Patient would like thi s faxed to [facility] - Right L5 nerve root injection. He requests this to be faxed to [facility]. - Rx for acupuncture provided today. -Pain management deferred to PCP. Reviewed our office policy on opioids. We do not manage chronic pain. We will provide refills for maximum of 6-12 weeks postoperatively. intermediate card tender management will be deferred to patients PCP. - We will see him back in my [place] clinic on Jan 02. No xrays needed. Should the patient have any questions or concerns prior to their next visit they will conta ct the clinic. -Patient counseled on urgent signs/symptoms and will seek immediate medical evaluation if n ew/worsening symptoms present (i.e weakness, numbness, Bowel/bladder function changes). I spent 60 minutes mgsc-lp-hcag with the patient. I spent more than 50% of this visit in co ordination of care and counseling in which we discussed diagnosis, treatment, imaging studie s and follow-up. documented in this encounter Plan of Treatment + + +--------+ + + | Name | Type | Priori | Associated Diagnoses | Order Schedule | | | | ty | | | + + +--------+ + + | ACUPUNCTURE - | Procedures | Routin | Thoracic back | Ordered: 11/03/2016 | | EXTERNAL ONLY | | e | pain, unspecified | | | | | | back pain | | | | | | laterality, | | | | | | unspecified | | | | | | chronicity | | + + +--------+ + + documented as of this encounter Results X-RAY SPINE LUMBOSACRAL 4 [...] | | + +---------+ + + | [facility] | | | | | VOICE RECOGNITION | | | | + +---------+ + + X-RAY SPINE THORACIC 2 VIEWS (11/03/2016 12:17 [...] | Diagnosis | + + | Lumbar back pain with radiculopathy affecting right lower extremity - Primary | + + | Thoracic back pain, unspecified back pain laterality, unspecified chronicity | + + documented in this encounter"
--- OUTSIDE RECORDS SUMMARY | ~2019-03-03 | XMS | Encounter Summary ---
Demographics + + + | Address | [address] | | | [place] [address] | + + + | Home Phone | | + + + | Preferred Language | Unknown | + + + | Marital Status | | + + + | Pentecostalism Affiliation | 1041 | + + + | Race | Unknown | + + + | Ethnic Group | Unknown | + + + Author + + + | Author | [facility] | | | and [place] | + + + | Organization | [facility] | | [...] | | | | | [place] [address] | | + + + + + Care Team Providers + +------+ + | Care Bilingual Office Assistant Name | Role | Phone | + [...] + + | 09/24/ | Telephone | [facility] | Ken Addison MD | Results, Pathology | | 2017 | | GASTROENTEROLOGY | [address], [facility] | (Gastric biopsy | | | | [address] [facility] | [address] [place], [place] | positive for H. | | | | [address] [place], [place] | [address] | pylori infection) | | | | [address] | | | | | | [phone] | | | +--------+ + + + [...]
--- OUTSIDE RECORDS SUMMARY | ~2019-03-03 | XMS | Encounter Summary ---
Demographics + + + | Address | [address] | | | [place] [address] | + + + | Home Phone [...] | | | | | [place] [address] | | + + + + + Care Team Providers + +------+ + | Care Chuck Boner Name | Role | Phone | + +------+ + | Jovanny Che PA-C | PCP | | + +------+ + Reason for Referral Diagnostic/Screening (Routine) +--------+--------+ + + + + | Status | Reason | Specialty | Diagnoses / | Referred By | Referred To | | | | | Procedures | Contact | Contact | +--------+--------+ + + + + | Closed | | Diagnostic | Diagnoses | Ibrahima Hubbard | [facility] | | | | Radiology | Rodrigo of MD Glenis Bañuelos | [address] | | | | | both lower | [address] | MEDICAL | | | | | extremities | [place], | [address] | | | | | | [place] [address] | NW | | | | | Hyperreflexi | Phone: | [place] | | | | | a | [phone] | [address] | | | | | Procedures | Fax: | Phone: | | | | | MRI Thoracic | [phone] | [phone] | | | | | Spine wo | | Fax: | | | | | Contrast | | [phone] | +--------+--------+ + + + + Diagnostic/Screening (Routine) +--------+--------+ + + + + | Status | Reason | Specialty | Diagnoses / | Referred By | Referred To | | | | | Procedures | Contact | Contact | +--------+--------+ + + + + | Closed | | Diagnostic | Diagnoses | Ibrahima Hubbard | [facility] | | | | Radiology | Weakness of | MD [address] | [address] | | | | | both lower | [address] | MEDICAL | | | | | extremities | [place], | [address] | | | | | | [place] [address] | [address] | | | | | Hyperreflexi | Phone: | [place], [place] | | | | | a | [phone] | [address] | | | | | Procedures | Fax: | Phone: | | | | | MRI Cervical | [phone] | [phone] | | | | | Spine wo | | Fax: | | | | | Contrast | | [phone] | +--------+--------+ + + + + Reason for Visit + + + | Reason | Comments | + + + | Back Pain | | + + + Evaluate & Treat (Urgent) +--------+--------+ + + + + | Status | Reason | Specialty | Diagnoses / | Referred By | Referred To | | | | | Procedures | Contact | Contact | +--------+--------+ + + + + | Closed | | Neurosurgery | Diagnoses | Chinedu, | Ibrahima Hubbard | | | | | DDD | Jovanny Reddy MD [address] | | | | | (degenerativ | [address] | | | | | e disc | PA-C [address] | [place], [place] | | | | | disease), | [address] | [address] | | | | | lumbar | [address] | Phone: | | | | | Lumbar | [place], | [phone] | | | | | radiculopath | [place] | Fax: | | | | | y | [address] | [phone] | | | | | Intervertebr | Phone: | | | | | | al disc | [phone] | | | | | | disorders | Fax: | | | | | | with | [phone] | | | | | | radiculopath | | | | | | | y, lumbar | | | | | | | region | | | | | | | Procedures | | | | | | | UT OFFICE | | | | | | | CONSULTATION | | | | | | | NEW/ESTAB | | | | | | | PATIENT 60 | | | | | | | MIN | | | +--------+--------+ + + + + Encounter Details +--------+---------+ + + + | Date | Type | Department | Care Team | Description | +--------+---------+ + + + | 05/21/ | Office | [facility] | Ibrahima Hubbard MD | Weakness of both | | 2016 | Visit | NEUROSURGERY [address] | [address] | lower extremities | | | | [address] | [place] [address] | (Primary Dx); Lumbar | | | | [place], [place] | [phone] | degenerative disc | | | | [address] | | disease; | | | | [phone] | | Hyperreflexia; | | | | | | Lumbar radiculopathy | +--------+---------+ + + + Social History [...] + + + | Blood Pressure | 100/82 | 05/22/2015 11:17 AM | | | | | PDT | | + + + + + | Pulse | 80 | 05/22/2015 11:17 AM | | | | | PDT | | + + + + + | Temperature | - | - | | + + + + + | Respiratory Rate | 20 | 05/22/2015 11:17 AM | | | | | PDT | | + + + + + | Oxygen Saturation | - | - | | + + + + + | Inhaled Oxygen | - | - | | | Concentration | | | | + + + + + | Weight | 136.1 kg (300 lb) | 05/22/2015 11:17 AM | | | | | PDT | | + + + + + | Height | 182.9 cm (6') | 05/22/2015 11:17 AM | | | | | PDT | | + + + + + | Body Mass Index | 40.69 | 05/22/2015 11:17 AM | | | | | PDT | | + + + + + documented in this encounter Progress Notes Ibrahima Hubbard MD - 05/22/2015 11:16 AM PDTFormatting of this note might be different from t zahira original. Ibrahima Hubbard MD [address] [place] [address], [address] [place], [place] [address] FAX: NEUROSURGERY HISTORY AND PHYSICAL EXAMINATION CHIEF COMPLAINT: Chief Complaint Patient presents with Back Pain HISTORY OF PRESENT ILLNESS: The patient is a 39 y.o. male with the complaint of back and b ilateral leg pain symptoms that began 11 years ago. The patient describes a prior back surge ry by Dr. Watts for severe symptoms and cauda equina in 2004. He did well for about 1 yea r but has worsened since. He has been taking pain medication but no longer has access to pa in medication in the ED or from a PCP. The symptoms have been gradually worsening. He rates the pain as severe. The symptoms are continuous. He describes the pain as sharp, shooting and aching. The patient describes leg symptoms that occur on both sides but worse on the right. The le g symptoms account for over half of his symptoms. The leg symptoms are constant, and the sy mptoms travel from the back to the posterolateral leg. The patient also describes the loss of the ability to walk distances without sitting, numbness of the legs, numbness of the feet , weakness of the legs and foot drop. The patient does report change in bowel or bladder function recently with an episode of inc ontinence. His symptoms improve with nothing. His symptoms worsen with standing, sitting, walking, running, bending and twisting. He has tried Chiropractic, Opioids, NSAIDS and Muscle relaxers. PAST MEDICAL HISTORY: Past Medical History Diagnosis Date Lumbar degenerative disc disease Lumbar radiculopathy Weakness of both lower extremities Hand injury, right, initial encounter Hypertension GERD (gastroesophageal reflux disease) Atypical chest pain PAST SURGICAL HISTORY: Past Surgical History Procedure Laterality Date Lumbar spine surgery 2004 L4-S1 Ankle surgery Left 1987 CURRENT MEDICATIONS: Current Outpatient Prescriptions Medication Sig Dispense Refill clonazePAM (KLONOPIN) 2 MG tablet Take 2 mg by mouth Twice daily as needed for Anxiety . gabapentin (NEURONTIN) 800 MG tablet Take 800 mg by mouth 2 times daily. hydrALAZINE (APRESOLINE) 25 mg tablet Take 25 mg by mouth 2 times daily. HYDROmorphone (DILAUDID) 2 mg tablet Take 2 mg by mouth every 12 hours. losartan (COZAAR) 50 mg tablet Take 50 mg by mouth Daily. mirtazapine (REMERON) 30 MG tablet Take 60 mg by mouth nightly. pantoprazole (PROTONIX) 40 mg tablet Take 40 mg by mouth every morning (before breakfas t). SUMAtriptan (IMITREX) 50 mg tablet Take 50 mg by mouth as needed for Migraine. No current facility-administered medications for this visit. ALLERGIES: Allergies Allergen Reactions Bupropion SEIZURE Ibuprofen Other (See Comments) stomach aches Morphine Rash SOCIAL HISTORY: The patient reports that he quit smoking about 14 months ago. His smoking use included Cig arettes. He has a 10 pack-year smoking history. He quit smokeless tobacco use about a year a go. His smokeless tobacco use included Chew. He reports that he does not drink alcohol or us e illicit drugs. FAMILY HISTORY: Family History Problem Relation Age of Onset Hypertension Father Alcohol abuse Paternal Grandfather Hypertension Paternal Grandfather Heart attack Paternal Grandfather 69 Rheum arthritis Paternal Grandmother Emphysema Maternal Grandfather Colon cancer Maternal Grandfather Lung cancer Maternal Grandfather COPD Maternal Grandfather Diabetes Maternal Grandmother Pacemaker Maternal Grandmother Hypertension Maternal Grandmother REVIEW OF SYSTEMS GENERALLY: No fever, no night sweats, no anemia, no fatigue, no recent profound weight ch anges. EYES: No eye problems, +use of corrective lenses, no eye injury, no double vision, no blin dness. EARS, NOSE, AND THROAT: No changes in taste or smell, no hearing difficulty, no ringing in the ears, no ear drainage, no dizziness, no voice changes, no difficulty swallowing, + sign ificant snoring, + sleep apnea, no sinus problems, no major dental work. NEUROLOGICALLY: Please see the review of systems discussed above in the history of present illness. In addition, the patient has numbness/pain of legs, weakness, back injury, pain i n back, migraine. PSYCHIATRIC: + depression, no sleep disorders, + anxiety, no bipolar disorder, no psychoti c episodes. CARDIOVASCULAR: No heart attacks, no heart murmur, no heart fluttering, no chest pain, no ankle swelling. LUNG DISEASE: No shortness of breath, no cough, no tuberculosis, no bloody cough, no asth ma, no emphysema/COPD. GASTROINTESTINAL: No bowel disease, no nausea or vomiting, no rectal bleeding, no constipa tion, no stool incontinence, no liver disease, no gallbladder disease, no abdominal pain, no ulcers. KIDNEY DISEASE: No urinary frequency, no painful or difficult urination, no incontinence. ENDOCRINE: No diabetes, no thyroid disease, no osteopenia or osteoporosis, no breast drain age. SKIN: No breast lumps, no skin changes, no rashes, no itches. HEMATOLOGIC/LYMPHATIC: No enlarged lymph nodes, no easy or unusual bleeding, no personal h istory of cancer. RHEUMATOLOGIC: No joint arthritis, no rheumatoid arthritis. PHYSICAL EXAMINATION: Blood pressure 100/82, pulse 80, resp. rate 20, height 1.829 m (6'), weight 136.079 kg (300 lb). Body mass index is 40.68 kg/(m^2). GENERAL: Yonis Davis is in no acute distress with unlabored respirations. The patie nt does appear uncomfortable throughout the exam today. HEENT: Head: Normocephalic/atraumatic with no areas of recent trauma. Eyes: Normal sclerae without icterus. Ears: No drainage or tenderness. Nasopharnyx: Clear without drainage. Oropharnyx: Clear without erythema. NECK (ANTERIOR): Supple and without palpable masses. CHEST: Clear to ausculation without crackles or wheeze. HEART: Regular rate and rhythm without murmurs. ABDOMEN: Soft, non-tender, non-distended, and without palpable masses. The patient is obese . SPINE: There is tenderness of the midline of the thoracic spine around T8 and below. The lumbar spine shows there is tenderness in the midline of the L1, L2, L3, L4, L5, S1 lev els. To palpation, there is significant bilateral myofascial tenderness. There is no significant pain to provacative testing of the SI joint. There is no major deformity noted. He has a midline scar. EXTREMITIES: No cyanosis, clubbing, or edema. Distal pulses are palpable. NEUROLOGICAL EXAM: MENTAL STATUS: The patient is awake, alert, and oriented. He follows simple and complex commands. His speech is fluent, he comprehends speech well, and he repeats well. He has no apparent deficits with short or chcf memory. CRANIAL NERVES: II: Acuity is intact. Lindsay are full to confrontation. III, IV, : The pupils are reactive. Extraocular movements are intact. No ptosis is note d. V: Facial sensation is intact and symmetric. VII: Facial movements are symmetric. VIII: Hearing is intact bilaterally. IX, X: The uvula and palate move appropriately. XI: Shrug is equal bilaterally. XII: Tongue protrusion is midline. MOTOR EXAM: (5 IS NORMAL) * Indicates pain limited MUSCLE/ MOVEMENT: RIGHT LEFT Deltoids 5 5 Biceps 5 5 Triceps 5 5 Wrist Flexion 5 5 Wrist Extension 5 5 Median Intrinsics 5 5 Ulnar Intrinsics 5 5 Otr Truck Driver Strength 5 5 Hip Flexion 4- 4+ Hip Extension 4- 4+ Knee Flexion 4- 5 Knee Extension 4- 5 Dorsiflexion 4- 5 Extensor Hallicus Longus 4- 5 Plantarflexion 4- 5 SENSORY EXAM: Sensory exam shows diminished sensation to below the T7 / T8 level. He has RLE numbness mo re profound than left. REFLEXES: (2 OR 2+ IS NORMAL) REFLEX: RIGHT LEFT BICEPS 3+ 3+ BRACHIORADIALIS 3+ 3+ TRICEPS 3+ 3+ PATELLAR 2 3+ ACHILLES 1 2 ZAVALA'S ABSENT ABSENT PLANTAR DOWNGOING UPGOING GAIT: Gait is antalgic. PERIPHERAL NERVE/MISC: Straight leg raise is positive on the right. TEST AND RADIOGRAPHIC REVIEW: The patient's imaging was reviewed in detail with the patient today during the visit. The MRI from 2016 shows L4-5 and L5-S1 postoperative changes. He has no canal or foraminal sten osis. He has L4-5 and L5-S1 moderate DDD. Lumbar x-rays show no major instability. ASSESSMENT: NEUROSURGICAL DIAGNOSES: Encounter Diagnoses Name Primary? Weakness of both lower extremities Yes Lumbar degenerative disc disease Hyperreflexia Lumbar radiculopathy GENERAL DIAGNOSES: Past Medical History Diagnosis Date Lumbar degenerative disc disease Lumbar radiculopathy Weakness of both lower extremities Hand injury, right, initial encounter Hypertension GERD (gastroesophageal reflux disease) Atypical chest pain PLAN: Yonis Davis presented today, and we went over in great detail his neurologic problem s. The patient has unexplained weakness, hyperreflexia, and a positive plantar response. The patient has failed conservative care after many years. I had a lengthy discussion with the patient about his options. I recommended work-up of his neurologic problem. Fusion at L4-S1 would not help his conste llation of symptoms and findings. The patient would to complete a recommended thoracic and cervical MRI. ELECTRONICALLY SIGNED BY: Ibrahima Hubbard MD, 05/22/2015 12:32 documented in this encou nter Plan of Treatment + +---------+--------+ + + | Name | Type | Priori | Associated Diagnoses | Order Schedule | | | | ty | | | + +---------+--------+ + + | MRI Cervical Spine | Imaging | Routin | Weakness of both | Expected: | | wo Contrast | | e | lower extremities | 05/22/2015, Expires: | | | | | Hyperreflexia | 05/21/2016 | + +---------+--------+ + + | MRI Thoracic Spine | Imaging | Routin | Weakness of both | Expected: 06/01/2015 | | wo Contrast | | e | lower extremities | (Approximate), | | | | | Hyperreflexia | Expires: 05/20/2016 | + +---------+--------+ + + documented as of this encounter Visit Diagnoses + + | Diagnosis | + + | Weakness of both lower extremities - Primary | + + | Lumbar degenerative disc disease Degeneration of lumbar or lumbosacral intervertebral | | disc | + + | Hyperreflexia Abnormal reflex | + + | Lumbar radiculopathy Thoracic or lumbosacral neuritis or radiculitis, unspecified | + + documented in this encounter"
--- OUTSIDE RECORDS SUMMARY | ~2019-03-03 | XMS | Encounter Summary ---
Demographics + + + | Address | [address] | | | [place] [address] | + + + | Home Phone | | + + + | Preferred Language | Unknown | + + + | Marital Status | Single | + + + | Mormonism Affiliation | NRP | + + + | Race | White | + + + | Ethnic Group | Not or | + + + Author + + + | Author | [facility] | + + + | Organization | [facility] | + + + | Address | Unknown | + + + | Phone | Unavailable | + + + Support + + +---------+ + | Name | Relationship | Address | Phone | + + +---------+ + | Myra Ramirez | ECON | Unknown | | + + +---------+ + Care Team Providers + +------+ + | Care Engineering Design Supervisor Name | Role | Phone | + +------+ + PCP | Unavailable | + +------+ + Encounter Details +--------+ + + + + | Date | Type | Department | Care Team | Description | +--------+ + + + + | 06/06/ | Documentati | Neurology at | Todd Haas, | | | 2009 | on | [facility] & | [address] | | | | | [address] | [place], [place] | | | | | [address] Mailcode: | [address] | | | | | [id number] | [phone] | | | | | Health and Healing, | | | | | | | | | | | | [place], [place] | | | | | | [address] | | | | | | [phone] | | | +--------+ + + + [...]
--- OUTSIDE RECORDS SUMMARY | ~2019-03-03 | XMS | Encounter Summary ---
Demographics + + + | Address | [address] | | | [place] [address] | + + + | Home Phone | | + + + | Preferred Language | Unknown | + + + | Marital Status | | + + + | Mormon Affiliation | 1041 | + + + [...] | | | | | [place] [address] | | + + + + + Care Team Providers + +------+ + | Care Bumper Machine Operator Name | Role | Phone | + +------+ + PCP | Unavailable | + +------+ + Encounter Details +--------+ + + + + | Date | Type | Department | Care Team | Description | +--------+ + + + + | 05/15/ | Hospital | [facility] | | | | 2004 - | Encounter | MED CTR GENERIC IP | | | | | | CONV DEPT [address] | | | | 05/16/ | | [place], | | | | 2004 | | [place] [address] | | | | | | [phone] | | | +--------+ + + + [...]
--- OUTSIDE RECORDS SUMMARY | ~2019-03-03 | XMS | Encounter Summary ---
Demographics + + + | Address | [address] | | | [place] [address] | + + + | Home Phone | | + + + | Preferred Language | Unknown | + + + | Marital Status | | + + + | Anglican Affiliation | 1041 | + + + | Race | Unknown | + + + | Ethnic Group | Unknown | + + + Author + + + | Author | [facility] | | | and [place] | + + + | Organization | [facility] | | | [...] | | | | | [place] [address] | | + + + + + Care Team Providers + +------+ + | Care Resource Management Specialist Name | Role | Phone | + +------+ + | Martha Sanford | PCP | | + +------+ + Encounter Details +--------+ + + + + | Date | Type | Department | Care Team | Description | +--------+ + + + + | 04/17/ | Hospital | [facility] | Conversion | Back pain, | | 2018 | Encounter | CONVERSION [address] | Transaction, | unspecified back | | | | [address] | Provider Unknown | location, | | | | [facility] [place] | [phone] | unspecified back | | | | [address] | (Fax) | pain laterality, | | | | [phone] | | unspecified | | | | | | chronicity | +--------+ + + + + Social [...] + +--------+ + + + | CT LUMBAR SPINE WO | Routin | 04/09/2017 | | Results for this | | CONTRAST | e | 11:55 AM | | procedure are in the | | | | PST | | results section. | + +--------+ + + + documented in this encounter Results CT Lumbar Spine wo Contrast (04/09/2017 11:55 AM PST) + + | Specimen | + + | | + + + + + | Narrative | Performed At | + + + | This is a non-reportable procedure without a radiologist report and | | | is used for image storage only | | + + + + + | Procedure Note | + + | Charles, Eliot Rianna - 10/20/2018 4:10 AM PDT This is a non-reportable procedure | | without a radiologist report and isused for image storage only | + + documented in this encounter Visit Diagnoses + + | Diagnosis | + + | Back pain, unspecified back location, unspecified back pain laterality, unspecified | | chronicity | + + documented in this encounter"
--- OUTSIDE RECORDS SUMMARY | ~2019-03-03 | XMS | Encounter Summary ---
Demographics + + + | Address | [address] | | | [place] [address] | + + + | Home Phone | | + + + | Preferred Language | Unknown | + + + | Marital Status | | + + + | Rastafarian Affiliation | 1041 | + + + | Race | Unknown | + + + | Ethnic Group | Unknown | + + + Author + + + | Author | [facility] | | | and [place] | + + + | Organization | [facility] | | | [...] | | | | | [place] [address] | | + + + + + Care Team Providers + +------+ + | Care Groundman/Lineman Name | Role | Phone | + +------+ + | Jovanny Che PA-C | PCP | | + +------+ + Encounter Details +--------+ + + + + | Date | Type | Department | Care Team | Description | +--------+ + + + + | 05/31/ | Orders Only | [facility] | Ibrahima Hubbard MD | Weakness of both | | 2016 | | NEUROSURGERY [address] | [address] | lower extremities; | | | | [address] | [place] [address] | Hyperreflexia | | | | [place], [place] | [phone] | | | | | [address] | | | | | | [phone] | | | +--------+ + + + [...]
--- OUTSIDE RECORDS SUMMARY | ~2019-03-03 | XMS | Encounter Summary ---
Demographics + + + | Address | [address] | | | [place] [address] | + + + | Home Phone | | + + + | Preferred Language | Unknown | + + + | Marital Status | | + + + | Evangelical Affiliation | 1041 | + + + [...] | | | | | [place] [address] | | + + + + + Care Team Providers + +------+ + | Care Qm Nurse Name | Role | Phone | + [...] + | 11/26/ | Telephone | [facility] | Ken Addison MD | Labs Only (H.pylori | | 2017 | | GASTROENTEROLOGY | [address], [place] | stool antigen) | | | | [address] | [address] [place], [place] | | | | | [address] [place], [place] | [address] | | | | | [address] | | | | | | [phone] | | | +--------+ + + + [...]
--- OUTSIDE RECORDS SUMMARY | ~2019-03-03 | XMS | Encounter Summary ---
Demographics + + + | Address | [address] | | | [place] [address] | + + + | Home Phone [...] | | | | | [place] [address] | | + + + + + Care Team Providers + +------+ + | Care Animal Husbandry Professor Name | Role | Phone | + +------+ + | Martha Sanford | PCP | | + +------+ + Encounter Details +--------+ + + + + | Date | Type | Department | Care Team | Description | +--------+ + + + + | 04/03/ | Hospital | [facility] | Conversion | | | 2018 | Encounter | [facility] | Transaction, | | | | | CLINIC [address] | Provider Unknown | | | | | [place] | [phone] | | | | | [address] | | | | | | [phone] | | | +--------+ + + + [...] NEGATIVE Testing | | | performed at [facility] [place] [place];[address];[place] [address] | | + + + + +---------+ [...] | | | | | JANICE DAN (504) on | | | | | | 04/03/2017 9:56:10 PM | | | | + + + + + + + + | Specimen | + + | | + + + + + | Narrative | Performed At | + + + | Historically converted procedure from [facility] | EXTERNAL LAB | + + [...] | | | Patient | performed at [facility] [place] [place];[address] | | LAB | | | | [address];[place], [place] | | | | | | [address] | | | | + + + [...] | | | | | performed at [facility] [place] [place];[facility] | | | | | | [facility];[place], [place] | | | | | | [address] | | | | + + + [...] | | | Basophils | performed at [facility], [address] | [address] | LAB | | | | [address], | | | | | | [place] [address] | | | | + + + [...] | | | | | | at [facility], [address] | | | | | | [address], | | | | | | [place] [address] | | | | + + + [...]
--- OUTSIDE RECORDS SUMMARY | ~2019-03-03 | XMS | Encounter Summary ---
Demographics + + + | Address | [address] | | | [place] [address] | + + + | Home Phone | | + + + | Preferred Language | Unknown | + + + | Marital Status | Single | + + + | Jain Affiliation | NRP | + + + | Race | White | + + + | Ethnic Group | Not or | + + + Author + + + | Author | [facility] | + + + | Organization | [facility] | + + + | Address | Unknown | + + + | Phone | Unavailable | + + + Support + + +---------+ + | Name | Relationship | Address | Phone | + + +---------+ + | Myra Ramirez | ECON | Unknown | | + + +---------+ + Care Team Providers + +------+ + | Care Gear Tester Name | Role | Phone | + +------+ + | Jovanny Che PA-C | PCP | | + +------+ + Encounter Details +--------+ + + + + | Date | Type | Department | Care Team | Description | +--------+ + + + + | 01/16/ | Telephone | Orthopaedic Spine | [place], | | | 2014 | | [facility] [address] | [address] | | | | [address] | [address] | | | | | Mailcode: [id number] | [place], [place] | | | | | [facility] | [address] | | | | | and [place], | [phone] | | | | | | | | | | | Floor [place], [place] | | | | | | [address] | | | | | | [phone] | | | +--------+ + + + [...]
--- OUTSIDE RECORDS SUMMARY | ~2019-03-03 | XMS | Encounter Summary ---
Demographics + + + | Address | [address] | | | [place] [address] | + + + | Home Phone | | + + + | Preferred Language | Unknown | + + + | Marital Status | | + + + | Muslim Affiliation | 1041 | + + + | Race | Unknown | + + + | Ethnic Group | Unknown | + + + Author + + + | Author | [facility] | | | and [place] | + + + | Organization | [facility] | | | [...] | | | | | [place] [address] | | + + + + + Care Team Providers + +------+ + | Care Electrical Technician Name | Role | Phone | + +------+ + | Martha Sanford | PCP | | + +------+ + Encounter Details +--------+ + + + + | Date | Type | Department | Care Team | Description | +--------+ + + + + | 08/26/ | Hospital | [facility] | Conversion | Traumatic | | 2017 | Encounter | [facility] | Transaction, | spondylopathy of | | | | [address] [facility] | Provider Unknown | lumbosacral region; | | | | [place], [place] | [phone] | Low back pain with | | | | [address] | (Fax) | sciatica, sciatica | | | | [phone] | | laterality | | | | | | unspecified, | | | | | | unspecified back | | | | | | pain laterality, | | | | | | [...] + + + + | Weight | 139.3 kg (307 lb) | 08/26/2016 11:49 AM | | | | | PDT | | + + + + + | Height | - | - | | + + + + + | Body Mass Index | 41.64 | 07/29/2016 1:40 PM | | | | | PDT [...] MRI LUMBAR SPINE W | Routin | 08/26/2016 | | Results for this | | WO CONTRAST | e | 11:56 AM | | procedure are in the | | | | PDT | | results section. | + +--------+ + + + documented in this encounter Results MRI Lumbar Spine w wo Contrast (08/26/2016 11:56 AM PDT) + + | Specimen | + + | | + + + + + | Impressions | Performed At | + + + | 1. Status post right L4-L5 hemilaminectomy. Small amount of | | | epidural scarring or granulation tissue in the region of right | | | subarticular recess and right posterolateral aspect of thecal sac at | | | L4-L5 surrounding the descending right L5 nerve root. Mild right | | | subarticular recess narrowing. 2. Small posterior central and left | | | subarticular recess disc protrusion at L4-L5 mild left subarticular | | | recess narrowing and possible impingement of descending left L5 nerve | | | root. 3. Progressive type I/II Modic endplate changes at L4-L5. 4. | | | Additional findings as detailed above. | | + + + + + + | Narrative | Performed At | + + + | [facility]AN MRI LUMBAR SPINE W WO CONTRAST 08/26/2016 11:56 AM | | | HISTORY: 40 years. Male. 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 TECHNIQUE: Imaging was performed on a 1.5 | | | Rubia MRI system. Multiplanar sequences were acquired according to a | | | standard department protocol with and without contrast. Contrast: | | | MultiHance. Dose: 25 mL. COMPARISON: 02/09/2015. FINDINGS: | | | Imaging in the sagittal plane was performed from T11-12 through the | | | sacrum. The vertebral bodies are normal in height. Mild | | | straightening of lumbar lordosis. No listhesis. Type I/II Modic | | | endplate changes at L4-L5. The visualized distal spinal cord is | | | normal in signal intensity. No syrinx or hydromyelia is noted. No | | | intraconal mass is seen. The spinal cord terminates at the T12-L1 | | | level. The paraspinal soft tissues are normal. The visualized | | | portions of the kidneys are normal. The aorta is normal in caliber. | | | The visualized structures of the pelvis show no significant | | | abnormality. T11-12: Incompletely imaged and incompletely | | | evaluated. No stenosis of the visualized portion of spinal canal. | | | T12-L1: No spinal canal or neural foraminal stenosis. L1-L2: No | | | spinal canal or neural foraminal stenosis. L2-L3: No spinal canal | | | or neural foraminal stenosis. L3-L4: Minimal disc bulge with | | | minimal effacement of ventral thecal sac. Mild bilateral facet joint | | | and ligamentum flavum hypertrophy. Mild bilateral neural foraminal | | | stenosis. L4-L5: Disc desiccation and decreased intervertebral | | | disc height. Mild diffuse disc bulge with small left subarticular | | | recess and left foraminal disc protrusion. Mild left subarticular | | | recess narrowing with possible impingement of descending left L5 | | | nerve root. Mild bilateral neural foraminal stenosis. Bilateral facet | | | joint osteoarthritis. Status post right hemilaminectomy. There is | | | small amount of epidural enhancement in the region of right | | | subarticular recess and right posterolateral aspect of thecal sac, | | | image 27/series 10, image/series 12. L5-S1: Disc desiccation and | | | mildly decreased intervertebral disc height. Mild diffuse disc bulge | | | with small posterior central disc protrusion. Mild bilateral facet | | | joint osteoarthritis. Partial effacement of ventral epidural fat. No | | | spinal canal or neural foraminal stenosis. | | + + + + + | Procedure Note | + + | Charles, Rad Conversion - 10/20/2018 7:46 PM PDT [facility] | | CONTRAST08/26/2016 11:56 AM HISTORY:40 years. Male. Traumatic spondylopathy of | | lumbosacral region. TECHNIQUE:Imaging was performed on a 1.5 Rubia MRI system. | | Multiplanar sequences were acquired according to a standard department protocol with and | | without contrast.Contrast: MultiHance. Dose: 25 mL. COMPARISON:02/09/2015. | | FINDINGS:Imaging in the sagittal plane was performed from T11-12 through the sacrum. | | The vertebral bodies are normal in height. Mild straightening of lumbar lordosis. No | | listhesis. Type I/II Modic endplate changes at L4-L5. The visualized distal spinal cord | | is normal in signal intensity. No syrinx or hydromyelia is noted. No intraconal mass | | is seen. The spinal cord terminates at the T12-L1 level. The paraspinal soft tissues | | are normal. The visualized portions of the kidneys are normal. The aorta is normal in | | caliber. The visualized structures of the pelvis show no significant abnormality. | | T11-12: Incompletely imaged and incompletely evaluated. No stenosis of the visualized | | portion of spinal canal. T12-L1: No spinal canal or neural foraminal stenosis. L1-L2: No | | spinal canal or neural foraminal stenosis. L2-L3: No spinal canal or neural foraminal | | stenosis. L3-L4: Minimal disc bulge with minimal effacement of ventral thecal sac. Mild | | bilateral facet joint and ligamentum flavum hypertrophy. Mild bilateral neural foraminal | | stenosis. L4-L5: Disc desiccation and decreased intervertebral disc height. Mild | | diffuse disc bulge with small left subarticular recess and left foraminal disc | | protrusion. Mild left subarticular recess narrowing with possible impingement of | | descending left L5 nerve root. Mild bilateral neural foraminal stenosis. Bilateral facet | | joint osteoarthritis. Status post right hemilaminectomy. There is small amount of | | epidural enhancement in the region of right subarticular recess and right posterolateral | | aspect of thecal sac, image 27/series 10, image/series 12. L5-S1: Disc desiccation and | | mildly decreased intervertebral disc height. Mild diffuse disc bulge with small | | posterior central disc protrusion. Mild bilateral facet joint osteoarthritis. Partial | | effacement of ventral epidural fat. No spinal canal or neural foraminal stenosis. | | IMPRESSION: 1. Status post right L4-L5 hemilaminectomy. Small amount of epidural | | scarring or granulation tissue in the region of right subarticular recess and right | | posterolateral aspect of thecal sac at L4-L5 surrounding the descending right L5 nerve | | root. Mild right subarticular recess narrowing.2. Small posterior central and left | | subarticular recess disc protrusion at L4-L5 mild left subarticular recess narrowing and | | possible impingement of descending left L5 nerve root.3. Progressive type I/II Modic | | endplate changes at L4-L5.4. Additional findings as detailed above. Electronically | | signed by Debi Patterson on 08/26/2016 12:26 PM | |L5-S1: Disc desiccation and mildly decreased intervertebral disc height. Mild diffuse disc bulge with small posterior central disc protrusion. Mild bilateral facet joint osteoarthriti s. Partial effacement of ventral epidural fat. No spinal canal or | |neural foraminal stenosis. | | | | | |IMPRESSION: | |1. Status post right L4-L5 hemilaminectomy. Small amount of epidural scarring or granulati on tissue in the region of right subarticular recess and right posterolateral aspect of thec al sac at L4-L5 surrounding the descending right L5 nerve root. Mild | |right subarticular recess narrowing. | |2. Small posterior central and left subarticular recess disc protrusion at L4-L5 mild left subarticular recess narrowing and possible impingement of descending left L5 nerve root. | |3. Progressive type I/II Modic endplate changes at L4-L5. | |4. Additional findings as detailed above. | | | | | + + documented in this encounter Visit Diagnoses + + | Diagnosis | + + | Traumatic spondylopathy of lumbosacral region Traumatic spondylopathy | + + | Low back pain with sciatica, sciatica laterality unspecified, unspecified back pain | | laterality, unspecified chronicity | + + documented in this encounter"
--- OUTSIDE RECORDS SUMMARY | ~2019-03-03 | XMS | Encounter Summary ---
Demographics + + + | Address | [address] | | | [place] [address] | + + + | Home Phone [...] | | | | | [place] [address] | | + + + + + Care Team Providers + +------+ + | Care Veterinary Pharmacologist Name | Role | Phone | + +------+ + | Martha Sanford | PCP | | + +------+ + Encounter Details +--------+ + + + + | Date | Type | Department | Care Team | Description | +--------+ + + + + | 10/05/ | Orders Only | [facility] | Provider, | | | 2019 | | SYSTEM GENERIC OP | MD Benigno [address] | | | | | CONVERSION [address] | [place] | | | | | [address] [place], [place] | [place] [address] | | | | | [address] | | | | | | [phone] | | | +--------+ + + + [...]
--- OUTSIDE RECORDS SUMMARY | ~2019-03-03 | XMS | Encounter Summary ---
Demographics + + + | Address | [address] | | | [place] [address] | + + + | Home Phone | | + + + | Preferred Language | Unknown | + + + | Marital Status | | + + + | Voodoo Affiliation | 1041 | + + + | Race | Unknown | + + + | Ethnic Group | Unknown | + + + Author + + + | Author | [facility] | | | and [place] | + + + | Organization | Located [facility] | | [...] [address] | | | | | [place] [address] | | + + + + + Care Team Providers + +------+ + | Care Part Maker Name | Role | Phone | [...] | | | | | | | [place] | | | | | | | ESOPHAGOGAST | | | | | | | RODUODENOSCO | | | | | | | PY TRANSORAL | | | | | | | DIAGNOSTIC | | | | | | | [place] EGD | | | | | | | TRANSORAL | | | | | | | BIOPSY | | | | | | | SINGLE/MULTI | | | | | | | PLE [place] | | | | | | | ANESTH,UGI | | | | | | | ENDOSCOPY | | | | | | | EGD | | | +--------+--------+ + + + + Encounter Details +--------+---------+ + + + | Date | Type | Department | Care Team | Description | +--------+---------+ + + + | 09/16/ | Surgery | [facility] | Ken Addison MD | EGD | | 2017 | | MED CTR MP INTRA OP | [address], [place] | | | | | [address] | [address] [place] | | | | | [place], [place] | [address] | | | | | [address] | | | | | | [phone] | | | +--------+---------+ + + + [...] type | | | | | | ([facility]) (F25.9); | | | | | | [...] [address] | [place] | [phone] | | [facility] | | [address] | | | - LABORATORY | | | | + + + + + EGD (09/16/2016 11:06 AM PDT) + + | Specimen | + + | | + + + + -+ | Narrative | Performed At | + + -+ | | [facility] | | GastroenterologyPatient Name: Yonis DavisProcedure Date: 09/16/2016 | [facility]OVATION | | 11:06 AMMRN: [id number] #: [id number] of : | | | 1975Admit Type: AmbulatoryAge: 41Room: [facility] 01Gender: MaleNote | | | Status: FinalizedAttending MD: Ken Addison , MDProcedure: | | | Upper GI endoscopyIndications: Esophageal reflux, | | | Follow-up of esophageal refluxProviders: Ken Addison, | | | , Kylie Zamudio RN, [facility] | | | Isabell, Machine Cutter, Terry Taveras MD (Anesthesia | | | Staff)Referring MD: Deric Sanford | | | (Referring MD)Medicines: Sedation Required [...] | | | the anesthesiologist and the weed science research technician in the endoscopy suite. | | | [...] AMScope Out: 11:26:43 AM | | | Formerly [facility], [address] [place] [address] | | | [address] | | | - Resume previous diet [...] |Scope Out: 11:26:43 AM | | | Formerly [facility], [address] [place] [address] | | | [address] | | + + -+ + +---------+ [...] intestinal metaplasia or | | | dysplasia. JVR:ssm rehab:C2NR GROSS DESCRIPTION: Received in formalin | | | labeled "Yonis Davis" and "distal esophageal bx" on the requisition | | | are multiple eugene-jones tissue fragments measuring from <0.1-0.5 cm, | | | submitted, all into (A1). ka:JVR:ssm rehab PERFORMING LABORATORY: Tissue | | | processing and slide preparation were performed by [facility], | | | [address] [place] [address], [address], [place] [address] (Spout Liner: | | | Jose Juan Gage M.D. CLIA#: [id number]). Professional interpretation | | | was performed by [facility], [facility] | | | [place], [address] [facility], [place] [address] (Medical | | | Director: Jose Juan Gage M.D.; CLIA#: [id number]). Diagnostician: | | | Jose Juan Gage [...]
--- OUTSIDE RECORDS SUMMARY | ~2019-03-03 | XMS | Encounter Summary ---
Demographics + + + | Address | [address] | | | [place] [address] | + + + | Home Phone | | + + + | Preferred Language | Unknown | + + + | Marital Status | Single | + + + | Sikh Affiliation | NRP | + + + | Race | White | + + + | Ethnic Group | Not or | + + + Author + + + | Author | [facility] | + + + | Organization | [facility] | + + + | Address | Unknown | + + + | Phone | Unavailable | + + + Support + + +---------+ + | Name | Relationship | Address | Phone | + + +---------+ + | Myra Ramirez | ECON | Unknown | | + + +---------+ + Care Team Providers + +------+ + | Care Herbarium Worker Name | Role | Phone | [...] | | | Orthopaedic Surgery | [place], [place] | | | | | [address] | [address] | | | | | [place] | [phone] | | | | | [address] | | | | | | [phone] | | | +--------+ + + + [...]
--- OUTSIDE RECORDS SUMMARY | ~2019-03-03 | XMS | Encounter Summary ---
Demographics + + + | Address | [address] | | | [place] [address] | + + + | Home Phone | | + + + | Preferred Language | Unknown | + + + | Marital Status | | + + + | Gnosticist Affiliation | 1041 | + + + [...] | | | | | [place] [address] | | + + + + + Care Team Providers + +------+ + | Care Oil Derrick Operator Name | Role | Phone | + +------+ + PCP | Unavailable | + +------+ + Encounter Details +--------+ + + + + | Date | Type | Department | Care Team | Description | +--------+ + + + + | 10/05/ | Hospital | [facility] | Terry Dempsey W, | | | 2007 - | Encounter | [facility] | [address] | | | | | NEUROLOGY [address] | [address] | | | 10/08/ | | [place] | [place] [address] | | | 2007 | | [address] | [phone] | | | | | [phone] | | | +--------+ + + + [...] documented as of this encounter Discharge Summaries Terry Dempsey MD - 01/12/2013 2:50 PM PSTPATIENT NAME: Berna Callahan DATE OF ADMISSION: 10/06/2007 AGE/SEX: 32/M DATE OF DISCHAR GE: 10/09/2007 : 1975 HISTORY: For complete History of Present Illness, Past Medical History, et cetera, see the dictated History and Physical. HISTORY OF PRESENT ILLNESS: Briefly, the patient is a 32-year-old male with new onset of s eizure episodes on 09/03/79. Treatment with medication, namely Dilantin, failed to control his seizures. He had an escalation of his seizures. Keppra was tried but resulted in psy chiatric symptoms. Prior to transfer here to [place], he was having several daily events c oncerning for seizures. At 1 time he was felt to be in status epilepticus. Due to the rap idity of his seizure increase and severity, he was transferred emergently to [place] for fu rther evaluation and treatment. HOSPITAL COURSE: The patient was admitted to the epilepsy monitoring unit for 24 hour vide o EEG telemetry. His carbamazepine, which had been started in the [facility], was disconti nued. Please see the epilepsy monitoring report for complete details. 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 All th e events were reviewed with the patient's . She identified that his stereotypical maranda nts, both mild and severe, were all captured. His EEG was normal throughout the entire adm ission. He did complain of significant back pain during his admission. Initially he was treated w ith his oral morphine regimen which was 10 mg t.i.d. This was changed to 2 mg IV q. 4 hour s p.r.n. back pain. Ibuprofen also was used. On the day of discharge, a prolonged discussion was undertaken with the patient and his wi fe. We discussed the nature, etiology, prognosis, and treatment of nonepileptic/psychogeni c events. Somewhat surprisingly, they were both very open to this diagnosis and willing to seek further definitive care. Time was taken to answer all questions. I did explore potential triggers for these events. Most interestingly, 1 of his closest f riends that he has had, at the beginning of August. This was 2 or 3 weeks prior to the o nset of these events. He also recently injured his back in a nonwork related fashion; lind lang, this has affected his ability to do his job. His is currently with twin s. There are certainly financial concerns that existed before and even more so now. All of these may be participating as a trigger for these events. There is no history of previous abuse. DISCHARGE DIAGNOSES: 1. Nonepileptic/psychogenic events. 2. Hypertension. 3. Reflux disease. 4. Previous back injury. DISPOSITION: The patient is being discharged home. He has agreed to seek BERNA [id number] 10/09/07 DIS IN [id number] DISCHARGE SUMMARY MD ELIGIO Spencer [facility] THIS REPORT IS CONFIDENTIAL AND NOT TO BE RELEASED WITHOUT PROPER AUTHORIZATION. [facility] counseling. Again, his attitude is quite good about this. His medications remain per his home doses which include: morphine 10 mg t.i.d. and hydrochlorothiazide 25 mg q. day. He is also on Prilosec. Followup will be with Palma Cohen [facility] and with Dr. Hedy sarmiento, his primary neurologist. Terry Dempsey MD A TWP/pmt #[id number] cc: MD Davis Corea MD Xc: Hedy Mayorga MD [address] [place] [address] Ave[address] [facility]. [address] [place] [address] Palma Cohen [address], [address], [place] [address] [place] [address] Tiffany Figueroa MD [address] [place] [address] Christine Elizabeth MD - Hospitalist [address] [place] [address] Digitally authenticated 10/18/07 0850 Terry Dempsey MD EVA CALLAHAN [id number] 10/09/07 DIS IN [id number] DISCHARGE SUMMARY MD ELIGIO Spencer [facility] THIS REPORT IS CONFIDENTIAL AND NOT TO BE RELEASED WITHOUT PROPER AUTHORIZATION.Electronica lly signed by Terry Dempsey MD at 10/18/2007 8:50 AM PDTdocumented in this encounter Plan of Treatment Not on filedocumented as of this encounter Visit Diagnoses Not on filedocumented in this encounter"
--- OUTSIDE RECORDS SUMMARY | ~2019-03-03 | XMS | Encounter Summary ---
Demographics + + + | Address | [address] | | | [place] [address] | + + + | Home Phone | | + + + | Preferred Language | Unknown | + + + | Marital Status | | + + + | Sabianism Affiliation | 1041 | + + + [...] | | | | | [place] [address] | | + + + + + Care Team Providers + +------+ + | Care Heavy Equipment Rental Manager Name | Role | Phone | [...] | | [address] | [place] [address] | Hyperreflexia | | | | [place], [place] | [phone] | | | | | [address] | | | | | | [phone] | | | +--------+ + + + [...]
--- OUTSIDE RECORDS SUMMARY | ~2019-03-03 | XMS | Encounter Summary ---
Demographics + + + | Address | [address] | | | [place] [address] | + + + | Home Phone [...] | | | | | [place] [address] | | + + + + + Care Team Providers + +------+ + | Care Svp Digital Sales Food & Cooking Name | Role | Phone | + +------+ + PCP | Unavailable | + +------+ + Encounter Details +--------+ + + + + | Date | Type | Department | Care Team | Description | +--------+ + + + + | 06/18/ | Emergency | [facility] | Conversion | Cervicalgia | | 1993 | | [facility]ICAL CENTER | Transaction, | | | | | EMERGENCY CENTER | Provider Unknown | | | | | [address] [facility] | | | | | | [place], [place] | (Fax) | | | | | [address] | | | | | | [phone] | | | +--------+ + + + [...] + | Diagnosis | + + | Cervicalgia | + + documented in this encounter"
--- OUTSIDE RECORDS SUMMARY | ~2019-03-03 | XMS | Encounter Summary ---
Demographics + + + | Address | [address] | | | [place] [address] | + + + | Home Phone | | + + + | Preferred Language | Unknown | + + + | Marital Status | | + + + | Adventist Affiliation | 1041 | + + + | Race | Unknown | + + + | Ethnic Group | Unknown | + + + Author + + + | Author | [facility] | | | and [place] | + + + | Organization | [facility] | | [...] | | | | | [place] [address] | | + + + + + Care Team Providers + +------+ + | Care Plastics Sheet Finishing Press Operator Name | Role | Phone | + +------+ + | Martha Sanford | PCP | | + +------+ + Encounter Details +--------+ + + + + | Date | Type | Department | Care Team | Description | +--------+ + + + + | 07/01/ | [facility] | [facility] | Antonio Pritchard | Weight loss; Change | | 2019 | Encounter | MEDICAL CENTER MP | MD [address] | in bowel movement; | | | | INTRA OP [address] | [address] | Dyspepsia; Polyp of | | | | [address] [place], [place] | [address] [place], [place] | colon, unspecified | | | | [address] | [address] | part of colon, | | | | [phone] | | unspecified type | +--------+ + [...] interpretation was performed by | | | [employer], [address], | | | [place] [address] (Box Sealing Machine Feeder: Harlan Castellano M.D.; | | | CLIA#: [id number]). The technical component was performed by [facility] | | | [employer], [address] [place] [address] (Box Sealing Machine Feeder: | | | Esther Dominguez MD; CLIA# [id number]). Diagnostician: Harlan Castellano MD | | | [...] + + | Historically converted procedure from [facility] Epic environment | EXTERNAL LAB | | [facility] | | | | | | [...] clinic. | | | | | | Antonio Pritchard IV, 07/01/2018 | | | 3:27:42 PM This report has been signed electronically. Note | | | Initiated On: 07/01/2018 2:48 PM Number of Addenda: 0 | | | [facility] | | + [...] + + | Historically converted procedure from [facility] environment | EXTERNAL LAB | | [facility] | | | | | | [...] 07/01/2018 2:20 PM Number of Addenda: 0 [facility] | | | [place] [facility] | | + + [...]
--- OUTSIDE RECORDS SUMMARY | ~2019-03-03 | XMS | Encounter Summary ---
Demographics + + + | Address | [address] | | | [place] [address] | + + + | Home Phone [...] | | | | | [place] [address] | | + + + + + Care Team Providers + +------+ + | Care Radiologist Name | Role | Phone | + +------+ + PCP | Unavailable | + +------+ + Encounter Details +--------+ + + + + | Date | Type | Department | Care Team | Description | +--------+ + + + + | 11/02/ | Emergency | [facility] | Jovanny Shaver, | Unspecified Backache | | 2007 | | MEDICAL CENTER | MD Matthieu RODRIGUEZ | | | | | EMERGENCY CENTER | [place] [address] | | | | | [address] | [phone] | | | | | [place], [place] | | | | | | [address] | | | | | | [phone] | | | +--------+ + + + [...]
--- OUTSIDE RECORDS SUMMARY | ~2019-03-03 | XMS | Encounter Summary ---
Demographics + + + | Address | [address] | | | [place] [address] | + + + | Home Phone | | + + + | Preferred Language | Unknown | + + + | Marital Status | | + + + | Gnosticist Affiliation | 1041 | + + + | Race | Unknown | + + + | Ethnic Group | Unknown | + + + Author + + + | Author | [facility] | | | and [place] | + + + | Organization | [facility] | | | and [place] | + + + | Address | Unknown | + + + | Phone | Unavailable | + + + Support + + + + + | Name | Relationship | Address | Phone | + + + + + | Myra Ramirez | BRADY | [address] | | | | | [place] [address] | | + + + + + Care Team Providers + +------+ + | Care Plate Put In Worker Name | Role | Phone | + +------+ + | No, Physician | PCP | Unavailable | + +------+ + Reason for Visit Diagnostic/Screening (Routine) +--------+--------+ + + + + | Status | Reason | Specialty | Diagnoses / | Referred By | Referred To | | | | | Procedures | Contact | Contact | +--------+--------+ + + + + | Closed | | Radiology | Diagnoses | [place], | | | | | | Tarah and | Ken Ramon, | | | | | | strain of | MD [address] | | | | | | other | [address] | | | | | | specified | [place], | | | | | | sites of | [place] [address] | | | | | | elbow and | Phone: | | | | | | forearm | [phone] | | | | | | Procedures | Fax: | | | | | | MRI Elbow | [phone] | | | | | | Right wo | | | | | | | Contrast | | | | | | | MRI Humerus | | | | | | | Right wo | | | | | | | Contrast | | | | | | | MRI Elbow | | | | | | | Right wo | | | | | | | Contrast | | | | | | | MRI Elbow | | | | | | | Right wo | | | | | | | Contrast | | | +--------+--------+ + + + + Encounter Details +--------+ + + + + | Date | Type | Department | Care Team | Description | +--------+ + + + + | 08/08/ | Hospital | [facility] | Ken [place]ino, | Sprain and strain of | | 2015 | Encounter | MED CTR MRI [address] | MD [address] | other specified | | | | [place], | [place] [address] | sites of elbow and | | | | [place] [address] | [phone] | forearm | | | | [phone] | | | +--------+ + + + [...] + +--------+ + + + | MRI ELBOW RIGHT WO | Routin | 08/08/2014 | Sprain and strain | Results for this | | CONTRAST | e | 1:35 PM | of other specified | procedure are in the | | | | PDT | sites of elbow and | results section. | | | | | forearm | | + +--------+ + + + documented in this encounter Results MRI Elbow Right wo Contrast (08/08/2014 1:35 PM PDT) + + | Specimen | + + | | + + + + + | Narrative | Performed At | + + + | MRI ELBOW RIGHT WO CONTRAST 08/08/2014 12:57 PM HISTORY: Sprain | [facility] | | and strain of other specified sites of elbow and forearm. | | | COMPARISON: None. PROTOCOL: Axial proton density fat sat, axial | | | proton density, coronal proton density fat sat, coronal T1, coronal | | | STIR, sagittal proton density fat sat. FINDINGS: At the indicated | | | marker site of pain in the anterior elbow joint, no acute findings | | | are seen. The distal biceps, brachialis, and triceps tendons are | | | normal with normal attachment. The radial collateral ligament, | | | ulnar collateral ligament, and lateral ulnar collateral ligament are | | | intact. The annular ligament has a normal appearance. Articular | | | cartilages are normal. There is normal osseous signal. Joint | | | fluid is physiologic. Imaged musculature demonstrates normal | | | signal. The radial, median, and ulnar nerves are normal. | | | IMPRESSION - No evidence for internal derangement. Dictated and | | | Signed by: Lavon Tom MD Electronically signed: 08/08/2014 2:21 PM | | | | | + + + + + | Procedure Note | + + | Charles, Rad Results In - 08/08/2014 2:25 PM PDT MRI ELBOW RIGHT WO CONTRAST 08/08/2014 | | 12:57 PM HISTORY: Sprain and strain of other specified sites of elbow and | | forearm.COMPARISON: None.PROTOCOL: Axial proton density fat sat, axial proton density, | | coronal protondensity fat sat, coronal T1, coronal STIR, sagittal proton density fat | | sat.FINDINGS:At the indicated marker site of pain in the anterior elbow joint, no | | acutefindings are seen.The distal biceps, brachialis, and triceps tendons are normal | | with normalattachment.The radial collateral ligament, ulnar collateral ligament, and | | lateral ulnarcollateral ligament are intact. The annular ligament has a normal | | appearance.Articular cartilages are normal.There is normal osseous signal.Joint fluid is | | physiologic.Imaged musculature demonstrates normal signal.The radial, median, and ulnar | | nerves are normal.IMPRESSION -No evidence for internal derangement.Dictated and Signed | | by: Lavon Tom MD Electronically signed: 08/08/2014 2:21 PM | | | |The distal biceps, brachialis, and triceps tendons are normal with normal | |attachment. | | | |The radial collateral ligament, ulnar collateral ligament, and lateral ulnar | |collateral ligament are intact. The annular ligament has a normal appearance. | | | |Articular cartilages are normal. | | | |There is normal osseous signal. | | | |Joint fluid is physiologic. | | | |Imaged musculature demonstrates normal signal. | | | |The radial, median, and ulnar nerves are normal. | | | |IMPRESSION - | |No evidence for internal derangement. | | | |Dictated and Signed by: Lavon Tom MD | | Electronically signed: 08/08/2014 2:21 PM | + + + +---------+ + + | Performing | Address | City/State/Zipcode | Phone Number | | Organization | | | | + +---------+ + + | [facility] | | | | + +---------+ + + documented in this encounter Visit Diagnoses + + | Diagnosis | + + | Sprain and strain of other specified sites of elbow and forearm | + + documented in this encounter"
--- OUTSIDE RECORDS SUMMARY | ~2019-03-03 | XMS | Encounter Summary ---
Demographics + + + | Address | [address] | | | [place] [address] | + + + | Home Phone | | + + + | Preferred Language | Unknown | + + + | Marital Status | | + + + | Islam Affiliation | 1041 | + + + | Race | Unknown | + + + | Ethnic Group | Unknown | + + + Author + + + | Author | [facility] | | | and [place] | + + + | Organization | [facility] | | [...] | | | | | [place] [address] | | + + + + + Care Team Providers + +------+ + | Care Enrobing Machine Corder Name | Role | Phone | + +------+ + | Martha Sanford | PCP | | + +------+ + Encounter Details +--------+ + + + + | Date | Type | Department | Care Team | Description | +--------+ + + + + | 06/28/ | Hospital | [facility] | Conversion | | | 2019 | Encounter | [facility] | Transaction, | | | | | CLINIC [address] | Provider Unknown | | | | | [place] | [phone] | | | | | [address] | | | | | | [phone] | | | +--------+ + + + [...] 2 (two) times | | 0 | /30/20 | | | (TOPAMAX) 50 MG | daily. | | | 18 | | | tablet | | | | | | + + + +---------+ + + documented as of this encounter Plan of Treatment Not on filedocumented as of this encounter Visit Diagnoses Not on filedocumented in this encounter"
--- OUTSIDE RECORDS SUMMARY | ~2019-03-03 | XMS | Encounter Summary ---
Demographics + + + | Address | [address] | | | [place] [address] | + + + | Home Phone | | + + + | Preferred Language | Unknown | + + + | Marital Status | | + + + | Samaritan Affiliation | 1041 | + + + [...] | | | | | [place] [address] | | + + + + + Care Team Providers + +------+ + | Care Biostatistics Manager Name | Role | Phone | [...] | [place], [place] | [place] [address] | | | | | [address] | [phone] | | | | | [phone] | | | +--------+ + + + [...]
--- OUTSIDE RECORDS SUMMARY | ~2019-03-03 | XMS | Encounter Summary ---
Demographics + + + | Address | [address] | | | [place] [address] | + + + | Home Phone | | + + + | Preferred Language | Unknown | + + + | Marital Status | | + + + | Orthodox Affiliation | 1041 | + + + [...] | | | | | [place] [address] | | + + + + + Care Team Providers + +------+ + | Care Meter Setter Name | Role | Phone | + +------+ + | Martha Sanford | PCP | | + +------+ + Encounter Details +--------+ + + + + | Date | Type | Department | Care Team | Description | +--------+ + + + + | 04/17/ | Hospital | [facility] | Conversion | Back pain, | | 2018 | Encounter | CONVERSION [address] | Transaction, | unspecified back | | | [address] | Provider Unknown | location, | | | | [facility] [place] | [phone] | unspecified back | | | | [address] | (Fax) | pain laterality, | | | | [phone] | | unspecified | | | | [...]
--- OUTSIDE RECORDS SUMMARY | ~2019-03-03 | XMS | Encounter Summary ---
Demographics + + + | Address | [address] | | | [place] [address] | + + + | Home Phone | | + + + | Preferred Language | Unknown | + + + | Marital Status | | + + + | Baptism Affiliation | 1041 | + + + | Race | Unknown | + + + | Ethnic Group | Unknown | + + + Author + + + | Author | [facility] | | | and [place] | + + + | Organization | [facility] | | | [...] | | | | | [place] [address] | | + + + + + Care Team Providers + +------+ + | Care Small Products I Assembler Name | Role | Phone | + +------+ + PCP | Unavailable | + +------+ + Encounter Details +--------+ + + + + | Date | Type | Department | Care Team | Description | +--------+ + + + + | 06/18/ | Emergency | [facility] | Conversion | Cervicalgia | | 1993 | | MEDICAL CENTER | Transaction, | | | | | EMERGENCY CENTER | Provider Unknown | | | | | [address] | | | | | | [place], [place] | (Fax) | | | | | [address] | | | | | | [phone] | | | +--------+ + + + [...]
--- OUTSIDE RECORDS SUMMARY | ~2019-03-03 | XMS | Encounter Summary ---
Demographics + + + | Address | [address] | | | [place] [address] | + + + | Home Phone [...] | | | | | [place] [address] | | + + + + + Care Team Providers + +------+ + | Care Colon Therapist Name | Role | Phone | + +------+ + | Martha Sanford | PCP | | + +------+ + Reason for Visit + + + | Reason | Comments | + + + | Medication Question | | + + + Encounter Details +--------+ + + + + | Date | Type | Department | Care Team | Description | +--------+ + + + + | 10/07/ | Telephone | [facility] | Ken Addison MD | Medication Question | | 2016 | | GASTROENTEROLOGY | [address], [place] | | | | | [address] [place] | [address] [place], [place] | | | | | [address] [place], [place] | [address] | | | | | [address] | | | | | | [phone] | | | +--------+ + + + [...]
--- OUTSIDE RECORDS SUMMARY | ~2019-03-03 | XMS | Encounter Summary ---
Demographics + + + | Address | [address] | | | [place] [address] | + + + | Home Phone | | + + + | Preferred Language | Unknown | + + + | Marital Status | | + + + | Christian Affiliation | 1041 | + + + | Race | Unknown | + + + | Ethnic Group | Unknown | + + + Author + + + | Author | [facility] | | | and [place] | + + + | Organization | [facility] | | | [...] | | | | | [place] [address] | | + + + + + Care Team Providers + +------+ + | Care Anodize Machine Operator Name | Role | Phone [...] | | [address] | [place] [address] | Hyperreflexia | | | | [place], [place] | [phone] | | | | | [address] | | | | | | [phone] | | | +--------+ + + + [...]
--- OUTSIDE RECORDS SUMMARY | ~2019-03-03 | XMS | Encounter Summary ---
Demographics + + + | Address | [address] | | | [place] [address] | + + + | Home Phone | | + + + | Preferred Language | Unknown | + + + | Marital Status | Single | + + + | Church Affiliation | NRP | + + + | Race | White | + + + | Ethnic Group | Not or | + + + Author + + + | Author | [facility] | + + + | Organization | [facility] | + + + | Address | Unknown | + + + | Phone | Unavailable | + + + Support + + +---------+ + | Name | Relationship | Address | Phone | + + +---------+ + | Myra Ramirez | ECON | Unknown | | + + +---------+ + Care Team Providers + +------+ + | Care Snuff Container Inspector Name | Role | Phone | + +------+ + | Jovanny Che PA-C | PCP | | + +------+ + Encounter Details +--------+ + + + + | Date | Type | Department | Care Team | Description | +--------+ + + + + | 06/04/ | Outside | Neurophysiology | Warren Buenrostro | | | 2009 | Referral | EEG at [facility] [address] | MD ROBIN Herrmann | | | | Order | [address] | [facility] | | | | | Mailcode: [facility] | [address] | | | | | [address] | [address] | | | | | [place], [place] | [place] [address] | | | | | [address] | [phone] | | | | | [phone] | | | +--------+ + + + [...] | + +--------+ + + + | EEG ROUTINE | Routin | 06/01/2009 | | Results for this | | | e | | | procedure are in the | | | | | | results section. | + +--------+ + + + documented in this encounter Results EEG ROUTINE (06/01/2009) + + | Specimen | + + | | + + + + + | Narrative | Performed At | + + + | Patient Name: Yonis Davis Date of : 1975 Medical | | | Record Number: [id number] Date of Test: 06/01/2009 ROUTINE EEG | | | done at [facility]: This is a routine EEG in a 33 year old | | | man with possible epileptic seizures. Charted medications include | | | clonidine, lisinopril, amitryptaline. The background activity in | | | the awake state contains a low voltage posteriorly dominant rhythm at | | | approximately 10 Hz, with symmetric distribution. This blocks with | | | eye opening. Some low voltage Theta is integrated throughout the | | | background. There are significant muscle and movement artifacts. | | | Three minutes of hyperventilation produced no significant change. | | | Nor does intermittent photic stimulation. As the recording | | | progresses the patient becomes drowsy with some generalized | | | background slowing. However, a well developed stage two sleep | | | recording is not obtained. Clinical interpretation: essentially | | | normal awake and drowsy EEG. There were no epileptiform discharges. | | | A mild excess of Theta activity in the awake background was likely | | | related to early drowsiness. Todd Haas M.D. Dept. Of | | | Neurology | | + + + documented in this encounter Visit Diagnoses Not on filedocumented in this encounter"
--- OUTSIDE RECORDS SUMMARY | ~2019-03-03 | XMS | Encounter Summary ---
Demographics + + + | Address | [address] | | | [place] [address] | + + + | Home Phone | | + + + | Preferred Language | Unknown | + + + | Marital Status | | + + + | Hinduism Affiliation | 1041 | + + + | Race | Unknown | + + + | Ethnic Group | Unknown | + + + Author + + + | Author | [facility] | | | and [place] | + + + | Organization | [facility] | | | and [...] | | | | | [place] [address] | | + + + + + Care Team Providers + +------+ + | Care Relations Manager Name | Role | Phone | + +------+ + PCP | Unavailable | + +------+ + Encounter Details +--------+ + + + + | Date | Type | Department | Care Team | Description | +--------+ + + + + | 01/19/ | Hospital | [facility] | Conversion | Unspecified Chest | | 2006 - | Encounter | MEDICAL CENTER | Transaction, | Pain | | | | CLINICAL DECISION | Provider Unknown | | | 01/20/ | | [address] [facility] | | | | 2006 | | [place], [place] | | | | | | [address] | | | | | | [phone] | | | +--------+ + + + [...] | + + | Chest pain, unspecified | + + documented in this encounter"
--- OUTSIDE RECORDS SUMMARY | ~2019-03-03 | XMS | Encounter Summary ---
Demographics + + + | Address | [address] | | | [place] [address] | + + + | Home Phone | | + + + | Preferred Language | Unknown | + + + | Marital Status | | + + + | Confucianist Affiliation | 1041 | + + + | Race | Unknown | + + + | Ethnic Group | Unknown | + + + Author + + + | Author | [facility] | | | and [place] | + + + | Organization | [facility] | | [...] | | | | | [place] [address] | | + + + + + Care Team Providers + +------+ + | Care Chainstitch Hemmer Name | Role | Phone | + +------+ + PCP | Unavailable | + +------+ + Encounter Details +--------+ + + + + | Date | Type | Department | Care Team | Description | +--------+ + + + + | 07/06/ | Hospital | [facility] | | | | 2004 - | Encounter | MED CTR EMERGENCY | | | | | | JAGUAR Miller | | | | 07/07/ | | [place] | | | | 2004 | | [address] | | | | | | [phone] | | | +--------+ + + + [...]
--- OUTSIDE RECORDS SUMMARY | ~2019-03-03 | XMS | Encounter Summary ---
Demographics + + + | Address | [address] | | | [place] [address] | + + + | Home Phone | | + + + | Preferred Language | Unknown | + + + | Marital Status | Single | + + + | Taoism Affiliation | NRP | + + + | Race | White | + + + | Ethnic Group | Not or | + + + Author + + + | Author | [facility] | + + + | Organization | [facility] | + + + | Address | Unknown | + + + | Phone | Unavailable | + + + Support + + +---------+ + | Name | Relationship | Address | Phone | + + +---------+ + | Myra Ramirez | ECON | Unknown | | + + +---------+ + Care Team Providers + +------+ + | Care Armoured Corps Officer Name | Role | Phone | + +------+ + | Jovanny Che PA-C | PCP | | + +------+ + Encounter Details +--------+ + + + + | Date | Type | Department | Care Team | Description | +--------+ + + + + | 11/03/ | Hospital | Radiology/Imaging | Muriel Menon, | | | 2017 | Encounter | Lab at [facility] [address] | [address] | | | | | Sg Suarez Mailcode: | [place], [place] | | | | | [facility] | [address] | | | | | and [place], | [phone] | | | | | | | | | | | Floor [place], [place] | | | | | | [address] | | | | | | [phone] | | | +--------+ + + + [...]
--- OUTSIDE RECORDS SUMMARY | ~2019-03-03 | XMS | Encounter Summary ---
Demographics + + + | Address | [address] | | | [place] [address] | + + + | Home Phone [...] | | | | | [place] [address] | | + + + + + Care Team Providers + +------+ + | Care Culinary Instructor Name | Role | Phone | + [...] 2016 | | GASTROENTEROLOGY | [address], [place] | | | | | [address] [place] | [address] [place], [place] | | | | | [address] [place], [place] | [address] | | | | | [address] | | | | | | [phone] | | | +--------+ + + + [...]
--- OUTSIDE RECORDS SUMMARY | ~2019-03-03 | XMS | Encounter Summary ---
Demographics + + + | Address | [address] | | | [place] [address] | + + + | Home Phone [...] | | | | | [place] [address] | | + + + + + Care Team Providers + +------+ + | Care Slice Cutting Machine Operator Helper Name | Role | Phone | + +------+ + PCP | Unavailable | + +------+ + Encounter Details +--------+ + + + + | Date | Type | Department | Care Team | Description | +--------+ + + + + | 11/07/ | Hospital | [facility] | Héctor Johnson | [facility]) | | 2004 - | Encounter | MEDICAL CENTER | MD Matthieu Neely | | | | | CLINICAL DECISION | [place] | | | 11/09/ | | [place] | [id number] | | | 2004 | | [place], [place] | | | | | | [address] | | | | | | [phone] | | | +--------+ + + + [...]
--- OUTSIDE RECORDS SUMMARY | ~2019-03-03 | XMS | Encounter Summary ---
Demographics + + + | Address | [address] | | | [place] [address] | + + + | Home Phone [...] | | | | | [place] [address] | | + + + + + Care Team Providers + +------+ + | Care Single Stroke Preformer Name | Role | Phone | + +------+ + | Martha Sanford | PCP | | + +------+ + Encounter Details +--------+ + + + + | Date | Type | Department | Care Team | Description | +--------+ + + + + | 08/26/ | Episode | [facility] [place] | Alize Schneider | | | 2017 | Changes | GASTROENTEROLOGY | L, RN | | | | | [address] | | | | | | [address] [place] | | | | | | [address] | | | | | | [phone] | | | +--------+ + + + [...]
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
--- OUTSIDE RECORDS SUMMARY | ~2019-03-03 | XMS | Encounter Summary ---
Demographics + + + | Address | [address] | | | [place] [address] | + + + | Home Phone [...] | | | | | [place] [address] | | + + + + + Care Team Providers + +------+ + | Care Lining Brusher Name | Role | Phone | + +------+ + | Martha Sanford | PCP | | + +------+ + Encounter Details +--------+ + + + + | Date | Type | Department | Care Team | Description | +--------+ + + + + | 08/23/ | Emergency | [facility] | Demian [place], | Elevated blood | | 2018 | | [facility] [place] | MD [address] | pressure reading; | | | | EMERGENCY CENTER | [place], [place] | Anxiety and | | | | [address] | [address] | depression; | | | | [place], [place] | | Depression with | | | | [address] | | suicidal ideation | | | | [phone] | | | +--------+ + + + [...] | | | | | ONLY, -COMPUTER (492), | | | | | | mapping editor Valeri Steele | | | | [...] [facility] environment | EXTERNAL LAB | + [...] at | | | | | | [facility];[address] | | | | | | Bl;[place] [address] | | | | + + + [...] | | | | | performed at [facility];[address] | | | | | | [address];[place], [place] | | | | | | [address] | | | | + + + [...] - 1.030 | EXTERNAL | | | [place] | | | LAB | | + [...] EXTERNAL | | | | performed at [facility];[address] | | LAB | | | | [address];[place] | | | | | | [address] | | | | + + + [...] EXTERNAL | | | | performed at [facility];[address] | uIU/mL | LAB | | | | [address];[place], [place] | | | | | | [address] | | | | + + + [...] | | | Alcohol | performed at [facility] | | LAB | | | | [address];[place] | | | | | | [address] | | | | + + + [...] | | EN LEVEL | performed at [facility];[address] | ug/mL | LAB | | | | [address];[place], [place] | | | | | | [address] | | | | + + + [...] | | | Lvl | performed at [facility];[address] | mg/dL | LAB | | | | [address];[place], [place] | | | | | | [address] | | | | + + + [...]
--- OUTSIDE RECORDS SUMMARY | ~2019-03-03 | XMS | Encounter Summary ---
Demographics + + + | Address | [address] | | | [place] [address] | + + + | Home Phone | | + + + | Preferred Language | Unknown | + + + | Marital Status | | + + + | Zoroastrian Affiliation | 1041 | + + + | Race | Unknown | + + + | Ethnic Group | Unknown | + + + Author + + + | Author | [facility] | | | and [place] | + + + | Organization | [facility] | | | [...] | | | | | [place] [address] | | + + + + + Care Team Providers + +------+ + | Care Hoop Machine Operator Name | Role | Phone | + +------+ + | Martha Sanford | PCP | | + +------+ + Encounter Details +--------+ + + + + | Date | Type | Department | Care Team | Description | +--------+ + + + + | 06/28/ | Hospital | [facility] MEDICAL | Conversion | | | 2019 | Encounter | C[facility] | Transaction, | | | | | CLINIC [address] | Provider Unknown | | | | | [place] | [phone] | | | | | [address] | | | | | | [phone] | | | +--------+ + + + [...]
--- OUTSIDE RECORDS SUMMARY | ~2019-03-03 | XMS | Encounter Summary ---
Demographics + + + | Address | [address] | | | [place] [address] | + + + | Home Phone | | + + + | Preferred Language | Unknown | + + + | Marital Status | Single | + + + | Hinduism Affiliation | NRP | + + + | Race | White | + + + | Ethnic Group | Not or | + + + Author + + + | Author | [facility] | + + + | Organization | [facility] | + + + | Address | Unknown | + + + | Phone | Unavailable | + + + Support + + +---------+ + | Name | Relationship | Address | Phone | + + +---------+ + | Myra Ramirez | ECON | Unknown | | + + +---------+ + Care Team Providers + +------+ + | Care Exerciser Name | Role | Phone | + [...] + + | 08/09/ | Emergency | [facility] Emergency | | | | 2014 | | Department [address] | | | | | [address] | | | | | | [facility] | | | | | | [place], [place] | | | | | | [address] | | | | | | [phone] | | | +--------+ + + + [...]
--- OUTSIDE RECORDS SUMMARY | ~2019-03-03 | XMS | Encounter Summary ---
Demographics + + + | Address | [address] | | | [place] [address] | + + + | Home Phone | | + + + | Preferred Language | Unknown | + + + | Marital Status | | + + + | Sikh Affiliation | 1041 | + + + | Race | Unknown | + + + | Ethnic Group | Unknown | + + + Author + + + | Author | [facility] | | | and [place] | + + + | Organization | [facility] | | [...] | | | | | [place] [address] | | + + + + + Care Team Providers + +------+ + | Care Assistant Director Of Security Name | Role | Phone | + [...] [place] | | | | | | [address] | | | | | | [phone] | | | +--------+ + + + [...]
--- OUTSIDE RECORDS SUMMARY | ~2019-03-03 | XMS | Encounter Summary ---
Demographics + + + | Address | [address] | | | [place] [address] | + + + | Home Phone [...] + | Author | [facility] | | | and [place] | + + + | Organization | [facility] | | | and [...] | | | | | [place] [address] | | + + + + + Care Team Providers + +------+ + | Care Portable Canteen Operator Name | Role | Phone | + +------+ + | Jovanny Che PA-C | PCP | | + +------+ + Encounter Details +--------+ + + + + | Date | Type | Department | Care Team | Description | +--------+ + + + + | 11/25/ | Hospital | [facility] | [facility] | | | 2016 | Encounter | H[facility] EM[facility]Y | [address] | | | | | CENTER [address] | | | | | [address] [place], [place] | [place] [address] | | | | | [address] | [phone] | | | | | [phone] | | | +--------+ + + + [...] +--------+ + + + | DRUGS OF ABUSE, | STAT | 11/26/2015 | | Results for this | | SCREEN, URINE | | 4:01 PM | | procedure are in the | | | | PDT | | results section. | + +--------+ + + + | XR WRIST RIGHT 3 + | Routin | 11/26/2015 | | Results for this | | VW | e | 2:27 PM | | procedure are in the | | | | PDT | | results section. | + +--------+ + + + | CT CERVICAL SPINE WO | Routin | 11/26/2015 | | Results for this | | CONTRAST | e | 2:27 PM | | procedure are in the | | | | PDT | | results section. | + +--------+ + + + | CT CHEST WO CONTRAST | Routin | 11/26/2015 | | Results for this | | | e | 2:27 PM | | procedure are in the | | | | PDT | | results section. | + +--------+ + + + | CT HEAD WO CONTRAST | Routin | 11/26/2015 | | Results for this | | | e | 2:27 PM | | procedure are in the | | | | PDT | | results section. | + +--------+ + + + documented in this encounter Results Drugs of Abuse, Screen, Urine (11/26/2015 4:01 PM PDT) + +-------+ + + + | Component | Value | Ref Range | Performed | Pathologist | | | | | At | Signature | + +-------+ + + + | THC RESULT | NEG | NEG ng/mL | EXTERNAL | | | | | | LAB | | + +-------+ + + + | Phencyclidi | NEG | NEG ng/mL | EXTERNAL | | | ne | | | LAB | | + +-------+ + + + | Cocaine | NEG | NEG ng/mL | EXTERNAL | | | | | | LAB | | + +-------+ + + + | Methampheta | NEG | NEG ng/mL | EXTERNAL | | | mine | | | LAB | | + +-------+ + + + | Opiates | NEG | NEG ng/mL | EXTERNAL | | | | | | LAB | | + +-------+ + + + | Amphetamine | NEG | NEG ng/mL | EXTERNAL | | | s | | | LAB | | + +-------+ + + + | Benzodiazep | NEG | NEG ng/mL | EXTERNAL | | | phil | | | LAB | | | Screen, | | | | | | Urine | | | | | + +-------+ + + + | TCA Scrn | NEG | NEG ng/mL | EXTERNAL | | | | | | LAB | | + +-------+ + + + | Methadone | NEG | NEG ng/mL | EXTERNAL | | | Screen, | | | LAB | | | Urine | | | | | + +-------+ + + + | Barbiturate | NEG | NEG ng/mL | EXTERNAL | | | s | | | LAB | | + +-------+ + + + | Oxycodone | NEG | NEG ng/mL | EXTERNAL | | | | | | LAB | | + +-------+ + + + | Propoxyphen | NEG | NEG ng/mL | EXTERNAL | | | e | | | LAB | | + +-------+ + + + | Buprenorphi | NEG | NEG ng/mL | EXTERNAL | | | ne | | | LAB | | + +-------+ + + + + + | Specimen | + + | | + + + +---------+ + + | Performing | Address | City/State/Zipcode | Phone Number | | Organization | | | | + +---------+ + + | EXTERNAL LAB | | | | + +---------+ + + XR Wrist Right 3 + Vw (11/26/2015 2:27 PM PDT) + + | Specimen | + + | | + + + + + | Narrative | Performed At | + + + | ORIGINAL WRIST 3 VIEW RIGHT: INDICATION: Wrist | | | trauma. COMPARISON: No comparison. REPORT: No acute bony | | | finding is identified. No distinct joint degenerative changes are | | | seen. Ulnar negative variance of 4 mm is present. No obvious | | | sclerosis of the lunate is seen. IMPRESSION: 1. No acute | | | finding. 2. Ulnar negative variance. JOB: | | | [id number] Read By: ANGELITO PARISH MD Released By: ANGELITO PARISH MD Date: 11/26/2015 19:46 | | + + + + + | Procedure Note | + + | Charles, Rad Results In - 01/14/2017 11:33 PM PST ORIGINAL WRIST 3 VIEW RIGHT: | | INDICATION:Wrist trauma. COMPARISON:No comparison. REPORT:No acute bony finding is | | identified. No distinct joint degenerative changes are seen. Ulnar negative variance | | of 4 mm is present. No obvious sclerosis of the lunate is seen. IMPRESSION:1. No | | acute finding.2. Ulnar negative variance. JOB: [id number] Read By: | | ANGELITO PARISH MD Released By: ANGELITO PARISH, MDDate: 11/26/2015 19:46 | |Wrist trauma. | | | |COMPARISON: | |No comparison. | | | |REPORT: | |No acute bony finding is identified. No distinct joint degenerative changes are seen. Uln ar negative variance of 4 mm is present. No obvious sclerosis of the lunate is seen. | | | |IMPRESSION: | |1. No acute finding. | |2. Ulnar negative variance. | | | | JOB: [id number] | | | |Read By: ANGELITO PARISH MD | | | |Released By: ANGELITO PARISH MD | |Date: 11/26/2015 19:46 | | | | | + + CT Chest wo Contrast (11/26/2015 2:27 PM PDT) + + | Specimen | + + | | + + + + + | Narrative | Performed At | + + + | ORIGINAL CT THORAX WITHOUT CONTRAST: CLINICAL | | | STATEMENT: Trauma. COMPARISON: No comparison. TECHNIQUE: | | | Axial noncontrast images are obtained through the thoracic spine. | | | Dose report: DLP 524.60 mGy-cm. REPORT: Thoracic alignment is | | | maintained. The vertebral body heights and intervertebral disk | | | spaces are maintained. No acute bony finding is identified. No | | | pneumothorax is seen. No focal infiltrate, effusion, or nodule is | | | seen. The heart size is normal. No paracardial fluid collections | | | are seen. No hilar or mediastinal adenopathy is seen. Below the | | | diaphragm the visualized liver and spleen are intact. No fluid | | | collections are seen. IMPRESSION: No acute finding identified | | | thorax. JOB: [id number] Read By: ANGELITO PARISH | | | Released By: ANGELITO PARISH MD Date: 11/26/2015 20:08 | | | | | + + + + + | Procedure Note | + + | Charles, Rad Results In - 01/14/2017 11:[address] THORAX WITHOUT | | CONTRAST: CLINICAL STATEMENT:Trauma. COMPARISON:No comparison. TECHNIQUE:Axial | | noncontrast images are obtained through the thoracic spine. Dose report: DLP 524.60 | | mGy-cm. REPORT:Thoracic alignment is maintained. The vertebral body heights and | | intervertebral disk spaces are maintained. No acute bony finding is identified. No | | pneumothorax is seen. No focal infiltrate, effusion, or nodule is seen. The heart size | | is normal. No paracardial fluid collections are seen. No hilar or mediastinal | | adenopathy is seen. Below the diaphragm the visualized liver and spleen are intact. No | | fluid collections are seen. IMPRESSION:No acute finding identified thorax. D: | | 11/26/2015 JOB: [id number] Read By: ANGELITO PARISH MD Released By: ANGELITO PARISH, | | MDDate: 11/26/2015 20:08 | |TECHNIQUE: | |Axial noncontrast images are obtained through the thoracic spine. Dose report: DLP 524.60 mGy-cm. | | | |REPORT: | |Thoracic alignment is maintained. The vertebral body heights and intervertebral disk space s are maintained. No acute bony finding is identified. No pneumothorax is seen. No focal infiltrate, effusion, or | |nodule is seen. The heart size is normal. | |No paracardial fluid collections are seen. No hilar or mediastinal adenopathy is seen. Be low the diaphragm the visualized liver and spleen are intact. No fluid collections are seen . | | | |IMPRESSION: | |No acute finding identified thorax. | | | | JOB: [id number] | | | |Read By: ANGELITO PARISH MD | | | |Released By: ANGELITO PARISH MD | |Date: 11/26/2015 20:08 | | | | | + + CT Cervical Spine wo Contrast (11/26/2015 2:27 PM PDT) + + | Specimen | + + | | + + + + + | Narrative | Performed At | + + + | ORIGINAL CT CERVICAL SPINE WITHOUT CONTRAST: | | | CLINICAL STATEMENT: Trauma. TECHNIQUE: Axial noncontrast images | | | are obtained through the cervical spine. Dose report: DLP 820.69 | | | mGy-cm. Call report to Dr. Hudson is made at 1526 hours. | | | REPORT: Cervical alignment is maintained. The Atlantoaxial | | | relationship is within normal limits. No prevertebral soft tissue | | | swelling is evident. The mastoid air cells and middle ears are | | | clear. No acute fracture, dislocation, or subluxation is seen. The | | | vertebral body heights and intervertebral disk spaces are | | | maintained. Mild endplate spurring is noted at C4-5. IMPRESSION: | | | No acute finding identified cervical spine bony structures. If | | | there is concern for soft tissue injury, MRI recommended. D: | | | 11/26/2015 JOB: [id number] Read By: ANGELITO PARISH MD | | | Released By: ANGELITO PARISH MD Date: 11/26/2015 19:45 | | + + + + + | Procedure Note | + + | Eliot Soto In - 01/14/2017 11:[address] CERVICAL SPINE | | WITHOUT CONTRAST: CLINICAL STATEMENT:Trauma. TECHNIQUE:Axial noncontrast images are | | obtained through the cervical spine. Dose report: DLP 820.69 mGy-cm. Call report to | | Dr. Hudson is made at 1526 hours. REPORT:Cervical alignment is maintained. The | | Atlantoaxial relationship is within normal limits. No prevertebral soft tissue swelling | | is evident. The mastoid air cells and middle ears are clear. No acute fracture, | | dislocation, or subluxation is seen. The vertebral body heights and intervertebral disk | | spaces are maintained. Mild endplate spurring is noted at C4-5. IMPRESSION:No acute | | finding identified cervical spine bony structures. If there is concern for soft tissue | | injury, MRI recommended. JOB: [id number] Read By: ANGELITO PARISH MD | | Released By: ANGELITO PARISH MDDate: 11/26/2015 19:45 | |REPORT: | |Cervical alignment is maintained. The Atlantoaxial relationship is within normal limits. No prevertebral soft tissue swelling is evident. The mastoid air cells and middle ears are clear. No acute fracture, dislocation, or subluxation is seen. The | |vertebral body heights and intervertebral disk spaces are maintained. Mild endplate spurri ng is noted at C4-5. | | | |IMPRESSION: | |No acute finding identified cervical spine bony structures. If there is concern for soft t issue injury, MRI recommended. | | | | JOB: [id number] | | | |Read By: ANGELITO PARISH MD | | | |Released By: ANGELITO PARISH MD | |Date: 11/26/2015 19:45 | | | | | + + CT Head wo Contrast (11/26/2015 2:27 PM PDT) + + | Specimen | + + | | + + + + + | Narrative | Performed At | + + + | ORIGINAL CT BRAIN WITHOUT CONTRAST: CLINICAL | | | STATEMENT: Trauma. COMPARISON: No comparison. TECHNIQUE: | | | Axial noncontrast images are obtained through the cervical spine. | | | Dose report: DLP 1083.11 mGy-cm. REPORT: No skull fracture is | | | seen. The mastoid air cells and middle ears are clear. The | | | paranasal sinuses demonstrate mucus retention cyst or polyp at the | | | right maxillary sinus. Mucosal thickening noted at the ethmoid air | | | cells. The orbital contents appear within normal limits as do the | | | visualized parotid glands. Intracranially, no hemorrhage, midline | | | shift, mass effect, or extraaxial fluid collection is seen. The | | | ventricles are normal in sizes and configuration. IMPRESSION: No | | | acute intracranial process identified. JOB: [id number] | | | Read By: ANGELITO PARISH MD Released By: ANGELITO PARISH, | | | Date: 11/26/2015 19:46 | | + + + + + | Procedure Note | + + | Charles, Rad Results In - 01/14/2017 11:[address] BRAIN WITHOUT | | CONTRAST: CLINICAL STATEMENT:Trauma. COMPARISON:No comparison. TECHNIQUE:Axial | | noncontrast images are obtained through the cervical spine. Dose report: DLP 1083.11 | | mGy-cm. REPORT:No skull fracture is seen. The mastoid air cells and middle ears are | | clear. The paranasal sinuses demonstrate mucus retention cyst or polyp at the right | | maxillary sinus. Mucosal thickening noted at the ethmoid air cells. The orbital | | contents appear within normal limits as do the visualized parotid glands. | | Intracranially, no hemorrhage, midline shift, mass effect, or extraaxial fluid | | collection is seen. The ventricles are normal in sizes and configuration. IMPRESSION:No | | acute intracranial process identified. JOB: [id number] Read By: ANGELITO Bach | | MD МАРИНА Released By: ANGELITO PARISH, MDDate: 11/26/2015 19:46 | | | |TECHNIQUE: | |Axial noncontrast images are obtained through the cervical spine. Dose report: DLP 1083.11 mGy-cm. | | | |REPORT: | |No skull fracture is seen. The mastoid air cells and middle ears are clear. The paranasal sinuses demonstrate mucus retention cyst or polyp at the right maxillary sinus. Mucosal th ickening noted at the ethmoid air | |cells. The orbital contents appear | |within normal limits as do the visualized parotid glands. | | | |Intracranially, no hemorrhage, midline shift, mass effect, or extraaxial fluid collection i s seen. The ventricles are normal in sizes and configuration. | | | |IMPRESSION: | |No acute intracranial process identified. | | | | JOB: [id number] | | | |Read By: ANGELITO PARISH MD | | | |Released By: ANGELITO PARISH MD | |Date: 11/26/2015 19:46 | | | | | + + documented in this encounter Visit Diagnoses Not on filedocumented in this encounter"
--- OUTSIDE RECORDS SUMMARY | ~2019-03-03 | XMS | Encounter Summary ---
Demographics + + + | Address | [address] | | | [place] [address] | + + + | Home Phone | | + + + | Preferred Language | Unknown | + + + | Marital Status | | + + + | Buddhism Affiliation | 1041 | + + + | Race | Unknown | + + + | Ethnic Group | Unknown | + + + Author + + + | Author | [facility] | | | and [place] | + + + | Organization | [facility] | | | [...] | | | | | [place] [address] | | + + + + + Care Team Providers + +------+ + | Care Fire Range Technician Name | Role | Phone | + +------+ + | Martha Sanford | PCP | | + +------+ + Encounter Details +--------+ + + + + | Date | Type | Department | Care Team | Description | +--------+ + + + + | 04/06/ | [facility] | [facility] | Angelito Valencia MD | Herniated lumbar | | 2018 | Encounter | [facility] | [address] | intervertebral disc | | | | [address] | [address]TH FLOOR | | | | | [place], [place] | [place] | | | | | [address] | [address] | | | | | [phone] | [phone] | | | | | | | [...] 04/06/171910 Date of Service: 04/06/171829 Status: Signed Field Service Technician Poultry: Mily Mclean RN (Registered Nurse) Continued from previous note. Pt ambulating halls and voiding independently. Pt dressing self with assistance from child adolescent care. D/C instructions went over with pt and child adolescent care , understanding verbalized. Angelito Hampton MD - 04/06/2017 6:13 PM PST Progress Notes by Angelito Valencia MD at 04/06/171812 Author: Angelito Valencia MD Service: Neurosurgery Author Type: Physician Filed: 04/06/171813 Date of Service: 04/06/171812 Status: Signed Field Service Technician Poultry: Angelito Valencia MD (Physician) [facility] Service: Neurological Surgery Progress Note Hospital Day: [...] preop packet and discharge papers). Call office [phone] if any questions or problems or return to [facility]. ANGELITO VALENCIA MD 04/06/2017 onversion Transact ion, Provider Unknown - 04/06/2017 6:05 PM PSTFormatting of this note might be different fr om the original. Nurse Progress Note by Mily Mclean RN at 04/06/171804 Author: Mily Mclean RN Service: Neurosurgery Author Type: Registered Nurse Filed: 04/06/171920 Date of Service: 04/06/171804 Status: Signed Field Service Technician Poultry: Mily Mclean RN (Registered Nurse) Pt states [...]
--- OUTSIDE RECORDS SUMMARY | ~2019-03-03 | XMS | Encounter Summary ---
Demographics + + + | Address | [address] | | | [place] [address] | + + + | Home Phone | | + + + | Preferred Language | Unknown | + + + | Marital Status | Single | + + + | Jehovah'S Witness Affiliation | NRP | + + + | Race | White | + + + | Ethnic Group | Not or | + + + Author + + + | Author | [facility] | + + + | Organization | [facility] | + + + | Address | Unknown | + + + | Phone | Unavailable | + + + Support + + +---------+ + | Name | Relationship | Address | Phone | + + +---------+ + | Myra Ramirez | ECON | Unknown | | + + +---------+ + Care Team Providers + +------+ + | Care Golf Caddie Name | Role | Phone | + +------+ + | Jovanny Che PA-C | PCP | | + +------+ + Encounter Details +--------+ + + + + | Date | Type | Department | Care Team | Description | +--------+ + + + + | 01/16/ | Telephone | Orthopaedic Spine | [place], | | | 2014 | | [facility] [address] | [address] | | | | | [address] | [address] | | | | | Mailcode: CH8N | [place], [place] | | | | | [facility] | [address] | | | | | and [place], | [phone] | | | | | | | | | | | Floor [place], [place] | | | | | | [address] | | | | | | [phone] | | | +--------+ + + + [...]
--- OUTSIDE RECORDS SUMMARY | ~2019-03-03 | XMS | Encounter Summary ---
Demographics + + + | Address | [address] | | | [place] [address] | + + + | Home Phone | | + + + | Preferred Language | Unknown | + + + | Marital Status | | + + + | Jewish Affiliation | 1041 | + + + [...] | | | | | [place] [address] | | + + + + + Care Team Providers + +------+ + | Care Chief Of Anesthesiology Name | Role | Phone | + +------+ + PCP | Unavailable | + +------+ + Encounter Details +--------+ + + + + | Date | Type | Department | Care Team | Description | +--------+ + + + + | 10/31/ | Emergency | [facility] | Ibrahima Reeves, | Other Convulsions | | 2007 | | MEDICAL CENTER | [address] | ([facility]) | | | | EMERGENCY CENTER | [place] | | | | | [address] [facility] [facility] | [address] | | | | | [place], [place] | | | | | | [address] | | | | | | [phone] | | | +--------+ + + + [...]
--- OUTSIDE RECORDS SUMMARY | ~2019-03-03 | XMS | Encounter Summary ---
Demographics + + + | Address | [address] | | | [place] [address] | + + + | Home Phone | | + + + | Preferred Language | Unknown | + + + | Marital Status | | + + + | Church Affiliation | 1041 | + + + | Race | Unknown | + + + | Ethnic Group | Unknown | + + + Author + + + | Author | [facility] | | | and [place] | + + + | Organization | [facility] | | | [...] | | | | | [place] [address] | | + + + + + Care Team Providers + +------+ + | Care Parts Coordinator Name | Role | Phone | + +------+ + PCP | Unavailable | + +------+ + Encounter Details +--------+ + + + + | Date | Type | Department | Care Team | Description | +--------+ + + + + | 11/17/ | Hospital | [facility] | | | | 2003 - | Encounter | [facility] EM[facility]Y | | | | | | [address] | | | | 11/18/ | | [place] | | | | 2003 | | [address] | | | | | | [phone] | | | +--------+ + + + [...]
--- OUTSIDE RECORDS SUMMARY | ~2019-03-03 | XMS | Encounter Summary ---
Demographics + + + | Address | [address] | | | [place] [address] | + + + | Home Phone [...] | | | | | [place] [address] | | + + + + + Care Team Providers + +------+ + | Care Sr Solutions Consultant Name | Role | Phone | + [...] Provider Unknown | | | | | [place], [place] | [phone] | | | | | [address] | | | | | | [phone] | | | +--------+ + + + [...]
--- OUTSIDE RECORDS SUMMARY | ~2019-03-03 | XMS | Encounter Summary ---
Demographics + + + | Address | [address] | | | [place] [address] | + + + | Home Phone | | + + + | Preferred Language | Unknown | + + + | Marital Status | | + + + | Yarsani Affiliation | 1041 | + + + [...] | | | | | [place] [address] | | + + + + + Care Team Providers + +------+ + | Care Composition Siding Worker Name | Role | Phone | + +------+ + | Jovanny Che PA-C | PCP | | + +------+ + Encounter Details +--------+ + + + + | Date | Type | Department | Care Team | Description | +--------+ + + + + | 02/15/ | Orders Only | [facility] [place] | Yam, Luis, MD | Degeneration of | | 2015 | | NEUROSURGERY [address] | lumbar | | | | [address] | [place] [address] | intervertebral disc | | | | [place] | [phone] | (Primary Dx) | | | | [address] | | | | | | [phone] | | | +--------+ + + + [...] of this encounter Plan of Treatment + +---------+--------+ + + | Name | Type | Priori | Associated Diagnoses | Order Schedule | | | | ty | | | + +---------+--------+ + + | XR Lumbar Spine 4 + | Imaging | Routin | Degeneration of | Expected: 02/25/2015 | | Vw | | e | lumbar | (Approximate), | | | | | intervertebral disc | Expires: 02/14/2016 | + +---------+--------+ + + documented as of this encounter Visit Diagnoses + + | Diagnosis | + + | Degeneration of lumbar intervertebral disc - Primary Degeneration of lumbar or | | lumbosacral intervertebral disc | + + documented in this encounter"
--- OUTSIDE RECORDS SUMMARY | ~2019-03-03 | XMS | Encounter Summary ---
Demographics + + + | Address | [address] | | | [place] [address] | + + + | Home Phone | | + + + | Preferred Language | Unknown | + + + | Marital Status | | + + + | Restoration Affiliation | 1041 | + + + | Race | Unknown | + + + | Ethnic Group | Unknown | + + + Author + + + | Author | [facility] | | | and [place] | + + + | Organization | [facility] | | | and [...] | | | | | [place] [address] | | + + + + + Care Team Providers + +------+ + | Care Joint Cutter Machine Name | Role | Phone | + +------+ + PCP | Unavailable | + +------+ + Encounter Details +--------+ + + + + | Date | Type | Department | Care Team | Description | +--------+ + + + + | 01/19/ | Hospital | [facility] | Conversion | Unspecified Chest | | 2006 - | Encounter | MEDICAL CENTER | Transaction, | Pain | | | | CLINICAL DECISION | Provider Unknown | | | 01/20/ | | [address] [facility] | | | | 2006 | | [place], [place] | | | | | | [address] | | | | | | [phone] | | | +--------+ + + + [...]
--- OUTSIDE RECORDS SUMMARY | ~2019-03-03 | XMS | Encounter Summary ---
Demographics + + + | Address | [address] | | | [place] [address] | + + + | Home Phone | | + + + | Preferred Language | Unknown | + + + | Marital Status | | + + + | Oriental Orthodox Affiliation | 1041 | + + [...] | | | | | [place] [address] | | + + + + + Care Team Providers + +------+ + | Care Black Studies Professor Name | Role | Phone | [...] | | | | | | | MI | | | | | | | ESOPHAGOGAST | | | | | | | RODUODENOSCO | | | | | | | PY TRANSORAL | | | | | | | DIAGNOSTIC | | | | | | | MI EGD | | | | | | | TRANSORAL | | | | | | | BIOPSY | | | | | | | SINGLE/MULTI | | | | | | | PLE MI | | | | | | | ANESTH,UGI | | | | | | | ENDOSCOPY | | | | | | | EGD | | | +--------+--------+ + + + + Encounter Details +--------+ + + + + | Date | Type | Department | Care Team | Description | +--------+ + + + + | 09/16/ | Hospital | [facility] | Ken Addison MD | Gastroesophageal | | 2017 | Encounter | MED CTR MP INTRA OP | [address], [place] | reflux disease with | | | | [address] | [address] [place] | esophagitis (Primary | | | | [place], [place] | [address] | Dx) | | | | [address] | | | | | | [phone] | | | +--------+ + + + [...] type | | | | | | ([facility]) (F25.9); | | | | | | [...] + + | [facility] | [address] | [place] | [phone] | | [facility] | | [address] | | | - LABORATORY | | | | + + + + + EGD (09/16/2016 11:06 AM PDT) + + | Specimen | + + | | + + + + -+ | Narrative | Performed At | + + -+ | | [facility] | | GastroenterologyPatient Name: Yonis DavisProcedure Date: 09/16/2016 | [facility] | | 11:06 AMMRN: [id number] #: [id number] of : | | | 1975Admit Type: AmbulatoryAge: Room: [place] [address]Gender: MaleNote | | | Status: FinalizedAttending MD: Ken Addison , [facility]cedure: | | | Upper GI endoscopyIndications: Esophageal reflux, | | | Follow-up of esophageal refluxProviders: Ken Addison, | | | , Kylie Zamudio RN, [facility] | | | Isabell, Project Analyst, Terry Taveras MD (Anesthesia | | | [...] | | | the anesthesiologist and the hearing aid repair technician in the endoscopy suite. | | [...] AMScope Out: 11:26:43 AM | | | [facility], [address] [place] [address] | | | [address] | | | - Resume previous diet [...] |Scope Out: 11:26:43 AM | | | [facility], [address] [place] [address] | | | [address] | | + + -+ + +---------+ [...] A DISTAL ESOPHAGEAL BIOPSY SPECIMEN SOURCE: [facility] | [place] [facility] | | ESOPHAGEAL BIOPSY CLINICAL HISTORY: [...] intestinal metaplasia or | | | dysplasia. JVR:[facility]:C2NR GROSS DESCRIPTION: Received in formalin | | | labeled "Yonis Davis" and "distal esophageal bx" on the requisition | | | are multiple eugene-jones tissue fragments measuring from <0.1-0.5 cm, | | | submitted, all into (A1). ka:DmVR:[facility] PERFORMING LABORATORY: Tissue | | | processing and slide preparation were performed by [facility], | | | [address] [place] [address], [address], [place] [address] (Pedorthist: | | | Jose Juan Gage M.D. CLIA#: [id number]). Professional interpretation | | | was performed by [facility], [facility] | | | [place], [address] [facility], [place] [address] (Medical | | | Director: Jose Juan Gage M.D.; CLIA#: [id number]). Diagnostician: | | | Jose Juan Gage [...] Diagnosis | + + | Gastroesophageal reflux disease with esophagitis - Primary | + + documented in this encounter Administered Medications + +--------+---------+------+------+------+ [...] glucose < 50, | | | Starting 09/16/16 at 0935, | | | Repeat in [...] direction of physician, Starting | | | e 09/16/16 at 0935, For 4 doses, | | | Max total dose 100 mcg., Pre-op | | + +---+ | | | + +---+ + +---------+ +---+-------+---+ | lactated ringers (LR) infusion | New Bag | 09/17/19 | | 100 | | | at 100 mL/hr, Intravenous, | | 17 9:35 | | mL/hr | | | CONTINUOUS, Starting Tu09/16/16 | | AM PDT | | | | | at 1000, Pre-op | | | | | | + +---------+ +---+-------+---+ + +---+ | | | + +---+ | lactated ringers (LR) infusion | | | at 10-100 mL/hr, Intravenous, | | | CONTINUOUS, Starting 09/16/16 | | | at 1000, TKO., Pre-op | | + +---+ | | | + +---+ | midazolam (VERSED) 1 mg/mL | | | injection 1 mg 1 mg, | | | Intravenous, PRN, Anxiety, May | | | repeat Q 5 minutes prn, Starting | | | 09/16/16 at 0935, For 2 doses, | | | May repeat once in 5min. Hold | | | anxiolytic until after anesthesia | | | and surgical consent is | | | obtained, Pre-op | | + +---+ | | | + +---+ | ondansetron (ZOFRAN) injection | | | 4 mg 4 mg, Intravenous, ONCE | | | PRN, Nausea, Starting 09/16/16 | | | at 0935, For 1 dose, Pre-op | | + +---+ | | | + +---+ documented in this encounter
--- OUTSIDE RECORDS SUMMARY | ~2019-03-03 | XMS | Encounter Summary ---
Demographics + + + | Address | [address] | | | [place] [address] | + + + | Home Phone | | + + + | Preferred Language | Unknown | + + + | Marital Status | | + + + | Zoroastrian Affiliation | 1041 | + + + | Race | Unknown | + + + | Ethnic Group | Unknown | + + + Author + + + | Author | [facility] | | | and [place] | + + + | Organization | [facility] | | | [...] | | | | | [place] [address] | | + + + + + Care Team Providers + +------+ + | Care It Infrastructure Architect Name | Role | Phone | + [...] | [address], [place] | [place] [address] | | | | | [address] | [phone] | | | | | [phone] | | | +--------+ + + + [...] Ulnar negative variance. JOB: | | | [id number] Read By: ANGELITO PARISH MD Released By: [...] | acute finding.2. Ulnar negative variance. JOB: [id number] Read By: | | ANGELITO PARISH MD [...] negative variance. | | | | JOB: [id number] | | | |Read By: ANGELITO PARISH [...] finding identified | | | thorax. JOB: [id number] Read By: ANGELITO PARISH | | | [...] identified thorax. D: | | 11/26/2015 JOB: [id number] Read By: ANGELITO PARISH MD Released By: [...] identified thorax. | | | | JOB: [id number] | | | |Read By: ANGELITO PARISH [...] recommended. D: | | | 11/26/2015 JOB: [id number] Read By: ANGELITO PARISH MD | | [...] tissue | | injury, MRI recommended. JOB: [id number] Read By: ANGELITO PARISH MD | | [...] MRI recommended. | | | | JOB: [id number] | | | |Read By: ANGELITO PARISH [...] | | acute intracranial process identified. JOB: [id number] | | | Read By: ANGELITO PARISH [...] | | acute intracranial process identified. JOB: [id number] Read By: ANGELITO Bach | | MD [...] process identified. | | | | JOB: [id number] | | | |Read By: ANGELITO PARISH MD | | | |Released By: ANGELITO PARISH MD | |Date: 11/26/2015 19:46 | | | | | + + documented in this encounter Visit Diagnoses Not on filedocumented in this encounter"
--- OUTSIDE RECORDS SUMMARY | ~2019-03-03 | XMS | Clinical Summary ---
Demographics + + + | Address | [address] | | | [place] [address] | + + + | Home Phone [...] Author + + + | Author | NON REVENUE LOCATIONS | + + + | Organization | NON REVENUE LOCATIONS | + + + | Address | Unknown | + + + | Phone | Unavailable | + + + Support + + +---------+ + | Name | Relationship | Address | Phone | + + +---------+ + | Myra Ramirez | ECON | Unknown | | + + +---------+ + Care Team Providers + +------+ + | Care Project Construction Manager Name | Role | Phone | + +------+ + | Jovanny Che PA-C | PCP | | + +------+ + Source Comments EVAN is fully live on both [facility] and [facility] Allergies + + + + + + | Active Allergy | Reactions | Severity | Noted | Comments | | | | | Date | | + + + + + + | Morphine | Rash | | 01/11/20 | | | | | | 15 | | + + + + + + | Bupropion Hcl | Seizures | | 01/11/20 | | | | | | 15 | | + + + + + + Medications + + + +---------+------+------+-------+ | Medication | Sig | Dispensed | Refills | Star | End | Statu | | | | | | t | Date | s | | | | | | Date | | | + + + +---------+------+------+-------+ | mirtazapine 30 mg | Take 60 mg by mouth | | 0 | | | Activ | | oral tablet | once daily in the | | | | | e | | | evening. | | | | | | + + + +---------+------+------+-------+ | clonazePAM 2 mg | Take 4 mg by mouth | | 0 | | | Activ | | oral tablet | once daily at | | | | | e | | | bedtime as needed. | | | | | | + + + +---------+------+------+-------+ | hydrALAZINE 25 mg | Take 25 mg by mouth | | 0 | | | Activ | | oral tablet | two times daily. | | | | | e | + + + +---------+------+------+-------+ | gabapentin 800 mg | Take 800 mg by mouth | | 0 | | | Activ | | oral tablet | two times daily. | | | | | e | + + + +---------+------+------+-------+ | LOSARTAN POTASSIUM | Take by mouth. | | 0 | | | Activ | | (LOSARTAN ORAL) | | | | | | e | + + + +---------+------+------+-------+ | HYDROmorphone 2 mg | Take 2 mg by mouth | | 0 | | | Activ | | oral tablet | every four hours as | | | | | e | | | needed for severe | | | | | | | | pain. | | | | | | + + + +---------+------+------+-------+ | oxyCODONE | | | 0 | 08/1 | | Activ | | (immediate release) | | | | 7/20 | | e | | 10 mg oral tablet | | | | 17 | | | + + + +---------+------+------+-------+ | gabapentin 300 mg | | | 0 | 08/1 | | Activ | | oral capsule | | | | 7/20 | | e | | | | | | 17 | | | + + + +---------+------+------+-------+ | losartan 50 mg | | | 0 | 08/1 | | Activ | | oral tablet | | | | 4/20 | | e | | | | | | 17 | | | + + + +---------+------+------+-------+ Active Problems Not on file Social History + +-------+ +--------+------+ | Tobacco [...] | + + + + + | Influenza (Flu) | | 12/13/2007 | | | vaccination (#1) | 9 | | | + + + + + | Pneumococcal | Aged Out | | No longer eligible | | vaccination | | | based on patient's | | | | | age to complete this | | | | | topic | + + + + + Results Not on filefrom Last 3 Months Insurance + +--------+ +--------+-------+---------+--------+ | Payer | Benefi | Subscriber | Effect | Phone | Address | Type | | | t Plan | ID | ángela | | | | | | / | | Dates | | | | | | Group | | | | | | + +--------+ +--------+-------+---------+--------+ | MACHINE CONTAINER WASHER MEDICAID | MACHINE CONTAINER WASHER | [id number] | | | | Medica | | | [place] | | 015-Pr | | | id | | | [place] | | esent | | | | + +--------+ +--------+-------+---------+--------+ | MACHINE CONTAINER WASHER MEDICAID | MACHINE CONTAINER WASHER | [id number] | | | | Medica | | | [place] | | 017-Pr | | | id | | | [place] | | esent | | | | + +--------+ +--------+-------+---------+--------+ + +--------+ +--------+ + + | Guarantor Name | Accoun | Relation to | Date | Phone | Billing Address | | | t Type | Patient | of | | | | | | | | | | + +--------+ +--------+ + + | Yonis Davis | Person | Self | [birth year] | [address] | | | al/Fam | | 1975 | [phone] | [place] | | | jyothi | | | 2 (Home) | [address] | + +--------+ +--------+ + + | Yonis Davis | Person | Self | [birth year] | [address] | | | al/Fam | | 1976 | [phone] | [place] | | | j[place]i | | | [address] ([place]) | [address] | + +--------+ +--------+ + +"
--- OUTSIDE RECORDS SUMMARY | ~2019-03-03 | XMS | Encounter Summary ---
Demographics + + + | Address | [address] | | | [place] [address] | + + + | Home Phone [...] | | | | | [place] [address] | | + + + + + Care Team Providers + +------+ + | Care Tamale Machine Feeder Name | Role | Phone | + [...] Provider Unknown | | | | | [place], [place] | [phone] | | | | | [address] | | | | | | [phone] | | | +--------+ + + + [...] MRI LUMBAR SPINE WO | Routin | 01/26/2017 | | Results for this | | CONTRAST | e | 3:21 PM | | procedure are in the | | | | PST | | results section. | + +--------+ + + + documented in this encounter Results MRI Lumbar Spine wo Contrast (01/26/2017 3:21 PM PST) + + | Specimen | + + | | + + + + + | Narrative | Performed At | + + + | This is a non-reportable procedure without a radiologist report and | | | is used for image storage only | | + + + + + | Procedure Note | + + | Eliot Soto - 10/20/2018 7:46 PM PDT This is [...]
--- OUTSIDE RECORDS SUMMARY | ~2019-03-03 | XMS | Encounter Summary ---
Demographics + + + | Address | [address] | | | [place] [address] | + + + | Home Phone | | + + + | Preferred Language | Unknown | + + + | Marital Status | Single | + + + | Samaritan Affiliation | NRP | + + + | Race | White | + + + | Ethnic Group | Not or | + + + Author + + + | Author | [facility] | + + + | Organization | [facility] | + + + | Address | Unknown | + + + | Phone | Unavailable | + + + Support + + +---------+ + | Name | Relationship | Address | Phone | + + +---------+ + | Myra Ramirez | ECON | Unknown | | + + +---------+ + Care Team Providers + +------+ + | Care Forming Machine Upkeep Mechanic Helper Name | Role | Phone | + +------+ + | Jovanny Che PA-C | PCP | | + +------+ + Encounter Details +--------+ + + + + | Date | Type | Department | Care Team | Description | +--------+ + + + + | 11/03/ | Hospital | Radiology/Imaging | Muriel Menon, | | | 2017 | Encounter | Lab at [facility] [address] | [address] | | | | | [address] Mailcode: | [place], [place] | | | | | [facility] | [address] | | | | | and [address], | [phone] | | | | | | | | | | | Floor [place], [place] | | | | | | [address] | | | | | | [phone] | | | +--------+ + + + [...]
--- OUTSIDE RECORDS SUMMARY | ~2019-03-03 | XMS | Encounter Summary ---
Demographics + + + | Address | [address] | | | [place] [address] | + + + | Home Phone | | + + + | Preferred Language | Unknown | + + + | Marital Status | Single | + + + | Bahai Affiliation | NRP | + + + | Race | White | + + + | Ethnic Group | Not or | + + + Author + + + | Author | [facility] | + + + | Organization | [facility] | + + + | Address | Unknown | + + + | Phone | Unavailable | + + + Support + + +---------+ + | Name | Relationship | Address | Phone | + + +---------+ + | Myra Ramirez | ECON | Unknown | | + + +---------+ + Care Team Providers + +------+ + | Care Jammer Hooker Name | Role | Phone | + +------+ + | Jovanny hCe PA-C | PCP | | + +------+ + Encounter Details +--------+ + + + + | Date | Type | Department | Care Team | Description | +--------+ + + + + | 06/04/ | Outside | Neurophysiology | Warren Buenrostro | | | 2009 | Referral | EEG at [facility] [address] | MD ROBIN Herrmann | | | | Order | [address] | [facility] | | | | | Mailcode: [facility] | [address] | | | | | [address] | [address] | | | | | [place], [place] | [place] [address] | | | | | [address] | [phone] | | | | | [phone] | | | +--------+ + + + [...] 1975 Medical | | | Record Number: [id number] Date of Test: 06/01/2009 ROUTINE EEG | | | done at [facility]: This is a routine EEG in a [...]
--- OUTSIDE RECORDS SUMMARY | ~2019-03-03 | XMS | Encounter Summary ---
Demographics + + + | Address | [address] | | | [place] [address] | + + + | Home Phone | | + + + | Preferred Language | Unknown | + + + | Marital Status | | + + + | Shinto Affiliation | 1041 | + + + | Race | Unknown | + + + | Ethnic Group | Unknown | + + + Author + + + | Author | [facility] | | | and [place] | + + + | Organization | [facility] | | | [...] | | | | | [place] [address] | | + + + + + Care Team Providers + +------+ + | Care Can Washer Name | Role | Phone | + [...] | | [place]gu[place] | [place] [address] | | | 2005 | | [address] | [phone] | | | | | [phone] | | | +--------+ + + + [...] chiatric symptoms. Prior to transfer here to [facility], he was having several daily events c oncerning for seizures. At 1 time he was felt to be in status epilepticus. Due to the rap idity of his seizure increase and severity, he was transferred emergently to [facility] for fu rther evaluation and treatment. HOSPITAL COURSE: The patient was admitted to the epilepsy monitoring unit for 24 hour vide o EEG telemetry. His carbamazepine, which had been started in the [facility], was disconti nued. Please see the epilepsy [...] He has agreed to seek BERNA [id number] 10/09/07 DIS IN [id number] DISCHARGE SUMMARY MD ELIGIO Spencer [facility] THIS REPORT IS CONFIDENTIAL AND NOT TO BE RELEASED WITHOUT PROPER AUTHORIZATION. [facility] counseling. Again, his attitude is quite good about this. His medications remain per his home doses which include: morphine 10 mg t.i.d. and hydrochlorothiazide 25 mg q. day. He is also on Prilosec. Followup will be with Palma Cohen [facility] and with Dr. Hedy sarmiento, his primary neurologist. Terry Dempsey MD A TWP/pmt #[id number] cc: MD Davis Corea MD Xc: Hedy Mayorga MD [address] [place] [address] Ave., [facility]. [address] [place] [address] Palma Cohen [address], [address], [place] [address] [place] [address] Tiffany Figueroa MD [address] [place] [address] Christine Elizabeth MD - Hospitalist [address] [place] [address] Digitally authenticated 10/18/07 0850 Terry Dempsey MD EVA CALLAHAN [id number] 10/09/07 DIS IN [id number] DISCHARGE SUMMARY MD ELIGIO Spencer [facility] THIS REPORT IS CONFIDENTIAL AND NOT TO BE RELEASED WITHOUT PROPER AUTHORIZATION.Electronica lly signed by Terry Dempsey MD at 10/18/2007 8:50 AM PDTdocumented in this encounter Plan of Treatment Not on filedocumented as of this encounter Visit Diagnoses Not on filedocumented in this encounter"
--- OUTSIDE RECORDS SUMMARY | ~2019-03-03 | XMS | Encounter Summary ---
Demographics + + + | Address | [address] | | | [place] [address] | + + + | Home Phone | | + + + | Preferred Language | Unknown | + + + | Marital Status | | + + + | Jew Affiliation | 1041 | + + + [...] | | | | | [place] [address] | | + + + + + Care Team Providers + +------+ + | Care Trademark Attorney Name | Role | Phone | + [...] [place] | | | | | | [address] | | | | | | [phone] | | | +--------+ + + + [...]
--- OUTSIDE RECORDS SUMMARY | ~2019-03-03 | XMS | Encounter Summary ---
Demographics + + + | Address | [address] | | | [place] [address] | + + + | Home Phone | | + + + | Preferred Language | Unknown | + + + | Marital Status | | + + + | Congregation Affiliation | 1041 | + + + | Race | Unknown | + + + | Ethnic Group | Unknown | + + + Author + + + | Author | [facility] | | | and [place] | + + + | Organization | [facility] | | | [...] | | | | | [place] [address] | | + + + + + Care Team Providers + +------+ + | Care Airframe And Power Plant Mechanic Name | Role | Phone | [...] | | | sites of | [place] [address] | | | | | | elbow and | Phone: | | | | | | forearm | [phone] | | | | | | Procedures | Fax: | | | | | | MRI Elbow | [phone] | | | | | | Right [...] + + | 08/08/ | Hospital | [facility] | Ken Paulino, | Sprain and strain of | | 2015 | Encounter | MED CTR MRI [address] | MD [address] | other specified | | | | [place] [address], | [place] [address] | sites of elbow and | | | | [place] [address] | [phone] | forearm | | | | [phone] | | | +--------+ + + + [...]
--- OUTSIDE RECORDS SUMMARY | ~2019-03-03 | XMS | Encounter Summary ---
Demographics + + + | Address | [address] | | | [place] [address] | + + + | Home Phone [...] | | | | | [place] [address] | | + + + + + Care Team Providers + +------+ + | Care Buzzsaw Operator Name | Role | Phone | [...] Provider Unknown | | | | | [place], [place] | [phone] | | | | | [address] | | | | | | [phone] | | | +--------+ + + + [...]
--- OUTSIDE RECORDS SUMMARY | ~2019-03-03 | XMS | Encounter Summary ---
Demographics + + + | Address | [address] | | | [place] [address] | + + + | Home Phone | | + + + | Preferred Language | Unknown | + + + | Marital Status | | + + + | Episcopalian Affiliation | 1041 | + + + [...] | | | | | [place] [address] | | + + + + + Care Team Providers + +------+ + | Care Assembly Machine Set Up Mechanic Name | Role | Phone | + +------+ + | No, Physician | PCP | Unavailable | + +------+ + Encounter Details +--------+ + + + + | Date | Type | Department | Care Team | Description | +--------+ + + + + | 09/05/ | Emergency | [facility] | Marquez Sim | Acute exacerbation | | 2014 | | MEDICAL CENTER | MD Dionic[address] | of chronic low back | | | | EMERGENCY CENTER | [address] [place] | pain; Incontinence | | | | [address] | [address] | | | | | [place], [place] | [phone] | | | | | [address] | | | | | | [phone] | | | +--------+ + + + [...] | Procedure Note | + + | Hcarles, Rad Conversion - 10/22/2018 1:21 AM MERARY [...] | | | Screen, | performed at [facility];888 | | | | | UA, POC | [address];[place] | | | | | | [address] | | | | + + + + + + | Barbiturate | NEGATIVEComment: | | EXTERNAL | | | s Screen, | Positive cutoff for | | LAB | | | Urine | SHAE = 200 ng/mLTesting | | | | | | performed at [facility];888 | | | | | | [address];[place] | | | | | | [address] | | | | + + + + + + | Benzodiazep | POSITIVE (A)Comment: | | EXTERNAL | | | phil | Positive cutoff for | | LAB | | | Screen, | BENZO = 200 ng/mLTesting | | | | | Urine | performed at [facility];888 | | | | | | [address];[place] | | | | | | [address] | | | | + + + + + + | Cocaine | NEGATIVEComment: | | EXTERNAL | | | | Positive cutoff for | | LAB | | | | LENNY = 300 ng/mLTesting | | | | | | performed at [facility];888 | | | | | | [address];[place] | | | | | | [address] | | | | + + + + + + | Methadone | NEGATIVEComment: | | EXTERNAL | | | | Positive cutoff for | | LAB | | | | MTD = 300 ng/mLTesting | | | | | | performed at [facility];888 | | | | | | [address];[place] | | | | | | [address] | | | | + + + + + + | Opiates | POSITIVE (A)Comment: | | EXTERNAL | | | | Positive cutoff for | | LAB | | | | OPI = 300 ng/mLTesting | | | | | | performed at [facility];[address] | | | | | | [address];[place] | | | | | | [address] | | | | + + + + + + | PCP | NEGATIVEComment: | | EXTERNAL | | | | Positive cutoff for PCP | | LAB | | | | = 25 ng/mLTesting | | | | | | performed at [facility];888 | | | | | | [address];[place] | | | | | | [address] | | | | + + + [...] | | | | | performed at [facility];888 | | | | | | [address];[place] | | | | | | [address] | | | | + + + [...]
--- OUTSIDE RECORDS SUMMARY | ~2019-03-03 | XMS | Encounter Summary ---
Demographics + + + | Address | [address] | | | [place] [address] | + + + | Home Phone | | + + + | Preferred Language | Unknown | + + + | Marital Status | | + + + | Methodist Affiliation | 1041 | + + + | Race | Unknown | + + + | Ethnic Group | Unknown | + + + Author + + + | Author | [facility] | | | and [place] | + + + | Organization | [facility] | | | [...] | | | | | [place] [address] | | + + + + + Care Team Providers + +------+ + | Care Assistant Store Manager Sales Name | Role | Phone | + +------+ + | Jovanny Che PA-C | PCP | | + +------+ + Encounter Details +--------+ + + + + | Date | Type | Department | Care Team | Description | +--------+ + + + + | 02/17/ | Emergency | [facility] | Antonio Ely DO | Constipation, | | 2016 | | MEDICAL CENTER | [address] | unspecified | | | | EMERGENCY CENTER | [place], [place] | constipation type | | | | [address] [facility] | [address] | | | | | [place], [place] | [phone] | | | | | [address] | | | | | | [phone] | | | +--------+ + + + [...] EXTERNAL | | | | performed at [facility];888 | | LAB | | | | [address];[place] | | | | | | [address] | | | | + + + + + + | Clarity | CLEARComment: Testing | | EXTERNAL | | | | performed at [facility];[address] | | LAB | | | | [address];[place] | | | | | | [address] | | | | + + + + + + | Specific | 1.021Comment: Testing | 1.002 - 1.030 | EXTERNAL | | | [place] | performed at [facility];[address] | | LAB | | | | [address];[place] | | | | | | [address] | | | | + + + + + + | Leukocyte | NEGATIVEComment: Testing | | EXTERNAL | | | Esterase, | performed at [facility];[address] | | LAB | | | Urine | [address];[place] | | | | | | [address] | | | | + + + + + + | Nitrite, | NEGATIVEComment: Testing | | EXTERNAL | | | Urine | performed at [facility];888 | | LAB | | | | [address];[place] | | | | | | [address] | | | | + + + + + + | Urobilinoge | NORMALComment: Testing | mg/dL | EXTERNAL | | | n, Urine | performed at [facility];888 | | LAB | | | | [address];[place] | | | | | | [address] | | | | + + + + + + | Protein, | NEGATIVEComment: Testing | mg/dL | EXTERNAL | | | Urine | performed at [facility];[address] | | LAB | | | | [address];[place] | | | | | | [address] | | | | + + + + + + | pH, Urine | 5.0Comment: Testing | 5.0 - 8.0 | EXTERNAL | | | | performed at [facility];888 | | LAB | | | | [address];[place] | | | | | | [address] | | | | + + + + + + | Blood, | NEGATIVEComment: Testing | | EXTERNAL | | | Urine | performed at [facility];888 | | LAB | | | | [address];[place] | | | | | | [address] | | | | + + + + + + | Ketones | NEGATIVEComment: Testing | mg/dL | EXTERNAL | | | | performed at [facility];[address] | | LAB | | | | [address];[place] | | | | | | [address] | | | | + + + + + + | Bilirubin, | NEGATIVEComment: Testing | | EXTERNAL | | | Urine | performed at [facility];888 | | LAB | | | | [address];[place] | | | | | | [address] | | | | + + + + + + | Glucose, | NEGATIVEComment: Testing | mg/dL | EXTERNAL | | | Urine | performed at [facility];888 | | LAB | | | | [address];[place], [place] | | | | | | [address] | | | | + + + [...] EXTERNAL | | | | performed at [facility];888 | K/uL | LAB | | | | [address];[place] | | | | | | [address] | | | | + + + + + + | RED CELL | 4.66Comment: Testing | 4.20 - 5.70 | EXTERNAL | | | COUNT | performed at [facility];888 | M/uL | LAB | | | | [address];[place] | | | | | | [address] | | | | + + + + + + | Hgb | 14.4Comment: Testing | 13.2 - 17.0 | EXTERNAL | | | | performed at [facility];888 | g/dL | LAB | | | | [address];[place] | | | | | | [address] | | | | + + + + + + | Hematocrit, | 41.3Comment: Testing | 39.0 - 50.0 % | EXTERNAL | | | POC | performed at [facility];[address] | | LAB | | | | [address];[place] | | | | | | [address] | | | | + + + + + + | MCV | 88.6Comment: Testing | 80.0 - 100.0 fl | EXTERNAL | | | | performed at [facility];[address] | | LAB | | | | [address];[place] | | | | | | [address] | | | | + + + + + + | MCH | 31.0Comment: Testing | 27.0 - 34.0 pg | EXTERNAL | | | | performed at [facility];[address] | | LAB | | | | [address];[place] | | | | | | [address] | | | | + + + + + + | MCHC | 35.0Comment: Testing | 32.0 - 35.5 | EXTERNAL | | | | performed at [facility];888 | g/dL | LAB | | | | [address];[place] | | | | | | [address] | | | | + + + + + + | RDW-CV | 39.4Comment: Testing | 37 - 53 fl | EXTERNAL | | | | performed at [facility];[address] | | LAB | | | | [address];[place] | | | | | | [address] | | | | + + + + + + | Platelet | 302Comment: Testing | 150 - 400 K/uL | EXTERNAL | | | Count | performed at [facility];888 | | LAB | | | Plasma | [address];[place] | | | | | | [address] | | | | + + + + + + | MPV | 7.6Comment: Testing | fl | EXTERNAL | | | | performed at [facility];[address] | | LAB | | | | [address];[place] | | | | | | [address] | | | | + + + + + + | Differentia | AUTOMATEDComment: | | EXTERNAL | | | l Type | Testing performed at | | LAB | | | | [facility];[address];[place] [address] | | | | + + + + + + | % Segmented | 53.37Comment: Testing | % | EXTERNAL | | | | performed at [facility];[address] | | LAB | | | Neutrophils | [address];[place] | | | | | | [address] | | | | + + + + + + | % | 25.30Comment: Testing | % | EXTERNAL | | | Lymphocytes | performed at [facility];[address] | | LAB | | | | [address];[place] | | | | | | [address] | | | | + + + + + + | % Monocytes | 6.89Comment: Testing | % | EXTERNAL | | | | performed at [facility];[address] | | LAB | | | | [address];[place] | | | | | | [address] | | | | + + + + + + | % | 13.16Comment: Testing | % | EXTERNAL | | | Eosinophils | performed at [facility];[address] | | LAB | | | | [address];[place] | | | | | | [address] | | | | + + + + + + | % Basophils | 1.28Comment: Testing | % | EXTERNAL | | | | performed at [facility];[address] | | LAB | | | | [address];[place] | | | | | | [address] | | | | + + + + + + | Absolute | 5.52Comment: Testing | 1.90 - 7.40 | EXTERNAL | | | Segmented | performed at [facility];888 | K/uL | LAB | | | Neutrophils | [address];[place] | | | | | | [address] | | | | + + + + + + | Absolute | 2.62Comment: Testing | 1.00 - 3.90 | EXTERNAL | | | Lymphocytes | performed at [facility];888 | K/uL | LAB | | | | [address];[place] | | | | | | [address] | | | | + + + + + + | Absolute | 0.71Comment: Testing | 0.00 - 0.80 | EXTERNAL | | | Monocytes | performed at [facility];888 | K/uL | LAB | | | | [address];[place] | | | | | | [address] | | | | + + + + + + | Absolute | 1.36 (H)Comment: Testing | 0.00 - 0.50 | EXTERNAL | | | Eosinophils | performed at [facility];888 | K/uL | LAB | | | | [address];[place] | | | | | | [address] | | | | + + + + + + | Absolute | 0.13 (H)Comment: Testing | 0.00 - 0.10 | EXTERNAL | | | Basophils | performed at [facility];888 | K/uL | LAB | | | | [address];[place], [place] | | | | | | [address] | | | | + + + [...] EXTERNAL | | | | performed at [facility] | | LAB | | | | [facility], [place] | | | | | | [address] | | | | + + + [...] EXTERNAL | | | | performed at [facility];888 | | LAB | | | | [address];[place] | | | | | | [address] | | | | + + + [...] EXTERNAL | | | | performed at [facility];888 | mmol/L | LAB | | | | [address];[place] | | | | | | [address] | | | | + + + + + + | K | 3.9Comment: SLT | 3.5 - 4.9 | EXTERNAL | | | | HEMOLYSISTesting | mmol/L | LAB | | | | performed at [facility];[address] | | | | | | [address];[place] | | | | | | [address] | | | | + + + + + + | Cl | 104Comment: Testing | 99 - 109 mmol/L | EXTERNAL | | | | performed at [facility];[address] | | LAB | | | | [address];[place] | | | | | | [address] | | | | + + + + + + | CO2 | 33 (H)Comment: Testing | 23 - 32 mmol/L | EXTERNAL | | | | performed at [facility];[address] | | LAB | | | | [address];[place] | | | | | | [address] | | | | + + + + + + | Anion Gap | 10Comment: Testing | 5 - 20 mmol/L | EXTERNAL | | | | performed at [facility];[address] | | LAB | | | | [address];[place] | | | | | | [address] | | | | + + + + + + | Glucose, | 98Comment: Testing | 65 - 99 mg/dL | EXTERNAL | | | Fasting | performed at [facility];[address] | | LAB | | | | [address];[place] | | | | | | [address] | | | | + + + + + + | BUN | 8Comment: Testing | 8 - 25 mg/dL | EXTERNAL | | | | performed at [facility];[address] | | LAB | | | | [address];[place] | | | | | | [address] | | | | + + + + + + | Creatinine | 0.90Comment: Testing | 0.70 - 1.30 | EXTERNAL | | | | performed at [facility];888 | mg/dL | LAB | | | | [address];[place] | | | | | | [address] | | | | + + + + + + | BUN/Creatin | 8Comment: Testing | | EXTERNAL | | | ine Ratio | performed at [facility];[address] | | LAB | | | | [address];[place] | | | | | | [address] | | | | + + + + + + | Calcium | 8.2 (L)Comment: Testing | 8.5 - 10.5 | EXTERNAL | | | | performed at [facility];888 | mg/dL | LAB | | | | [address];[place] | | | | | | [address] | | | | + + + + + + | Protein, | 7.3Comment: Testing | 6.3 - 8.2 g/dL | EXTERNAL | | | Total | performed at [facility];[address] | | LAB | | | | [address];[place] | | | | | | [address] | | | | + + + + + + | Albumin | 3.6Comment: Testing | 3.6 - 5.0 g/dL | EXTERNAL | | | | performed at [facility];[address] | | LAB | | | | [address];[place] | | | | | | [address] | | | | + + + + + + | Globulin | 3.7Comment: Testing | 1.3 - 4.9 g/dL | EXTERNAL | | | | performed at [facility];888 | | LAB | | | | [address];[place] | | | | | | [address] | | | | + + + + + + | A/G Ratio | 1.0Comment: Testing | 1.0 - 2.4 | EXTERNAL | | | | performed at [facility];[address] | | LAB | | | | [address];[place] | | | | | | [address] | | | | + + + + + + | Bilirubin | 0.3Comment: Testing | 0.1 - 1.5 mg/dL | EXTERNAL | | | Total | performed at [facility];[address] | | LAB | | | | [address];[place] | | | | | | [address] | | | | + + + + + + | ALP, | 98Comment: Testing | 35 - 115 U/L | EXTERNAL | | | External | performed at [facility];[address] | | LAB | | | | [address];[place] | | | | | | [address] | | | | + + + + + + | AST | 21Comment: SLT | 10 - 45 U/L | EXTERNAL | | | | HEMOLYSISTesting | | LAB | | | | performed at [facility];[address] | | | | | | [address];[place] | | | | | | [address] | | | | + + + + + + | ALT | 34Comment: Testing | 10 - 65 U/L | EXTERNAL | | | | performed at [facility];888 | | LAB | | | | [facility];[place], [place] | | | | | | [address] | | | | + + + [...] | | | | | | at [facility];[address] [place] [address] | | | | | | Blvd;[place] [address] | | | | + + + [...]
--- OUTSIDE RECORDS SUMMARY | ~2019-03-03 | XMS | Encounter Summary ---
Demographics + + + | Address | [address] | | | [place] [address] | + + + | Home Phone [...] | | | | | [place] [address] | | + + + + + Care Team Providers + +------+ + | Care Vice President Media Relations Name | Role | Phone | + [...] | | | | | | UT | | | | | | | ESOPHAGOGAST | | | | | | | RODUODENOSCO | | | | | | | PY TRANSORAL | | | | | | | DIAGNOSTIC | | | | | | | UT EGD | | | | | | | TRANSORAL | | | | | | | BIOPSY | | | | | | | SINGLE/MULTI | | | | | | | PLE UT | | | | | | | ANESTH,UGI | | | | | | | ENDOSCOPY | | | | | | | EGD | | | +--------+--------+ + + + + Encounter Details +--------+ + + + + | Date | Type | Department | Care Team | Description | +--------+ + + + + | 09/16/ | Hospital | [facility] | Ken Addison MD | Gastroesophageal | | 2017 | Encounter | MED CTR MP INTRA OP | [address], [place] | reflux disease with | | | | [address] | [address] [place] | esophagitis (Primary | | | | [place], [place] | [address] | Dx) | | | | [address] | | | | | | [phone] | | | +--------+ + + + [...] type | | | | | | ([facility]) (F25.9); | | | | [...] [address] | [place] | [phone] | | [facility] | | [address] | | | - LABORATORY | | | | + + + + + EGD (09/16/2016 11:06 AM PDT) + + | Specimen | + + | | + + + + -+ | Narrative | Performed At | + + -+ | | [facility] | | GastroenterologyPatient Name: Yonis DavisProcedure Date: 09/16/2016 | [facility]ATION | | 11:06 AMMRN: [id number] #: [id number] of : | | | 1975Admit Type: AmbulatoryAge: Room: [place] [address]Gender: MaleNote | | | Status: FinalizedAttending MD: Ken Addison , [facility]cedure: | | | Upper GI endoscopyIndications: Esophageal reflux, | | | Follow-up of esophageal refluxProviders: Ken Addison, | | | , Kylie Zamudio RN, [facility] | | | Isabell, Painter Helper, Terry Taveras MD (Anesthesia | | | [...] | | | the anesthesiologist and the fleet technician in the endoscopy suite. | | [...] AMScope Out: 11:26:43 AM | | | [facility], [address] [place] [address] | | | [address] | | | - Resume previous diet [...] |Scope Out: 11:26:43 AM | | | [facility], [address] [place] [address] | | | [id number] | | + + -+ + +---------+ [...] A DISTAL ESOPHAGEAL BIOPSY SPECIMEN SOURCE: A. [facility] | [place] [facility] | | ESOPHAGEAL BIOPSY CLINICAL HISTORY: [...] intestinal metaplasia or | | | dysplasia. JVR:[place]:C2NR GROSS DESCRIPTION: Received in formalin | | | labeled "Yonis Davis" and "distal esophageal bx" on the requisition | | | are multiple eugene-jones tissue fragments measuring from <0.1-0.5 cm, | | | submitted, all into (A1). ka:DmVR:[place] PERFORMING LABORATORY: Tissue | | | processing and slide preparation were performed by [facility], | | | [address] [place] [address], [address], [place] [address] (Freight And Passenger Agent: | | | Jose Juan Gage M.D. CLIA#: [id number]). Professional interpretation | | | was performed by [facility], [facility] | | | [place], [address], [place] [address] (Medical | | | Director: Jose Juan Gage M.D.; CLIA#: [id number]). Diagnostician: | | | Jose Juan Gage [...]
--- OUTSIDE RECORDS SUMMARY | ~2019-03-03 | XMS | Encounter Summary ---
Demographics + + + | Address | [address] | | | [place] [address] | + + + | Home Phone [...] | | | | | [place] [address] | | + + + + + Care Team Providers + +------+ + | Care Ct Scan Tech Name | Role | Phone | + +------+ + PCP | Unavailable | + +------+ + Encounter Details +--------+ + + + + | Date | Type | Department | Care Team | Description | +--------+ + + + + | 07/06/ | Hospital | [facility] | | | | 2004 - | Encounter | [facility] | | | | | | JAGU[facility] Miller | | | | 07/07/ | | [place] | | | | 2004 | | [id number] | | | | | | [phone] | | | +--------+ + + + [...]
--- OUTSIDE RECORDS SUMMARY | ~2019-03-03 | XMS | Encounter Summary ---
Demographics + + + | Address | [address] | | | [place] [address] | + + + | Home Phone [...] | | | | | [place] [address] | | + + + + + Care Team Providers + +------+ + | Care Community Program Assistant Name | Role | Phone | + +------+ + | Martha Sanford | PCP | | + +------+ + Encounter Details +--------+ + + + + | Date | Type | Department | Care Team | Description | +--------+ + + + + | 07/28/ | Hospital | [facility] | Dany Justin | Chest pain, | | 2017 - | Encounter | [facility] MD Matthieu Greenberg | unspecified type | | | | CLINICAL DECISION | [address] [place] | | | 07/29/ | | [address] [address] | [address] | | | 2017 | | [place] | | | | | | [address] | | | | | | [phone] | | | +--------+ + + + [...] documented as of this encounter Discharge Summaries Samnatha Hinkle MD - 07/29/2016 12:14 PM PDT Discharge Summaries by Samantha Hinkle MD at 07/29/16 1214 Author: Samantha Hinkle MD Service: Hospitalist Author Type: Physician Filed: 07/29/16 1217 Date of Service: 07/29/161213 Status: Signed Log Manager: Samantha Hinkle MD (Physician) [facility] Service: Hospitalist Discharge Summary Date of [...] other data, potentially affecting final categorization. 1. [place] [employer] and [place] [employer] Scientific Statement. Circulation (2008); 118: p 7531-2086 Electroni lizbeth signed by Jad Marvin MD [...] Follow up: Jovanny Che PA-C [address] [place] [address] Schedule an appointment as soon [...] Note by Arlette Hunt RN at 07/29/16 3788 Author: Arlette Hunt RN Service: (none) Author Type: Registered Nurse Filed: 07/29/16 1242 Date of Service: 07/29/161 Status: Signed Log Manager: Arlette Hunt RN (Registered Nurse) Patient given AVS. Verbalizes understanding and is agreeable; states no further questions at this time. Decline wheelchair ride out to private vehicle. onver alfredo Transaction, Provider Unknown - 07/28/2016 10:22 PM PDT Progress Notes by Parminder Brannon RPH at 07/28/162221 Author: Parminder Brannon RPH Service: (none) Author Type: Pharmacist Filed: 07/28/162221 Date of Service: 07/28/162221 Status: Signed Log Manager: Parminder Brannon RPH (Pharmacist) Note ccl 135.2ml/min [...] | | potentially affecting final categorization. 1. [place] [employer] | | | Association and [place] [employer] Scientific Statement. | | | Circulation (2008); 118: p 9536-1273 | | + + + + + [...] other data, potentially affecting final categorization. 1. [place] [employer] | | Association and [place] [employer] Scientific Statement. Circulation (2007); | | 118: p [id number] | |IMPRESSION: | |1. I see no [...] | |final categorization. | | | |1. [place] [employer] and [place] [employer] Scientific Statement. Cir culation (2007); 118: p [id number] | | | | | + + [...] | cm D-E Excursion: 2.50 cm E-F [place]: 0.12 m/s HR: 60.62 | | | [...] TV A Amish: 0.30 m/s TV Dec [place]: 1.30 m/s2 TV Dec | | | Time: 294.58 ms TV E Amish: 0.38 m/s TV E/A Ratio: 1.26 | | | Demurrage Agent: CM Authenticated by: KEITER Report Date/Time: | [...] not well visualized.15. Trace | | pulmonic [id number]. There is no pericardial effusion.17. The IVC [...] 92.88 mlRA Major: 5.11 cmLAAs A4C: 19.78 [id number] A-L A4C: 60.62 | | mlLALs A4C: 5.48 cmAo Diam: 3.87 cmAV Cusp: 2.69 cmD-E Excursion: 2.50 cmE-F | | [place]: 0.12 m/sHR: 60.62 BPMAV maxP.12 mmHgAV meanP.72 mmHgAV Vmax: | | 1.13 m/Olimpia Vmean: 0.78 m/Olimpia VTI: 24.68 cmAVA Vmax: 4.44 cm2AVA (VTI): 4.08 | | bq0MVWF Vmax: 0.00 cm2/m2AVAI (VTI): 0.00 cm2/m2LVCI Dopp: 2.41 l/llhy5XNRF Dopp: | | 5.78 l/minHR: 57.41 BPMLVOT [...] 2.13 m/sTV A Amish: 0.30 m/sTV Dec [place]: 1.30 | | m/s2TV Dec Time: 294.58 msTV E Amish: 0.38 m/sTV E/A Ratio: 1.26 Demurrage Agent: | | CMAuthenticated by: Birgit Date/Time: 07-29-2016 [...] valve was not well visualized.15. Trace pulmonic mukxhvfsinshy82. There is no | | pericardial effusion.17. [...] | |D-E Excursion: 2.50 cm | |E-F [place]: 0.12 m/s | |HR: 60.62 BPM | [...] A Amish: 0.30 m/s | |TV Dec [place]: 1.30 m/s2 | |TV Dec Time: 294.58 ms | |TV E Amish: 0.38 m/s | |TV E/A Ratio: 1.26 | | | |Demurrage Agent: CM | |Authenticated by: LEE | |Report [...] + | Historically converted procedure from [facility] | EXTERNAL LAB | + + [...] | | | Basophils | performed at [facility], [address] | [address] | LAB | | | | [address], | | | | | | [place] [address] | | | | + + + [...] EXTERNAL | | | | performed at [facility], [address] | | LAB | | | | [address], | | | | | | [place] [address] | | | | + + + [...] EXTERNAL | | | | performed at [facility], [address] | | LAB | | | | [address], | | | | | | [place] [address] | | | | + + + [...] | | | | | | at [facility], [address] | | | | | | [address], | | | | | | [place] [address] | | | | + + + [...] | | | | | | ACUTE [place] Testing | | | | | | performed at [facility];[address] | | | | | | [facility];[place], [place] | | | | | | [address] | | | | + + + [...] | | | | | | ACUTE [place] Testing | | | | | | performed at [facility];[address] | | | | | | [facility];[place], [place] | | | | | | [address] | | | | + + + [...] at | | | | | | [facility];[address] [place] [address] | | | | | | Blvd;[place] [address] | | | | + + + [...] EXTERNAL | | | | performed at [facility] | | LAB | | | | [facility];[place], [place] | | | | | | [address] | | | | + + + [...] | | | | | performed at [facility];[address] | | | | | | [facility];[place], [place] | | | | | | [address] | | | | + + + [...] - 1.030 | EXTERNAL | | | [place] | | | LAB | | + [...] | | | Urine | performed at [facility] | | LAB | | | | [address];[place] | | | | | | [address] | | | | + + + [...] (500), | | | | | | slot editor Elmer Griffith | | | | | | [place] (123) on 07/29/2016 | | | | | | 2:21:15 AM | | | | + + + + + + + + | Specimen | + + | | + + + + + | Narrative | Performed At | + + + | Historically converted procedure from [facility] Epic environment | EXTERNAL LAB | + [...]
--- OUTSIDE RECORDS SUMMARY | ~2019-03-03 | XMS | Encounter Summary ---
Demographics + + + | Address | [address] | | | [place] [address] | + + + | Home Phone | | + + + | Preferred Language | Unknown | + + + | Marital Status | | + + + | Judaism Affiliation | 1041 | + + + | Race | Unknown | + + + | Ethnic Group | Unknown | + + + Author + + + | Author | [facility] | | | and [place] | + + + | Organization | [facility] | | | [...] | | | | | [place] [address] | | + + + + + Care Team Providers + +------+ + | Care Electronic Engineering Technician Name | Role | Phone | [...] | | [address] | [place] [address] | intervertebral disc | | | | [place] | [phone] | (Primary Dx) | | | | [address] | | | | | | [phone] | | | +--------+ + + + [...]
--- OUTSIDE RECORDS SUMMARY | ~2019-03-03 | XMS | Encounter Summary ---
Demographics + + + | Address | [address] | | | [place] [address] | + + + | Home Phone [...] + + | Author | [facility] | | | and [place] | + + + | Organization | [facility] | | [...] | | | | | [place] [address] | | + + + + + Care Team Providers + +------+ + | Care Research Technologist Name | Role | Phone | + +------+ + | Martha Sanford | PCP | | + +------+ + Encounter Details +--------+ + + + + | Date | Type | Department | Care Team | Description | +--------+ + + + + | 06/29/ | Hospital | [facility] | Conversion | | | 2019 | Encounter | [facility] | Transaction, | | | | | CLIN[address] | Provider Unknown | | | | | [place] | [phone] | | | | | [address] | | | | | | [phone] | | | +--------+ + + + [...]
--- OUTSIDE RECORDS SUMMARY | ~2019-03-03 | XMS | Encounter Summary ---
Demographics + + + | Address | [address] | | | [place] [address] | + + + | Home Phone | | + + + | Preferred Language | Unknown | + + + | Marital Status | | + + + | Bahai Affiliation | 1041 | + + + | Race | Unknown | + + + | Ethnic Group | Unknown | + + + Author + + + | Author | [facility] | | | and [place] | + + + | Organization | [facility] | | | and [...] | | | | | [place] [address] | | + + + + + Care Team Providers + +------+ + | Care Machinist Instructor Name | Role | Phone | [...] | | | | | extremities | [place], | [address] | | | | | | [place] [address] | [address] | | | | | Hyperreflexi | Phone: | [place] | | | | | a | [phone] | [address] | | | | | Procedures | Fax: | Phone: | | | | | MRI Thoracic | [phone] | [phone] | | | | | Spine wo | | Fax: | | | | | Contrast | | [phone] | +--------+--------+ + + + + Diagnostic/Screening [...] | | | | | extremities | [place], | [address] | | | | | | [place] [address] | [address] | | | | | Hyperreflexi | Phone: | [place], [place] | | | | | a | [phone] | [address] | | | | | Procedures | Fax: | Phone: | | | | | MRI Cervical | [phone] | [phone] | | | | | Spine wo | | Fax: | | | | | Contrast | | [phone] | +--------+--------+ + + + + Reason [...] e disc | PA-C [address] | [place], [place] | | | | | disease), | [address] | [address] | | | | | lumbar | [address] | Phone: | | | | | Lumbar | [place], | [phone] | | | | | radiculopath | [place] | Fax: | | | | | y | [address] | [phone] | | | | | Intervertebr | Phone: | | | | | | al disc | [phone] | | | | | | disorders | Fax: | | | | | | with | [phone] | | | | | | radiculopath | | | | | | | y, lumbar | | | | | | | region | | | | | | | Procedures | | | | | | | CO OFFICE | | | | | | [...] | [address] | [place] [address] | (Primary Dx); Lumbar | | | | [place], [place] | [phone] | degenerative disc | | | | [address] | | disease; | | | | [phone] | | Hyperreflexia; | | | | [...] from t zahira original. Ibrahima Hubbard MD [address] [place] [address], [address] [place], [place] [address] FAX: NEUROSURGERY HISTORY AND PHYSICAL EXAMINATION CHIEF [...] has no apparent deficits with short or fpc memory. CRANIAL NERVES: II: Acuity is intact. [...] Intrinsics 5 5 Ulnar Intrinsics 5 5 Director Biomedical Engineering Strength 5 5 Hip Flexion 4- 4+ [...]
--- OUTSIDE RECORDS SUMMARY | ~2019-03-03 | XMS | Encounter Summary ---
Demographics + + + | Address | [address] | | | [place] [address] | + + + | Home Phone | | + + + | Preferred Language | Unknown | + + + | Marital Status | | + + + | Druze Affiliation | 1041 | + + + | Race | Unknown | + + + | Ethnic Group | Unknown | + + + Author + + + | Author | [facility] | | | and [place] | + + + | Organization | [facility] | | | and [...] | | | | | [place] [address] | | + + + + + Care Team Providers + +------+ + | Care Rn Complex Care Name | Role | Phone | + +------+ + | Martha Sanford | PCP | | + +------+ + Encounter Details +--------+ + + + + | Date | Type | Department | Care Team | Description | +--------+ + + + + | 07/14/ | Emergency | [facility] | Ja Ramirez MD | Acute right-sided | | 2019 | | [facility] | [address] | low back pain with | | | | EMERGENCY CENTER | [place] [address] | right-sided sciatica | | | | [address] | [phone] | | | | | [place], [place] | | | | | | [address] | | | | | | [phone] | | | +--------+ + + + [...] + + + | Blood Pressure | 117/69 | 07/14/2018 10:22 PM | | | | | PDT | | + + + + + | Pulse | 72 | 07/14/2018 10:22 PM | | | [...] + + + + | Weight | 118.4 kg (261 lb 0.3 | 07/14/2018 10:22 PM | | | | oz) | PDT | | + + + + + | Height | - | - | | + + + + + | Body Mass Index | 35.4 | 07/01/2018 3:46 PM | | | [...] + + + +---------+ + + | | Take 1 tablet by | | 0 | /10/26 | | | oxyCODONE-acetaminop | mouth every 6 (six) | | | 19 | | | hen (PERCOCET) 5-325 | hours as needed for | | | | | | mg per tablet | Pain. | | | | | + + [...] 2 (two) times | | 0 | 08/06/19 | | | (TOPAMAX) 50 MG | [...] MRI LUMBAR SPINE WO | Routin | 07/14/2018 | | Results for this | | CONTRAST | e | 9:08 PM | | procedure are in the | | | | PDT | | results section. | + +--------+ + + + | URINALYSIS, REFLEX | Routin | 07/14/2018 | | Results for this | | MICROSCOPIC AND/OR | e | 7:20 PM | | procedure are in the | | CULTURE | | PDT | | results section. | + +--------+ + + + | EXTERNAL LAB: CBC | Routin | 07/14/2018 | | Results for this | | | e | 7:00 PM | | procedure are in the | | | | PDT | | results section. | + +--------+ + + + | COMPREHENSIVE | Routin | 07/14/2018 | | Results for this | | METABOLIC PANEL | e | 7:00 PM | | procedure are in the | | | | PDT | | results section. | + +--------+ + + + documented in this encounter Results MRI Lumbar Spine wo Contrast (07/14/2018 9:08 PM PDT) + + | Specimen | + + | | + + + + + | Impressions | Performed At | + + + | 1. Postsurgical changes are noted from right hemilaminotomy at L4-5. | | | 2. A right paracentral disc extrusion is similar to prior study. 3. | | | Potential impingement of the bilateral L5 nerve root as above. | | | Signed by: Tyrone Dalal Richard Sign Date/Time: 07/14/2018 9:22 PM | | + + + + + + | Narrative | Performed At | + + + | MRI LUMBAR SPINE WITHOUT CONTRAST CLINICAL INFORMATION: Back pain | | | - previous surgery now loss of bowel control worsening pain | | | COMPARISON: XR LUMBAR SPINE LIMITED 2-3 VIEW (07/07/2018); MRI LUMBAR | | | SPINE W WO CONTRAST (08/07/2017); CT LUMBAR SPINE WO CONTRAST | | | (04/09/2017); PROCEDURE: Sagittal T2, axial T2, sagittal T1, axial T1, | | | sagittal STIR sequences. FINDINGS: Alignment: There are 5 | | | giu-oar-xbuyszu lumbar vertebral type bodies. Straightening of the | | | lumbar lordosis is noted, similar to prior study. Disc desiccation is | | | most notable at L4-5 and L5-S1, unchanged. No subluxation is | | | present. Mild discogenic edema is present at L4-5, slightly more | | | pronounced than on previous exam. There is moderate disc space | | | narrowing at L4-5 and L5-S1, unchanged. Vertebrae and vertebral | | | marrow signal: No acute fracture. Conus and imaged portions of the | | | caudal cord: Normal. Lumbar disc levels: L1-2: Broad-based disc | | | protrusion contributes to minimal spinal stenosis. The neural | | | foramen are patent, unchanged. L2-3: A mild circumferential disc is | | | noted with mild bilateral facet hypertrophy. Minimal spinal canal | | | and bilateral subarticular recess stenosis is noted. The neural | | | foramen are minimally stenotic bilaterally, unchanged. L3-4: There | | | is a mild circumferential disc with mild bilateral facet arthropathy. | | | There is minimal spinal canal and bilateral subarticular recess | | | stenosis. The neural foramen are patent. This is unchanged. L4-5: | | | Motion artifact is noted at this level. Postoperative changes are | | | seen from a right hemilaminotomy. A moderate circumferential disc | | | is noted at this level. A right paracentral focal disc extrusion is | | | present measuring approximately 12 x 6 mm, similar to prior study. | | | There is moderate spinal stenosis with mild left and severe right | | | subarticular recess narrowing. There appears to be some mass effect | | | on the transiting right L5 nerve root. The neural foramen are | | | mildly narrowed bilaterally. L5-S1: Annular fissuring of the disc is | | | noted at this level. A mild circumferential disc is present. | | | Left lateral osteophyte beyond the neural foramen may contact the | | | exiting left L5 nerve root beyond the neural foramen. No | | | significant spinal canal or subarticular recess narrowing is present. | | | The neural foramen are widely patent bilaterally. Paraspinal | | | musculature and paravertebral soft tissues: Mild edema is seen along | | | the lower right paraspinous musculature. No hydronephrosis is | | | present. The kidneys have a normal reniform contour. | | + + + + + | Procedure Note | + + | Charles, Rad Conversion - 10/19/2018 6:11 PM PDT MRI LUMBAR SPINE WITHOUT CONTRAST | | CLINICAL INFORMATION: | | Back pain - previous surgery now loss of bowel control worsening pain | | COMPARISON: | | XR LUMBAR SPINE LIMITED 2-3 VIEW (07/07/2018); MRI LUMBAR SPINE W WO | | CONTRAST (08/07/2017); CT LUMBAR SPINE WO CONTRAST (04/09/2017); | | PROCEDURE: | | Sagittal T2, axial T2, sagittal T1, axial T1, sagittal STIR sequences. | | FINDINGS: | | Alignment: There are 5 gin-mqu-mxaswtz lumbar vertebral type bodies. | | Straightening of the lumbar lordosis is noted, similar to prior study. | | Disc desiccation is most notable at L4-5 and L5-S1, unchanged. No | | subluxation is present. Mild discogenic edema is present at L4-5, | | slightly more pronounced than on previous exam. There is moderate disc | | space narrowing at L4-5 and L5-S1, unchanged. | | Vertebrae and vertebral marrow signal: No acute fracture. | | Conus and imaged portions of the caudal cord: Normal. | | Lumbar disc levels: | | L1-2: Broad-based disc protrusion contributes to minimal spinal | | stenosis. The neural foramen are patent, unchanged. | | L2-3: A mild circumferential disc is noted with mild bilateral facet | | hypertrophy. Minimal spinal canal and bilateral subarticular recess | | stenosis is noted. The neural foramen are minimally stenotic | | bilaterally, unchanged. | | L3-4: There is a mild circumferential disc with mild bilateral facet | | arthropathy. There is minimal spinal canal and bilateral subarticular | | recess stenosis. The neural foramen are patent. This is unchanged. | | L4-5: Motion artifact is noted at this level. Postoperative changes | | are seen from a right hemilaminotomy. A moderate circumferential disc | | is noted at this level. A right paracentral focal disc extrusion is | | present measuring approximately 12 x 6 mm, similar to prior study. | | There is moderate spinal stenosis with mild left and severe right | | subarticular recess narrowing. There appears to be some mass effect on | | the transiting right L5 nerve root. The neural foramen are mildly | | narrowed bilaterally. | | L5-S1: Annular fissuring of the disc is noted at this level. A mild | | circumferential disc is present. Left lateral osteophyte beyond the | | neural foramen may contact the exiting left L5 nerve root beyond the | | neural foramen. No significant spinal canal or subarticular recess | | narrowing is present. The neural foramen are widely patent bilaterally. | | Paraspinal musculature and paravertebral soft tissues: Mild edema is | | seen along the lower right paraspinous musculature. No hydronephrosis | | is present. The kidneys have a normal reniform contour. | | IMPRESSION: | | 1. Postsurgical changes are noted from right hemilaminotomy at L4-5. | | 2. A right paracentral disc extrusion is similar to prior study. | | 3. Potential impingement of the bilateral L5 nerve root as above. | | Signed by: Tyrone Dalal Richard | | Sign Date/Time: 07/14/2018 9:22 PM | + + Urinalysis, Reflex Microscopic and/or Culture (07/14/2018 7:20 PM PDT) + + + + + + | Component | Value | Ref Range | Performed | Pathologist | | | | | At | Signature | + + + + + + | Color | YELLOW | | EXTERNAL | | | | | | LAB | | + + + + + + | Clarity | TURBID | | EXTERNAL | | | | | | LAB | | + + + + + + | Specific | 1.018 | 1.002 - 1.030 | EXTERNAL | | | Arjay | | | LAB | | + [...] + + + + | Urobilinoge | 4.0 (H) | mg/dL | EXTERNAL | | | n, Urine | | | LAB | | + + + + + + | Protein, | NEGATIVE | mg/dL | EXTERNAL | | | Urine | | | LAB | | + + + + + + | pH, Urine | 7.0 | 5.0 - 8.0 | EXTERNAL | [...] | | | Urine | performed at [facility] | | LAB | | | | [address];[place], [place] | | | | | | [address] | | | | + + + + + + + + | Specimen | + + | | + + + +---------+ + + | Performing | Address | City/State/Zipcode | Phone Number | | Organization | | | | + +---------+ + + | EXTERNAL LAB | | | | + +---------+ + + External Lab: CBC (07/14/2018 7:00 PM PDT) + + + + + + | Component | Value | Ref Range | Performed | Pathologist | | | | | At | Signature | + + + + + + | WBC | 7.64 | 3.80 - 11.00 | EXTERNAL | | | | | K/uL | LAB | | + + + + + + | RED CELL | 4.59 | 4.20 - 5.70 | EXTERNAL | | | COUNT | | M/uL | LAB | | + + + + + + | Hgb | 13.9 | 13.2 - 17.0 | EXTERNAL | | | | | g/dL | LAB | | + + + + + + | Hematocrit, | 41.2 | 39.0 - 50.0 % | EXTERNAL | | | POC | | | LAB | | + + + + + + | MCV | 89.9 | 80.0 - 100.0 fl | EXTERNAL | | | | | | LAB | | + + + + + + | MCH | 30.2 | 27.0 - 34.0 pg | EXTERNAL | | | | | | LAB | | + + + + + + | MCHC | 33.6 | 32.0 - 35.5 | EXTERNAL | | | | | g/dL | LAB | | + + + + + + | RDW-CV | 42.9 | 37 - 53 fl | EXTERNAL | | | | | | LAB | | + + + + + + | Platelet | 276 | 150 - 400 K/uL | EXTERNAL | | | Count | | | LAB | | | Plasma | | | | | + + + + + + | MPV | 7.7 | fl | EXTERNAL | | | | | | LAB | | + + + + + + | Differentia | AUTOMATED | | EXTERNAL | | | l Type | | | LAB | | + + + + + + | % Segmented | 64.98 | % | EXTERNAL | | | | | | LAB | | | Neutrophils | | | | | + + + + + + | % | 21.34 | % | EXTERNAL | | | Lymphocytes | | | LAB | | + + + + + + | % Monocytes | 8.10 | % | EXTERNAL | | | | | | LAB | | + + + + + + | % | 5.08 | % | EXTERNAL | | | Eosinophils | | | LAB | | + + + + + + | % Basophils | 0.50 | % | EXTERNAL | | | | | | LAB | | + + + + + + | Absolute | 4.96 | 1.90 - 7.40 | EXTERNAL | | | Segmented | | K/uL | LAB | | | Neutrophils | | | | | + + + + + + | Absolute | 1.63 | 1.00 - 3.90 | EXTERNAL | | | Lymphocytes | | K/uL | LAB | | + + + + + + | Absolute | 0.62 | 0.00 - 0.80 | EXTERNAL | | | Monocytes | | K/uL | LAB | | + + + + + + | Absolute | 0.39 | 0.00 - 0.50 | EXTERNAL | | | Eosinophils | | K/uL | LAB | | + + + + + + | Absolute | 0.04Comment: Testing | 0.00 - 0.10 | EXTERNAL | | | Basophils | performed at [facility];[address] | [address] | LAB | | | | [address];[place], [place] | | | | | | [address] | | | | + + + [...] + +---------+ + + Comprehensive Metabolic Panel (07/14/2018 7:00 PM PDT) + + + + + + | Component | Value | Ref Range | Performed | Pathologist | | | | | At | Signature | + + + + + + | Na | 144 | 135 - 145 | EXTERNAL | | | | | mmol/L | LAB | | + + + + + + | K | 3.8 | 3.5 - 4.9 | EXTERNAL | | | | | mmol/L | LAB | | + + + + + + | Cl | 110 (H) | 99 - 109 mmol/L | EXTERNAL [...] + + + + | Glucose, | 90 | 65 - 99 mg/dL | EXTERNAL | | | Fasting | | | LAB | | + + + + + + | BUN | 11 | 8 - 25 mg/dL | EXTERNAL | | | | | | LAB | | + + + + + + | Creatinine | 1.02 | 0.70 - 1.30 | EXTERNAL | | | | | mg/dL | LAB | | + + + + + + | BUN/Creatin | 11 | | EXTERNAL | | | ine Ratio | | | LAB | | + + + + + + | Calcium | 9.2 | 8.5 - 10.5 | EXTERNAL | | | | | mg/dL | LAB | | + + + + + + | Protein, | 6.5 | 6.3 - 8.2 g/dL | EXTERNAL | | | Total | | | LAB | | + + + + + + | Albumin | 4.4 | 3.6 - 5.0 g/dL | EXTERNAL | | | | | | LAB | | + + + + + + | Globulin | 2.1 | 1.3 - 4.9 g/dL | EXTERNAL | | | | | | LAB | | + + + + + + | A/G Ratio | 2.1 | 1.0 - 2.4 | EXTERNAL | | | | | | LAB | | + + + + + + | Bilirubin | 0.2 | 0.1 - 1.5 mg/dL | EXTERNAL | | | Total | | | LAB | | + + + + + + | ALP, | 89 | 35 - 115 U/L | EXTERNAL | | | External | | | LAB | | + + + + + + | AST | 10 | 10 - 45 U/L | EXTERNAL | | | | | | LAB | | + + + + + + | ALT | 11 | 10 - 65 U/L | EXTERNAL [...] traceable | | | | | | equation.Testing | | | | | | performed at [facility];[address] | | | | | | [address];[place], [place] | | | | | | [address] | | | | + + + [...] | Diagnosis | + + | Acute right-sided low back pain with right-sided sciatica | + + documented in this encounter"
--- OUTSIDE RECORDS SUMMARY | ~2019-03-03 | XMS | Encounter Summary ---
Demographics + + + | Address | [address] | | | [place] [address] | + + + | Home Phone | | + + + | Preferred Language | Unknown | + + + | Marital Status | | + + + | Holiness Affiliation | 1041 | + + + [...] | | | | | [place] [address] | | + + + + + Care Team Providers + +------+ + | Care Make Up Arranger Name | Role | Phone | + +------+ + | Martha Sanford | PCP | | + +------+ + Encounter Details +--------+ + + + + | Date | Type | Department | Care Team | Description | +--------+ + + + + | 10/05/ | Orders Only | [facility] | Provider, | | | 2019 | | SYSTEM GENERIC OP | MD [address]ign[address] | | | | | [address] | [address] [place] | | | | | [address] [place], [place] | [place] [address] | | | | | [address] | | | | | | [phone] | | | +--------+ + + + [...]
--- OUTSIDE RECORDS SUMMARY | ~2019-03-03 | XMS | Encounter Summary ---
Demographics + + + | Address | [address] | | | [place] [address] | + + + | Home Phone | | + + + | Preferred Language | Unknown | + + + | Marital Status | | + + + | Rastafarian Affiliation | 1041 | + + + | Race | Unknown | + + + | Ethnic Group | Unknown | + + + Author + + + | Author | [facility] | | | and [place] | + + + | Organization | [facility] | | | [...] | | | | | [place] [address] | | + + + + + Care Team Providers + +------+ + | Care Container Washer Name | Role | Phone | + +------+ + | Martha Sanford | PCP | | + +------+ + Encounter Details +--------+ + + + + | Date | Type | Department | Care Team | Description | +--------+ + + + + | 08/26/ | Hospital | [facility] | Conversion | 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 | Provider Unknown | lumbosacral region; | | | | [place], [place] | [phone] | Low back pain with | | | | [address] | (Fax) | sciatica, sciatica | | | | [phone] | | laterality | | | | [...] Conversion - 10/20/2018 7:46 PM PDT [facility] | | CONTRAST08/26/2016 [...]
--- OUTSIDE RECORDS SUMMARY | ~2019-03-03 | XMS | Clinical Summary ---
Demographics + + + | Address | [address] | | | [place] [address] | + + + | Home Phone | | + + + | Preferred Language | Unknown | + + + | Marital Status | Single | + + + | Methodist Affiliation | NRP | + + + [...] Team Providers + +------+ + | Care Customer Relations Specialist Name | Role | Phone | + +------+ + | Jovanny Che PA-C | PCP | | + +------+ + Source Comments EVAN is fully live on both [facility] and [facility] Allergies + + + + + + [...] | | | + +--------+ +--------+-------+---------+--------+ | ANESTHESIOLOGY TEACHER MEDICAID | ANESTHESIOLOGY TEACHER | [id number] | | | | Medica | | | [place] | | 015-Pr | | | id | | | [place] | | esent | | | | + +--------+ +--------+-------+---------+--------+ | ANESTHESIOLOGY TEACHER MEDICAID | ANESTHESIOLOGY TEACHER | [id number] | | | | Medica [...] Person | Self | [birth year] | [address] [address] | | | al/Fam | | 1975 | [phone] | [place] | | | jyothi | | | 2 (Home) | [address] | + +--------+ +--------+ + + | Yonis Davis | Person | Self | [birth year] | | [address] [place] | | | al/Fam | | 1976 | [phone] | [place] | | | jyothi | | | 2 ([place]) | [address] | + +--------+ +--------+ + +"
--- OUTSIDE RECORDS SUMMARY | ~2019-03-03 | XMS | Encounter Summary ---
Demographics + + + | Address | [address] | | | [place] [address] | + + + | Home Phone | | + + + | Preferred Language | Unknown | + + + | Marital Status | | + + + | Druze Affiliation | 1041 | + + + | Race | Unknown | + + + | Ethnic Group | Unknown | + + + Author + + + | Author | [facility] | | | and [place] | + + + | Organization | [facility] | | [...] | | | | | [place] [address] | | + + + + + Care Team Providers + +------+ + | Care Boring Machine Set Up Operator Name | Role | Phone | + +------+ + | No, Physician | PCP | Unavailable | + +------+ + Encounter Details +--------+ + + + + | Date | Type | Department | Care Team | Description | +--------+ + + + + | 12/07/ | Hospital | [facility] | Conversion | | | 2014 | Encounter | [facility] | Transaction, | | | | | [address] | Provider Unknown | | | | | [place], [place] | | | | | | [address] | (Fax) | | | | | [phone] | | | +--------+ + + + [...]
--- OUTSIDE RECORDS SUMMARY | ~2019-03-03 | XMS | Clinical Summary ---
Demographics + + + | Address | [address] | | | [place] [address] | + + + | Home Phone | | + + + | Preferred Language | Unknown | + + + | Marital Status | | + + + | Druze Affiliation | 1041 | + + + | Race | Unknown | + + + | Ethnic Group | Unknown | + + + Author + + + | Author | [facility] (Historical as of | | | 10-23-18) | + + + | Organization | [facility] (Historical as of | | | 10-23-18) | + + + | Address | Unknown | + + + | Phone | Unavailable | + + + Support + + + + + | Name | Relationship | Address | Phone | + + + + + | Myra Ramirez | ECON | [address] | | | | | [place] [address] | | + + + + + Care Team Providers + +------+ + | Care Tribunal Member Name | Role | Phone | + [...] Overview: Added automatically from request for surgery [id number] | + + + + + | Weight loss | 06/24/2018 | + + + + + | Overview: Added automatically from request for surgery [id number] | + + + + + | [...] - [place] | L&I - | [id number] | | | | | | [place] | | | | | | | SAIF | | | | | + +--------+ +------+-------+ + | MEDICAID | EASTER | [id number] | | | [address] | | | [place] | | | | [place] | | | [place] | | | | [address] | | | [employer]URN[employer]ER | | | | | + +--------+ [...] | 1975 | [phone] | [place] [address] | | | jyothi | | | [address] | | + +--------+ +--------+ + + | BERNA CALLAHAN | 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
--- OUTSIDE RECORDS SUMMARY | ~2019-03-03 | XMS | Encounter Summary ---
Demographics + + + | Address | [address] | | | [place] [address] | + + + | Home Phone [...] | | | | | [place] [address] | | + + + + + Care Team Providers + +------+ + | Care Soup Mixer Name | Role | Phone | + +------+ + | Martha Sanford | PCP | | + +------+ + Encounter Details +--------+ + + + + | Date | Type | Department | Care Team | Description | +--------+ + + + + | 07/14/ | Emergency | [facility] | Ja Ramirez MD | Acute right-sided | | 2019 | | [facility] | [address] | low back pain with | | | | EMERGENCY CENTER | [place] [address] | right-sided sciatica | | | | [address] | [phone] | | | | | [place], [place] | | | | | | [address] | | | | | | [phone] | | | +--------+ + + + [...] Alignment: There are 5 | | | xsd-sfw-qyzomfg lumbar vertebral type bodies. Straightening of the [...] FINDINGS: | | Alignment: There are 5 wok-bap-qjregph lumbar vertebral type bodies. | | Straightening [...] - 1.030 | EXTERNAL | | | [place] | | | LAB | | + [...] | | | Urine | performed at [facility] | | LAB | | | | [address];[place], [place] | | | | | | [address] | | | | + + + [...] | | | Basophils | performed at [facility];[address] | LAB | | | | [address];[place], [place] | | | | | | [address] | | | | + + + [...] | | | | | performed at [facility];[address] | | | | | | [address];[place], [place] | | | | | | [address] | | | | + + + [...]
--- OUTSIDE RECORDS SUMMARY | ~2019-03-03 | XMS | Encounter Summary ---
Demographics + + + | Address | [address] | | | [place] [address] | + + + | Home Phone | | + + + | Preferred Language | Unknown | + + + | Marital Status | Single | + + + | Adventism Affiliation | NRP | + + + [...] Team Providers + +------+ + | Care Hvac Project Manager Name | Role | Phone | [...] | | | | y affecting | [place], [place] | | | | | | right lower | [address] | | | | | | extremity | Phone: | | | | | | Procedures | [phone] | | | | | | CONSULT TO | Fax: | | | | | | PAIN | [phone] | | | | | | MANAGEMENT [...] | | | | y affecting | [place], [place] | | | | | | right lower | [address] | | | | | | extremity | Phone: | | | | | | Procedures | [phone] | | | | | | PHYSICAL | Fax: | | | | | | THERAPY | [phone] | | | | | | REFERRAL [...] | | | | | unspecified | [address] | | | | | | back pain | [place], [place] | | | | | | laterality, | [address] | | | | | | unspecified | Phone: | | | | | | chronicity | [phone] | | | | | | Procedures | Fax: | | | | | | ACUPUNCTURE | [phone] | | | | | | - [...] | | Pain in | Martha L, PROFESSIONAL NURSE | [place], [place] | | | | | right hip | [address] | [address] | | | | | Pain in left | Street | Ave | | | | | hip Pain | [facility], [place] | [place], [place] | | | | | in thoracic | [address] | [address] | | | | | spine Other | Phone: | Phone: | | | | | | [phone] | [phone] | | | | | intervertebr | Fax: | Fax: | | | | | al disc | [phone] | [phone] | | | | | displacement | [...] | | 2017 | Visit | [facility] [address] | [place] [address] | with radiculopathy | | | | Ave Mailcode: CH12A | Ave [place], [place] | affecting right | | | | [facility] | [address] | lower extremity | | | | and Healing, | [phone] | (Primary Dx); | | | | | | Thoracic back pain, | | | | Floor [place], [place] | | unspecified back | | | | [address] | | pain laterality, | | | | [phone] | | unspecified | | | | [...] surgeries: L4/5 lami OSH. Other: hospitalized at [facility] the [facility] for low back pain, loss of sensatio n, and inability to walk about 18 months ago. Evaluated in ER at [facility]. Given referral to see Dr Jv Wayne [...] Patient would like thi s faxed to [facility] PT - Right L5 nerve root injection. He requests this to be faxed to [facility] in [facility]. - Rx for acupuncture provided today. -Pain management deferred to PCP. Reviewed our office policy on opioids. We do not manage chronic pain. We will provide refills for maximum of 6-12 weeks postoperatively. 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 [...] Bowel/bladder function changes). I spent 60 minutes [id number] with the patient. I spent more than [...] | | + +---------+ + + | [facility] | | | | | VOICE [...]
[~2019-03-03 07:54] MED LIST: HYDRALAZINE HCL25 MG PO; PROTONIX40 MG PO
--- OUTSIDE RECORDS SUMMARY | 2019-03-03 07:56 | XMS ---
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 Events No recent Security Events currently on file CRITERIA MET - [facility] [place] PDMP CARE PROVIDERS YUSEF MARTINES Physician Vision Impaired Teacher Current PHONE: [phone] MARTHA SANFORD Nurse Practitioner: Family Current PHONE: Unknown Martha Sanford Primary Care Current PHONE: [phone] ANNETTE ALBRECHT Primary Care Current PHONE: Unknown [facility] Primary [facility] Current EVELIA JACOB PHONE: Unknown Kelli Case or Book Solicitor Current [place] Con neXions PHONE: [phone] Guidelines Source: [place] [employer] [place] Guidelines Date: 07/14/2018 Care Coordination: Mental Health services with [place] [employer].\\T\\nbsp; Please contact [place] [employer] for mental health concerns.\\T\\nbsp; [facility]: [phone]\\T\\nbsp; [place]: [phone]. Additional care guidelines exist for the following facilities: [facility] ( 10/11/2018 ) Jacky VISIT COUNT (12 MO.) [address] [address] VARINDER [place] TOTAL 9 NOTE: Visits indicate total known visits. 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 TYPE: Emergency DIAGNOSES: - Lumbago with sciatica, right side - Urinary Incontinence - Back Pain - "Dr Lindsay office told me to come over for back pain" 07/13/2018 14:03 [email or web address] [place] TYPE: Emergency DIAGNOSES: - Lumbago with sciatica, unspecified side - BACK PAIN 06/07/2018 15:34 [employer] [place] TYPE: Emergency DIAGNOSES: - COUGH 05/29/2018 06:27 [facility] [place] [facility] DIAGNOSES: - NEEDS MED REFILL - Encounter for issue of repeat prescription 04/27/2018 18:22 [employer] [place] [employer] [place] TYPE: Emergency DIAGNOSES: - Unspecified convulsions - unconscious 04/27/2018 13:05 [employer] [place] TYPE: Emergency DIAGNOSES: - ABD pain - Abnormal weight loss - Diarrhea, unspecified - Vomiting, unspecified 03/29/2018 15:28 [facility] [employer] [place] TYPE: Emergency DIAGNOSES: - Acute tonsillitis, unspecified - Nondisp fx of shaft of fifth MC bone, right hand, init - NAUSEA, CONGESTION, R HAND INJURY INPATIENT VISIT TRACKING (12 MO.) No inpatient visits to display in this time frame [id number]
[2019-03-03] MEDS ORDERED: REMERON30 MG PO (08:05)
[2019-03-03] MEDS ORDERED: SEROQUEL200 MG PO (08:07)
[2019-03-03] MEDS ORDERED: TOPAMAX100 MG PO (08:09)
[2019-03-03] MEDS ORDERED: KEPPRA500 MG PO (08:09)
[2019-03-03] MEDS ORDERED: TOPROL XL25 MG PO (08:11)
[2019-03-03] MEDS ORDERED: SEROQUEL50 MG PO (08:11)
[2019-03-03] MEDS ORDERED: HYDROXYZINE HCL50 MG PO (08:13)
[2019-03-03] MEDS ORDERED: FLOMAX0.4 MG PO (11:24)
[2019-03-03] MEDS ORDERED: NORCO 7.5-3251 EACH PO (11:24)
== END 2019-03-03 11:38 | disposition home or self-care (01) ==
LOC: ED 07:54
DX: N20.1 Calculus of ureter (principal); I10 Essential (primary) hypertension; K21.9 Gastro-esophageal reflux disease without esophagitis; Z79.899 Other long term (current) drug therapy
CPT/HCPCS: 76775; 76870; 81001; 85025; 96374; 96375; 99284-25; A9270; J1885; J2405; J3010